=== PATIENT | male | born 1950 | race Caucasian/White ===

== ENCOUNTER → 2018-08-25 10:19 | Outpatient (CLI) | payer BC, SELFPAY ==
[2017-11-16 11:02] VITALS: BMI 36.6
[2018-08-25 11:19] LABS: PSA,Total - Annual Screen < 0.01 ng/mL (0.00-4.00)
== END ==
PROVIDERS: Family Provider Internal Medicine; PCP Internal Medicine; Referring Provider Urology; Visit Provider Urology
DX: Z12.5 Encounter for screening for malignant neoplasm of prostate (principal)
CPT/HCPCS: 36415; 84153; G0103

== ENCOUNTER 2019-01-01 08:13 | Emergency (ER) | payer BC, SELFPAY ==
[2018-11-21 09:01] VITALS: BMI 37.3
[2019-01-01 08:14] VITALS: BP 152/78; PULSE 78; RESP 16; TEMP 36.1; O2SAT 97; BMI 37.3
--- NOTE | 2019-01-01 08:26 | CT_ITS ---
STUDY: CTA NECK WITH CONTRAST REASON FOR EXAM: Male, 68 years old. Right facial paresthesia. RADIATION DOSAGE (If Supplied By Facility): CTDIvol = ( 36.65 ) mGy, DLP = ( 1706.20 ) mGycm TECHNIQUE: CT angiography with multi-detector data acquisition was performed from the aortic arch to the skull base following intravenous administration of 100ml IV Isovue 370. MIP images were reconstructed from the axial data set. Post-processing of the angiographic images was performed, with multiplanar reformation and 3D reconstruction. Individualized dose optimization techniques were used for this CT. COMPARISON: None. FINDINGS: AORTIC ARCH: Normal visualized aortic arch. Normal origins of the brachiocephalic, left common carotid, and left subclavian arteries. RIGHT CAROTID ARTERIES: Normal right common carotid artery (CCA). Normal right common carotid bulb. There is mild atherosclerotic plaque formation of the origin of the right internal carotid artery with less than 50% cross sectional diameter stenosis. Normal visualized cervical portion of the right internal carotid artery. Normal origin of the right external carotid artery (ECA). LEFT CAROTID ARTERIES: Normal left common carotid artery (CCA). Normal left common carotid bulb. Normal origin of the left internal carotid (ICA) artery without a hemodynamically significant stenosis. Normal visualized cervical portion of the left internal carotid artery. Normal origin of the left external carotid artery (ECA). VERTEBRAL ARTERIES: Normal bilateral vertebral arteries. CT/CTA Neck W/WO Contrast IMPRESSION: No significant calcific plaque at the origin of both the right and left internal carotid arteries. Electronically Signed: Constantin Gilliam, at 10:32 EDT , Service support ,
--- NOTE | 2019-01-01 08:26 | CT_ITS ---
STUDY: CTA OF THE BRAIN REASON FOR EXAM: Male, 68 years old. Right facial paresthesia. History of prostate cancer. RADIATION DOSAGE (If Supplied By Facility): CTDIvol = ( 36.65 ) mGy, DLP = ( 1706.20 ) mGycm TECHNIQUE: CT angiography was performed with a multi-detector CT scanner. Data acquisition was obtained from the skull base through the vertex following intravenous administration of 100ML IV Isovue 370. MIP images were reconstructed from the axial data set. Post-processing of the angiographic images was performed, with multiplanar reformation and 3D reconstruction. Individualized dose optimization techniques were used for this CT. COMPARISON: None. FINDINGS: Normal bilateral petrous carotid arteries. There is calcified plaque formation of the right cavernous carotid artery, without a cross-sectional luminal stenosis. There is calcified plaque formation of the left cavernous carotid artery, without a cross-sectional luminal stenosis. Normal right A1 segments of the anterior cerebral artery. There is non-visualization of the left A1 segment of the anterior cerebral arteries consistent with either aplastic development or an occlusion. Normal intact anterior communicating artery (ACOM). Normal bilateral A2 segments of the anterior cerebral arteries. Normal right M1 and M2 segments of the middle cerebral arteries, with a normal M1 bifurcation. Normal left M1 and M2 segments of the middle cerebral arteries, with a normal M1 bifurcation. There is a persistent origin of the right posterior cerebral artery with absence of the posterior communicating artery (PCOM). There is a persistent origin of the left posterior cerebral artery with absence of the posterior communicating artery (PCOM). Normal bilateral vertebral arteries. Normal basilar artery with a normal basilar bifurcation. The visualized bilateral superior cerebellar (SCA) arteries are normal. Normal bilateral P1, P2 and visualized P3 segments of the posterior cerebral arteries. There is no demonstrated aneurysm of the [place]. Mild cerebral atrophy. Mild mucosal thickening of the ethmoid sinuses bilaterally. CT/CTA Head W/WO Contrast IMPRESSION: Calcific plaque in both cavernous portions of the internal carotid arteries bilaterally. Nonvisualization of the left A1 segment of the anterior cerebral artery. Electronically Signed: Constantin Gilliam, at 10:20 EDT , Service support ,
--- NOTE | 2019-01-01 08:26 | EKG12_ITS ---
Test Reason : NUMBNESS Blood Pressure : / mmHG Vent. Rate : 083 BPM Atrial Rate : 083 BPM P-R Int : 136 ms QRS Dur : 136 ms QT Int : 406 ms P-R-T Axes : 053 014 -07 degrees QTc Int : 477 ms Sinus rhythm with occasional Premature ventricular complexes Right bundle branch block Cannot rule out Inferior infarct , age undetermined Abnormal ECG Confirmed by VALENCIA BANKS, DOMENIC ([id number]), art editor MONICA DAMICO ([id number]) on 01/02/2019 4:09:22 PM Referred By: TONI Confirmed By:DOMENIC BIRMINGHAM MD
--- NOTE | 2019-01-01 08:28 | ED.DCSUM_ITS ---
- ER Visit Summary Date of Service: 01/01/19 Chief Complaint: Facial numbness History of Present Illness: The patient is a [address] Charles. Reports approximately 7:00 this morning he had twitching of his right lower eyelid lasted for 15-20 seconds and then resolved. Reports at the same time he began having right facial numbness. This lasted approximately 30 minutes and is now resolved. He denies any numbness or weakness elsewhere. No facial droop. No slurred speech. No a aphasia. No vertigo or balance problems. Physical Examination: Vitals: Stable. Afebrile. General: Well-nourished and well-developed. Head: Normocephalic atraumatic. Neck: Supple, no lymphadenopathy. No JVD. Nontender. Cardiovascular: Regular rate and rhythm. No murmurs. Respiratory: No respiratory distress. Clear to auscultation bilaterally. Abdominal: Soft, nontender, nondistended, normal bowel sounds. No guarding, rebound, or peritoneal signs. Back: Nontender. Extremities: Nontender, no edema. Skin: Normal color, no rash. Neurologic: Alert and oriented ?3. Cranial nerves II through XII are intact. Normal strength and sensation. NIH scale is 0. Psych: Normal affect. Test Results: EKG is sinus at 83 with PVCs and nonspecific ST changes. Troponin is less than 0.015. Chem-7 shows a sodium 135, potassium 3.4, BUN of 27, glucose 119. CBC shows a hemoglobin of 17 and monocytes of 11. Clinical Impression(s) from Imaging Studies Head CTA 01/01/19 08:26 IMPRESSION: Calcific plaque in both cavernous portions of the internal carotid arteries bilaterally. Nonvisualization of the left A1 segment of the anterior cerebral artery. Electronically Signed: Constantin Gilliam, at 10:20 EDT , Service support , Neck CTA 01/01/19 08:26 IMPRESSION: No significant calcific plaque at the origin of both the right and left internal carotid arteries. Electronically Signed: Constantin Gilliam, at 10:32 EDT , Service support , Emergency Department Course and Treatment: Patient's NIH scale is 0. He is not a TPA candidate. He is resting comfortably. He is resting comfortably. Treatment Plan: Patient feels well and would like to go home. He was discussed with Dr. Munroe. At this time and so that is a reasonable course of action. Instructed to follow-up Dr. Charles as soon as possible. I did discuss with him that if he has any other neurologic symptoms to return to emerge department and he would be admitted for further evaluation and treatment. Disposition: To home in improved and stable condition. Impression: 1. Right facial paresthesias, resolved. This note was generated with [employer] dictation software. It may contain incorrect words, spelling, and punctuation that were not noted in review of the chart prior to signing ED Disposition - Plan for ED Patient: Instructions: ED Paraesthesias Referrals: Jung Charles MD [Primary Care Provider] - As soon as possible
[2019-01-01] MEDS: 0.9% Normal Saline 1,000 ML 100 ML IV (08:51)
[2019-01-01 08:55] LABS: Absolute Lymphocyte Count 1.88 X10^3/ul (0.83-4.51); Absolute Neutrophil Count 4.1 X10^3/uL (2.0-7.7); Basophil# 0.02 X10^3/uL; Basophil% 0.3 % (0-1); Eosinophil# 0.12 X10^3/uL; Eosinophils% 1.7 % (0-5); Lymphocyte # 1.88 X10^3/ul (4.0); Lymphocyte % 27.2 % (19-41); Mean Corp Hgb Conc 35.4 g/gl (32-36); Mean Corpuscular Hgb 31.2 pg (27.0-32.0); Mean Corpuscular Volume 88.1 fL (80-94); Mean Platelet Vol. 9.5 fl (6.2-12.0); Monocyte# 0.73 X10^3/uL; Monocyte% 10.6 % (0-10); Neutrophil # 4.14 X10^3/uL (2.7-7.7); Neutrophil % 59.9 % (47-70); POSITIVE COUNT NO; POSITIVE DIFFERENTIAL NO; POSITIVE MORPHOLOGY NO; Platelet Count 182 K/mm3 (150-450); RBC Distribution Width CV 12.9 % (11.6-14.6); RBC Distribution Width SD 41.1 fl (35.1-43.9); Red Blood Count 5.45 M/mm3 (4.6-6.2); White Blood Count 6.9 K/mm3 (4.4-11.0)
[2019-01-01 09:07] LABS: Anion Gap 5 (5-15); BUN 27 mg/dL (7-18); BUN/Creat Ratio 24.8 RATIO (10-20); Calcium,Total 9.2 mg/dL (8.5-10.1); Chloride 101 mmol/L (98-107); Creatinine, Serum 1.09 mg/dL (0.70-1.30); EST Glomerular Filtration Rate 72 mL/min (>60); Est Glom Filt Rate - Afr Amer 87 mL/min (>60); Estimated Creatinine Clearance 57.99 ml/min; Glucose 119 mg/dL (74-106); Potassium 3.4 mmol/L (3.5-5.1); Sodium Level 135 mmol/L (136-145)
[2019-01-01 11:08] VITALS: BP 122/77; PULSE 64; RESP 17; RESP 18; O2SAT 99
== END 2019-01-01 11:09 | disposition home or self-care (01) ==
PROVIDERS: Emergency Provider Emergency Medicine; Family Provider Internal Medicine; PCP Internal Medicine
DX: R20.2 Paresthesia of skin (principal); I49.3 Ventricular premature depolarization; I10 Essential (primary) hypertension; E78.00 Pure hypercholesterolemia, unspecified; Z85.46 Personal history of malignant neoplasm of prostate
CPT/HCPCS: 70496; 70498; 80048; 84484; 85025; 93005; 96360; 96361; 99284; J7030; Q9967; A4216

== ENCOUNTER 2019-03-21 13:26 | Observation (INO) | payer BC, MEDICARE, SELFPAY ==
[2019-03-19 13:36] VITALS: BMI 37.3
[2019-03-21] VITALS (8 sets, daily range): BP systolic 113–148; BP diastolic 67–86; PULSE 70–88; RESP 16–22; TEMP 36.8; O2SAT 92–99; BMI 36.6; BMI 36.1
--- NOTE | 2019-03-21 13:51 | EKG12_ITS ---
Test Reason : CP Blood Pressure : / mmHG Vent. Rate : 088 BPM Atrial Rate : 088 BPM P-R Int : 140 ms QRS Dur : 134 ms QT Int : 388 ms P-R-T Axes : 056 030 000 degrees QTc Int : 469 ms Sinus rhythm with occasional Premature ventricular complexes Right bundle branch block Abnormal ECG Confirmed by JUANCHO SARAVIA ([id number]), website/blog editor CURLY FULLER ([id number]) on 03/26/2019 12:58:00 PM Referred By: ANNETTE Confirmed By:JUANCHO SARAVIA
--- NOTE | 2019-03-21 13:58 | RAD_ITS ---
STUDY: X-RAY CHEST REASON FOR EXAM: Male, 68 years old. Chest pain and chest pressure. TECHNIQUE: Single AP portable view of the chest. COMPARISON: None. FINDINGS: EKG electrodes are seen. Linear atelectasis and/or scarring at the left lung base. There is no demonstrated pleural abnormality. There is borderline cardiomegaly. Normal mediastinum and noel. Normal visualized pulmonary arteries. There is atherosclerotic tortuosity of the aortic arch and descending thoracic aorta. There are diffuse degenerative changes of the visualized thoracic spine. Normal visualized ribs, clavicles, and shoulders. There is no demonstrated abnormality of the visualized soft tissue structures of the upper abdomen. RAD/Chest 1 View (Portable) IMPRESSION: Linear atelectasis and/or scarring at the left lung base. Electronically Signed: Constantin Gilliam, at 14:44 EDT , Service support ,
[2019-03-21 14:03] LABS: Absolute Lymphocyte Count 2.09 X10^3/ul (0.83-4.51); Absolute Neutrophil Count 5.5 X10^3/uL (2.0-7.7); Basophil# 0.02 X10^3/uL; Basophil% 0.2 % (0-1); Eosinophil# 0.12 X10^3/uL; Eosinophils% 1.4 % (0-5); Hematocrit 45.9 % (40-54); Lymphocyte # 2.09 X10^3/ul (4.0); Mean Corp Hgb Conc 34.9 g/gl (32-36); Mean Corpuscular Hgb 30.9 pg (27.0-32.0); Mean Corpuscular Volume 88.8 fL (80-94); Mean Platelet Vol. 9.6 fl (6.2-12.0); Monocyte# 0.91 X10^3/uL; Monocyte% 10.5 % (0-10); Neutrophil # 5.54 X10^3/uL (2.7-7.7); Neutrophil % 63.7 % (47-70); Platelet Count 222 K/mm3 (150-450); RBC Distribution Width CV 12.7 % (11.6-14.6); RBC Distribution Width SD 41.2 fl (35.1-43.9); Red Blood Count 5.17 M/mm3 (4.6-6.2); White Blood Count 8.7 K/mm3 (4.4-11.0)
[2019-03-21 14:04] LABS: POSITIVE COUNT NO; POSITIVE DIFFERENTIAL NO; POSITIVE MORPHOLOGY NO
[2019-03-21 14:13] LABS: Anion Gap 5 (5-15); BUN 23 mg/dL (7-18); BUN/Creat Ratio 19.3 RATIO (10-20); Calcium,Total 9.7 mg/dL (8.5-10.1); Chloride 100 mmol/L (98-107); Creatinine, Serum 1.19 mg/dL (0.70-1.30); EST Glomerular Filtration Rate 65 mL/min (>60); Est Glom Filt Rate - Afr Amer 79 mL/min (>60); Estimated Creatinine Clearance 53.12 ml/min; Glucose 146 mg/dL (74-106); Potassium 3.6 mmol/L (3.5-5.1); Sodium Level 134 mmol/L (136-145)
[2019-03-21] MEDS: 0.9% Normal Saline 1,000 ML 150 ML IV (14:21)
[2019-03-21] MEDS: Aspirin 81 MG TAB.CHEW 243 MG PO (14:21)
--- NOTE | 2019-03-21 14:47 | ED.VISSUMM ---
- ER Visit Summary Date of Service: 03/21/19 Chief Complaint: Chest pain History of Present Illness: The patient is a 68 M who presents with chest pressure that started yesterday. Is worse with exertion and better with rest. Patient was seen by Dr. Rincon 2 days ago for cardiac clearance for upcoming back surgery. Patient is scheduled for an echo and nuclear stress test next week. He has had recent dyspnea on exertion which prompted further work-up with echo and stress test. Patient has history of hypertension high cholesterol. He has had prior normal stress test with no known cardiac disease. Physical Examination: Vital signs are unremarkable. Patient sitting upright in bed no acute distress. Head and neck examination normal. Heart is regular rate and rhythm. Lung sounds are clear. Chest wall is nontender to palpation. Abdomen is soft nontender. Lower extremity examination was no calf tenderness or edema. Test Results: EKG is sinus 80 with occasional PVCs. No acute ischemia. Portable chest x-ray shows chronic changes. CBC is normal. Chemistry studies grossly unremarkable. Troponin less than 0.015. Emergency Department Course and Treatment: Patient took 1 baby aspirin this morning and was given an additional 243 mg here. While sitting at rest in the bed he has had no further chest pain. I spoke with Dr. Rincon. He agrees the safest route for him is to stay in the hospital until stress test can be done on Tuesday. Unfortunately with tomorrow being a holiday he will not be able to get a stress test at that time. This was discussed with the patient. He agrees to stay in the hospital for stress test on the . Hospitalist has been contacted. Treatment Plan: [] Disposition: Admit Impression: Chest pain This note was generated with [employer] dictation software. It may contain incorrect words, spelling, and punctuation that were not noted in review of the chart prior to signing ED Disposition - Plan for ED Patient: Referrals: Jung Charles MD [Primary Care Provider] -
--- NOTE | 2019-03-21 15:09 | HP.PCM_ITS ---
Problem List (1) Stable angina Status: Acute History of Present Illness Date of Admission: 03/21/19 Chief Complaint: chest pressure The patient is a 68 year old M the possibilities patient has been having chest pressure. Duration related and abates with rest. Patient also has shortness of breath it is not necessary directly correlated with this. Also complains of associated dizziness, diaphoresis. Patient is never had symptoms such as this in the past. Patient has seen cardiology in the past but has never had an overt cardiac issue but has seen Dr. Rincon previously due to his family history. Patient was to have some lower back surgery but required cardiac clearance and saw Dr. Rincon on the first. Plan was for him to get a echocardiogram as well as stress test done in the coming weeks. Patient is made aware that stress test would not be performed until the fifth and that he would require staying here in the hospital until then. Patient was given the option to go home and continue with his stress test for next week but he prefers to stay given his new symptomatology. [] Past Medical History Past Medical History (Chronic Problems): Chronic Problems (Last Reviewed 03/21/19 @ 15:11 by Lavell Johnson DO) Mixed hyperlipidemia (Chronic) Essential hypertension (Chronic) Obstructive sleep apnea (Chronic) Shortness of breath (Chronic) Abnormal electrocardiogram (Chronic) Medical History: Medical History (Last Reviewed 03/21/19 @ 15:11 by Lavell Johnson DO) Mixed hyperlipidemia (Chronic) E78.2 Essential hypertension (Chronic) I10 Obstructive sleep apnea (Chronic) G47.33 Shortness of breath (Chronic) R06.02 Abnormal electrocardiogram (Chronic) R94.31 Family history of hypertension Z82.49 BILL (obstructive sleep apnea) G47.33 BPH (benign prostatic hyperplasia) N40.0 Family history of premature coronary artery disease Z82.49 Prostate cancer C61 TIA (transient ischemic attack) G45.9 Benign prostatic hypertrophy (Inactive) N40.0 Family history of hypertension (Inactive) Z82.49 Family history of premature coronary heart disease (Inactive) Z82.49 Male < 55 Obesity (BMI 30-39.9) (Inactive) E66.9 Obstructive sleep apnea (Inactive) G47.33 Prostate cancer (Inactive) C61 Allergies No Known Allergies Allergy (Verified 03/21/19 13:29) Home Medications: Ambulatory Orders Medication Instructions Recorded Aspirin E.C. [Ecotrin] 81 mg PO DAILY@0800 04/24/14 Fish Oil/Dha/Epa [Fish Oil 1,200 1 cap PO DAILY 04/24/14 mg Fish Oil] trospium ER 60 mg capsule,extended 60 mg PO DAILY 11/16/17 release 24 hr meloxicam 15 mg tablet 15 mg PO DAILY 11/21/18 chlorthalidone 25 mg tablet 12.5 mg PO DAILY tab 03/19/19 lovastatin 20 mg tablet 20 mg PO QHS 03/19/19 Amlodipine Besylate [Norvasc] 10 mg PO DAILY 03/21/19 Quinapril HCl 40 mg PO DAILY 03/21/19 Surgical History: Surgical History (Last Reviewed 03/21/19 @ 15:11 by Lavell Johnson DO) History of prostatectomy Z98.890, Z90.79 History of removal of cyst Onset Date: ~1965 Z98.890 tailbone History of tonsillectomy Onset Date: ~1999 Z98.890, Z90.89 History of uvulectomy Onset Date: ~1999 Z90.89 S/P correction of deviated nasal septum Onset Date: ~1999 Z98.890 Surgical History: herniorrhaphy Psychiatric History: No pertinent psych hx Smoking Status: Never smoker - *Family History Maternal Family History: Family History (Last Reviewed 03/21/19 @ 15:11 by Lavell Johnson DO) Father CAD (coronary artery disease) Hypertension Mother Diabetes Hypertension Sister Hypertension Other Family history of hypertension Family history of premature coronary heart disease Review of Systems Constitutional: Denies: Chills, Fever, Weight Change Eyes: Denies: Blurred vision, Double vision HEENT: Denies: Head Aches, Sinus Congestion, Sinus Drainage Cardiovascular: Denies: Chest Pain, Palpitations Respiratory: Reports: Shortness of breath upon exertion. Denies: Cough, Shortness of breath at rest, Sputum production Gastrointestinal: Denies: Abdominal Pain, Diarrhea, Hematochezia, Nausea, Vomiting Genitourinary: Denies: Dysuria, Hematuria Musculoskeletal: Denies: Joint Pain, Joint Tenderness Skin: Denies: Rash, Wounds Neurological: Denies: Numbness, Tingling, Focal weakness Psychiatric: Denies: Anxiety, Depression Hematologic/ Lymphatic: Denies: Easy Bruising, Easy Bleeding, Hx of blood clot Comment: A 10 point review of systems were negative except as mentioned in the history of present illness and the other review of systems. VTE Information - Inpt Only VTE Present on Admission: No VTE Mechan Device Prophylaxis: None VTE Pharm Prophylaxis ordered?: No Reason prophylaxis not ordered:: Procedure Not Indicated Patient Problems: Active and Suspected Problems (Last Reviewed 03/21/19 @ 15:11 by Lavell Johnson DO) Stable angina (Acute) - Physical Exam General: Alert, Cooperative, No apparent distress HEENT: Atraumatic, Normocephalic Oral: Moist Mucosa, No Gingival or Mucosal Lesions/ Ulcerations Neck: No Nodes, Thyroid Normal Size and Texture Lungs: Clear to auscultation, Normal air movement, No rhonchi, No wheeze, No rales, Diminished Cardiovascular: Regular rate, Regular Rhythm, Normal S1, Normal S2, No murmurs Abdomen: Bowel Sounds Present, Soft, Non Tender, Non-Distended, No Hepato- splenomegaly Extremities: No edema, No Calf Tenderness Skin: No rashes, No breakdown Musculoskeletal: No Tenderness to Palpation of Joints or Extremities, No Muscle Wasting Neurological: Muscle tone normal, Coordination normal Psych/Mental Status: Normal Affect, Appropriate Vital Signs Temp Pulse Resp BP Pulse Ox 36.8 C 83 17 128/76 H 94 03/21/19 13:27 03/21/19 14:29 03/21/19 14:29 03/21/19 14:29 03/21/19 14:29 Oxygen Delivery Method Room Air Weight: 99.7 kg Body Mass Index (BMI) 36.6 Laboratory Tests Past 24 Hrs 03/21/19 03/21/19 13:45 13:45 WBC 8.7 RBC 5.17 Hgb 16.0 Hct 45.9 MCV 88.8 MCH 30.9 MCHC 34.9 RDW 12.7 RDW Differential 41.2 Plt Count 222 MPV 9.6 Immature Gran % (Auto) 0.200 Neut % (Auto) 63.7 Lymph % (Auto) 24.0 [place] % (Auto) 10.5 H Eos % (Auto) 1.4 Baso % (Auto) 0.2 Absolute Neuts (auto) 5.5 Absolute Lymphs (auto) 2.09 Total Counted Not Reportable Sodium 134 L Potassium 3.6 Chloride 100 Carbon Dioxide 29.0 Anion Gap 5 BUN 23 H Creatinine 1.19 Estim Creat Clear Calc 53.12 Est GFR (MDRD) Af Amer 79 Est GFR (MDRD) Non-Af 65 BUN/Creatinine Ratio 19.3 Glucose 146 H Calcium 9.7 Troponin I < 0.015 EKG showed normal sinus rhythm with right bundle branch block. Unchanged from December of this year. X-ray reviewed and showed no acute pulmonary process. Assessment/Plan All Active Problems (Last Reviewed 03/21/19 @ 15:11 by Lavell Johnson DO) Stable angina (Acute) 1. Stable angina * Concern for cardiac given his history * Heart score of 5 and a MAURICIO score of 3 * Patient will continue with aspirin * We will cycle troponins * Stress test to be performed on the fifth. Stress test will not be able to be performed on the fourth given the holiday. Patient is aware of this. Patient proves given the option to go home and have his previous scheduled stress test performed, patient prefers to stay given his new symptoms. * Discussed with patient that cardiology would not be consulted at this time unless his troponins trend upwards or if the stress test is abnormal. 2. Spinal stenosis * Patient will get his cardiac clearance if it is negative with the attesting that will be performed during this hospitalization. * Patient made aware that if he does require stent, then his back surgery will need to be held off for a year before he can come off of Plavix 3. VTE prophylaxis: Patient is observation status and is free to ambulate. Therefore, the patient is low risk at this time and no VTE prophylaxis is indicated. Code Visit OBSV E&M: 88738 Initial observation care L3
--- NOTE | 2019-03-21 15:12 | CASEMGMT ---
RN CM Assessment Introduced role of RN CM to patient.? Patient is alert, oriented and able?to participate in RN CM Assessment. ?Care providers, pharmacy, and demographics verified. Patient [id number] Leila stopped by and works here at [facility] [place] cardiac rehab ext [phone] if needed. Presentation: Chest Pressure started yesterday, Dyspnea on exertion. Seen x2 days ago by Dr Rincon and scheduled for a Echo & Nuclear Stress test next week. Plan for upcoming back surgery. Admit Dx: CP Re-Admit: No Barriers/Issues: None PCP: Jung Charles Specialists: Cardio- Dr Rincon, Ortho- Dr Cline at [facility] Preferred Pharmacy: [facility] Insurance: [employer] Benefit: Yes? LNOK: Antonella Vigil LW/HPOA: Yes both on file at [facility] [place], HPOA- Antonella Vigil Living Arrangements:?Lives with in a [place] home, 2 steps to enter ADL?s: Independent with ambulation and ADLs Transportation: Patient drives, drove self to hospital and plans to drive home upon DC DME: CPAP HHC: None SNF: None Goal: Home, does not think will have any needs. Denies questions or concerns. Aware CM remains available ,for any emerging needs. DC PLAN: Home with no anticipated ,needs identified at this time. RIANNA Duque
--- NOTE | 2019-03-21 15:16 | ECHOCS_ITS ---
Reason For Study: RBBB Procedure This was a 2D Doppler, Color Flow transthoracic echocardiogram. The study was technically difficult. Contrast injection was performed. Exam performed portable in patient room. Left Ventricle Normal size and thickness. The estimated ejection fraction is 65 %. Stage 1 diastolic dysfunction. No regional wall motion abnormalities noted. Right Ventricle Normal size and thickness. Normal systolic function. Atria Normal left atrium. Normal right atrium. Normal atrial septum. Mitral Valve The mitral valve is structurally normal. No prolapse or stenosis seen. Tricuspid Valve Normal tricuspid valve. Unable to estimate RV systolic pressure due to insufficient tricuspid regurgitant envelope. Aortic Valve Trisinus/trileaflet aortic valve. Mild focal aortic valve thickening. There is no aortic stenosis. Pulmonic Valve Normal pulmonic valve. Great Vessels Normal aortic root. Normal arch. Normal inferior vena cava. Inferior vena cava collapse with sniff. Pericardium/Pleural No pericardial effusion. Medication Diluted definity 3ml given slow IV push to enhance endocardial definition. MMode/2D Measurements & Calculations LVIDd: 5.4 cm IVSd: 1.0 cm Ao root diam: 3.3 cm LVIDs: 3.4 cm LVPWd: 1.1 cm RVDd: 5.3 cm FS: 36.4 % LAV(MOD-bp): 28.2 ml LVAd ap4: 27.4 cm2 SV(MOD-sp4): 59.4 ml LAV(MOD-bp) Indexed: 14.0 ml/m2 EDV(MOD-sp4): 84.6 ml LAV(MOD-sp2): 26.5 ml EDV(sp4-el): 87.6 ml LAV(MOD-sp4): 26.9 ml LVAs ap4: 13.5 cm2 ESV(MOD-sp4): 25.2 ml ESV(sp4-el): 25.4 ml EF(MOD-sp4): 70.2 % EF(sp4-el): 71.0 % SV(sp4-el): 62.1 ml LA A4 area: 13.0 cm2 LA dimension(2D): 3.6 cm RA A4 area: 11.3 cm2 Doppler Measurements & Calculations MV E max mike: 78.5 cm/sec Lat Peak E' Mike: 7.5 cm/sec Med Peak E' Mike: 5.1 cm/sec MV A max mike: 94.6 cm/sec E/E' lat: 10.5 E/E' med: 15.4 MV E/A: 0.83 Ao V2 max: 166.9 cm/sec LV V1 max: 108.3 cm/sec PA V2 max: 119.4 cm/sec Ao max P.1 mmHg LV V1 max P.7 mmHg Ao V2 mean: 118.9 cm/sec Ao mean P.2 mmHg Ao V2 VTI: 33.4 cm Interpretation Summary The estimated ejection fraction is 65 %. Stage 1 diastolic dysfunction. Unable to estimate RV systolic pressure due to insufficient tricuspid regurgitant envelope. Compared to echo report dated 07/03/2013, no appreciable changes noted. Ordering Physician: Lavell Johnson Referring Physician: Jung Charles Performed By: Sheryl Leblanc, GEOFF, RVT
--- NOTE | 2019-03-21 15:28 | EKG12_ITS ---
Test Reason : Blood Pressure : / mmHG Vent. Rate : 081 BPM Atrial Rate : 081 BPM P-R Int : 144 ms QRS Dur : 132 ms QT Int : 412 ms P-R-T Axes : 048 012 005 degrees QTc Int : 478 ms Normal sinus rhythm Right bundle branch block Abnormal ECG Confirmed by EDMUNDO BANKS, RADHA ([id number]), fan mail editor CURLY FULLER ([id number]) on 03/26/2019 1:44:48 PM Referred By: KRISTI Confirmed By:RADHA WYATT MD
[2019-03-21] MEDS: Atorvastatin Calcium 10 MG Tablet 5 MG PO (21:35)
[2019-03-22] VITALS (9 sets, daily range): BP systolic 121–149; BP diastolic 68–81; PULSE 61–85; RESP 16–18; TEMP 36.6–36.9; O2SAT 96–98
[2019-03-22 07:56] LABS: Cholesterol 243 mg/dL (200); High Density Lipoprotein 38 mg/dL; Triglycerides 188 mg/dL; Very Low Density Lipoprotein 38 mg/dL (5-40)
--- NOTE | 2019-03-22 08:37 | EKG12_ITS ---
Test Reason : CP ADMIT Blood Pressure : / mmHG Vent. Rate : 075 BPM Atrial Rate : 075 BPM P-R Int : 142 ms QRS Dur : 138 ms QT Int : 434 ms P-R-T Axes : 041 006 -08 degrees QTc Int : 484 ms Normal sinus rhythm Right bundle branch block T wave abnormality, consider inferior ischemia Abnormal ECG Confirmed by EDMUNDO BANKS, RADHA ([id number]), telegraph editor CURLY FULLER ([id number]) on 03/26/2019 1:50:58 PM Referred By: KRISTI Confirmed By:RADHA WYATT MD
[2019-03-22] MEDS: Aspirin E.C. 81 MG Tablet PO (09:02)
[2019-03-22] MEDS: Lisinopril 40 MG Tablet PO (09:02)
[2019-03-22] MEDS: Tolterodine Tartrate 4 MG CAP.SA PO (09:02)
[2019-03-22] MEDS: amLODIPine 10 MG Tablet PO (09:03)
[2019-03-22] MEDS: Chlorthalidone 50 MG Tablet 12.5 MG PO (09:05)
--- NOTE | 2019-03-22 09:59 | PCM.PN.HOSP ---
Patient Problems: Active and Suspected Problems (Last Reviewed 03/21/19 @ 15:11 by Lavell Johnson DO) Stable angina (Acute) Subjective: Patient is a 68-year-old gentleman who presented with exertional dyspnea. Patient has been placed on a monitored bed currently undergoing evaluation Objective: GENERAL: cooperative HEENT: Atraumatic; EYES; Anicteric, Normal Conjunctiva NECK; supple, normal thyroid, RESPIRATORY: Diminished to auscultation CARDIOVASCULAR: Regular S1 S2, GI: soft, non-tender, normoactive bowel sounds, : No Renal angle tenderness; EXTREMITIES: No edema, no clubbing, MUSCULOSKELETAL: No Joint Tenderness; NEURO: Awake; no lateralizing signs. SKIN: No Rash PSYCH; Normal affect Vitals/I&O's: Vital Signs Temp Pulse Resp BP Pulse Ox 98.2 F 85 18 146/75 H 98 03/22/19 09:00 03/22/19 09:00 03/22/19 09:00 03/22/19 09:00 03/22/19 09:00 Oxygen Delivery Method Room Air Weight: 98.43 kg Body Mass Index (BMI) 36.1 Intake and Output for Last 24 Hours 03/20/19 03/21/19 03/22/19 23:59 23:59 23:59 Intake Total 240 / 540 540 / 540 Balance 240 / 540 540 / 540 Laboratory Results 03/21/19 13:45: WBC 8.7, RBC 5.17, Hgb 16.0, Hct 45.9, MCV 88.8, MCH 30.9, MCHC 34.9, RDW 12.7, RDW Differential 41.2, Plt Count 222, MPV 9.6, Immature Gran % (Auto) 0.200, Neut % (Auto) 63.7, Lymph % (Auto) 24.0, Cannon % (Auto) 10.5 H, Eos % (Auto) 1.4, Baso % (Auto) 0.2, Absolute Neuts (auto) 5.5, Absolute Lymphs (auto) 2.09, Total Counted Not Reportable 03/21/19 13:45: Sodium 134 L, Potassium 3.6, Chloride 100, Carbon Dioxide 29.0, Anion Gap 5, BUN 23 H, Creatinine 1.19, Estim Creat Clear Calc 53.12, Est GFR (MDRD) Af Amer 79, Est GFR (MDRD) Non-Af 65, BUN/Creatinine Ratio 19.3, Glucose 146 H, Calcium 9.7, Troponin I < 0.015 03/21/19 16:54: Troponin I < 0.015 03/21/19 19:54: Troponin I < 0.015 03/22/19 06:15: Triglycerides 188, Cholesterol 243 H, LDL Cholesterol 167 H, VLDL Cholesterol 38, HDL Cholesterol 38 L Current Medications Acetaminophen (Tylenol) 650 mg PO Q6H PRN PRN PRN Reason: Mild pain 1-3/Temp > 100.7 F Amlodipine Besylate (Norvasc) 10 mg PO DAILY [facility] Last Admin: 03/22/19 09:03 Dose: 10 mg Documented by: Aspirin (Ecotrin) 81 mg PO DAILY@0800 [facility] Last Admin: 03/22/19 09:02 Dose: 81 mg Documented by: Atorvastatin Calcium (Lipitor) 5 mg PO QHS [facility] Last Admin: 03/21/19 21:35 Dose: 5 mg Documented by: Chlorthalidone (Hygroton) 12.5 mg PO DAILY [facility] Last Admin: 03/22/19 09:05 Dose: 12.5 mg Documented by: Lisinopril (Zestril) 40 mg PO DAILY [facility] Last Admin: 03/22/19 09:02 Dose: 40 mg Documented by: Melatonin (Melatonin) 3 mg PO QHS PRN PRN PRN Reason: INSOMNIA Morphine Sulfate () 2 mg IV Q3H PRN PRN PRN Reason: Severe Pain (7-10/10) Nitroglycerin (Nitrostat) 0.4 mg SUBLINGUAL Q5M PRN PRN Reason: CARDIAC/CHEST PAIN Ondansetron HCl (Zofran) 4 mg IV Q8H PRN PRN PRN Reason: NAUSEA/VOMITING Oxycodone HCl (Oxyir) 5 mg PO Q4H PRN PRN PRN Reason: Moderate Pain (4-6/10) Sodium Chloride () 10 - 40 ml IV UD PRN PRN Reason: SALINE FLUSH Tolterodine Tartrate (Detrol La) 4 mg PO DAILY [facility] Last Admin: 03/22/19 09:02 Dose: 4 mg Documented by: Medical Necessity - Tobacco Use Smoking Status: Never smoker Tobacco Use: Non-smoker Assessment/Plan All Active Problems (Last Reviewed 03/21/19 @ 15:11 by Lavell Johnson DO) Stable angina (Acute) Patient is a 68-year-old gentleman presented with exertional chest pain 1. Chest pain patient placed in a monitored bed [place] has to have been ruled out with serial cardiac enzymes. Patient however continues to experience intermittent chest pain EKG obtained on the morning of 03/22/2019 did not demonstrate any changes from the one obtained on admission. Plan is for patient undergo a nuclear stress test in a.m. 2. Right bundle branch block on EKG with patient continues to experience intermittent chest pain d-dimer was ordered and if positive will proceed to obtain CT of the chest 3. Hypertension-blood pressure controlled, home medications continued with dose adjustment as needed 4. History of spinal stenosis 5. Obesity with BMI of 36.1 lifestyle modification including weight loss advised 6. Dyslipidemia the diagnosis based on his fasting lipid patient started on atorvastatin 7. DVT prophylaxis SC Lovenox Active Medications Acetaminophen (Tylenol) 650 mg PO Q6H PRN PRN PRN Reason: Mild pain 1-3/Temp > 100.7 F Amlodipine Besylate (Norvasc) 10 mg PO DAILY [facility] Last Admin: 03/22/19 09:03 Dose: 10 mg Documented by: Aspirin (Ecotrin) 81 mg PO DAILY@0800 [facility] Last Admin: 03/22/19 09:02 Dose: 81 mg Documented by: Atorvastatin Calcium (Lipitor) 5 mg PO QHS [facility] Last Admin: 03/21/19 21:35 Dose: 5 mg Documented by: Chlorthalidone (Hygroton) 12.5 mg PO DAILY [facility] Last Admin: 03/22/19 09:05 Dose: 12.5 mg Documented by: Lisinopril (Zestril) 40 mg PO DAILY [facility] Last Admin: 03/22/19 09:02 Dose: 40 mg Documented by: Melatonin (Melatonin) 3 mg PO QHS PRN PRN PRN Reason: INSOMNIA Morphine Sulfate () 2 mg IV Q3H PRN PRN PRN Reason: Severe Pain (7-10/10) Nitroglycerin (Nitrostat) 0.4 mg SUBLINGUAL Q5M PRN PRN Reason: CARDIAC/CHEST PAIN Ondansetron HCl (Zofran) 4 mg IV Q8H PRN PRN PRN Reason: NAUSEA/VOMITING Oxycodone HCl (Oxyir) 5 mg PO Q4H PRN PRN PRN Reason: Moderate Pain (4-6/10) Sodium Chloride () 10 - 40 ml IV UD PRN PRN Reason: SALINE FLUSH Tolterodine Tartrate (Detrol La) 4 mg PO DAILY [facility] Last Admin: 03/22/19 09:02 Dose: 4 mg Documented by: Clinical Impression(s) from Imaging Studies Chest X-Ray 03/21/19 13:58 IMPRESSION: Linear atelectasis and/or scarring at the left lung base. Electronically Signed: Constantin Gilliam, at 14:44 EDT , Service support , Code Visit OBSV E&M: 34398 Subsequent observation care L3
[2019-03-22] MEDS: Enoxaparin 40 MG/0.4 ML Syringe SC (10:46)
[2019-03-22 11:38] LABS: D-Dimer Quantitative (DVT/PE) < 0.27 FEU/ug/m (0.27-0.49)
[2019-03-22 16:50] LABS: Anion Gap 5 (5-15); BUN 23 mg/dL (7-18); BUN/Creat Ratio 20.5 RATIO (10-20); Calcium,Total 9.5 mg/dL (8.5-10.1); Chloride 101 mmol/L (98-107); Creatinine, Serum 1.12 mg/dL (0.70-1.30); EST Glomerular Filtration Rate 70 mL/min (>60); Est Glom Filt Rate - Afr Amer 84 mL/min (>60); Estimated Creatinine Clearance 56.44 ml/min; Glucose 90 mg/dL (74-106); Potassium 3.6 mmol/L (3.5-5.1); Sodium Level 133 mmol/L (136-145)
[2019-03-22] MEDS: Magnesium Citrate 300 ML PO (17:18)
[2019-03-22] MEDS: Atorvastatin Calcium 40 MG Tablet PO (21:50)
[2019-03-23] VITALS (7 sets, daily range): BP systolic 99–132; BP diastolic 52–77; PULSE 59–78; RESP 16; TEMP 36.4–36.9; O2SAT 96–97
[2019-03-23] MEDS: 0.9% NaCl Peripheral Flush Adult/Peds IV (03:30)
--- NOTE | 2019-03-23 04:00 | EKG12_ITS ---
Test Reason : AM EKG Blood Pressure : / mmHG Vent. Rate : 064 BPM Atrial Rate : 064 BPM P-R Int : 146 ms QRS Dur : 132 ms QT Int : 452 ms P-R-T Axes : 037 026 005 degrees QTc Int : 466 ms Normal sinus rhythm Right bundle branch block Abnormal ECG Confirmed by EDMUNDO BANKS, RADHA ([id number]), copy editor CURLY FULLER ([id number]) on 03/26/2019 1:43:19 PM Referred By: DR HATFIELD Confirmed By:RADHA WYATT MD
[2019-03-23 04:28] LABS: Anion Gap 9 (5-15); BUN 29 mg/dL (7-18); BUN/Creat Ratio 22.5 RATIO (10-20); Calcium,Total 9.3 mg/dL (8.5-10.1); Chloride 101 mmol/L (98-107); Creatinine, Serum 1.29 mg/dL (0.70-1.30); EST Glomerular Filtration Rate 59 mL/min (>60); Est Glom Filt Rate - Afr Amer 72 mL/min (>60); Glucose 107 mg/dL (74-106); Magnesium 2.9 mg/dL (1.6-2.6); Potassium 3.9 mmol/L (3.5-5.1); Sodium Level 138 mmol/L (136-145)
[2019-03-23 04:35] LABS: Absolute Lymphocyte Count 2.22 X10^3/ul (0.83-4.51); Absolute Neutrophil Count 5.1 X10^3/uL (2.0-7.7); Basophil# 0.03 X10^3/uL; Basophil% 0.3 % (0-1); Eosinophils% 2.3 % (0-5); Hematocrit 48.3 % (40-54); Hemoglobin 16.6 g/dl (13.0-16.5); Lymphocyte # 2.22 X10^3/ul (4.0); Lymphocyte % 25.8 % (19-41); Mean Corp Hgb Conc 34.4 g/gl (32-36); Mean Corpuscular Hgb 30.1 pg (27.0-32.0); Mean Corpuscular Volume 87.7 fL (80-94); Mean Platelet Vol. 9.5 fl (6.2-12.0); Monocyte# 1.04 X10^3/uL; Monocyte% 12.1 % (0-10); Neutrophil # 5.09 X10^3/uL (2.7-7.7); Platelet Count 228 K/mm3 (150-450); RBC Distribution Width CV 12.6 % (11.6-14.6); RBC Distribution Width SD 40.1 fl (35.1-43.9); Red Blood Count 5.51 M/mm3 (4.6-6.2); White Blood Count 8.6 K/mm3 (4.4-11.0)
[2019-03-23 04:37] LABS: International Normalized Ratio 1.1; POSITIVE COUNT NO; POSITIVE DIFFERENTIAL NO; POSITIVE MORPHOLOGY NO; Prothrombin Time (Protime)PT. 13.6 SECONDS (11.7-14.9)
[2019-03-23 04:38] LABS: Partial Thromboplast Time 26.8 Seconds (24.1-36.2)
[2019-03-23] MEDS: Aspirin E.C. 81 MG Tablet PO (05:53)
[2019-03-23] MEDS: Lisinopril 40 MG Tablet PO (05:53)
--- NOTE | 2019-03-23 09:58 | STRESSREP_ITS ---
Stress Test Report Date: 03-23-19 Procedure: Exercise tolerance test/imaging study Indications: Chest pain Consent: Per the patient Procedure: The patient exercised on a Efrain protocol for 8 minutes completing Stage II and 2 minutes of Stage III achieving a peak heart rate of 134 bpm (87 % predicted maximal heart rate) with a peak blood pressure 204/72 mmHg and a peak MET capacity of 9 METs. The baseline ECG demonstrated normal sinus rhythm; right bundle branch block pattern. The peak exercise ECG demonstrated continued right bundle branch block pattern. There were occasional PVCs pretest, during exercise, in recovery and a rare ventricular couplet during exercise. The functional capacity was considered good. There was no complaint of chest discomfort during exercise or recovery. The examination was discontinued secondary to dyspnea and leg discomfort. Impression: 1. Technically adequate (percent predicted maximal heart rate greater than 85%) exercise tolerance test 2. Peak exercise ECG with continued right bundle branch block pattern 3. There were occasional PVCs pretest, during exercise, in recovery, and rare ventricular couplet during exercise 4. Nuclear images pending Myocardial perfusion imaging study: Technique: The patient was injected with 14.7 mCi of technetium 99m Cardiolite and subsequently rest SPECT Cardiolite nuclear imaging was obtained in the horizontal long, vertical long, and short axis views. The patient exercised on a Efrain protocol for 8 minutes completing Stage II and 2 minutes of Stage III ac hieving a peak heart rate of 134 bpm (87 % predicted maximal heart rate) with a peak blood pressure 204/72 mmHg and a peak MET capacity of 9 METs. The patient was injected with 44.8 mCi of technetium 99m Cardiolite and subsequently stress SPECT Cardiolite nuclear imaging was obtained in the horizontal long, vertical long, and short axis views. A gated Cardiolite study at peak stress was obtained. Interpretation: Rest and stress SPECT Cardiolite nuclear imaging status post realignment, normalization, and attenuation correction, demonstrates the appearance of relative uniform tracer uptake and myocardial perfusion appearing within normal limits. There were no myocardial perfusion deficits appreciated on the stress torment images there is end systolic thickening and brightening. The gated Cardiolite study demonstrates myocardial thickening and inward wall motion. The reported LVEF is 76 %. Impression: 1. Rest and stress SPECT Cardiolite nuclear imaging demonstrate relative unifor m tracer uptake and myocardial perfusion appearing within normal limits. 2. The gated Cardiolite study reports an LVEF of 76 %. This note was generated with [employer] software. It may contain incorrect words, spelling, and punctuation that were not noted in checking the note before signing.
[2019-03-23] MEDS: Tolterodine Tartrate 4 MG CAP.SA PO (10:03)
[2019-03-23] MEDS: amLODIPine 10 MG Tablet PO (10:03)
[2019-03-23] MEDS: Chlorthalidone 50 MG Tablet 12.5 MG PO (10:03)
--- NOTE | 2019-03-23 10:14 | CASEMGMT ---
LW/PORachelle in echart, SW will place in chart. TISHA Raymond
--- NOTE | 2019-03-23 11:38 | EKG12_ITS ---
Test Reason : Blood Pressure : / mmHG Vent. Rate : 076 BPM Atrial Rate : 076 BPM P-R Int : 144 ms QRS Dur : 134 ms QT Int : 404 ms P-R-T Axes : 053 014 004 degrees QTc Int : 454 ms Sinus rhythm with occasional Premature ventricular complexes Right bundle branch block Abnormal ECG Confirmed by EDMUNDO BANKS, RADHA ([id number]), manuscript editor MONICA DAMICO ([id number]) on 03/29/2019 1:22:17 PM Referred By: VON Confirmed By:RADHA WYATT MD
--- NOTE | 2019-03-23 11:43 | PCM.DC ---
- Discharge Diagnoses Current Active Problems: Current Active and Chronic Problems (Last Reviewed 03/21/19 @ 15:11 by Lavell Johnson DO) Dyspnea on exertion You will use the following diet at home:: Cardiac Discharge Activity: Return to Normal Activity Call your doctor if you observe: Shortness of breath, Dizziness, Fainting spells, Chest pain Additional Instructions: Your cardiac workup during admission was normal. Recommend pulmonary function testing as outpatient for further evaluation of dyspnea on exertion. Allergies/Adverse Reactions: Allergies No Known Allergies Allergy (Verified 03/21/19 13:29) Medications to take at Discharge Aspirin E.C. [Ecotrin] 81 mg PO DAILY@0800 04/24/14 Fish Oil/Dha/Epa [Fish Oil 1,200 mg Fish Oil] 1 cap PO DAILY 04/24/14 trospium ER 60 mg capsule,extended release 24 hr 60 mg PO DAILY 11/16/17 meloxicam 15 mg tablet 15 mg PO DAILY 11/21/18 chlorthalidone 25 mg tablet 12.5 mg PO DAILY tab 03/19/19 Amlodipine Besylate [Norvasc] 10 mg PO DAILY 03/21/19 Quinapril HCl 40 mg PO DAILY 03/21/19 Lovastatin 40 mg PO QHS #30 tab 03/23/19 The following prescriptions were given: Lovastatin 40 mg PO QHS #30 tab Transmission Status: Pending to [facility]/pharmacy #[id number] Primary Care Physician: Jung Charles MD [Primary Care Provider] - Please follow up with your Primary Care Physician in: 1 Week Test Results: Test results from this visit will be discussed in further detail at your follow-up appointment, if applicable. Please Follow Up With: Puneet Rincon MD When: As scheduled Proposed Discharge Date: 03/23/19
--- NOTE | 2019-03-23 11:59 | DS.PCM_ITS ---
<Nkechi Griffin - Last Filed: 03/23/19 12:10> Discharge Date and Diagnosis Date of Admission: 03/21/19 Date of Discharge: 03/23/19 - Primary Discharge Diagnosis Active and Suspected Problems (Last Reviewed 03/21/19 @ 15:11 by Lavell Johnson DO) 1. Chest pain, dyspnea on exertion-ACS ruled out. 2. Right bundle branch block 3. Hypertension 4. Hyperlipidemia 5. Spinal stenosis with upcoming plans for surgical intervention 6. Obesity 7. History of prostate cancer status post radical prostatectomy 8. BILL - Secondary Discharge Diagnosis Chronic Problems (Last Reviewed 03/21/19 @ 15:11 by Lavell Johnson DO) Mixed hyperlipidemia (Chronic) Essential hypertension (Chronic) Obstructive sleep apnea (Chronic) Shortness of breath (Chronic) Abnormal electrocardiogram (Chronic) Hospital Course and Treatment Imaging Results: Diagnostic Data Chest X-Ray 03/21/19 13:58 IMPRESSION: Linear atelectasis and/or scarring at the left lung base. Electronically Signed: Constantin Gilliam, at 14:44 EDT , Service support , Operations: None Procedures: 2-D Echocardiogram, Stress test Summary of Care Provided: The patient is a 68 year old M admitted 03/21/2019 due to chest pressure and ongoing dyspnea on exertion. 1. Chest pain, dyspnea on exertion-ACS ruled out. EKG without ST-T changes. Echocardiogram with EF 65%, stage I diastolic dysfunction. Exercise stress test negative for ischemia. Patient has been following with Dr. Rincon for preoperative evaluation for upcoming back surgery as well as evaluation for dyspnea on exertion. Cardiac etiology ruled out. Recommend patient have p ulmonary function testing as outpatient which can be arranged by primary care provider. Follow-up with primary care provider in 1 week. Follow-up with cardiology as scheduled. Patient can proceed with upcoming back surgery per cardiology standpoint. 2. Right bundle branch block-unchanged from prior EKGs. 3. Hypertension-stable, continue home amlodipine, chlorthalidone, quinapril regimen. 4. Hyperlipidemia-Home lovastatin regimen increased to 40 mg p.o. nightly. Prior on 20 mg p.o. nightly, lipid panel elevated. 5. Spinal stenosis with upcoming plans for surgical intervention 6. Obesity-encouraged diet lifestyle modifications. 7. History of prostate cancer status post robotic Radical Prostatectomy 8. BILL-continue CPAP nightly. Patient seen and examined prior to discharge. Physical assessment as noted below. Patient is stable for discharge with follow up recommendations as noted above. This patient was seen by [facility] under the supervision of Dr. Capone. - Physical Exam General: Alert, Oriented x3, Cooperative HEENT: Atraumatic, PERRLA, EOMI, Normocephalic Neck: Supple, No JVD, Negative Carotid Bruits Lungs: Clear to auscultation, Normal air movement Cardiovascular: Regular rate, Regular Rhythm, Normal S1, Normal S2, No murmurs Abdomen: Bowel Sounds Present, Soft, Non Tender, Non-Distended Extremities: No clubbing, No cyanosis, No edema, Capillary Refill Less than 3 Seconds Skin: No rashes, No breakdown Musculoskeletal: No Tenderness to Palpation of Joints or Extremities Neurological: Cranial nerves II-XII grossly intact, Neuro grossly intact Psych/Mental Status: Normal Affect, Appropriate Vital Signs Temp Pulse Resp BP Pulse Ox 98.5 F 75 16 99/52 L 97 03/23/19 11:40 03/23/19 11:40 03/23/19 11:40 03/23/19 11:40 03/23/19 11:40 Oxygen Delivery Method Room Air Weight: 217 lb Body Mass Index (BMI) 36.1 Intake and Output for Last 24 Hours 03/21/19 03/22/19 03/23/19 23:59 23:59 23:59 Intake Total 240 / 540 940 / 1240 300 / 300 Balance 240 / 540 940 / 1240 300 / 300 Laboratory Tests Past 24 Hrs 03/22/19 03/23/19 03/23/19 16:29 03:54 03:54 WBC 8.6 RBC 5.51 Hgb 16.6 H Hct 48.3 MCV 87.7 MCH 30.1 MCHC 34.4 RDW 12.6 RDW Differential 40.1 Plt Count 228 MPV 9.5 Immature Gran % (Auto) 0.500 Neut % (Auto) 59.0 Lymph % (Auto) 25.8 Placer % (Auto) 12.1 H Eos % (Auto) 2.3 Baso % (Auto) 0.3 Absolute Neuts (auto) 5.1 Absolute Lymphs (auto) 2.22 Total Counted Not Reportable PT INR APTT Sodium 133 L 138 Potassium 3.6 3.9 Chloride 101 101 Carbon Dioxide 27.0 28.0 Anion Gap 5 9 BUN 23 H 29 H Creatinine 1.12 1.29 Estim Creat Clear Calc 56.44 49.00 Est GFR (MDRD) Af Amer 84 72 Est GFR (MDRD) Non-Af 70 59 L BUN/Creatinine Ratio 20.5 H 22.5 H Glucose 90 107 H Calcium 9.5 9.3 Magnesium 2.0 2.9 H 03/23/19 03:54 WBC RBC Hgb Hct MCV MCH MCHC RDW RDW Differential Plt Count MPV Immature Gran % (Auto) Neut % (Auto) Lymph % (Auto) Placer % (Auto) Eos % (Auto) Baso % (Auto) Absolute Neuts (auto) Absolute Lymphs (auto) Total Counted PT 13.6 INR 1.1 APTT 26.8 Sodium Potassium Chloride Carbon Dioxide Anion Gap BUN Creatinine Estim Creat Clear Calc Est GFR (MDRD) Af Amer Est GFR (MDRD) Non-Af BUN/Creatinine Ratio Glucose Calcium Magnesium Discharge Diet: Low fat/ Low Cholesterol Discharge Activity: Return to Normal Activity Call your doctor if you observe: Shortness of breath, Dizziness, Fainting spells, Chest pain Home Medications: Medications to take at Discharge Aspirin E.C. [Ecotrin] 81 mg PO DAILY@0800 04/24/14 Fish Oil/Dha/Epa [Fish Oil 1,200 mg Fish Oil] 1 cap PO DAILY 04/24/14 trospium ER 60 mg capsule,extended release 24 hr 60 mg PO DAILY 11/16/17 meloxicam 15 mg tablet 15 mg PO DAILY 11/21/18 chlorthalidone 25 mg tablet 12.5 mg PO DAILY tab 03/19/19 Amlodipine Besylate [Norvasc] 10 mg PO DAILY 03/21/19 Quinapril HCl 40 mg PO DAILY 03/21/19 Lovastatin 40 mg PO QHS #30 tab 03/23/19 Following Prescrptions Were Given to Patient: Lovastatin 40 mg PO QHS #30 tab Transmission Status: Received by [facility]/pharmacy #[id number] Primary Care Physician: Jung Charles MD [Primary Care Provider] - Please follow up with your Primary Care Physician in: 1 Week Please Follow Up With: Puneet Rincon MD When: As scheduled Disposition: Home Minutes spent on discharge:: 35 Patient Condition:: Stable Medical Necessity - Tobacco Use Smoking Status: Never smoker Tobacco Use: Non-smoker Meaningful Use Info Meaningful Use Diagnoses (Choose all that apply): None applicable <Raulito Capone - Last Filed: 03/23/19 12:59> Discharge Date and Diagnosis - Secondary Discharge Diagnosis Chronic Problems (Last Reviewed 03/21/19 @ 15:11 by Lavell Johnson DO) Mixed hyperlipidemia (Chronic) Essential hypertension (Chronic) Obstructive sleep apnea (Chronic) Shortness of breath (Chronic) Abnormal electrocardiogram (Chronic) Hospital Course and Treatment Summary of Care Provided: This patient was seen in conjunction with [facility] . I have independently interviewed and examined the patient and reviewed pertinent historical, laboratory, and other data. Please refer to [facility] note for details of this patient's presentation, findings, and recommendations. I have reviewed [facility] note and concur with documented findings. In brief, patient is a 68-year-old gentleman admitted with chest pain. CT was ruled out with serial cardiac enzymes subsequently underwent a nuclear stress test which was negative for stress-induced ischemia. 2D echo obtained demonstrated EF of 65% with stage I diastolic dysfunction Hospital course as described above by Nkechi Griffni NP?C - Physical Exam Vital Signs Temp Pulse Resp BP Pulse Ox 98.5 F 75 16 99/52 L 97 03/23/19 11:40 03/23/19 11:40 03/23/19 11:40 03/23/19 11:40 03/23/19 11:40 Oxygen Delivery Method Room Air Weight: 98.43 kg Body Mass Index (BMI) 36.1 Intake and Output for Last 24 Hours 03/21/19 03/22/19 03/23/19 23:59 23:59 23:59 Intake Total 240 / 540 940 / 1240 300 / 300 Balance 240 / 540 940 / 1240 300 / 300 Laboratory Tests Past 24 Hrs 03/22/19 03/23/19 03/23/19 16:29 03:54 03:54 WBC 8.6 RBC 5.51 Hgb 16.6 H Hct 48.3 MCV 87.7 MCH 30.1 MCHC 34.4 RDW 12.6 RDW Differential 40.1 Plt Count 228 MPV 9.5 Immature Gran % (Auto) 0.500 Neut % (Auto) 59.0 Lymph % (Auto) 25.8 Placer % (Auto) 12.1 H Eos % (Auto) 2.3 Baso % (Auto) 0.3 Absolute Neuts (auto) 5.1 Absolute Lymphs (auto) 2.22 Total Counted Not Reportable PT INR APTT Sodium 133 L 138 Potassium 3.6 3.9 Chloride 101 101 Carbon Dioxide 27.0 28.0 Anion Gap 5 9 BUN 23 H 29 H Creatinine 1.12 1.29 Estim Creat Clear Calc 56.44 49.00 Est GFR (MDRD) Af Amer 84 72 Est GFR (MDRD) Non-Af 70 59 L BUN/Creatinine Ratio 20.5 H 22.5 H Glucose 90 107 H Calcium 9.5 9.3 Magnesium 2.0 2.9 H 03/23/19 03:54 WBC RBC Hgb Hct MCV MCH MCHC RDW RDW Differential Plt Count MPV Immature Gran % (Auto) Neut % (Auto) Lymph % (Auto) Placer % (Auto) Eos % (Auto) Baso % (Auto) Absolute Neuts (auto) Absolute Lymphs (auto) Total Counted PT 13.6 INR 1.1 APTT 26.8 Sodium Potassium Chloride Carbon Dioxide Anion Gap BUN Creatinine Estim Creat Clear Calc Est GFR (MDRD) Af Amer Est GFR (MDRD) Non-Af BUN/Creatinine Ratio Glucose Calcium Magnesium Code Visit OBSV E&M: [id number] Observation care discharge
[2019-03-23] MEDS: Acetaminophen 325 MG Tablet 650 MG PO (13:02)
== END 2019-03-23 11:58 | disposition home or self-care (01) ==
LOC: ED 15:01 → PCU 15:25
PROVIDERS: Emergency Provider Emergency Medicine; Family Provider Internal Medicine; PCP Internal Medicine; Visit Provider Internal Medicine
DX: R07.89 Other chest pain (principal); R06.09 Other forms of dyspnea; I45.10 Unspecified right bundle-branch block; I10 Essential (primary) hypertension; G47.33 Obstructive sleep apnea (adult) (pediatric); Z85.46 Personal history of malignant neoplasm of prostate; M48.00 Spinal stenosis, site unspecified; E66.9 Obesity, unspecified; Z68.36 Body mass index [BMI] 36.0-36.9, adult; Z71.3 Dietary counseling and surveillance; E78.2 Mixed hyperlipidemia; Z79.899 Other long term (current) drug therapy; Z79.82 Long term (current) use of aspirin; N40.0 Benign prostatic hyperplasia without lower urinary tract symptoms; R94.31 Abnormal electrocardiogram [ECG] [EKG]
CPT/HCPCS: 36415; 71045; 78452; 80048; 80061; 83735; 84484; 85025; 85379; 85610; 85730; 93005; 93017; 93306; 96360; 96372; 99218; 99285; A9500; J7030; Q9957; A4216; C8929; G0378

== ENCOUNTER 2019-08-14 07:00 | Outpatient (RCR) | payer BC, SELFPAY ==
[2019-03-21 15:20] VITALS: BMI 36.1
--- NOTE | 2019-05-15 09:42 | HP.PTEVAL_ITS ---
Patient's Visit Information HUGO MARCOS is a 68 year old M referred to Physical Therapy by LEIA Flanagan with a diagnosis of s/p Lumbar laminectomy 04/10/19. Date of Evaluation: 05/15/19 Physical Therapist: Lavell Mckeon, NAOMIT, OCS, CSCS - Visit Plan Frequency: 3x /Week Duration: 4-6 Weeks Plan: 3x/week to progress ROM, LE stretching, core adn LE strength ex to HEP. Next visit , please review todays ex for technique and add ANRS and some core strength. Progress to ITB and quad stretches and progression of core strength. Pt has broken L 2nd toe so cautious with WB. - Subjective Findings: Im here for back therapy. Broke toe Tuesday morning L. Supposed to be in boot but cannot tolerate. Had laminectomy on 04/10/19. Prior had stenosis and LBP L adn tingling in legs intermittently. Now tingling is gone. No pain really to speak of. No exercises. No precuations. No f/u with doctor unless worsens. Sleeps well unless rolls wrong. Can wake up sore if on tummy. Uses CPAP. 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 Hobbies not much, watch [employer] play ball and that is comfortable. Standing more than an hour can cause pain and need to sit. Legs get weak. Dresses and basic ADLsa re getting done at home. Wants to be able to mow yard with walk behind mower 45 minutes - Objective Walsks well with some minor L antalgia(toe). I gait and transfers withotu UE. No c/o pain today. L/S aROM mod limited in ext adn felxion and min in SB. incision healed well and no signs of redness , heat or swelling. Not tender. No drainage, mild scar tissue. 2/3 reflexes in patella and achilles. Sensation LE WNL to gross light touch. Some tingling bottom of feet improving overall subjectively. Strength LE 4+/5 without myotomal problems. Core strength 4-/5, no pain. Very tight in HS and rotation of lumbar spine. - Goals Goal 1:: Sleep withotu waking at night 7 hours Goal Time Frame: 4-6 Weeks Goal 2:: Patient feel 90% back to normal acitivities without increased pain. Goal Time Frame: 4-6 Weeks Goal 3:: I approp HEp to minimize future problems Goal Time Frame: 4-6 Weeks Goal 4:: No difcits on oswestry Goal Time Frame: 4-6 Weeks - Rehabilitation Potential Physical Therapy Diagnosis: s/p lumbar laminectomy Rehabilitation Potential: Good - Anticipated Interventions Patient/Client Instruction: Educate patient on: Condition, Plan of Care For the Purpose of:: To decrease pain, To increase ROM, To improve muscle performance and motor function, To increase tolerance to activity/condition/position Therapeutic Exercise to Include: Strength training, Flexibilty training, Gait and locomotor training, Passive ROM, Active ROM For the Purpose of:: To increase ROM, To improve muscle performance and motor function, To increase tolerance to activity/condition/position Thank you for the opportunity to evaluate your patient. For Medicare and Medicare HMO plans, please review the plan of care and approve it. It will need to be FAXED BACK to us at [phone] for Medicare purposes. For Medicare only, by signing this I certify the plan of care. Please let me know if there are questions or concerns regarding this plan of care. Physician Signature: Date:
--- NOTE | 2019-06-06 09:54 | HP.PTREVAL ---
LEIA Flanagan, It has been my pleasure to treat HUGO MARCOS over the last 9 visits for s/p Lumbar laminectomy 04/10/19. Please see the progress note below for an update on the physical therapy plan of care! Subjective: Worse today. Might have overdone weights last week. Was on the rigth track prior to that, hardly had any pain before last Tuesday. HEP: daily. they sometimes help. Still ahrd time walking any distance with poodles. No f/u with doctor scheduled. Was 75% better prior to set back last Tuesday, now feels no better overall today. Toe is OK. Tried push mowing lawn and legs got tired. Walking a mile and a half at home for 40 minutes before legs get tired. Hasn't walked more than that in 6-8 months. Objective/Function: Set back in pain level over the last 4-5 days where he is more painful. Still limited inw alking with leg fatigue. L/S AROM ext slight pain but feels good with minimal deficits. flexiona dn SB are OK. walking normally today just c/o some pain more sitting than walking. Plan Plan: 3x/week for 3 weeks... LB ROM and LE stretching progression and gradually return to strength more gently than previu=ously and focus core. May use modalities if pain persists., consider traction as patient has had it in the past successfully. Same ogals , fair prognosis. Goals Goal 1:: Sleep withotu waking at night 7 hours Goal Time Frame: 4-6 Weeks Goal Progress: Goal Met Goal 2:: Patient feel 90% back to normal acitivities without increased pain. Goal Time Frame: 4-6 Weeks Goal Progress: Progressing Goal 3:: I approp HEp to minimize future problems Goal Time Frame: 4-6 Weeks Goal Progress: Progressing Goal 4:: No difcits on oswestry Goal Time Frame: 4-6 Weeks Goal Progress: Progressing Anticipated Interventions Patient/Client Instruction: Educate patient on: Condition, Plan of Care For the Purpose of:: To decrease pain, To increase ROM, To improve muscle performance and motor function, To increase tolerance to activity/condition/position Therapeutic Exercise to Include: Strength training, Flexibilty training, Gait and locomotor training, Passive ROM, Active ROM For the Purpose of:: To increase ROM, To improve muscle performance and motor function, To increase tolerance to activity/condition/position Please do not hesitate to contact me at [phone] by phone or if you have questions or concerns regarding this new plan of care! Sincerely, Lavell Mckeon, DPT, OCS, CSCS
--- NOTE | 2019-06-13 14:02 | HP.PTREVAL_ITS ---
LEIA Flanagan, It has been my pleasure to treat HUGO MARCOS over the last 11 visits for s/p Lumbar laminectomy 04/10/19. Please see the progress note below for an update on the physical therapy plan of care! Subjective: 5/10 pain today, not as bad as the other day. Painfree lasted 4-5 hours after last session. Objective/Function: Did well with exercises. 1/10 pain after. Plan Plan: progress to I at home. Goals Goal 1:: Sleep withotu waking at night 7 hours Goal Time Frame: 4-6 Weeks Goal Progress: Goal Met Goal 2:: Patient feel 90% back to normal acitivities without increased pain. Goal Time Frame: 4-6 Weeks Goal Progress: Progressing Goal 3:: I approp HEp to minimize future problems Goal Time Frame: 4-6 Weeks Goal Progress: Progressing Goal 4:: No difcits on oswestry Goal Time Frame: 4-6 Weeks Goal Progress: Progressing Anticipated Interventions Patient/Client Instruction: Educate patient on: Condition, Plan of Care For the Purpose of:: To decrease pain, To increase ROM, To improve muscle performance and motor function, To increase tolerance to activity/condition/position Therapeutic Exercise to Include: Strength training, Flexibilty training, Gait and locomotor training, Passive ROM, Active ROM For the Purpose of:: To increase ROM, To improve muscle performance and motor function, To increase tolerance to activity/condition/position Please do not hesitate to contact me at [phone] by phone or Fax: if you have questions or concerns regarding this new plan of care! Sincerely, Lavell Mckeon, DPT, OCS, CSCS
--- NOTE | 2019-06-29 08:40 | HP.PTREVAL_ITS ---
LEIA Flanagan, It has been my pleasure to treat HUGO MARCOS over the last 18 visits for s/p Lumbar laminectomy 04/10/19. Please see the progress note below for an update on the physical therapy plan of care! Subjective: Getting better, less pain. Less often and less intense. No pain this morning. Sleeping OK. HEP is how he will proceed . Feels like he can do them at home.No f/u scheduled with doctor. Wants to walk a mile and a half without fatigue adn can only go one half mile right now. Objective/Function: Pt has very slight R trendelnberg in gait, steps reciprocal without pain today. AROM L/S ext min limited with slight discomfort centrally, flexion is improving and painfree, SB are mod limited and no pain. OCERALL COMING ALONG NICELY. SEEMS TO BE OVER HIS SET BACK IN THE MIDDLE OF HIS THERAPY.HAS A GOOD HOME PROGRAM WHICH WILL NEED SOME TWEAKING AND MONITOR OVER THE COMING WEEKS. Plan Plan: 1X/WEEK FOR 3-4 WEEKS TO MONITOR PROGRESS WITH WALKING PROGRAM AT HOME, ENSURE APPROPRIATE PERFORMANCE OF CURRENT EX ADN ADD TB POT STIRS, ROWS, PULL DOWNS AND r HIP ABD AND EXTENSOR STRENGTHENING TO HEP WITH PICS OVER NEXT 3 VISITS. Goals Goal 1:: Sleep withotu waking at night 7 hours Goal Time Frame: 4-6 Weeks Goal Progress: Goal Met Goal 2:: Patient feel 90% back to normal acitivities without increased pain. Goal Time Frame: 4-6 Weeks Goal Progress: Progressing Goal 3:: I approp HEp to minimize future problems Goal Time Frame: 4-6 Weeks Goal Progress: Goal Met Goal 4:: No difcits on oswestry Goal Time Frame: 4-6 Weeks Goal Progress: improving Goal 5:: Pt walk 1 mile without leg fatigue Goal Time Frame: 2-4 Weeks Goal Progress: NEW GOAL Goal 6:: I with appropriate TB adn R hip strength ex to add to current back stretching adn strengthening program. Goal Time Frame: 2-4 Weeks Goal Progress: NEW GOAL Anticipated Interventions Patient/Client Instruction: Educate patient on: Condition, Plan of Care For the Purpose of:: To decrease pain, To increase ROM, To improve muscle performance and motor function, To increase tolerance to activity/condition/position Therapeutic Exercise to Include: Strength training, Flexibilty training, Gait and locomotor training, Passive ROM, Active ROM For the Purpose of:: To increase ROM, To improve muscle performance and motor fu nction, To increase tolerance to activity/condition/position Please do not hesitate to contact me at [phone] by phone or if you have questions or concerns regarding this new plan of care! Sincerely, Lavell Mckeon, DPT, OCS, CSCS
--- NOTE | 2019-07-20 08:54 | HP.PTREVAL ---
LEIA Flanagan, It has been my pleasure to treat HUGO MARCOS over the last 21 visits for s/p Lumbar laminectomy 04/10/19. Please see the progress note below for an update on the physical therapy plan of care! Subjective: On the right track. Needs to continue to strength legs. Walking greater tahn 200 feet adn legs get tired. Pain is gone. Sometimes gets knee pain R going down steps. Feels like he needs more therapy for leg strength.No more numbness in legs. No f/u with doctor. Acitivities at home pretty normal except walking dogs. Can walk a mile some days but others not easily and exhausted in legs. Objective/Function: LB AROM WFL with only tightness at end range flexion/ext. Walking normal currently. Steps show some weakness descending but able with one rail. PROGRESSING NICELY, NEEDS MORE STRENGTH ADN WILLING TO WORK AT IT. UNSURE OF WHAT TO DO IN GYM. Plan Plan: 2X/WEEK FOR 4 WEEKS TO TEACH GYM BASED LE AND CORE EX ADN PROGRESS TO I WITH LIST. Fair prognosis toward goals Goals Goal 1:: Sleep withotu waking at night 7 hours Goal Time Frame: 4-6 Weeks Goal Progress: Goal Met Goal 2:: Patient feel 90% back to normal acitivities without increased pain. Goal Time Frame: 4-6 Weeks Goal Progress: Progressing, approp Goal 3:: I approp HEp to minimize future problems, needs gym and more aggressive ex now. Goal Time Frame: 4-6 Weeks Goal Progress: initial ex. Goal 4:: No difcits on oswestry Goal Time Frame: 4-6 Weeks Goal Progress: improving, approp Goal 5:: Pt walk 1 mile without leg fatigue Goal Time Frame: 2-4 Weeks Goal Progress: inconsistent Goal 6:: I with appropriate TB adn R hip strength ex to add to current back stretching adn strengthening program. Goal Time Frame: 2-4 Weeks Goal Progress: Goal Met Anticipated Interventions Patient/Client Instruction: Educate patient on: Condition, Plan of Care For the Purpose of:: To decrease pain, To increase ROM, To improve muscle performance and motor function, To increase tolerance to activity/condition/position Therapeutic Exercise to Include: Strength training, Flexibilty training, Gait and locomotor training, Passive ROM, Active ROM For the Purpose of:: To increase ROM, To improve muscle performance and motor function, To increase tolerance to activity/condition/position Please do not hesitate to contact me at [phone] by phone or if you have questions or concerns regarding this new plan of care! Sincerely, Lavell Mckeon, DPT, OCS, CSCS
--- NOTE | 2019-09-27 18:20 | HP.PTDCNRP_ITS ---
HP - Discharge Summary (1) - Patient Information HUGO MARCOS was seen in my office for initial evaluation on 05/15/19. The following Plan of Care was established for this patient: Initial Frequency: 3x /Week Initial Duration: 4-6 Weeks - Anticipated Interventions Patient/Client Instruction: Educate patient on: Condition, Plan of Care For the Purpose of:: To decrease pain, To increase ROM, To improve muscle p erformance and motor function, To increase tolerance to activity/condition/position Therapeutic Exercise to Include: Strength training, Flexibilty training, Gait and locomotor training, Passive ROM, Active ROM For the Purpose of:: To increase ROM, To improve muscle performance and motor function, To increase tolerance to activity/condition/position This patient was last seen in our office 08/14/19. Pertinent comments regarding their Physical therapy will appear below: Pt seen 26 visits of POC and was 55% better at last official rechecck. He no showed for his last scheduled visit over a month ago and I will discontinue due to nonattendance. At this point I will be discontinuing this patient from physical therapy. I would be happy to see this patient again in the future if found appropriate by the physician. Thank you! Lavell Mckeon, DPT, OCS, CSCS
== END 2019-08-14 19:00 | disposition home or self-care (01) ==
LOC: PT 07:00
PROVIDERS: Family Provider Internal Medicine; PCP Internal Medicine; Referring Provider Physician Assistant; Visit Provider Physician Assistant
DX: Z98.890 Other specified postprocedural states (principal)
CPT/HCPCS: 97110; 97140; 97162; 97530

== ENCOUNTER → 2019-12-03 07:16 | Outpatient (CLI) | payer BC, SELFPAY ==
[2019-11-23 08:43] VITALS: BMI 39.1
--- NOTE | 2019-12-03 07:17 | ART_ITS ---
Reason For Study: Myalgias Procedure A bilateral lower extremity continuous wave Doppler with analog waveform analysis,segmental pressures,and ankle brachial indexes without exercise. Left Segmental Pressures Left brachial= 159mmHg. Left posterior tibial artery = 191mmHg. Left dorsalis pedis artery = 192mmHg. Right Segmental Pressures Right brachial= 157mmHg. Right posterior tibial artery = 207mmHg. Right dorsalis pedis artery = 184mmHg. Indices The right ankle brachial index by the posterior tibial artery is 1.30. The right ankle brachial index by the dorsalis pedis is 1.16. The left ankle brachial index by the posterior tibial artery is 1.20. The left ankle brachial index by the dorsalis pedis is 1.21. Interpretation Summary 1. bilateral no occlussive disease at rest wih triphasic flow and donn 1.3 and 1.21. Ordering Physician: Puneet Rincon Referring Physician: Puneet Rincon Performed By: Sheryl Leblanc RDCS/RVT
== END ==
PROVIDERS: PCP Internal Medicine; Referring Provider Internal Medicine Cardiovascular Disease; Visit Provider Internal Medicine Cardiovascular Disease
DX: M79.10 Myalgia, unspecified site (principal)
CPT/HCPCS: 93923

== ENCOUNTER 2019-12-22 11:14 | Emergency (ER) | payer BC, SELFPAY ==
[2019-11-23 08:43] VITALS: BMI 39.1
[2019-12-22 11:15] VITALS: BP 177/66; PULSE 87; RESP 19; TEMP 37.6; O2SAT 93; BMI 38.2
--- NOTE | 2019-12-22 11:35 | EKG12_ITS ---
Test Reason : CP Blood Pressure : / mmHG Vent. Rate : 082 BPM Atrial Rate : 082 BPM P-R Int : 136 ms QRS Dur : 138 ms QT Int : 408 ms P-R-T Axes : 056 004 001 degrees QTc Int : 476 ms Normal sinus rhythm Right bundle branch block Possible Inferior infarct , age undetermined Abnormal ECG Confirmed by VALENCIA BANKS, DOMENIC ([id number]), writer editor MONICA DAMICO ([id number]) on 12/25/2019 1:54:22 PM Referred By: MICHELL Confirmed By:DOMENIC BIRMINGHAM MD
--- NOTE | 2019-12-22 11:35 | RAD_ITS ---
STUDY: X-RAY CHEST REASON FOR EXAM: Male, 69 years old. Substernal chest pain TECHNIQUE: AP upright portable view. COMPARISON: 03/21/2019. FINDINGS: Discoid scarring and vertical scarring in the left lower lobe. No suspicious infiltrates. There is no demonstrated pleural abnormality. Normal size heart. Normal mediastinum and noel. Normal visualized pulmonary arteries. Normal visualized aortic arch and descending thoracic aorta. Right lateral marginal spurring along the thoracic spine. Old fracture deformity of the left clavicle. Normal right clavicle. Normal shoulders and rib cage. There is no demonstrated abnormality of the visualized soft tissue structures of the upper abdomen. RAD/Chest 1 View (Portable) IMPRESSION: 1. No acute cardiopulmonary pathology. 2. No significant interval change when compared to 03/21/2019. Electronically Signed: Raheem Nolasco MD at 12:25 EDT , Service support ,
--- NOTE | 2019-12-22 11:59 | ED.DCSUM_ITS ---
- ER Visit Summary Date of Service: 12/22/19 Chief Complaint: Fever, cough, shortness of breath History of Present Illness: The patient is a [address] Charles. He reports that he has a fever that began yesterday. Is been 101.8 degrees. He has had sweats. He is had nasal congestion. He reports that he has a nonproductive cough. He has mild shortness of breath. He has not been wheezing. He reports that he has a left-sided chest pressure that began yesterday. Is 7 out of 10 in severity. It is a constant pain. Nothing makes this better and nothing makes this worse. There is no change with exertion or deep breaths. Patient has been self isolating. He is retired. Has had no recent travel. However, his lives with his who has had a cough as well. Physical Examination: Vitals: 99.7, 177/66, 87, 19, 89% on room air which is hypoxic. General: Well-nourished and well-developed. Head: Normocephalic atraumatic. Neck: Supple, no lymphadenopathy. No JVD. Nontender. Cardiovascular: Regular rate and rhythm. No murmurs. Respiratory: No respiratory distress. Clear to auscultation bilaterally. Abdominal: Soft, nontender, nondistended, normal bowel sounds. No guarding, rebound, or peritoneal signs. Back: Nontender. Extremities: Nontender, no edema. Skin: Normal color, no rash. Neurologic: Alert and oriented ?3. Cranial nerves II through XII are intact. Normal strength and sensation. Psych: Normal affect. Test Results: CBC shows a white count of 17.1 with monocytes 12. Chem-7 shows a potassium 3.0, BUN of 26, calcium 10.4. Lactic acid is 1.0. Troponin is negative. Influenza is negative. Respiratory panel is negative. EKG is sinus at 82 with a right bundle branch block and nonspecific changes. Is unchanged from March 2019. Chest x-ray shows no acute disease. Emergency Department Course and Treatment: Patient has been resting comfortably in the room. His pulse ox is 92% at rest. Treatment Plan: Patient does not have a known exposure to COVID-19, and his pulse ox actually goes up to 94% with ambulation. He was discussed with the hospitalist, Dr. Chery as well as with Dr. Ulloa. At this time he does not meet criteria for admission to the hospital. He is given a prescription for pulse oximeter. He is instructed to return emerge department if his pulse ox goes below 89%. Also to return for any worsening difficulty breathing. Disposition: Dischargedd in stable condition. Impression: 1. URI. 2. Suspected COVID-19 infection. This note was generated with [employer] dictation software. It may contain incorrect words, spelling, and punctuation that were not noted in review of the chart prior to signing ED Disposition - Plan for ED Patient: Disposition: Home or Assisted Living Instructions: ED Upper Resp Infec No Abx Tx Prescriptions: Miscellaneous Medical Supply [Tablet Cutter] 1 ea OTHER 4X/DAY PRN PRN #[id number] PRN Reason: Shortness Of Breath Prescription Printed Referrals: Jung Charles MD [Primary Care Provider] - Efrain Ulloa MD [STAFF PHYSICIAN] - 2 Days Additional Instructions: Get a pulse oximeter. Return to the ER if less than 88%
[2019-12-22 12:15] LABS: Absolute Lymphocyte Count 1.55 X10^3/uL (0.83-4.51); Absolute Neutrophil Count 5.1 X10^3/uL (2.0-7.7); Basophil# 0.07 X10^3/uL; Basophil% 0.9 % (0-1); Eosinophil# 0.09 X10^3/uL; Eosinophils% 1.2 % (0-5); Hematocrit 49.8 % (40-54); Hemoglobin 17.1 g/dL (13.0-16.5); Lymphocyte # 1.55 X10^3/ul (4.0); Mean Corp Hgb Conc 34.3 g/dL (32-36); Mean Corpuscular Hgb 30.4 pg (27.0-32.0); Mean Corpuscular Volume 88.6 fL (80-94); Mean Platelet Vol. 9.2 fl (6.2-12.0); Monocyte# 0.94 X10^3/uL; Monocyte% 12.1 % (0-10); NRBC Flagged by Analyzer 0 % (0-5); Neutrophil # 5.05 X10^3/uL (2.7-7.7); Platelet Count 195 K/mm3 (150-450); RBC Distribution Width CV 12.4 % (11.6-14.6); RBC Distribution Width SD 39.8 fl (35.1-43.9); Red Blood Count 5.62 M/mm3 (4.6-6.2); White Blood Count 7.8 K/mm3 (4.4-11.0)
[2019-12-22 12:30] VITALS: BP 142/79; PULSE 82; RESP 20; TEMP 36.8; O2SAT 92
[2019-12-22 12:30] LABS: Anion Gap 5 (5-15); BUN 26 mg/dL (7-18); BUN/Creat Ratio 28.4 RATIO (10-20); Calcium,Total 10.4 mg/dL (8.5-10.1); Chloride 102 mmol/L (98-107); Creatinine, Serum 0.91 mg/dL (0.70-1.30); EST Glomerular Filtration Rate 88 mL/min (>60); Est Glom Filt Rate - Afr Amer 106 mL/min (>60); Estimated Creatinine Clearance 68.52 ml/min; Glucose 98 mg/dL (74-106); Sodium Level 136 mmol/L (136-145)
[2019-12-22 14:00] VITALS: BP 112/87; PULSE 77; RESP 20; TEMP 36.8; O2SAT 93
[2019-12-22 14:47] VITALS: O2SAT 95
[2019-12-22 15:18] VITALS: BP 114/78; PULSE 78; RESP 22; TEMP 36.9; O2SAT 94
[2019-12-22 15:30] VITALS: O2SAT 95
--- NOTE | 2019-12-22 15:36 | ED.RN ---
walked pt in hallways with mask. starting O2 was 95% on RA- pt denied feeling any SOB. pt sats lowest at 94%. was in to speak with pt regarding obtaining pulse oximetry at pharmacy. [place] [facility]- they have them at [facility].
== END 2019-12-22 15:58 | disposition home or self-care (01) ==
PROVIDERS: Emergency Provider Emergency Medicine; PCP Internal Medicine
DX: J06.9 Acute upper respiratory infection, unspecified (principal); R50.9 Fever, unspecified; R05 Cough; R06.02 Shortness of breath; R07.89 Other chest pain; I10 Essential (primary) hypertension; Z79.82 Long term (current) use of aspirin; Z79.899 Other long term (current) drug therapy; Z85.46 Personal history of malignant neoplasm of prostate
CPT/HCPCS: 71045; 80048; 83605; 84484; 85025; 87040; 87633; 87804; 93005; 99285; A4216

== ENCOUNTER 2020-01-13 20:18 | Emergency (ER) | payer BC, SELFPAY ==
[2020-01-13 20:19] VITALS: BP 145/75; PULSE 87; RESP 15; TEMP 37.1; O2SAT 96; BMI 38.3
[2020-01-13 20:31] VITALS: O2SAT 96
[2020-01-13 20:36] VITALS: BP 139/73; PULSE 83; RESP 22; O2SAT 95
--- NOTE | 2020-01-13 20:39 | EKG12_ITS ---
Test Reason : SOB Blood Pressure : / mmHG Vent. Rate : 083 BPM Atrial Rate : 083 BPM P-R Int : 142 ms QRS Dur : 140 ms QT Int : 424 ms P-R-T Axes : 041 -03 002 degrees QTc Int : 498 ms Sinus rhythm with occasional Premature ventricular complexes Right bundle branch block Abnormal ECG Confirmed by JUANCHO SARAVIA ([id number]), multimedia editor MONICA DAMICO ([id number]) on 01/18/2020 10:28:41 AM Referred By: MR Confirmed By:JUANCHO SARAVIA
--- NOTE | 2020-01-13 20:53 | RAD_ITS ---
STUDY: X-RAY CHEST REASON FOR EXAM: Male, 69 years old. LOW PULSE OX TECHNIQUE: Single frontal view of the chest. COMPARISON: 12/22/2019. FINDINGS: Cardiac silhouette unremarkable. Increased pulmonary vascular markings are noted at the right base. No large pleural effusion. Right lung granuloma. Upper abdomen unremarkable. Osseous structures intact. No pneumothorax. RAD/Chest 1 View (Portable) IMPRESSION: No significant interval change. Examination is limited by technical artifact. Increased pulmonary vascular markings at the right base may represent atelectasis, scarring versus acute infectious process as clinically indicated. Electronically Signed: Hal Mason, at 21:15 EDT Tel , Service support ,
[2020-01-13 20:54] LABS: Absolute Lymphocyte Count 2.14 X10^3/uL (0.83-4.51); Absolute Neutrophil Count 4.9 X10^3/uL (2.0-7.7); Basophil# 0.05 X10^3/uL; Basophil% 0.6 % (0-1); Eosinophil# 0.15 X10^3/uL; Eosinophils% 1.8 % (0-5); Hemoglobin 16.6 g/dL (13.0-16.5); Lymphocyte # 2.14 X10^3/ul (4.0); Lymphocyte % 26.3 % (19-41); Mean Corp Hgb Conc 34.6 g/dL (32-36); Mean Corpuscular Hgb 30.4 pg (27.0-32.0); Mean Corpuscular Volume 87.9 fL (80-94); Mean Platelet Vol. 9.2 fl (6.2-12.0); Monocyte# 0.91 X10^3/uL; Monocyte% 11.2 % (0-10); NRBC Flagged by Analyzer 0 % (0-5); Neutrophil # 4.85 X10^3/uL (2.7-7.7); Neutrophil % 59.5 % (47-70); Platelet Count 227 K/mm3 (150-450); RBC Distribution Width CV 12.5 % (11.6-14.6); Red Blood Count 5.46 M/mm3 (4.6-6.2); White Blood Count 8.2 K/mm3 (4.4-11.0)
[2020-01-13 21:19] LABS: Anion Gap 7 (5-15); BUN 26 mg/dL (7-18); Calcium,Total 9.9 mg/dL (8.5-10.1); Chloride 104 mmol/L (98-107); Creatinine, Serum 1.24 mg/dL (0.70-1.30); EST Glomerular Filtration Rate 62 mL/min (>60); Est Glom Filt Rate - Afr Amer 75 mL/min (>60); Estimated Creatinine Clearance 50.29 ml/min; Glucose 144 mg/dL (74-106); Potassium 3.2 mmol/L (3.5-5.1); Sodium Level 138 mmol/L (136-145)
--- NOTE | 2020-01-13 21:42 | ED.VIS.GEN ---
History of Present Illness Chief Complaint: Shortness of Breath Narrative: Low pulse oximetry reading. Patient presenting for evaluation secondary to a low pulse oximetry reading at home. Patient about 2 weeks ago or so was in the emergency department and had concern for coronavirus infection. He had fevers and cough, but was found not to be hypoxic on ambulation and was sent home with instructions to monitor his pulse ox. Patient states that he actually has been be feeling somewhat better recently, and no longer is having cough or fever. He does report that he intermittently gets chest pain but this is been going on for multiple months even prior to his viral infection, and is typically more associated with eating. Patient reports that today he was at rest and put on his finger pulse oximeter and it was showing readings of 88 and 89%. Patient feels that he was not significantly short of breath with this and denies that he is getting any sort of new symptoms. He does report that in his discharge instructions he was told to come back to the hospital should he develop a low pulse oximetry readings, so he came to the emergency department for further evaluation. Past Medical History - Allergies and Home Meds Allergies/Adverse Reactions: Allergies Esrbacp-Sik-Clt Reductase Inhibitor Adverse Reaction (Severe, Verified 01/13/20 20:19) myalgias Primary Care Physician: Jung Charles MD [Primary Care Provider] - Past Medical History: - - Hypertension, hyperlipidemia, coronary artery disease Surgical History: herniorrhaphy Smoking Status: Never smoker Review of Systems General: Denies: Chills, Fever, Sweats Eyes: Denies: Visual changes - bilaterally, Diplopia ENT: Denies: Rhinorrhea, Sore throat Cardiovascular: Reports: Chest pain Respiratory: Reports: Dyspnea Gastrointestinal: Denies: Abdominal pain, Nausea, Vomiting, Diarrhea, Melena, Hematochezia Genitourinary: Denies: Dysuria, Hematuria, Frequency Musculoskeletal: Denies: Back pain, Extremity Pain Skin: Denies: Rash, Wounds Neurological: Denies: Headache, Weakness, Numbness Physical Exam Vital Signs/Narrative: Vital Signs Temp Pulse Resp BP Pulse Ox 01/13/20 20:36 83 22 H 139/73 H 95 01/13/20 20:19 98.8 F 87 15 145/75 H 96 Inital Vital Signs reviewed: Yes General: Well nourished, Well developed, Obese, No Acute Distress Head: Normocephalic, Atraumatic Eyes: Perrl, EOMI ENT: Moist mucous membranes, No rhinorrhea Neck: Supple, Nontender Cardiovascular: Regular rate, Regular rhythm, No murmurs, - - Occasional extrasystoles Respiratory: No distress, CTA bilaterally, Chest nontender Abdomen: Soft, Nontender, Nondistended, Normal bowel sounds Back: Nontender, Normal Inspection Extremities: Nontender, No edema Skin: Normal color, No rash Neurological: Alert, Oriented x3, Cranial nerves II-XII grossly intact, Normal Strength, Normal Sensation Psychological: Normal affect, Normal Mood Diagnostic/Tx/Re-eval Chest X-Ray - ED: 1 View, Read by ED Physician, Read by Radiologist, Normal Clinical Impression(s) from Imaging Studies Chest X-Ray 01/13/20 20:53 IMPRESSION: No significant interval change. Examination is limited by technical artifact. Increased pulmonary vascular markings at the right base may represent atelectasis, scarring versus acute infectious process as clinically indicated. Electronically Signed: Hal Mason, at 21:15 EDT Tel , Service support , Laboratory Data 01/13/20 01/13/20 20:45 20:45 WBC 8.2 RBC 5.46 Hgb 16.6 H Hct 48.0 MCV 87.9 MCH 30.4 MCHC 34.6 RDW Std Deviation 40.0 RDW Coeff of Vinayak 12.5 Plt Count 227 MPV 9.2 Immature Gran % (Auto) 0.600 Neut % (Auto) 59.5 Lymph % (Auto) 26.3 [place] % (Auto) 11.2 H Eos % (Auto) 1.8 Baso % (Auto) 0.6 Absolute Neuts (auto) 4.9 Absolute Lymphs (auto) 2.14 Nucleated RBC % 0 Sodium 138 Potassium 3.2 L Chloride 104 Carbon Dioxide 27.0 Anion Gap 7 BUN 26 H Creatinine 1.24 Estim Creat Clear Calc 50.29 Est GFR (MDRD) Af Amer 75 Est GFR (MDRD) Non-Af 62 BUN/Creatinine Ratio 21.0 H Glucose 144 H Calcium 9.9 Troponin I < 0.015 - EKG Initial EKG Interpretation: - - Sinus rhythm of 83 with right bundle branch block morphology that is old from prior EKG. Occasional PVCs. No evidence of acute ischemic changes. - Medical Decision Making Patient presented secondary to a low pulse ox reading at home. Patient never had hypoxia in the emergency department, but he does have some underlying disease so work-up was obtained. CBC chemistry troponin found to be unremarkable. Chest x-ray by my personal review as well as radiology also found to be unremarkable. EKG shows no acute ischemic changes. Patient's chest pain seems rather atypical and he states that it typically only happens when he is eating, so I do not feel that this is cardiac in etiology. Likewise I do not feel that the patient's viral infection that was potentially coronavirus is back or getting worse. Patient at this point I feel checks out well, and is safe and appropriate for discharge. He was given reassurance and was discharged with primary care follow-up. ED Disposition - Plan for ED Patient: Disposition: Home or Assisted Living Diagnosis: Dyspnea Instructions: ED Dyspnea Referrals: Jung Charles MD [Primary Care Provider] - 1 Week
[2020-01-13 21:55] VITALS: BP 112/72; PULSE 78; RESP 19; O2SAT 95
== END 2020-01-13 21:56 | disposition home or self-care (01) ==
PROVIDERS: Emergency Provider Emergency Medicine; PCP Internal Medicine
DX: R06.00 Dyspnea, unspecified (principal); R07.89 Other chest pain; I25.10 Atherosclerotic heart disease of native coronary artery without angina pectoris; I10 Essential (primary) hypertension; E78.5 Hyperlipidemia, unspecified; E66.9 Obesity, unspecified; Z79.82 Long term (current) use of aspirin; Z79.1 Long term (current) use of non-steroidal anti-inflammatories (NSAID); Z79.899 Other long term (current) drug therapy; Z88.8 Allergy status to other drugs, medicaments and biological substances
CPT/HCPCS: 71045; 80048; 84484; 85025; 93005; 99284; A4216

== ENCOUNTER → 2020-05-20 06:56 | Outpatient (CLI) | payer MEDICARE, SELFPAY ==
[2020-05-19 11:29] VITALS: BMI 38.4
[2020-05-20 08:04] LABS: AST(SGOT) 35 U/L (15-37); Alanine Aminotransfer ALT/SGPT 36 U/L (16-61); Albumin, Serum 3.9 g/dL (3.2-5.0); Alkaline Phosphatase 27 U/L (45-117); Anion Gap 6 (5-15); BUN 25 mg/dL (7-18); BUN/Creat Ratio 21.9 RATIO (10-20); Bilirubin, Direct 0.08 mg/dL (0.00-0.30); Calcium,Total 9.2 mg/dL (8.5-10.1); Chloride 103 mmol/L (98-107); Cholesterol 206 mg/dL (200); Creatinine, Serum 1.14 mg/dL (0.70-1.30); EST Glomerular Filtration Rate 68 mL/min (>60); Est Glom Filt Rate - Afr Amer 82 mL/min (>60); Globulin 3.5 g/dL (2.2-4.2); Glucose 103 mg/dL (74-106); High Density Lipoprotein 37 mg/dL; Protein, Total 7.4 g/dL (6.4-8.2); Sodium Level 137 mmol/L (136-145); Triglycerides 174 mg/dL; Very Low Density Lipoprotein 35 mg/dL (5-40)
== END ==
PROVIDERS: PCP Internal Medicine; Referring Provider Internal Medicine Cardiovascular Disease; Visit Provider Internal Medicine Cardiovascular Disease
DX: E78.2 Mixed hyperlipidemia (principal); E87.6 Hypokalemia; I10 Essential (primary) hypertension; E78.00 Pure hypercholesterolemia, unspecified
CPT/HCPCS: 36415; 80048; 80061; 80076

== ENCOUNTER 2020-11-20 16:11 | Outpatient (RCR) | payer MEDICARE, SELFPAY ==
[2020-05-19 11:29] VITALS: BMI 38.4
[2020-11-20] MEDS: COVID-19 VACC, MRNA(PFIZER)/PF 30 MCG/0.3 ML SYRINGE IM (08:54)
[2020-12-11] MEDS: COVID-19 VACC, MRNA(PFIZER)/PF 30 MCG/0.3 ML SYRINGE IM (08:48)
== END 2020-11-20 23:59 ==
LOC: IMMUN 16:11
PROVIDERS: PCP Internal Medicine; Visit Provider Family Medicine
DX: Z23 Encounter for immunization (principal)
CPT/HCPCS: 0001A; 0002A

== ENCOUNTER 2021-01-19 06:15 | Observation (INO) | payer MEDICARE, SELFPAY ==
[2020-11-24 10:43] VITALS: BMI 37.3
[2021-01-19] VITALS (7 sets, daily range): BP systolic 130–163; BP diastolic 77–97; PULSE 73–78; RESP 16–18; TEMP 36.4; O2SAT 94–96; BMI 37.3; BMI 37.0
--- NOTE | 2021-01-19 06:27 | RAD_ITS ---
STUDY: X-RAY CHEST REASON FOR EXAM: Male, 70 years old. chest pain TECHNIQUE: AP COMPARISON: 01/13/2020 FINDINGS: No focal lung consolidative changes. Probable minimal right lung base atelectasis.. There is no demonstrated pleural abnormality. Normal size heart. Normal mediastinum and noel. Normal visualized pulmonary arteries. Normal visualized aortic arch and descending thoracic aorta. Normal visualized thoracic spine. Normal visualized ribs, clavicles, and shoulders. There is no demonstrated abnormality of the visualized soft tissue structures of the upper abdomen. RAD/Chest 1 View (Portable) IMPRESSION: No focal lung consolidative changes. Electronically Signed: Gen Monroe MD at 7:40 EDT Tel , Service support ,
--- NOTE | 2021-01-19 06:27 | EKG12_ITS ---
Test Reason : Blood Pressure : / mmHG Vent. Rate : 077 BPM Atrial Rate : 077 BPM P-R Int : 140 ms QRS Dur : 128 ms QT Int : 414 ms P-R-T Axes : 051 018 006 degrees QTc Int : 468 ms Normal sinus rhythm Right bundle branch block Abnormal ECG Confirmed by EDMUNDO BANKS, RADHA ([id number]), supervising editor news reel CURLY FULLER ([id number]) on 01/21/2021 8:52:51 AM Referred By: Confirmed By:RADHA WYATT MD
--- NOTE | 2021-01-19 06:28 | EDS_ITS ---
HPI History of Present Illness Chief Complaint: Chest Pain Narrative Narrative: Patient presents with chest discomfort. He stated 3 hours ago he woke up and felt sweaty. He changed his shirt. He laid back down and felt 2 minutes of substernal chest pressure. It went away after 2 minutes. It has not returned. This concerned him. He has a history of reported angina in the past. He has a history of hypertension and high cholesterol. Patient stated his last stress test was normal in 2019. He is not ever had a heart attack. He has never had a heart cath. Denies any pulmonary embolism risk factors. He took an extra aspirin at home. [facility] Medical History Abnormal electrocardiogram Benign prostatic hypertrophy BPH (benign prostatic hyperplasia) Essential hypertension Family history of hypertension Family history of hypertension Family history of premature coronary artery disease Family history of premature coronary heart disease Mixed hyperlipidemia Obesity (BMI 30-39.9) Obstructive sleep apnea Obstructive sleep apnea BILL (obstructive sleep apnea) Prostate cancer Prostate cancer Shortness of breath TIA (transient ischemic attack) Home Medications aspirin 81 mg PO DAILY@0800 04/24/14 [History Last Taken 03/21/19] quinapril 40 mg PO DAILY 03/21/19 [History Last Taken 03/21/19] chlorthalidone 25 mg tablet 25 mg PO DAILY tab 09/24/19 [History Last Taken Unknown] miscellaneous medical supply #1 ea 12/22/19 [Rx Last Taken Unknown] amlodipine 10 mg tablet 10 mg PO DAILY #90 tab 04/04/20 [Rx Last Taken Unknown] cyclobenzaprine 10 mg tablet 10 mg PO HS 05/19/20 [History Last Taken Unknown] meloxicam 15 mg tablet 15 mg PO DAILY PRN 11/24/20 [History Last Taken Unknown] oxybutynin chloride 5 mg tablet 5 mg PO TID 11/24/20 [History Last Taken Unknown] rosuvastatin 5 mg tablet 5 mg PO DAILY 11/24/20 [History Last Taken Unknown] Allergy/AdvReac Type Severity Reaction Status Date / Time No Known Allergies Allergy Verified 01/19/21 06:19 Family History Father CAD (coronary artery disease) Hypertension Mother Diabetes Hypertension Sister Hypertension Other Family history of hypertension Family history of premature coronary heart disease Surgical History History of back surgery History of prostatectomy History of removal of cyst (~1965) History of tonsillectomy (~1999) History of uvulectomy (~1999) S/P correction of deviated nasal septum (~1999) Social History Smoking Status: Never smoker alcohol intake: current alcohol intake frequency: a few times a week Alcohol type: beer substance use type: does not use caffeine: Yes Type: coffee Number of servings: 2 what type of physical activity do you participate in: none seatbelt use: always do you feel safe at home: Yes ROS ROS ED ROS Narrative ROS General: Denies fever, chills, sweats Eyes: Denies visual changes, blurred vision, double vision ENT: Denies ear pain, rhinorrhea, sore throat Cardiovascular: See HPI Respiratory: Denies dyspnea, cough, sputum, dyspnea on exertion, orthopnea,PND GI: Denies abdominal pain, nausea, vomiting, diarrhea, constipation, melena : Denies dysuria, hematuria, frequency Musculoskeletal: Denies myalgias, arthralgias, neck pain, back pain Skin: Denies rash, abscess, abrasions Neuro: Denies headache, weakness, paresthesia Psych: Denies depression, anxiety Endo: Denies polyuria, polydipsia, polyphagia Heme: Denies easy bruising, easy bleeding, lymphadenopathy Allergy: Denies hives, swelling EXAM Physical Exam Narrative Exam Narrative: Vital signs reviewed General: Well-nourished well-developed Head: Normocephalic atraumatic Eyes: Pupils equal round and reactive to light extraocular movements intact ENT: TMs clear no hemotympanum no trauma Neck: Nontender full range of motion Cardiovascular: Regular rate rhythm no murmurs normal S1-S2 Respiratory: No distress clear to auscultation bilaterally chest nontender Abdomen: Soft nontender nondistended normal bowel sounds no masses Back: Nontender no CVA tenderness Extremities: Nontender active range of motion ?4 extremities no trauma Skin: Normal color no trauma Neuro alert oriented cranial nerves II through XII intact normal strength se nsation reflexes Const Vital Signs: 01/19/21 06:16 01/19/21 06:29 Temperature 97.6 F L Temperature Source Temporal Pulse Rate 78 Respiratory Rate 16 Blood Pressure 163/97 H Blood Pressure Mean 119 Pulse Ox 96 Oxygen Delivery Method Room Air Room Air Heart Score History: Slightly/Non-Suspicious ECG: Nonspecific Repolarization Age: >/= 65 years Risk Factors: >/= 3 Risk Factors or History of CAD Troponin: </= Normal Limit Score: 5 MDM MDM MDM Narrative Medical decision making narrative: EKG upon arrival shows sinus rhythm at a rate of 77 with a right bundle branch block. Unchanged from prior EKG. Patient took aspirin at home and is asymptomatic currently. Lab work and chest x-ray obtained. Lab work shows chronic changes with a mildly elevated BUN. Troponin negative which is a 3-hour level. Chest x-ray my interpretation shows chronic changes with nothing acute. Patient did not have return of chest discomfort. His heart score is a 5. Discussed with the hospitalist and he will be admitted Lab Data Labs: Laboratory Results - last 24 hr 01/19/21 01/19/21 06:17 06:17 WBC 8.5 RBC 5.55 Hgb 16.8 H Hct 50.0 MCV 90.1 MCH 30.3 MCHC 33.6 RDW Std Deviation 41.8 RDW Coeff of Vinayak 12.7 Plt Count 219 MPV 9.1 Immature Gran % (Auto) 1.200 H Neut % (Auto) 53.4 Lymph % (Auto) 29.8 [place] % (Auto) 12.0 H Eos % (Auto) 2.8 Baso % (Auto) 0.8 Absolute Neuts (auto) 4.5 Absolute Lymphs (auto) 2.52 Nucleated RBC % 0 Sodium 138 Potassium 3.8 Chloride 102 Carbon Dioxide 30.0 Anion Gap 6 BUN 21 H Creatinine 1.07 Estim Creat Clear Calc 57.48 Est GFR (MDRD) Af Amer 88 Est GFR (MDRD) Non-Af 73 BUN/Creatinine Ratio 19.6 Glucose 109 H Calcium 9.5 Troponin I < 0.015 Discharge Plan Triage Chief Complaint: Chest Pain ED Provider: Tom Darling Dx/Rx/DC Orders Prescriptions: No Action meloxicam 15 mg tablet 15 mg PO DAILY PRN (Reason: Sleep) RF: 0 chlorthalidone 25 mg tablet 25 mg PO DAILY RF: 0 cyclobenzaprine 10 mg tablet 10 mg PO HS RF: 0 oxybutynin chloride 5 mg tablet 5 mg PO TID RF: 0 rosuvastatin 5 mg tablet 5 mg PO DAILY RF: 0 aspirin 81 MG tablet 81 mg PO DAILY@0800 RF: 0 quinapril 40 MG tablet 40 mg PO DAILY RF: 0 (DME) miscellaneous medical supply 1 EACH misc 1 ea OTHER 4X/DAY PRN Qty: 1 RF: 0 amlodipine 10 mg tablet 10 mg PO DAILY Qty: 90 RF: 4 Primary Care Provider: Jung Charles
[2021-01-19 06:44] LABS: Absolute Lymphocyte Count 2.52 X10^3/uL (0.83-4.51); Absolute Neutrophil Count 4.5 X10^3/uL (2.0-7.7); Basophil# 0.07 X10^3/uL; Basophil% 0.8 % (0-1); Eosinophil# 0.24 X10^3/uL; Eosinophils% 2.8 % (0-5); Hemoglobin 16.8 g/dL (13.0-16.5); Lymphocyte # 2.52 X10^3/ul (0.83-4.51); Lymphocyte % 29.8 % (19-41); Mean Corp Hgb Conc 33.6 g/dL (32-36); Mean Corpuscular Hgb 30.3 pg (27.0-32.0); Mean Corpuscular Volume 90.1 fL (80-94); Mean Platelet Vol. 9.1 fl (6.2-12.0); Monocyte# 1.01 X10^3/uL; NRBC Flagged by Analyzer 0 % (0-5); Neutrophil # 4.51 X10^3/uL (2.7-7.7); Neutrophil % 53.4 % (47-70); Platelet Count 219 K/mm3 (150-450); RBC Distribution Width CV 12.7 % (11.6-14.6); RBC Distribution Width SD 41.8 fl (35.1-43.9); Red Blood Count 5.55 M/mm3 (4.6-6.2); White Blood Count 8.5 K/mm3 (4.4-11.0)
[2021-01-19 06:49] LABS: Anion Gap 6 (5-15); BUN 21 mg/dL (7-18); BUN/Creat Ratio 19.6 RATIO (10-20); Calcium,Total 9.5 mg/dL (8.5-10.1); Chloride 102 mmol/L (98-107); Creatinine, Serum 1.07 mg/dL (0.70-1.30); EST Glomerular Filtration Rate 73 mL/min (>60); Est Glom Filt Rate - Afr Amer 88 mL/min (>60); Estimated Creatinine Clearance 57.48 ml/min; Glucose 109 mg/dL (74-106); Potassium 3.8 mmol/L (3.5-5.1); Sodium Level 138 mmol/L (136-145)
--- NOTE | 2021-01-19 07:11 | NURSING ---
PCU CP WHITE
--- NOTE | 2021-01-19 07:21 | HP.PCM.HOS_ITS ---
HPI - General General Date of Admission: 01/19/21 HPI Narrative The patient is a 70 y/o M w/ PMHx: HTN, HLD, Obesity, BILL w/ intermittent q HS CPAP usage who presents to the [facility] ED on 01/19/21 with history of onset chest pain ~ 3 hours prior to ED arrival, awakening him from sleep specifically with onset first diaphoresis, prompting him to change his shirt and attempt to lay down again at which time he had onset of midsternal non-radiating chest pressure, rated 6/10 with dyspnea, diaphoresis without nausea or emesis which lasted ~ 2 minutes and then resolved completely. Given this onset and his history he presented to the ED for evaluation. Last stress testing was 2018 and unremarka ble. Last Cardiology visit was 11/2020 without any issues at that time. Work-up in the ED included T 97.6, heart rate 73, BP 130/70, respiratory rate 16, 95% on room air, EKG was sinus rhythm with right bundle branch block similar to prior, chest x-rays no acute cardiopulmonary findings, unremarkable CBC, unremarkable BMP, troponin less than 0.015. In the ED patient remained chest pain-free. [facility] Medical History (Updated 01/19/21 @ 07:[address] Dariela Smith MD) Abnormal electrocardiogram Benign prostatic hypertrophy BPH (benign prostatic hyperplasia) Essential hypertension Family history of hypertension Family history of hypertension Family history of premature coronary artery disease Family history of premature coronary heart disease Mixed hyperlipidemia Obesity (BMI 30-39.9) Obstructive sleep apnea Obstructive sleep apnea BILL (obstructive sleep apnea) Prostate cancer Prostate cancer Shortness of breath TIA (transient ischemic attack) Home Medications aspirin 81 mg PO DAILY@0800 04/24/14 [History Last Taken 03/21/19] quinapril 40 mg PO DAILY 03/21/19 [History Last Taken 03/21/19] chlorthalidone 25 mg tablet 25 mg PO DAILY tab 09/24/19 [History Last Taken Unknown] miscellaneous medical supply #1 ea 12/22/19 [Rx Last Taken Unknown] amlodipine 10 mg tablet 10 mg PO DAILY #90 tab 04/04/20 [Rx Last Taken Unknown] cyclobenzaprine 10 mg tablet 10 mg PO HS 05/19/20 [History Last Taken Unknown] meloxicam 15 mg tablet 15 mg PO DAILY PRN 11/24/20 [History Last Taken Unknown] oxybutynin chloride 5 mg tablet 5 mg PO TID 11/24/20 [History Last Taken Unknown] rosuvastatin 5 mg tablet 5 mg PO DAILY 11/24/20 [History Last Taken Unknown] Allergy/AdvReac Type Severity Reaction Status Date / Time No Known Allergies Allergy Verified 01/19/21 06:19 Family History Father CAD (coronary artery disease) Hypertension Mother Diabetes Hypertension Sister Hypertension Other Family history of hypertension Family history of premature coronary heart disease Surgical History History of back surgery History of prostatectomy History of removal of cyst (~1965) History of tonsillectomy (~1999) History of uvulectomy (~1999) S/P correction of deviated nasal septum (~1999) Social History Smoking Status: Never smoker alcohol intake: current alcohol intake frequency: a few times a week Alcohol type: beer substance use type: does not use caffeine: Yes Type: coffee Number of servings: 2 what type of physical activity do you participate in: none seatbelt use: always do you feel safe at home: Yes ROS ROS Narrative Admission Review of Systems: CONSTITUTIONAL: No weight loss, fever, chills, weakness or fatigue. HEENT: Eyes: No visual loss, blurred vision, double vision or yellow sclerae. Ears, Nose, Throat: No hearing loss, sneezing, congestion, runny nose or sore throat. SKIN: No rash or itching, lesions, wounds. CARDIOVASCULAR: chest pain, chest pressure or chest discomfort, No palpitations, edema, orthopnea, syncopal events.+ RESPIRATORY: No shortness of breath, cough or sputum, wheezing, hemoptysis. GASTROINTESTINAL: No anorexia, nausea, vomiting or diarrhea, abdominal pain, melena, BRBPR. GENITOURINARY: No dysuria, frequency, urgency or retention. NEUROLOGICAL: No headache, dizziness, syncope, paralysis, ataxia, numbness or tingling in the extremities, focal weakness, change in bowel or bladder control, seizure. MUSCULOSKELETAL: + muscle, back pain, joint pain or stiffness. HEMATOLOGIC: No anemia, bleeding or bruising. LYMPHATICS: No enlarged nodes. No history of splenectomy. PSYCHIATRIC: No history of depression or anxiety. ENDOCRINOLOGIC: + reports of sweating, No cold or heat intolerance, No polyuria or polydipsia. ALLERGIES: No history of asthma, hives, eczema or rhinitis. Vital Signs Vital Signs Vital Signs: 01/19/21 06:16 01/19/21 06:29 01/19/21 07:01 Temperature 97.6 F L Temperature Source Temporal Pulse Rate 78 Respiratory Rate 16 Blood Pressure 163/97 H 132/89 H Blood Pressure Mean 119 103 Pulse Ox 96 Oxygen Delivery Method Room Air Room Air 01/19/21 07:15 Temperature 97.6 F L Temperature Source Temporal Pulse Rate 73 Respiratory Rate 16 Blood Pressure 138/78 H Blood Pressure Mean 98 Pulse Ox 95 Oxygen Delivery Method Room Air Physical Exam Narrative Physical Examination: General: awake, alert, oriented x 3 and cooperative, seated upright in the ED bed in no apparent distress, remains chest pain-free. Skin: normal color, turgor, no icterus, cyanosis. HEENT: AT/NC, EOMI, PERRLA, MMM, no carotid bruits or JVD noted; however, thickened neck makes examination difficult. Lungs: CTA bilaterally, moderate effort, mild decrease BL bases, no rales, ronchi or wheezing. Heart: Regular rate and rhythm; no gallop, rub audible. Abdomen: soft, obese, NTTP, ND, normal BS, no HSM. Extremities: no cyanosis, clubbing, or edema. Neurological: patient awake, alert, oriented x 3; cognitive function intact; pupils equally reactive to light and accomodation; cranial nerves II-XII grossly normal, moving all 4 extremities, no focal deficits, strength preserved. Psychiatric: affect appears normal, no acute evidence of depressive or anxiety feelings. Lab / Micro Data Result Diagrams: 01/19/21 06:17 01/19/21 06:17 Labs: Laboratory Results - last 24 hr 01/19/21 01/19/21 06:17 06:17 WBC 8.5 RBC 5.55 Hgb 16.8 H Hct 50.0 MCV 90.1 MCH 30.3 MCHC 33.6 RDW Std Deviation 41.8 RDW Coeff of Vinayak 12.7 Plt Count 219 MPV 9.1 Immature Gran % (Auto) 1.200 H Neut % (Auto) 53.4 Lymph % (Auto) 29.8 [place] % (Auto) 12.0 H Eos % (Auto) 2.8 Baso % (Auto) 0.8 Absolute Neuts (auto) 4.5 Absolute Lymphs (auto) 2.52 Nucleated RBC % 0 Sodium 138 Potassium 3.8 Chloride 102 Carbon Dioxide 30.0 Anion Gap 6 BUN 21 H Creatinine 1.07 Estim Creat Clear Calc 57.48 Est GFR (MDRD) Af Amer 88 Est GFR (MDRD) Non-Af 73 BUN/Creatinine Ratio 19.6 Glucose 109 H Calcium 9.5 Troponin I < 0.015 Assessment & Plan Assessment/Plan (1) Chest pain at rest: Status: Acute Code(s): R07.9 - Chest pain, unspecified (2) Mixed hyperlipidemia: Status: Chronic Code(s): E78.2 - Mixed hyperlipidemia (3) Essential hypertension: Status: Chronic Code(s): I10 - Essential (primary) hypertension (4) Obstructive sleep apnea: Status: Chronic Code(s): G47.33 - Obstructive sleep apnea (adult) (pediatric) (5) BPH (benign prostatic hyperplasia): Status: Resolved Code(s): N40.0 - Benign prostatic hyperplasia without lower urinary tract symptoms Qualifiers: Lower urinary tract symptom presence: unspecified whether lower urinary tract symptoms present Qualified Code(s): N40.0 - Benign prostatic hyperplasia without lower urinary tract symptoms Plan: The patient is a 70 y/o M w/ PMHx: HTN, HLD, Obesity, BILL w/ intermittent q HS CPAP usage who presents to the [facility] ED on 01/19/21 with history of onset chest pain ~ 3 hours prior to ED arrival. 1. Chest Pain: EKG in ED sinus rhythm with right bundle branch block with no acute evidence of ischemia, CXR w/ no acute cardiopulmonary findings, initial trop >0.015. Will admit to PCU, place on a monitored bed to assure no acute myocardial infarction with serial cardiac enzymes and EKGs. If repeat EKG and serial enzymes remain unremarkable will pursue cardiac stress testing. Mag pending. ASA, NG, morphine. 2. Hypertension: Continue home regimen including amlodipine, chlorthalidone, quinapril, PRN hydralazine. 3. Hyperlipidemia: Continue home statin regimen. 4. Obesity: Weight loss and lifestyle changes encouraged. 5. GERD: We will place on famotidine. 6. History of prostate cancer: Status post surgical intervention, encourage continued outpatient follow-up with urology. Maintained on oxybutynin. 7. BILL: CPAP nightly 8. DVT prophylaxis: [place] Visit Charges OBSV E&M: 55989 Initial observation care L3
[2021-01-19 07:52] LABS: Magnesium 2.1 mg/dL (1.6-2.6)
[2021-01-19] MEDS: 0.9% Normal Saline 1,000 ML 100 ML IV (08:24)
--- NOTE | 2021-01-19 13:42 | STRESSREP ---
Stress Test Report Exercise myocardial perfusion stress test. 70-year-old man with a history of chest pain. Resting EKG demonstrates normal sinus rhythm with a rate of 77 bpm and occasional premature ventricular complex and a right bundle branch block. Resting blood pressure is 128/72 mmHg. The patient exercised according to the regular Efrain protocol for a total duration of 5 minutes. The maximum heart rate attained was 127 bpm which was 83% of maximum predicted heart rate the maximum workload was 7 metabolic equivalents. Occasional premature ventricular complex was noted. At rest there were no ST or T wave changes noted to suggest ischemia and at peak exercise upsloping ST changes were noted which did not meet the criteria for ischemia. No clinical angina was noted the test was terminated due to shortness of breath. The peak blood pressure was 144/68 mmHg. Myocardial perfusion protocol. 15.0 mCi of technetium 99m sestamibi was injected at rest. The patient exercised according to regular Efrain protocol and at peak exercise 45.0 mCi of technetium 99m sestamibi was injected stress images were obtained stress and rest images were reconstructed and compared in the short axis vertical long and horizontal long axis. Gated images were also obtained. Perfusion SPECT analysis: Review of the stress images demonstrates normal uptake of tracer noted in all areas of the myocardium. The resting images similarly demonstrate normal uptake of tracer noted in all areas of the myocardium. No areas of reversibility are noted to suggest ischemia and no previous infarct is noted. Gated SPECT analysis: The gated ejection fraction is 78%. Conclusion: Normal exercise myocardial perfusion stress test at a moderate workload. Preserved ejection fraction.
--- NOTE | 2021-01-19 13:44 | DCINST_ITS ---
Discharge Instructions Outpatient Procedure Reason For Visit: CHEST PAIN Diet Discharge Diet: Low fat / Low cholesterol Activity Discharge Activity: Return to Normal Activity May resume sexual activity in: No Restrictions Weight Bearing Status: Weight bearing as tolerated Dressing / Incision Call your doctor if you observe: Fever of 101 or Higher, Shortness of breath, Dizziness, Fainting spells, Chest pain and Uncontrolled pain Follow Up Care Please Follow Up With: Jung Charles MD When: Within 3-5 days to review admission. Test Results: The chest pain you experienced is not from your heart. The stress test is negative and your heart squeezed normally. The library monitor you wore showed no problem with the rhythm of your heart. Additionally, the cardiac enzyme series performed remained normal. Sometimes chest pain can come from a problem with the muscles or skeleton and/or associated with straining or doing some strenuous activity you do not normally perform. Generally Aleve or Motrin will help alleviate this discomfort if these medications are appropriate for you to take. Chest pain can also be associated with anxiety and with this you frequently have racing heart, trouble sleeping and irritability. It can also come from gastroesophageal reflux disease or heartburn. People who smoke experience increased heartburn because nicotine decreases the pressure in the lower esophageal sphincter and causes reflux. This type of discomfort is well treated with drinking a large glass of cold water which strips the acid out of the esophagus or taking Mylanta, Maalox or Pepto- Bismol. Other foods to avoid if you have reflux are chocolate, peppermint and calcium containing products such as Tums. Discharge Plan Admission Admit Date/Time: 01/19/21 07:35 Primary Reason for Your Visit: Chest pain, non-cardiac (negative stress test) Attending Provider: Dariela Smith Primary Care Provider: Jung Charles Instructions Patient Instructions: ED Chest Pain, Noncardiac Discharge Orders/Prescriptions Prescriptions: Continued meloxicam 15 mg tablet 15 mg PO DAILY PRN (Reason: Sleep) RF: 0 chlorthalidone 25 mg tablet 25 mg PO DAILY RF: 0 oxybutynin chloride 5 mg tablet 5 mg PO TID RF: 0 rosuvastatin 5 mg tablet 5 mg PO DAILY RF: 0 aspirin 81 MG tablet 81 mg PO DAILY@0800 RF: 0 quinapril 40 MG tablet 40 mg PO DAILY RF: 0 (DME) miscellaneous medical supply 1 EACH misc 1 ea OTHER 4X/DAY PRN Qty: 1 RF: 0 amlodipine 10 mg tablet 10 mg PO DAILY Qty: 90 RF: 4 Referrals: Jung Charles MD [Primary Care Provider] - Paulo Leblanc NP, [employer] [Nurse Practitioner] - (Follow-up within 1-2 weeks to review admission and recent stress testing.) Disposition Disposition (needs filled in before D/C Order can be placed): Home, self care
--- NOTE | 2021-01-19 13:49 | PCM.DC.SUM ---
Providers Date of Admission: 01/19/21 Primary Care Physician: Dr. Jung Charles MD Reason For Visit: CHEST PAIN Diagnosis Discharge Diagnosis (1) Chest pain at rest: Status: Acute Code(s): R07.9 - Chest pain, unspecified (2) Mixed hyperlipidemia: Status: Chronic Code(s): E78.2 - Mixed hyperlipidemia (3) Essential hypertension: Status: Chronic Code(s): I10 - Essential (primary) hypertension (4) Obstructive sleep apnea: Status: Chronic Code(s): G47.33 - Obstructive sleep apnea (adult) (pediatric) (5) BPH (benign prostatic hyperplasia): Status: Resolved Code(s): N40.0 - Benign prostatic hyperplasia without lower urinary tract symptoms Qualifiers: Lower urinary tract symptom presence: unspecified whether lower urinary tract symptoms present Qualified Code(s): N40.0 - Benign prostatic hyperplasia without lower urinary tract symptoms Plan: 1. Chest Pain, non-cardiac with negative stress test 2. Hypertension 3. Hyperlipidemia 4. Obesity 5. GERD 6. History of prostate cancer 7. BILL Medications at Discharge Home Medications aspirin 81 mg PO DAILY@0800 04/24/14 quinapril 40 mg PO DAILY 03/21/19 chlorthalidone 25 mg tablet 25 mg PO DAILY tab 09/24/19 miscellaneous medical supply #1 ea 12/22/19 amlodipine 10 mg tablet 10 mg PO DAILY #90 tab 04/04/20 meloxicam 15 mg tablet 15 mg PO DAILY PRN 11/24/20 oxybutynin chloride 5 mg tablet 5 mg PO TID 11/24/20 rosuvastatin 5 mg tablet 5 mg PO DAILY 11/24/20 Hospital Course Operations None Procedures EKG and Stress test Summary of Care Provided Minutes Spent on Discharge: 35 Hospital Course: The patient is a 70 y/o M w/ PMHx: HTN, HLD, Obesity, BILL w/ intermittent q HS CPAP usage who presented to the [facility] ED on 01/19/21 with history of onset chest pain ~ 3 hours prior to ED arrival, awakening him from sleep specifically with onset first diaphoresis, prompting him to change his shirt and attempt to lay down again at which time he had onset of midsternal non-radiating chest pressure, rated 6/10 with dyspnea, diaphoresis without nausea or emesis which lasted ~ 2 minutes and then resolved completely. Given this onset and his history he presented to the ED for evaluation. Last stress testing was 2018 and unremarkable. Last Cardiology visit was 11/2020 without any issues at that time. Work-up in the ED included T 97.6, heart rate 73, BP 130/70, respiratory rate 16, 95% on room air, EKG was sinus rhythm with right bundle branch block similar to prior, chest x-rays no acute cardiopulmonary findings, unremarkable CBC, unremarkable BMP, troponin less than 0.015. In the ED patient remained chest pain-free. The patient was admitted to the PCU, placed on a monitored bed to assure no acute myocardial infarction with serial cardiac enzymes and EKGs which remained unremarkable. 01/19/21 stress testing was able to be performed and negative for inducible ischemia. Patient remained chest pain free therefore he was discharged to home with requested PCP as well as Cardiology office follow-up for re-evaluation following his recent admission/stress. ABG / Lab / Microbiology Data Result Diagrams: 01/19/21 06:17 01/19/21 06:17 Laboratory: Laboratory Results - last 24 hr 01/19/21 01/19/21 01/19/21 06:17 06:17 06:17 WBC 8.5 RBC 5.55 Hgb 16.8 H Hct 50.0 MCV 90.1 MCH 30.3 MCHC 33.6 RDW Std Deviation 41.8 RDW Coeff of Vinayak 12.7 Plt Count 219 MPV 9.1 Immature Gran % (Auto) 1.200 H Neut % (Auto) 53.4 Lymph % (Auto) 29.8 [place] % (Auto) 12.0 H Eos % (Auto) 2.8 Baso % (Auto) 0.8 Absolute Neuts (auto) 4.5 Absolute Lymphs (auto) 2.52 Nucleated RBC % 0 Sodium 138 Potassium 3.8 Chloride 102 Carbon Dioxide 30.0 Anion Gap 6 BUN 21 H Creatinine 1.07 Estim Creat Clear Calc 57.48 Est GFR (MDRD) Af Amer 88 Est GFR (MDRD) Non-Af 73 BUN/Creatinine Ratio 19.6 Glucose 109 H Calcium 9.5 Magnesium 2.1 Troponin I < 0.015 01/19/21 09:20 WBC RBC Hgb Hct MCV MCH MCHC RDW Std Deviation RDW Coeff of Vinayak Plt Count MPV Immature Gran % (Auto) Neut % (Auto) Lymph % (Auto) [place] % (Auto) Eos % (Auto) Baso % (Auto) Absolute Neuts (auto) Absolute Lymphs (auto) Nucleated RBC % Sodium Potassium Chloride Carbon Dioxide Anion Gap BUN Creatinine Estim Creat Clear Calc Est GFR (MDRD) Af Amer Est GFR (MDRD) Non-Af BUN/Creatinine Ratio Glucose Calcium Magnesium Troponin I < 0.015 Radiography Diagnostic Testing: Radiology Impression Chest X-Ray 01/19/21 06:27 IMPRESSION: No focal lung consolidative changes. Electronically Signed: Gen Monroe MD at 7:40 EDT Tel , Service support , D/C Instructions Discharge Diet: Low fat / Low cholesterol Discharge Activity: Return to Normal Activity May resume sexual activity in: No Restrictions Weight Bearing Status: Weight bearing as tolerated Call your doctor if you observe: Fever of 101 or Higher, Shortness of breath, Dizziness, Fainting spells, Chest pain and Uncontrolled pain Please Follow Up With: Jung Charles MD When: Within 3-5 days to review admission. Meaningful Use Info Meaningful Use Diagnoses (Choose all that apply): None applicable Discharge Plan Admission Admit Date/Time: 01/19/21 07:35 Primary Reason for Your Visit: Chest pain, non-cardiac (negative stress test) Attending Provider: Dariela Smith Primary Care Provider: Jung Charles Instructions Patient Instructions: ED Chest Pain, Noncardiac Discharge Orders/Prescriptions Prescriptions: Continued meloxicam 15 mg tablet 15 mg PO DAILY PRN (Reason: Sleep) RF: 0 chlorthalidone 25 mg tablet 25 mg PO DAILY RF: 0 oxybutynin chloride 5 mg tablet 5 mg PO TID RF: 0 rosuvastatin 5 mg tablet 5 mg PO DAILY RF: 0 aspirin 81 MG tablet 81 mg PO DAILY@0800 RF: 0 quinapril 40 MG tablet 40 mg PO DAILY RF: 0 (DME) miscellaneous medical supply 1 EACH misc 1 ea OTHER 4X/DAY PRN Qty: 1 RF: 0 amlodipine 10 mg tablet 10 mg PO DAILY Qty: 90 RF: 4 Referrals: Jung Charles MD [Primary Care Provider] - Paulo Leblanc NP, [employer] [Nurse Practitioner] - (Follow-up within 1-2 weeks to review admission and recent stress testing.) Disposition Disposition (needs filled in before D/C Order can be placed): Home, self care Visit Charges OBSV E&M: 48394 Observ/hosp same date L3
--- NOTE | 2021-01-19 14:25 | PHA.DC.MR ---
Pharmacy Service has performed discharge medication reconciliation for this patient. No new medications at time of discharge review. Medications reviewed are from previously reported home medications. Home Medications aspirin 81 mg PO DAILY@0800 04/24/14 quinapril 40 mg PO DAILY 03/21/19 chlorthalidone 25 mg tablet 25 mg PO DAILY tab 09/24/19 miscellaneous medical supply #1 ea 12/22/19 amlodipine 10 mg tablet 10 mg PO DAILY #90 tab 04/04/20 meloxicam 15 mg tablet 15 mg PO DAILY PRN 11/24/20 oxybutynin chloride 5 mg tablet 5 mg PO TID 11/24/20 rosuvastatin 5 mg tablet 5 mg PO DAILY 11/24/20 The patient's discharge medication list was reviewed for discrepancies and discrepancies were resolved.
== END 2021-01-19 14:20 | disposition home or self-care (01) ==
LOC: ED 07:02 → PCU 08:19
PROVIDERS: Admitting Provider Family Medicine; Emergency Provider Emergency Medicine; PCP Internal Medicine; Visit Provider Family Medicine
DX: R07.89 Other chest pain (principal); I10 Essential (primary) hypertension; Z79.899 Other long term (current) drug therapy; Z79.82 Long term (current) use of aspirin; N40.0 Benign prostatic hyperplasia without lower urinary tract symptoms; E78.2 Mixed hyperlipidemia; E66.9 Obesity, unspecified; G47.33 Obstructive sleep apnea (adult) (pediatric); Z85.46 Personal history of malignant neoplasm of prostate; K21.9 Gastro-esophageal reflux disease without esophagitis
CPT/HCPCS: 36415; 71045; 78452; 80048; 83735; 84484; 85025; 93005; 93017; 96360; 96361; 99218; 99284; A9500; J7030; A4216; G0378; J2785

== ENCOUNTER 2021-01-20 05:56 | Inpatient (IN) | payer MEDICARE, SELFPAY ==
[2021-01-19 07:44] VITALS: BMI 37.0
[2021-01-20] VITALS (33 sets, daily range): BP systolic 100–172; BP diastolic 68–104; PULSE 66–91; RESP 12–23; TEMP 36.4–37.1; O2SAT 92–98; BMI 35.9; BMI 36.4
--- NOTE | 2021-01-20 05:58 | EKG12_ITS ---
Test Reason : REPEAT CP Blood Pressure : / mmHG Vent. Rate : 073 BPM Atrial Rate : 073 BPM P-R Int : 140 ms QRS Dur : 128 ms QT Int : 422 ms P-R-T Axes : 052 028 001 degrees QTc Int : 464 ms Sinus rhythm with occasional Premature ventricular complexes Right bundle branch block T wave abnormality, consider inferior ischemia Abnormal ECG Confirmed by EDMUNDO BANKS, RADHA ([id number]), graphics editor CURLY FULLER ([id number]) on 01/21/2021 9:05:18 AM Referred By: LD Confirmed By:RADHA WYATT MD
--- NOTE | 2021-01-20 06:02 | EDS_ITS ---
HPI History of Present Illness Chief Complaint: Chest Pain Informant: patient Onset/Context/Timing Onset: Today Activity at onset: sudden Timing: Continuous Quality: Positive for Heaviness and Pressure Location: Substernal and Right Chest Current Severity: Moderate Maximum Severity: Moderate Worsened By: Exertion Relieved By: Nothing Associated Symptoms: Positive for Nausea, Diaphoresis and Dyspnea Narrative Narrative: The patient is a 70-year-old male with medical history significant for hypertension, hyperlipidemia, BPH, who presents to the emergency department with chest pain. Patient was actually just admitted for this chest pain. He was discharged yesterday. He states that he underwent stress test which was normal. States they cannot find a definitive cause of his chest pain. He states that he was pain-free, but then at 430 this morning, the pain woke him from sleep. He states it was a substernal pressure with tightness into his right arm. He denies fevers or chills. He denies cough. [facility] Medical History (Updated 01/20/21 @ 06:06 by Thalia Camarillo RN) Abnormal electrocardiogram Benign prostatic hypertrophy BPH (benign prostatic hyperplasia) Essential hypertension Family history of hypertension Family history of hypertension Family history of premature coronary artery disease Family history of premature coronary heart disease Mixed hyperlipidemia Obesity (BMI 30-39.9) Obstructive sleep apnea Obstructive sleep apnea BILL (obstructive sleep apnea) Prostate cancer Prostate cancer Shortness of breath TIA (transient ischemic attack) Home Medications aspirin 81 mg PO DAILY@0800 04/24/14 [History Last Taken 01/19/21 07:00] quinapril 40 mg PO DAILY 03/21/19 [History Last Taken 01/19/21 07:00] chlorthalidone 25 mg tablet 25 mg PO DAILY tab 09/24/19 [History Last Taken 01/19/21 07:00] miscellaneous medical supply #1 ea 12/22/19 [Rx Last Taken Unknown] amlodipine 10 mg tablet 10 mg PO DAILY #90 tab 04/04/20 [Rx Last Taken 01/19/21 07:00] meloxicam 15 mg tablet 15 mg PO DAILY PRN 11/24/20 [History Last Taken 01/18/21 07:00] oxybutynin chloride 5 mg tablet 5 mg PO TID 11/24/20 [History Last Taken 01/19/21 07:00] rosuvastatin 5 mg tablet 5 mg PO DAILY 11/24/20 [History Last Taken 01/18/21 21:00] Allergy/AdvReac Type Severity Reaction Status Date / Time No Known Allergies Allergy Verified 01/20/21 06:01 Family History Father CAD (coronary artery disease) Hypertension Mother Diabetes Hypertension Sister Hypertension Other Family history of hypertension Family history of premature coronary heart disease Surgical History History of back surgery History of prostatectomy History of removal of cyst (~1965) History of tonsillectomy (~1999) History of uvulectomy (~1999) S/P correction of deviated nasal septum (~1999) Social History Smoking Status: Never smoker alcohol intake: current alcohol intake frequency: a few times a week Alcohol type: beer substance use type: does not use caffeine: Yes Type: coffee Number of servings: 2 what type of physical activity do you participate in: none seatbelt use: always do you feel safe at home: Yes ROS ROS ED Constitutional Constitutional ED: Denies chills or fever(s) Eyes Eyes: Denies blurry vision or change in vision ENT ENT ED: Denies ear pain or sore throat Cardiovascular Cardiovascular: Reports chest pain; Denies palpitations Respiratory/Chest Respiratory/Chest: Reports dyspnea; Denies cough or dyspnea on exertion Gastrointestinal Gastrointestinal: Reports nausea; Denies abdominal pain or vomiting Genitourinary Genitourinary ED: Denies dysuria or urinary frequency Musculoskeletal Musculoskeletal: Denies arthralgias or myalgias Integumentary Denies rash Neurologic Neurologic: Denies headache(s) or paresthesias Psychiatric Psychiatric: Denies anxiety or depression Endocrine Endocrinology: Denies polydipsia or polyuria Allergic/Immunologic Allergic/Immunologic ED: Denies urticaria EXAM Physical Exam Const Vital Signs: 01/20/21 05:57 01/20/21 06:07 01/20/21 06:08 Temperature 97.6 F L Temperature Source Temporal Pulse Rate 74 Respiratory Rate 22 H Respiratory Effort Normal Respiratory Pattern Normal Blood Pressure 172/90 H Blood Pressure Mean 117 Pulse Ox 95 96 Oxygen Delivery Method Room Air Room Air 01/20/21 06:18 01/20/21 06:22 01/20/21 06:35 Temperature Temperature Source Pulse Rate 72 75 74 Respiratory Rate 19 H Respiratory Effort Respiratory Pattern Blood Pressure 156/89 H 110/68 122/92 H Blood Pressure Mean 102 Pulse Ox 94 Oxygen Delivery Method Room Air Positive well nourished and well developed General Appearance ED: well developed HEENT Reports normocephalic, head/scalp atraumatic and moist mucous membranes Eyes PERRL and EOMs intact bilaterally Neck no lymphadenopathy and supple General: Negative for tenderness Chest Wall inspection of chest normal Resp normal respiratory effort and clear to auscultation bilaterally Cardio regular rate, regular rhythm and no murmurs GI normal to inspection, nondistended, normoactive bowel sounds Palpation: Negative for tender, guarding or rebound tenderness present Back/Spine no CVA tenderness Cervical Spine: Negative for cervical spine tenderness Thoracic Spine / Upper Back: Negative for thoracic spinal tenderness Extremity normal to inspection General Extremety ED: Negative for tenderness Neuro oriented x3 and CN's II-XII intact bilaterally Neuro Narrative: No focal deficits appreciated. Sensorium / Orientation: alert Psych mental status grossly normal Skin no rashes or lesions noted, no wounds and skin turgor normal MDM MDM MDM Narrative Medical decision making narrative: Patient presents with chest pain. Woke from sleep. It is centralized and then radiates to his right arm. He describes a mild pressure but then pain in his arm. EKG was obtained. He does have some subtle ST depression in the anterior precordial leads. Patient was given aspirin. He was given nitro which she states really did not change his pain. At 1 point, his pain is worsened. His EKG was repeated. He has slightly more pronounced ST depression now. There is nothing that meets STEMI criteria. However, with his pain and risk factors, along with his EKG changes I do feel that he is going to require more investigation. I did discuss the case with Dr. Saldaña. He does agree with plan for admission with likely heart catheterization. The patient was loaded with Plavix and will be admitted. Impression 1. Chest pain with EKG changes Lab Data Attestation: I reviewed the patient's lab results. Labs: Laboratory Results - last 24 hr 01/20/21 01/20/21 06:04 06:04 WBC 7.3 RBC 5.38 Hgb 16.5 Hct 48.1 MCV 89.4 MCH 30.7 MCHC 34.3 RDW Std Deviation 41.5 RDW Coeff of Vinayak 12.7 Plt Count 200 MPV 8.9 Immature Gran % (Auto) 0.800 Neut % (Auto) 56.4 Lymph % (Auto) 27.6 [place] % (Auto) 12.0 H Eos % (Auto) 2.5 Baso % (Auto) 0.7 Absolute Neuts (auto) 4.1 Absolute Lymphs (auto) 2.02 Nucleated RBC % 0 Sodium 135 L Potassium 3.4 L Chloride 101 Carbon Dioxide 28.0 Anion Gap 6 BUN 19 H Creatinine 1.03 Estim Creat Clear Calc 61.94 Est GFR (MDRD) Af Amer 92 Est GFR (MDRD) Non-Af 76 BUN/Creatinine Ratio 18.4 Glucose 133 H Calcium 9.7 Troponin I < 0.015 Radiography Chest X-Ray - ED: 1 View, Read by ED Physician, Unchanged, Normal, Heart, Lungs, Mediastinum, Bony Structures and No Acute Disease EKG Initial EKG: Attestation: I personally reviewed and interpreted this EKG as follows: Interpretation: Sinus Rhythm, RBBB and Non-Specific ST Changes Comments: Mild ST depression in leads V4 and V5 slightly worsened compared to prior Prior: Changed Discharge Plan Triage Chief Complaint: Chest Pain ED Provider: Joshua Choe Dx/Rx/DC Orders Prescriptions: No Action meloxicam 15 mg tablet 15 mg PO DAILY PRN (Reason: Sleep) RF: 0 chlorthalidone 25 mg tablet 25 mg PO DAILY RF: 0 oxybutynin chloride 5 mg tablet 5 mg PO TID RF: 0 rosuvastatin 5 mg tablet 5 mg PO DAILY RF: 0 aspirin 81 MG tablet 81 mg PO DAILY@0800 RF: 0 quinapril 40 MG tablet 40 mg PO DAILY RF: 0 (DME) miscellaneous medical supply 1 EACH misc 1 ea OTHER 4X/DAY PRN Qty: 1 RF: 0 amlodipine 10 mg tablet 10 mg PO DAILY Qty: 90 RF: 4 Primary Care Provider: Jung Charles
--- NOTE | 2021-01-20 06:07 | RAD_ITS ---
STUDY: X-RAY CHEST REASON FOR EXAM: Male, 70 years old. chest pain TECHNIQUE: AP COMPARISON: 01/19/2021 FINDINGS: The lungs are clear and expanded. There is no demonstrated pleural abnormality. Normal size heart. Normal mediastinum and noel. Normal visualized pulmonary arteries. Normal visualized aortic arch and descending thoracic aorta. There are diffuse degenerative changes of the visualized thoracic spine. Normal visualized ribs, clavicles, and shoulders. There is no demonstrated abnormality of the visualized soft tissue structures of the upper abdomen. RAD/Chest 1 View (Portable) IMPRESSION: Negative x-ray examination of the chest. Electronically Signed: Gen Monroe MD at 6:58 EDT Tel , Service support ,
[2021-01-20] MEDS: Aspirin 81 MG TAB.CHEW 324 MG PO (06:08)
[2021-01-20 06:12] LABS: Absolute Lymphocyte Count 2.02 X10^3/uL (0.83-4.51); Absolute Neutrophil Count 4.1 X10^3/uL (2.0-7.7); Basophil# 0.05 X10^3/uL; Basophil% 0.7 % (0-1); Eosinophil# 0.18 X10^3/uL; Eosinophils% 2.5 % (0-5); Hematocrit 48.1 % (40-54); Hemoglobin 16.5 g/dL (13.0-16.5); Lymphocyte # 2.02 X10^3/ul (0.83-4.51); Lymphocyte % 27.6 % (19-41); Mean Corp Hgb Conc 34.3 g/dL (32-36); Mean Corpuscular Hgb 30.7 pg (27.0-32.0); Mean Corpuscular Volume 89.4 fL (80-94); Mean Platelet Vol. 8.9 fl (6.2-12.0); Monocyte# 0.88 X10^3/uL; NRBC Flagged by Analyzer 0 % (0-5); Neutrophil # 4.12 X10^3/uL (2.7-7.7); Neutrophil % 56.4 % (47-70); Platelet Count 200 K/mm3 (150-450); RBC Distribution Width CV 12.7 % (11.6-14.6); RBC Distribution Width SD 41.5 fl (35.1-43.9); Red Blood Count 5.38 M/mm3 (4.6-6.2); White Blood Count 7.3 K/mm3 (4.4-11.0)
[2021-01-20] MEDS: Nitroglycerin SL (ED/IMG/CATH) 0.4 MG TABLET SL ×2 (06:18→06:22)
--- NOTE | 2021-01-20 06:26 | ED.RN ---
states the second dose of nitro made symptoms worse and pain now 8 and not working and declined 3rd dose
--- NOTE | 2021-01-20 06:27 | ED.RN ---
Respiratory called for ecg recheck
[2021-01-20 06:32] LABS: Anion Gap 6 (5-15); BUN 19 mg/dL (7-18); BUN/Creat Ratio 18.4 RATIO (10-20); Calcium,Total 9.7 mg/dL (8.5-10.1); Chloride 101 mmol/L (98-107); Creatinine, Serum 1.03 mg/dL (0.70-1.30); EST Glomerular Filtration Rate 76 mL/min (>60); Est Glom Filt Rate - Afr Amer 92 mL/min (>60); Estimated Creatinine Clearance 61.94 ml/min; Glucose 133 mg/dL (74-106); Potassium 3.4 mmol/L (3.5-5.1); Sodium Level 135 mmol/L (136-145)
[2021-01-20] MEDS: Morphine 4 MG/ML Syringe IV (06:35)
--- NOTE | 2021-01-20 06:51 | HP.PCM.HOS_ITS ---
HPI - General General Date of Admission: 01/20/21 HPI Narrative The patient is a 70 y/o M w/ PMHx: HTN, HLD, Obesity, BILL w/ intermittent q HS CPAP usage, discharged on 01/19/21 following evaluation for onset chest pain with negative stress testing and resolution of chest pain at that time who now re- presents to the [facility] ED on 01/20/21 with recurrent chest pain, awakening him from sleep at ~ 4:30 am, substernal pressure, rated 10/10 at onset, radiating to his RUE specifically with associated dyspnea, diaphoresis without nausea or emesis which continued through ED evaluation. He was administered NG without improvement. In the ED upon evaluation following morphine administration he noted 8/10 severity chest discomfort. ED discussed case with Dr. Saldaña who requested asa, plavix load and planned AM catheterization. Work-up in the ED included T 97.6, heart rate 67, BP 117/80, respiratory rate 16, on 5% on room air, CBC with WC 7.3, hemoglobin 16.5, platelet 200 without marked shift, sodium 135, potassium 3.4, BUN/creatinine 19/1.03, glucose 133, troponin less than 0.015, chest x-ray with no acute cardiopulmonary findings, EKG with subtle ST depression in the anterior precordial leads with a repeat EKG with worsened discomfort with slightly more pronounced ST depression not specifically meeting any STEMI criteria. Patient was then admitted to the PCU and following transition from the ED to the PCU, repeat EKG obtained per protocol. Repeat EKG w/ new onset ST elevations acutely in the inferior and lateral leads. Cardiology immediately contacted and STEMI alert placed. Patient had already as noted been given aspirin and Plavix load in the ED with an additional load of heparin IV bolus administered and per request of Dr. Harleen Morrissey 180 mg p.o. x1 load as well with transition to the cardiac catheterization lab. [facility] Medical History (Updated 01/20/21 @ 10:[address] Puneet Rincon MD) Abnormal electrocardiogram Benign prostatic hypertrophy BPH (benign prostatic hyperplasia) CAD (coronary artery disease) Essential hypertension Family history of hypertension Family history of hypertension Family history of premature coronary artery disease Family history of premature coronary heart disease Mixed hyperlipidemia Obesity (BMI 30-39.9) Obstructive sleep apnea Obstructive sleep apnea BILL (obstructive sleep apnea) Prostate cancer Prostate cancer Shortness of breath STEMI (ST elevation myocardial infarction) TIA (transient ischemic attack) Home Medications aspirin 81 mg PO DAILY@0800 04/24/14 [History Last Taken 01/19/21 07:00] quinapril 40 mg PO DAILY 03/21/19 [History Last Taken 01/19/21 07:00] chlorthalidone 25 mg tablet 25 mg PO DAILY tab 09/24/19 [History Last Taken 01/19/21 07:00] miscellaneous medical supply #1 ea 12/22/19 [Rx Last Taken Unknown] amlodipine 10 mg tablet 10 mg PO DAILY #90 tab 04/04/20 [Rx Last Taken 01/19/21 07:00] meloxicam 15 mg tablet 15 mg PO DAILY PRN 11/24/20 [History Last Taken 01/18/21 07:00] oxybutynin chloride 5 mg tablet 5 mg PO TID 11/24/20 [History Last Taken 01/19/21 07:00] rosuvastatin 5 mg tablet 5 mg PO DAILY 11/24/20 [History Last Taken 01/18/21 21:00] Allergy/AdvReac Type Severity Reaction Status Date / Time No Known Allergies Allergy Verified 01/20/21 06:01 Family History Father CAD (coronary artery disease) Hypertension Mother Diabetes Hypertension Sister Hypertension Other Family history of hypertension Family history of premature coronary heart disease Surgical History History of back surgery History of prostatectomy History of removal of cyst (~1965) History of tonsillectomy (~1999) History of uvulectomy (~1999) S/P correction of deviated nasal septum (~1999) Social History Smoking Status: Never smoker alcohol intake: current alcohol intake frequency: a few times a week Alcohol type: beer substance use type: does not use caffeine: Yes Type: coffee Number of servings: 2 what type of physical activity do you participate in: none seatbelt use: always do you feel safe at home: Yes ROS ROS Narrative Admission Review of Systems: CONSTITUTIONAL: No weight loss, fever, chills, + weakness or fatigue. HEENT: Eyes: No visual loss, blurred vision, double vision or yellow sclerae. Ears, Nose, Throat: No hearing loss, sneezing, congestion, runny nose or sore throat. SKIN: No rash or itching, lesions, wounds. CARDIOVASCULAR: +chest pain, chest pressure or chest discomfort, No palpitations, edema, orthopnea, syncopal events. RESPIRATORY: + shortness of breath, No cough or sputum, wheezing, hemoptysis. GASTROINTESTINAL: No anorexia, nausea, vomiting or diarrhea, abdominal pain, melena, BRBPR. GENITOURINARY: + Urinary frequency. No dysuria, urgency or retention. NEUROLOGICAL: No headache, dizziness, syncope, paralysis, ataxia, numbness or tingling in the extremities, focal weakness, change in bowel or bladder control, seizure. MUSCULOSKELETAL: No muscle, back pain, joint pain or stiffness. HEMATOLOGIC: No anemia, bleeding or bruising. LYMPHATICS: No enlarged nodes. No history of splenectomy. PSYCHIATRIC: No history of depression or anxiety. ENDOCRINOLOGIC: + reports of sweating, No cold or heat intolerance. No polyuria or polydipsia. ALLERGIES: No history of asthma, hives, eczema or rhinitis. Vital Signs Vital Signs Vital Signs: 01/20/21 05:57 01/20/21 06:07 01/20/21 06:08 Temperature 97.6 F L Temperature Source Temporal Pulse Rate 74 Respiratory Rate 22 H Respiratory Effort Normal Respiratory Pattern Normal Blood Pressure 172/90 H Blood Pressure Mean 117 Pulse Ox 95 96 Oxygen Delivery Method Room Air Room Air 01/20/21 06:18 01/20/21 06:22 01/20/21 06:35 Temperature Temperature Source Pulse Rate 72 75 74 Respiratory Rate 19 H Respiratory Effort Respiratory Pattern Blood Pressure 156/89 H 110/68 122/92 H Blood Pressure Mean 102 Pulse Ox 94 Oxygen Delivery Method Room Air Physical Exam Narrative Physical Examination: General: awake, alert, oriented x 3 and cooperative, seated upright in the ED bed, uncomfortable, noting chest pain ongoing, 8/10 in severity. Skin: normal color, turgor, no icterus, cyanosis. HEENT: AT/NC, EOMI, PERRLA, mildly dry MM, no carotid bruits or JVD noted, thickened neck. Lungs: CTA bilaterally, moderate effort, no rales, ronchi or wheezing. Heart: Regular rate and rhythm; no gallop, rub audible. Abdomen: soft, obese, NTTP, ND, normal BS, no HSM. Extremities: no cyanosis, clubbing, or edema. Neurological: patient awake, alert, oriented as noted; cognitive function intact; pupils equally reactive to light and accomodation; cranial nerves II-XII grossly normal, moving all 4 extremities, no focal deficits, strength mildly globally decreased secondary to acute complaints/presentation. Psychiatric: affect appears uncomfortable, fatigued, no acute evidence of depressive or anxiety feelings. Lab / Micro Data Result Diagrams: 01/20/21 11:40 01/20/21 06:04 Labs: Laboratory Results - last 24 hr 01/20/21 01/20/21 06:04 06:04 WBC 7.3 RBC 5.38 Hgb 16.5 Hct 48.1 MCV 89.4 MCH 30.7 MCHC 34.3 RDW Std Deviation 41.5 RDW Coeff of Vinayak 12.7 Plt Count 200 MPV 8.9 Immature Gran % (Auto) 0.800 Neut % (Auto) 56.4 Lymph % (Auto) 27.6 [place] % (Auto) 12.0 H Eos % (Auto) 2.5 Baso % (Auto) 0.7 Absolute Neuts (auto) 4.1 Absolute Lymphs (auto) 2.02 Nucleated RBC % 0 Sodium 135 L Potassium 3.4 L Chloride 101 Carbon Dioxide 28.0 Anion Gap 6 BUN 19 H Creatinine 1.03 Estim Creat Clear Calc 61.94 Est GFR (MDRD) Af Amer 92 Est GFR (MDRD) Non-Af 76 BUN/Creatinine Ratio 18.4 Glucose 133 H Calcium 9.7 Troponin I < 0.015 Assessment & Plan Assessment/Plan (1) Chest pain at rest: Status: Acute Code(s): R07.9 - Chest pain, unspecified (2) Essential hypertension: Status: Chronic Code(s): I10 - Essential (primary) hypertension (3) Mixed hyperlipidemia: Status: Chronic Code(s): E78.2 - Mixed hyperlipidemia (4) BPH (benign prostatic hyperplasia): Status: Resolved Code(s): N40.0 - Benign prostatic hyperplasia without lower urinary tract symptoms Qualifiers: Lower urinary tract symptom presence: unspecified whether lower urinary tract symptoms present Qualified Code(s): N40.0 - Benign prostatic hyperplasia without lower urinary tract symptoms (5) Obstructive sleep apnea: Status: Chronic Code(s): G47.33 - Obstructive sleep apnea (adult) (pediatric) Plan: The patient is a 70 y/o M w/ PMHx: HTN, HLD, Obesity, BILL w/ intermittent q HS CPAP usage, discharged on 01/19/21 following evaluation for onset chest pain with negative stress testing and resolution of chest pain at that time who now re- presents to the [facility] ED on 01/20/21 with recurrent chest pain, awakening him from sleep at ~ 4:30 am, substernal pressure, rated 10/10 at onset, radiating to his RUE specifically with associated dyspnea, diaphoresis without nausea or emesis which continued through ED evaluation with repeat EKG eventual demonstrating evidence acute STEMI with ST elevations inferior and lateral leads. 1. Acute Inferior and Lateral STEMI with Chest pain: EKG with subtle ST depression in the anterior precordial leads with a repeat EKG with worsened discomfort with slightly more pronounced ST depression not specifically meeting any STEMI criteria initially however repeat EKG upon PCU transition with acute new onset elevations inferior and lateral leads with STEMI Call. ED initial trop < 0.015, CXR without acute findings. Patient initially admitted to the PCU, STEMI call placed and patient transitioned to the cardiac catheterization lab with discussions with Dr. Rincon and Dr. Canseco. Patient loaded in the ED with ASA, plavix. Heparin 5,000 mg IV bolus and brillinta 180 mg load additionally given prior to Cardiac catheterization lab transition. Will plan t ransition following to the ICU, expect PCI, maintain on a monitored bed with serial cardiac enzymes and EKGs. Mag pending. FLP recently performed thus will not repeat. NPO status. IVF. ASA, NG, morphine. 2. Hypokalemia: Admission K+ 3.4, magnesium level requested, supplementation given, repeat level in AM. 3. Hyperglycemia: Admission glucose 133, possibly stress response, hemoglobin A1c requested. 4. Hypertension: Continue home regimen including amlodipine, chlorthalidone, quinapril, PRN hydralazine. 5. Hyperlipidemia: Continue home statin regimen. 6. Obesity: Weight loss and lifestyle changes encouraged. 7. GERD: We will place on famotidine. 8. History of prostate cancer: Status post surgical intervention, encourage continued outpatient follow-up with urology. Maintained on oxybutynin. 9. BILL: CPAP nightly 10. DVT prophylaxis: SCDs, heparin bolus administered, plan 01/21/21 lovenox transition. Visit Charges Inpatient E&M: 10020 Init Hosp L3 Multi Select Codes Visit Charges Observation E&M Codin Initial observation care L3
[2021-01-20] MEDS: Clopidogrel Bisulfate 300 MG Tablet PO (06:56)
--- NOTE | 2021-01-20 06:56 | NURSING ---
PCU CP WHITE
--- NOTE | 2021-01-20 07:08 | EKG12_ITS ---
Test Reason : CP Blood Pressure : / mmHG Vent. Rate : 074 BPM Atrial Rate : 074 BPM P-R Int : 142 ms QRS Dur : 128 ms QT Int : 412 ms P-R-T Axes : 050 003 003 degrees QTc Int : 457 ms Sinus rhythm with occasional Premature ventricular complexes Right bundle branch block Abnormal ECG Confirmed by EDMUNDO BANKS, RADHA ([id number]), content editor CURLY FULLER ([id number]) on 01/21/2021 9:05:34 AM Referred By: LESLIE BANKS Confirmed By:RADHA WYATT MD
[2021-01-20] MEDS: fentaNYL 100 MCG/2 ML Ampul 50 MCG IV (07:09)
[2021-01-20 07:33] LABS: Magnesium 2.3 mg/dL (1.6-2.6)
--- NOTE | 2021-01-20 07:51 | ED.RN ---
kcl was a floor order, med was sent up to floor after the pt, this nurse spoke to pcu to let them know the med was being tubed up.
--- NOTE | 2021-01-20 08:16 | EKG12_ITS ---
Test Reason : CHEST PAIN Blood Pressure : / mmHG Vent. Rate : 065 BPM Atrial Rate : 065 BPM P-R Int : 142 ms QRS Dur : 130 ms QT Int : 444 ms P-R-T Axes : 047 016 012 degrees QTc Int : 461 ms Normal sinus rhythm Right bundle branch block ST elevation consider inferolateral injury or acute infarct ACUTE NH / STEMI Abnormal ECG Confirmed by EDMUNDO BANKS, RADHA ([id number]), avid editor CURLY FULLER ([id number]) on 01/21/2021 9:10:31 AM Referred By: MICHELE Confirmed By:RADHA WYATT MD
--- NOTE | 2021-01-20 08:30 | NURSING ---
report called to lilliana in catheterization laboratory technician patient taken down to catheterization laboratory technician at [id number]
[2021-01-20 08:37] LABS: Partial Thromboplast Time 22.3 Seconds (24.1-36.2); Prothrombin Time (Protime)PT. 12.1 SECONDS (11.7-14.9)
[2021-01-20] MEDS: Heparin 10,000 UNITS/10 ML Vial 5000 UNITS IV ×2 (08:37→09:12)
[2021-01-20] MEDS: TICAGRELOR 90 MG TABLET 180 MG PO (08:37)
--- NOTE | 2021-01-20 09:05 | CASEMGMT ---
According to [employer]'s website, the following tertiary facilities are in network: [facility], [place], [facility], [facility], [facility], [facility], [employer], [facility] and .
--- NOTE | 2021-01-20 09:11 | NURSING ---
report called to icu Daina SUAREZ
--- NOTE | 2021-01-20 10:14 | PCM.CONS.C ---
Assessment & Plan Assessment/Plan (1) STEMI (ST elevation myocardial infarction): Status: Acute Code(s): I21.3 - ST elevation (STEMI) myocardial infarction of unspecified site Plan: The patient has experienced a STEMI thought to be related to CAD with the culprit lesion being his LCx OM distribution leading to an inferior lateral event. The patient has undergone medical management, diagnostic cardiac catheterization, and PCI. At the present time the patient will be monitored in the ICU. He will continue medical management. (2) CAD (coronary artery disease): Status: Acute Code(s): I25.10 - Atherosclerotic heart disease of [place] coronary artery without angina pectoris Qualifiers: Associated angina: with unstable angina Coronary Disease-Associated Artery/Lesion type: [place] artery [place] vs. transplanted heart: [place] heart Qualified Code(s): I25.110 - Atherosclerotic heart disease of [place] coronary artery with unstable angina pectoris Plan: The patient had symptoms compatible with unstable angina pectoris. His evaluation demonstrated findings compatible with a STEMI. He has undergone further evaluation as noted above. At the present time he will need to continue medical management. Consideration will have to be given, based upon his multivessel CAD, with respect to further revascularization therapy which may need to be performed surgically after he recuperates from his STEMI. (3) Mixed hyperlipidemia: Status: Chronic Code(s): E78.2 - Mixed hyperlipidemia Plan: The patient will continue risk factor evaluation care as deemed appropriate. (4) Essential hypertension: Status: Chronic Code(s): I10 - Essential (primary) hypertension Plan: The patient's blood pressure will need to be followed. He will need to continue medical management. Addt'l Comments The patient's case has been previously discussed with the patient, Dr. Smith, and Dr. Canseco. This note was generated using a voice recognition system and there may be incorrect words, spelling or punctuation that were not noted when reviewing the office note prior to saving. HPI Consult Data Date of Consult: 01/20/21 HPI Narrative HPI Narrative: HUGO MARCOS, is a 70 M who presents who presents for evaluation of an acute ST segment elevation [place] (inferior-lateral) with a history of underlying hyperlipidemia and hypertension. He states he has been having intermittent chest discomfort. He had presented to [facility] for evaluation of his chest discomfort. He subsequently underwent further evaluation with an exercise tolerance test/imaging study. This was a stress nuclear imaging study. It was considered negative for evidence of stress-induced myocardial ischemia. He was released home for continued outpatient follow-up and care. He states at home he began having recurrent chest discomfort. It was in the center of his chest with radiation to the right arm. He stated it felt like a pressure sensation in the center of his chest. He felt somewhat short of breath and dyspneic. He did not have obvious nausea, emesis, or diaphoresis. He had no episodes of near syncope or syncope. He presented back to [facility] for reevaluation. Upon reevaluation he was noted to have a negative troponin I level. His ECG demonstrated sinus rhythm with ST segment depression. He was subsequently transferred to the PCU for further evaluation and care with consideration, unless another etiology was found, to undergo further evaluation with diagnostic cardiac catheterization. However, based upon his ongoing discomfort, he had a recurrent ECG performed. His ECG was noted to have acutely changed with findings compatible with sinus rhythm with ST segment elevation [place] in the inferior and lateral leads. He was subsequently evaluated by cardiology. A STEMI alert was initiated. He initiated medical therapy with a combination of aspirin, he had previously received antiplatelet therapy with clopidogrel/Plavix in the emergency department, he was also to receive IV heparin. The patient's case was discussed with Dr. Canseco of the interventional cardiology staff. He requested additional antiplatelet therapy be given with Brilinta 180 mg p.o. x1. The patient was subsequently taken to the cardiac catheterization laboratory. A diagnostic cardiac catheterization was performed which demonstrated multivessel CAD with the appearance of overall preserved left ventricular wall motion/systolic function (please see official cardiac catheterization report). The patient subsequently went on to have PCI of the LCx/OM lesion which was considered the culprit vessel. The patient was subsequently transferred to the ICU for ongoing evaluation and care. [facility], [facility] Medical History (Updated 01/20/21 @ 10:[address] Puneet Rincon MD) Abnormal electrocardiogram Benign prostatic hypertrophy BPH (benign prostatic hyperplasia) CAD (coronary artery disease) Essential hypertension Family history of hypertension Family history of hypertension Family history of premature coronary artery disease Family history of premature coronary heart disease Mixed hyperlipidemia Obesity (BMI 30-39.9) Obstructive sleep apnea Obstructive sleep apnea BILL (obstructive sleep apnea) Prostate cancer Prostate cancer Shortness of breath STEMI (ST elevation myocardial infarction) TIA (transient ischemic attack) Home Medications aspirin 81 mg PO DAILY@0800 04/24/14 [History Last Taken 01/19/21 07:00] quinapril 40 mg PO DAILY 03/21/19 [History Last Taken 01/19/21 07:00] chlorthalidone 25 mg tablet 25 mg PO DAILY tab 09/24/19 [History Last Taken 01/19/21 07:00] miscellaneous medical supply #1 ea 12/22/19 [Rx Last Taken Unknown] amlodipine 10 mg tablet 10 mg PO DAILY #90 tab 04/04/20 [Rx Last Taken 01/19/21 07:00] meloxicam 15 mg tablet 15 mg PO DAILY PRN 11/24/20 [History Last Taken 01/18/21 07:00] oxybutynin chloride 5 mg tablet 5 mg PO TID 11/24/20 [History Last Taken 01/19/21 07:00] rosuvastatin 5 mg tablet 5 mg PO DAILY 11/24/20 [History Last Taken 01/18/21 21:00] Allergy/AdvReac Type Severity Reaction Status Date / Time No Known Allergies Allergy Verified 01/20/21 06:01 Family History Father CAD (coronary artery disease) Hypertension Mother Diabetes Hypertension Sister Hypertension Other Family history of hypertension Family history of premature coronary heart disease Surgical History History of back surgery History of prostatectomy History of removal of cyst (~1965) History of tonsillectomy (~1999) History of uvulectomy (~1999) S/P correction of deviated nasal septum (~1999) Social History Smoking Status: Never smoker alcohol intake: current alcohol intake frequency: a few times a week Alcohol type: beer substance use type: does not use caffeine: Yes Type: coffee Number of servings: 2 what type of physical activity do you participate in: none seatbelt use: always do you feel safe at home: Yes ROS Cardiovascular Cardiovascular: Reports chest pain at rest and dyspnea at rest Respiratory/Chest Respiratory/Chest: Reports dyspnea Physical Exam Narrative The patient is awake and alert. Const alert, oriented x3 and no apparent distress General Appearance: cooperative and comfortable Orientation / Consciousness: awake HEENT normocephalic, head/scalp atraumatic and hearing grossly normal bilaterally Head and Scalp: normal to inspection, normocephalic and atraumatic Eyes PERRL, EOMs intact bilaterally, conjunctivae normal and no scleral icterus General Eye: normal appearance of both eyes Neck full ROM Carotids: normal carotid upstroke Chest inspection of chest normal Resp normal respiratory effort Cardio regular rate, regular rhythm, S1 normal heart sound and S2 normal heart sound GI normal to inspection, nondistended, normoactive bowel sounds, soft to palpation and non-tender Extremity no pedal edema Skin no rashes or lesions noted Neuro oriented x3 and moves all extremities Sensorium / Orientation: awake and alert Psych mental status grossly normal Procedure Criteria Procedure Type: Elective COVID Risk Discussion: The surgeon/proceduralist and patient have discussed in detail the risk of exposure to and/or potential harm posed by the COVID-19 virus with having a surgery/procedure at this time versus the risk of delaying the surgery/procedure. It is not possible to know either the risk of delaying the surgery or procedure or chance of getting an infection with perfect accuracy, but a joint decision was made between the patient and the surgeon/proceduralist to proceed at this time with the scheduled surgery/procedure as indicated on the consent form.
[2021-01-20 10:15] LABS: Hemoglobin A1c 5.8 % (3.8-5.6)
[2021-01-20] MEDS: Potassium Chloride Oral Tablet 20 MEQ 40 MEQ PO (10:15)
--- NOTE | 2021-01-20 10:25 | EKG12_ITS ---
Test Reason : AM EKG Blood Pressure : / mmHG Vent. Rate : 068 BPM Atrial Rate : 068 BPM P-R Int : 148 ms QRS Dur : 130 ms QT Int : 438 ms P-R-T Axes : 066 033 019 degrees QTc Int : 465 ms Sinus rhythm with Premature atrial complexes Right bundle branch block Abnormal ECG When compared with ECG of 20-JAN-2021 08:08, MANUAL COMPARISON REQUIRED, DATA IS UNCONFIRMED Confirmed by VALENCIA BANKS, DOMENIC ([id number]), photography editor CURLY FULLER ([id number]) on 01/22/2021 9:12:12 AM Referred By: MICHELE Confirmed By:DOMENIC BIRMINGHAM MD
--- NOTE | 2021-01-20 10:45 | EKG12_ITS ---
Test Reason : CHEST PAIN Blood Pressure : / mmHG Vent. Rate : 078 BPM Atrial Rate : 078 BPM P-R Int : 132 ms QRS Dur : 136 ms QT Int : 430 ms P-R-T Axes : 056 038 012 degrees QTc Int : 490 ms Sinus rhythm Right bundle branch block Abnormal ECG No previous ECGs available Confirmed by VALENCIA BANKS, DOMENIC ([id number]), non linear editor CURLY FULLER ([id number]) on 01/22/2021 9:12:29 AM Referred By: Confirmed By:DOMENIC BIRMINGHAM MD
[2021-01-20] MEDS: 0.9% Normal Saline 1,000 ML 100 ML IV ×2 (10:47→21:29)
[2021-01-20] MEDS: Famotidine 20 MG Tablet PO ×2 (10:53→21:25)
--- NOTE | 2021-01-20 11:02 | CL.I_ITS ---
Patient Name: HUGO MARCOS Study Date: 01/20/2021 Performing: Cheyanne Canseco MD Ht: 65 inches 165 cm : 1950 Wt: 218.5 lbs 99 kg Age: 70 Gender: male BSA: 2.05 PROCEDURE(S) PERFORMED [id number], LEAN AND/OR PTCA, ARTERY OR GRAFT, SINGLE VESSEL CLINICAL PROFILE AND CO-MORBIDITIES Indications: ACS <= 24 hrs, Suspected CAD Heart Failure: None Stress/Imaging Date: 01/19/2021 Stress Test with SPECT MPI: Negative Angina Classification Anginal Classification w/in 2 Weeks: CCS IV CAD Presentations: STEMI. Initial EKG did not reveal STEMI. Subsequent EKG done at around 8:08am revealed STEMI CONCLUSIONS Successful thrombectomy and LENA to OM1. RECOMMENDATIONS ASA Indefinitley Brilinta for at least 12 months Pt. has residual multivessel diffuse CAD. Revascularization options were discussed with family. Pt. w ill likely need CT surgery consult for a heart team based approach DESCRIPTION OF PROCEDURE The patient arrived to the procedure lab. The risks and benefits of the procedure as well as a full d escription of our services here and current unavailability of surgical backup were fully explained to the patient and/or their significant other prior to the catheterization. The Timeout was completed, verifying the correct patient and procedure. The patient's procedural site was prepped and draped in the usual fashion. Local anesthetic was given subcutaneously to right radial region with Lidocaine 2% Using a modified Seldinger technique,arterial access was obtained via the right radial artery, a 6Fr sheath was inserted. Left Coronary Artery selective angiography was performed in multiple views usin g a 5 Fr. 4.0 [place] catheter. Right Coronary Artery selective angiography was then performed in multi ple views using a 5 Fr. 4.0 [place] catheter. Left Ventriculography was performed in WAAN projection usi ng a 5 Fr. Pigtail catheter. LV to AO pullback pressures were then recorded.The images were reviewed and options discussed. A decision was then made to proceed with an Intervention, IVUS o r other adjunct procedure. xb3 Guide catheter was inserted and engaged into the LCA. priority one introduced to om ^FreeText ^ Priority One inserted Pass # 1 bmw Guide wire was advanced to the OM. Priority One Removed emerge 2 .00 x 20 Balloon catheter was advanced across lesion in the obtuse marginal, mid. PTCA balloon inflat ed at 6 atms for 6 secs. PTCA balloon inflated at 10 atms for 12 secs. PTCA balloon inflated at 10 at ms for 7 secs. PTCA balloon inflated at 10 atms for 12 secs. Angiogram performed post balloon dilatat ion. PTCA balloon inflated at 12 atms for 12 secs. osiro 2.25 x 30 Drug Eluting stent was advanced ac ross the lesion in the obtuse marginal, mid. Angiogram performed post stent deployment. orsiro 2.5 x 15 Drug Eluting stent was advanced across the lesion in the obtuse marginal, mid. Angiogram performe d post stent deployment. ro[place]to [place] 2.5 x 12 Balloon catheter was inserted post stent. Angiogram per formed post balloon dilatation. The arterial sheath was pulled and a TR Band was applied for hemostasis INTERVENTION INFORMATION LESION SITE: OM (Mid) Lesion Complexity: High/C, chronic total occlusion: No, lesion at bifurcation: No, thrombus present: Yes, lesion length: 30 mm, culprit lesion: Yes, Previously treated lesion: No Pre Stenosis: 100 % Pre intervention MAURICIO flow: 0 PROCEDURE: Thrombectomy, Drug Eluting Stent with pre and post dilatation Post Stenosis: 0 % Post intervention MAURICIO flow: 3 Lesion Devices: Terumo Priority One Aspiration Catheter Tian .014 [employer] [place] Straight 190cm Cardinal 6 Fr XB3.0 100cm Guide Catheter Maikel Sci EMERGE MR 2.00x20 BALLOON COMPLICATIONS No Complications PROCEDURE MEDICATIONS Fentanyl 50 mcg IV Fentanyl 25 mcg IV Oxygen: 2 L/min via nasal cannula Brilinta 180 mg PO @ 01/20/2021 08:37:55 Heparin 5000 unit(s) IV 01/20/2021 08:37:23 Heparin 3000 unit(s) IV 01/20/2021 09:12:03 Nitro 200 mcg IC 01/20/2021 09:28:41 Verapamil 2.5mg, Ntg 100mcgs, given IA 01/20/2021 08:40:02 SUMMARY OF HEMODYNAMIC DATA Time AIR REST ECG 08:33:46 AO 125/81 (102) SA 08:43:14 LV 163/-7, 35 08:49:41 LV 159/-6, 35 08:49:46 LV 156/-3, 33 08:50:43 LV 159/-2, 27 08:50:49 LVp 157/-5, 30 08:50:55 AOp 142/73 (100) 08:51:00 Signed By Cheyanne Canseco MD On 01/20/2021 11:01:03 Cheyanne Canseco MD
--- NOTE | 2021-01-20 11:09 | NURSING ---
patient received from lab animal technician at 1015, radial site checked with Malaika SUAREZ, EKG obtained, placed on ICU monitor
--- NOTE | 2021-01-20 11:50 | CASEMGMT ---
ERICK AUGUSTE assessment: Face to Face with patient for initial transition planning/care coordination assessment. ERICK AUGUSTE introduced self and role at [facility], pt voices understanding and consents to assessment. Pt is sitting up in bed in no distress. Pt is A/Ox4 and answers all questions appropriately. Care providers, pharmacy, and demographics verified. Presentation: Started with CP around 0430, radiating into right arm Admitting dx: CP then STEMI PCP: Melvin Specialists: Mckenzie cardio Preferred Pharmacy: [facility]-pt to be sent home on Brilinta and given month free trial card Insurance: AeR Prescription Benefit: AeR Living Will/HPOA: Pt has LW/HPOA and is aware that they are on file at [facility]. Pt's , Antonella Vigil, is HPOA. LNOK: Antonella Vigil, /HPOA Living Arrangements: Pt lives with in 1 story home and states no concerns at home. Pt is independent with ADL's. Transportation: Pt drives self and states no transportation concerns. DME/HHC: Pt has cpap thru [employer] but does not use. Pt states no need for any further DME. Pt states no hx HHC or SNF. Pt states no concerns with going home at time of discharge. Pt is retired. Pt does not smoke cigarettes but does drink ETOH occasionally. Pt states no further concerns/needs. CM to follow for any further discharge planning/needs. Advised pt to ask for CM if any further questions/concerns/needs arise, voices understanding. Pt Goal: Home Plan: [place] ERICK AUGUSTE
[2021-01-20 11:52] LABS: Hematocrit 47.9 % (40-54); Hemoglobin 16.6 g/dL (13.0-16.5); Mean Corp Hgb Conc 34.7 g/dL (32-36); Mean Corpuscular Hgb 30.5 pg (27.0-32.0); Mean Corpuscular Volume 88.1 fL (80-94); Mean Platelet Vol. 8.9 fl (6.2-12.0); Platelet Count 207 K/mm3 (150-450); RBC Distribution Width CV 12.6 % (11.6-14.6); RBC Distribution Width SD 40.7 fl (35.1-43.9); Red Blood Count 5.44 M/mm3 (4.6-6.2); White Blood Count 8.1 K/mm3 (4.4-11.0)
--- NOTE | 2021-01-20 14:28 | CRPHASE1_ITS ---
Patient Communication PHII Cardiac Rehab Discussed with Patient:: Yes Guide to Cardiac Rehab Given to Patient:: Yes Cardiac Rehab Facility Choice List Given to Patient:: Yes Choice Program [facility] CR PHII:: Communication Given to CR Choice Program Other:: Communication Given to CR Rolling Mill Operator:: Arlen Canseco Refer Phase II Cardiac Rehab:: Yes Sessions:: 36 sessions - 3 days/wk, 12 weeks Cardiac Rehabilitation Info Cardiac Rehabilitation Program Information: Cardiac Rehabilitation is important for patients like you who are recovering from a heart problem. Cardiac rehabilitation programs are recognized as integral to the continued care of the patient with coronary heart disease. The cardiac rehabilitation program is designed to optimize a patient's physical, psychological, and social functioning. Health md do resident urgent care work in cardiac rehabilitation programs and assist you with getting the treatments you need to get stronger and healthier - like exercise, healthy eating habits, and medications. Cardiac rehabilitation has been show to help people with heart problems live longer and have better life enjoyment than people who do not go to cardiac rehabilitation. Please contact the Cardiac Rehabilitation Program at [facility] at in two weeks if you have not heard from them.
--- NOTE | 2021-01-20 14:29 | CRPH1.INSTRU ---
General Education CAD and cardiac anatomy and function:: Patient communicates acknowledgment, Needs reinforcement Explanation of diagnoses and procedures:: Patient communicates acknowledgment, Needs reinforcement Sign/Symptoms of TN:: Patient communicates acknowledgment, Needs reinforcement Antiplatelet therapy: Patient communicates acknowledgment, Needs reinforcement Proper use of NTG-SL: Patient communicates acknowledgment, Needs reinforcement Emergency procedures and activation of EMS: Patient communicates acknowledgment, Needs reinforcement Compliance of all prescribed medications: Patient communicates acknowledgment, Needs reinforcement Smoking Patient Nicotine/Smoking Risk Factors Are:: Never smoked Dyslipidemia Patient Dyslipidemia Risk Factors Are:: Total Cholesterol, Triglycerides, HDL, LDL Recommendations Include:: Lipid profile not available, Reviewed NCEP/ATP guidelines, Therapeutic Lifestyle Change dietary guidelines Dyslipidemia Response Code:: Patient communicates acknowledgment, Needs reinforcement Overweight/Obesity Patient Overweight/Obesity Risk Factors Are:: Obesity - > or = 30 Recommendations Include:: Weight loss of 5-10%, Reduced calorie diet, Exercise 5-7 times/week Overweight/Obesity:: Patient communicates acknowledgment, Needs reinforcement Hypertension Recommendations Include:: Maintain BP <130/85, DASH dietary guidelines, Decrease/maintain normal body weight, Moderation of ETOH Hypertension:: Patient communicates acknowledgment, Needs reinforcement Heart Disease Patient Heart Disease Risk Factors Are:: Family history of heart disease < 65 years old Recommendations Include:: Educated family members of their risk, Educated family members of importance of prevention of heart disease Heart Disease Response Code:: Patient communicates acknowledgment, Needs reinforcement Diabetes Patient Diabetes Risk Factors Are:: No documented hx of diabetes Sedentary Patient Sedentary Risk Factors Are:: Lack of regular exercise Recommendations Include:: Aerobic exercise 5-7 times/week for 20-30 minutes continuously, Benefits of regular exercise, Discussed home walking program, Monitored Outpatient Cardiac Rehab Sedentary Response Code:: Patient communicates acknowledgment, Needs reinforcement Stress Recommendations Include:: Identification of stressors, and assessment of coping skills, Stress management techniques Stress Response Code:: Patient communicates acknowledgment, Needs reinforcement
--- NOTE | 2021-01-20 14:32 | CL.D_ITS ---
Patient Name: HUGO MARCOS Study Date: 01/20/2021 Performing: Puneet Rincon MD Ht: 64.96 inches 165 cm : 1950 Wt: 218.26 lbs 99 kg Age: 70 Gender: male BSA: 2.05 PROCEDURE(S) PERFORMED [id number], LENA AND/OR PTCA, ARTERY OR GRAFT, SINGLE VESSEL CLINICAL PROFILE AND INDICATIONS Indications: ACS <= 24 hrs, Suspected CAD Heart Failure: None Stress/Imaging Date: 01/19/2021tress Test with SPECT MPI: Negative Angina Classification Anginal Classification w/in 2 Weeks: CCS IV CAD Presentations: STEMI. Initial EKG did not reveal STEMI. Subsequent EKG done at around 8:08am revealed STEMI CONCLUSIONS Elevated Left Ventricular End Diastolic Pressure Normal LV size, wall motion,and systolic function LVEF: by LV gram 55 % [place] Multivessel CAD RECOMMENDATIONS Risk factor modification Medical therapy Referred for immediate PCI DESCRIPTION OF PROCEDURE The patient arrived to the procedure lab. The risks and benefits of the procedure as well as a full d escription of our services here and current unavailability of surgical backup were fully explained to the patient and/or their significant other prior to the catheterization. The Timeout was completed, verifying the correct patient and procedure. The patient's procedural site was prepped and draped in the usual fashion. Local anesthetic was given subcutaneously to right radial region with Lidocaine 2% . Using a modified Seldinger technique, arterial access was obtained via the right radial artery, a 6 Fr sheath was inserted. Left Coronary Artery selective angiography was performed in multiple views u sing a 5 Fr. 4.0 [place] catheter. Right Coronary Artery selective angiography was then performed in mu ltiple views using a 5 Fr. 4.0 [place] catheter. Left Ventriculography was performed in AWAN projection using a 5 Fr. Pigtail catheter. LV to AO pullback pressures were then recorded.The arterial sheath was pulled and a TR Band was applied for hemostasis CORONARY ANGIOGRAPHY DOMINANCE: Right Dominant LEFT HEART ASSESSMENT Left Ventricular Ejection Fraction: by LV Gram 55 % Normal LV wall motion Elevated Left Ventricular End Diastolic Pressure LVEDP: 35 mmHg LEFT MAIN: Angiographically normal LEFT ANTERIOR DESCENDING ARTERY: PROX LAD: Mild calcification, Mild luminal irregularities MID LAD: long: diffuse: irregular: 90 % Stenosis CIRCUMFLEX ARTERY: PROX CIRC: Mild luminal irregularities MID CIRC: s/p OM1: 85 % Stenosis DISTAL CIRC: pre bifurcation: 90 % Stenosis OM 1: Proximal - is occluded RIGHT CORONARY ARTERY: PROX RCA: irregular: 85 % Stenosis MID RCA: irregular: 90 % Stenosis DISTAL RCA: eccentri: 50 % Stenosis RT PDA: Mid - Mild luminal irregularities AORTIC ROOT: Angiographically normal COMPLICATIONS No Complications PROCEDURE MEDICATIONS Fentanyl 50 mcg IV Fentanyl 25 mcg IV Oxygen: 2 L/min via nasal cannula Brilinta 180 mg PO @ 01/20/2021 08:37:55 Heparin 5000 unit(s) IV 01/20/2021 08:37:23 Heparin 3000 unit(s) IV 01/20/2021 09:12:03 Nitro 200 mcg IC 01/20/2021 09:28:41 Verapamil 2.5mg, Ntg 100mcgs, given IA 01/20/2021 08:40:02 SUMMARY OF HEMODYNAMIC DATA Time AIR REST ECG 08:33:46 AO 125/81 (102) SA 08:43:14 LV 163/-7, 35 08:49:41 LV 159/-6, 35 08:49:46 LV 156/-3, 33 08:50:43 LV 159/-2, 27 08:50:49 LVp 157/-5, 30 08:50:55 AOp 142/73 (100) 08:51:00 Signed By Puneet Rincon MD On 01/20/2021 2:31:57 PM Puneet Rincon MD
[2021-01-20] MEDS: hydrALAZINE 20 MG/ML Vial 10 MG IV (15:50)
--- NOTE | 2021-01-20 19:34 | NURSING ---
1630 patient developed SOB and chest pain, EKG sent to physician, placed on 2L NC, pain and SOB improved see phys notification 1630 patient developed SOB and chest pain, EKG sent to physician, placed on 2L NC, pain and SOB improved see phys notification
--- NOTE | 2021-01-20 21:17 | ECHOCS_ITS ---
Reason For Study: s/p NC Procedure This was a 2D Doppler, Color Flow transthoracic echocardiogram. The study was technically difficult. Contrast injection was performed. Exam performed portable in patient room. Left Ventricle Normal LV size. Mild segmental systolic dysfunction (see wall motion). The estimated ejection fraction is 55 %. No evidence for diastolic dysfunction. Mid-Anterior : Hypokinetic. Mid-Lateral : Akinetic. Mid-Posterior: Akinetic. Right Ventricle Normal RV size. Normal systolic function. Atria Normal left atrium. Normal right atrium. No doppler evidence for ASD. Mitral Valve There is no mitral annular calcification. Normal mitral valve. Trivial mitral valve insufficiency. Tricuspid Valve Normal tricuspid valve. Trivial tricuspid valve insufficiency. Unable to estimate RV systolic pressure/pulmonary artery pressure due to technically difficult study. Aortic Valve Trisinus/trileaflet aortic valve. Moderate focal aortic valve thickening. Moderate focal aortic valve calcification. Pulmonic Valve The pulmonic valve is not well visualized. Great Vessels Normal sized aortic root. Pericardium/Pleural No pericardial effusion. Medication Diluted definity 3ml given slow IV push to enhance endocardial definition. MMode/2D Measurements & Calculations LVIDd: 4.9 cm IVSd: 1.3 cm Ao root diam: 3.5 cm LVIDs: 2.9 cm LVPWd: 1.3 cm RVDd: 3.9 cm FS: 40.5 % LAV(MOD-bp): 28.9 ml LVAd ap4: 32.4 cm2 SV(MOD-sp4): 69.3 ml LAV(MOD-bp) Indexed: 14.0 ml/m2 LVLd ap4: 7.2 cm LAV(MOD-sp2): 22.3 ml EDV(MOD-sp4): 117.7 ml LAV(MOD-sp4): 34.3 ml EDV(sp4-el): 123.3 ml LVAs ap4: 18.9 cm2 LVLs ap4: 6.2 cm ESV(MOD-sp4): 48.4 ml ESV(sp4-el): 48.5 ml EF(MOD-sp4): 58.8 % EF(sp4-el): 60.6 % SV(sp4-el): 74.8 ml LA A4 area: 14.7 cm2 LA dimension(2D): 3.3 cm RA A4 area: 9.5 cm2 Doppler Measurements & Calculations MV E max mike: 77.0 cm/sec Lat Peak E' Mike: 8.0 cm/sec Med Peak E' Mike: 8.3 cm/sec MV A max mike: 104.6 cm/sec E/E' lat: 9.6 E/E' med: 9.2 MV E/A: 0.74 Ao V2 max: 175.4 cm/sec LV V1 max: 135.5 cm/sec PA V2 max: 109.6 cm/sec Ao max P.3 mmHg LV V1 max P.3 mmHg Ao V2 mean: 126.1 cm/sec Ao mean P.8 mmHg Ao V2 VTI: 31.5 cm ECHO/Echo Complete W/ Contrast Interpretation Summary The study was technically difficult. Contrast injection was performed. Mild segmental systolic dysfunction (see wall motion). The estimated ejection fraction is 55 %. Trivial mitral valve insufficiency. Trivial tricuspid valve insufficiency. Moderate focal aortic valve thickening. Moderate focal aortic valve calcification. Unable to estimate RV systolic pressure/pulmonary artery pressure due to techni mitchell difficult study. No evidence for diastolic dysfunction. Ordering Physician: Puneet Rincon Referring Physician: Jung Charles Performed By: Sheryl Leblanc, RDCS, RVT
[2021-01-20] MEDS: Oxybutynin 5 MG Tablet PO (21:25)
[2021-01-20] MEDS: TICAGRELOR 90 MG TABLET PO (21:25)
[2021-01-20] MEDS: Atorvastatin Calcium 10 MG Tablet PO (21:25)
[2021-01-20] MEDS: Carvedilol 6.25 MG Tablet PO (21:25)
[2021-01-21] VITALS (17 sets, daily range): BP systolic 109–147; BP diastolic 60–103; PULSE 66–133; RESP 12–22; TEMP 36.1–36.9; O2SAT 93–97
[2021-01-21 03:39] LABS: Absolute Lymphocyte Count 1.31 X10^3/uL (0.83-4.51); Absolute Neutrophil Count 6.1 X10^3/uL (2.0-7.7); Basophil# 0.04 X10^3/uL; Basophil% 0.5 % (0-1); Eosinophil# 0.14 X10^3/uL; Eosinophils% 1.6 % (0-5); Hematocrit 44.2 % (40-54); Lymphocyte # 1.31 X10^3/ul (0.83-4.51); Lymphocyte % 15.3 % (19-41); Mean Corp Hgb Conc 33.9 g/dL (32-36); Mean Corpuscular Hgb 30.5 pg (27.0-32.0); Mean Corpuscular Volume 89.8 fL (80-94); Mean Platelet Vol. 8.9 fl (6.2-12.0); Monocyte% 10.5 % (0-10); NRBC Flagged by Analyzer 0 % (0-5); Neutrophil # 6.13 X10^3/uL (2.7-7.7); Neutrophil % 71.4 % (47-70); Platelet Count 188 K/mm3 (150-450); RBC Distribution Width CV 12.8 % (11.6-14.6); RBC Distribution Width SD 42.2 fl (35.1-43.9); Red Blood Count 4.92 M/mm3 (4.6-6.2); White Blood Count 8.6 K/mm3 (4.4-11.0)
[2021-01-21 03:56] LABS: ALB/GLOB Ratio 1.1 RATIO (0.9-2.4); AST(SGOT) 116 U/L (15-37); Alanine Aminotransfer ALT/SGPT 47 U/L (16-61); Albumin, Serum 3.3 g/dL (3.2-5.0); Alkaline Phosphatase 20 U/L (45-117); Anion Gap 7 (5-15); BUN 13 mg/dL (7-18); BUN/Creat Ratio 14.1 RATIO (10-20); Calcium,Total 8.7 mg/dL (8.5-10.1); Chloride 103 mmol/L (98-107); Creatinine, Serum 0.92 mg/dL (0.70-1.30); EST Glomerular Filtration Rate 87 mL/min (>60); Est Glom Filt Rate - Afr Amer 105 mL/min (>60); Estimated Creatinine Clearance 66.85 ml/min; Globulin 2.9 g/dL (2.2-4.2); Glucose 128 mg/dL (74-106); Potassium 3.3 mmol/L (3.5-5.1); Protein, Total 6.2 g/dL (6.4-8.2); Sodium Level 137 mmol/L (136-145)
[2021-01-21] MEDS: 0.9% Saline Lock 10 ML Syringe IV (05:34)
[2021-01-21] MEDS: Oxybutynin 5 MG Tablet PO ×3 (05:34→21:07)
--- NOTE | 2021-01-21 06:29 | PCM.PN.HOSP ---
Subjective Subjective: Patient overnight since cardiac catheterization with no acute events although he does report an episode of mild midsternal and left-sided chest discomfort described as more of an ache rated maybe 3 out of 10 in severity lasting only seconds and none since then. He notes this was different than previously, less severe and he felt it was more so secondary to musculoskeletal etiology. He denies any further chest discomfort otherwise. Overnight telemetry with only noted PVCs. Patient denies fevers, chills, nausea, emesis, abdominal pain or dyspnea. Objective Data Objective Data Vital Signs: Vital Signs Temp Pulse Resp BP Pulse Ox 97.8 F 66 17 125/103 H 95 01/21/21 04:00 01/21/21 05:00 01/21/21 05:00 01/21/21 05:00 01/21/21 05:00 Oxygen Flow Rate (L/min) 2 Oxygen Delivery Method CPAP Weight: 223 lb 15.834 oz Body Mass Index (BMI) 36.4 Intake & Output: Intake and Output for Last 24 Hours 01/19/21 01/20/21 01/21/21 23:59 23:59 23:59 Intake Total 2263.58 / 2263.58 120 / 120 Output Total 2225 / 2225 325 / 325 Balance 38.58 / 38.58 -205 / -205 Lab / Micro Data Result Diagrams: 01/21/21 03:30 01/21/21 03:30 Labs: Laboratory Results - last 24 hr 01/20/21 01/20/21 01/20/21 06:04 06:04 06:04 WBC Corrected WBC RBC Hgb Hct MCV MCH MCHC RDW Std Deviation RDW Coeff of Vinayak Plt Count MPV Immature Gran % (Auto) Neut % (Auto) Lymph % (Auto) [place] % (Auto) Eos % (Auto) Baso % (Auto) Absolute Neuts (auto) Absolute Lymphs (auto) Nucleated RBC % Diff Path Review PT INR APTT Sodium 135 L Potassium 3.4 L Chloride 101 Carbon Dioxide 28.0 Anion Gap 6 BUN 19 H Creatinine 1.03 Estim Creat Clear Calc 61.94 Est GFR (MDRD) Af Amer 92 Est GFR (MDRD) Non-Af 76 BUN/Creatinine Ratio 18.4 Glucose 133 H Hemoglobin A1c 5.8 H Calcium 9.7 Magnesium 2.3 Total Bilirubin AST ALT Alkaline Phosphatase Troponin I < 0.015 Total Protein Albumin Globulin Albumin/Globulin Ratio 01/20/21 01/20/21 01/20/21 06:04 11:40 11:40 WBC Cancelled 8.1 Corrected WBC Cancelled RBC Cancelled 5.44 Hgb Cancelled 16.6 H Hct Cancelled 47.9 MCV Cancelled 88.1 MCH Cancelled 30.5 MCHC Cancelled 34.7 RDW Std Deviation Cancelled 40.7 RDW Coeff of Vinayak Cancelled 12.6 Plt Count Cancelled 207 MPV Cancelled 8.9 Immature Gran % (Auto) Neut % (Auto) Lymph % (Auto) [place] % (Auto) Eos % (Auto) Baso % (Auto) Absolute Neuts (auto) Absolute Lymphs (auto) Nucleated RBC % Diff Path Review Cancelled PT 12.1 INR 1.0 APTT 22.3 L Sodium Potassium Chloride Carbon Dioxide Anion Gap BUN Creatinine Estim Creat Clear Calc Est GFR (MDRD) Af Amer Est GFR (MDRD) Non-Af BUN/Creatinine Ratio Glucose Hemoglobin A1c Calcium Magnesium Total Bilirubin AST ALT Alkaline Phosphatase Troponin I Total Protein Albumin Globulin Albumin/Globulin Ratio 01/20/21 01/20/21 01/20/21 11:40 14:30 17:55 WBC Corrected WBC RBC Hgb Hct MCV MCH MCHC RDW Std Deviation RDW Coeff of Vinayak Plt Count MPV Immature Gran % (Auto) Neut % (Auto) Lymph % (Auto) [place] % (Auto) Eos % (Auto) Baso % (Auto) Absolute Neuts (auto) Absolute Lymphs (auto) Nucleated RBC % Diff Path Review PT INR APTT Sodium Potassium Chloride Carbon Dioxide Anion Gap BUN Creatinine Estim Creat Clear Calc Est GFR (MDRD) Af Amer Est GFR (MDRD) Non-Af BUN/Creatinine Ratio Glucose Hemoglobin A1c Calcium Magnesium Total Bilirubin AST ALT Alkaline Phosphatase Troponin I 67.400 H* 58.200 H* 44.500 H* Total Protein Albumin Globulin Albumin/Globulin Ratio 01/21/21 01/21/21 03:30 03:30 WBC 8.6 Corrected WBC RBC 4.92 Hgb 15.0 Hct 44.2 MCV 89.8 MCH 30.5 MCHC 33.9 RDW Std Deviation 42.2 RDW Coeff of Vinayak 12.8 Plt Count 188 MPV 8.9 Immature Gran % (Auto) 0.700 Neut % (Auto) 71.4 H Lymph % (Auto) 15.3 L [place] % (Auto) 10.5 H Eos % (Auto) 1.6 Baso % (Auto) 0.5 Absolute Neuts (auto) 6.1 Absolute Lymphs (auto) 1.31 Nucleated RBC % 0 [address] Review PT INR APTT Sodium 137 Potassium 3.3 L Chloride 103 Carbon Dioxide 27.0 Anion Gap 7 BUN 13 Creatinine 0.92 Estim Creat Clear Calc 66.85 Est GFR (MDRD) Af Amer 105 Est GFR (MDRD) Non-Af 87 BUN/Creatinine Ratio 14.1 Glucose 128 H Hemoglobin A1c Calcium 8.7 Magnesium Total Bilirubin 0.50 AST 116 H ALT 47 Alkaline Phosphatase 20 L Troponin I Total Protein 6.2 L Albumin 3.3 Globulin 2.9 Albumin/Globulin Ratio 1.1 Radiography Diagnostic Testing: Radiology Impression Chest X-Ray 01/20/21 06:07 IMPRESSION: Negative x-ray examination of the chest. Electronically Signed: Gen Monroe MD at 6:58 EDT Tel , Service support , Physical Exam Narrative Physical Examination: General: awake, alert, oriented x 3 and cooperative, seated upright at the ICU bedside, no acute distress, no chest pain. Skin: normal color, turgor, no icterus, cyanosis. HEENT: AT/NC, EOMI, PERRLA, MMM. Lungs: CTA bilaterally, moderate effort, mild decrease BL bases, no rales, ronchi or wheezing. Heart: Regular rate and rhythm; no gallop, rub audible. Abdomen: soft, obese, NTTP, ND, normal BS, no HSM. Extremities: no cyanosis, clubbing, or edema. Right wrist with dressing in place, no drainage. Neurological: patient awake, alert, oriented x 3; cognitive function intact; pupils equally reactive to light and accomodation; cranial nerves II-XII grossly normal, moving all 4 extremities, no focal deficits, strength significantly improved, only mildly global decrease likely secondary to acute recent intervention. Psychiatric: affect appears normal, no acute evidence of depressive or anxiety feelings. Assessment & Plan Assessment/Plan (1) Chest pain at rest: Status: Acute Code(s): R07.9 - Chest pain, unspecified (2) Essential hypertension: Status: Chronic Code(s): I10 - Essential (primary) hypertension (3) Mixed hyperlipidemia: Status: Chronic Code(s): E78.2 - Mixed hyperlipidemia (4) BPH (benign prostatic hyperplasia): Status: Resolved Code(s): N40.0 - Benign prostatic hyperplasia without lower urinary tract symptoms Qualifiers: Lower urinary tract symptom presence: unspecified whether lower urinary tract symptoms present Qualified Code(s): N40.0 - Benign prostatic hyperplasia without lower urinary tract symptoms (5) Obstructive sleep apnea: Status: Chronic Code(s): G47.33 - Obstructive sleep apnea (adult) (pediatric) Plan: The patient is a 70 y/o M w/ PMHx: HTN, HLD, Obesity, BILL w/ intermittent q HS CPAP usage, discharged on 01/19/21 following evaluation for onset chest pain with negative stress testing and resolution of chest pain at that time who now re-presents to the [facility] ED on 01/20/21 with recurrent chest pain, awakening him from sleep at ~ 4:30 am, substernal pressure, rated 10/10 at onset, radiating to his RUE specifically with associated dyspnea, diaphoresis without nausea or emesis which continued through ED evaluation with repeat EKG eventual demonstrating evidence acute STEMI with ST elevations inferior and lateral leads. 1. Acute Inferior and Lateral STEMI with Chest pain, culprit lesion LCx OM distribution leading to inferior lateral event: EKG with subtle ST depression in the anterior precordial leads with a repeat EKG with worsened discomfort with slightly more pronounced ST depression not specifically meeting any STEMI criteria initially however repeat EKG upon PCU transition with acute new onset elevations inferior and lateral leads with STEMI Call. ED initial trop < 0.015, CXR without acute findings. Patient initially admitted to the PCU, STEMI call placed and patient transitioned to the cardiac catheterization lab with discussions with Dr. Rincon and Dr. Canseco. Patient loaded in the ED with ASA, plavix. Heparin 5,000 mg IV bolus and brillinta 180 mg load additionally given prior to Cardiac catheterization lab transition. 01/20/2021 cardiac catheterization with multivessel coronary disease with culprit lesion primarily LCx OM leading to inferior inferolateral events however patient with additional vessel involvement per discussion with cardiology. Awaiting cardiology discussion with tertiary facility cardiothoracic surgeon as may be appropriate for transfer for consideration for multivessel intervention. Cardiac enzyme trend <0.015->67.4->58.2->44.5. Mag 2.3. FLP pending. Currently patient continued on aspirin, Brilinta, atorvastatin, Coreg, lisinopril, isosorbide in addition to chlorthalidone. ECHO pending. ASA, NG, morphine. 2 prediabetes mellitus: Admission glucose elevated 133, HgbA1c 5.8%, prediabetic, discussed with patient, nutrition consulted for education and teaching and diet transitioned to ADA 1800 diet/cardiac diet. Will defer accu check/ISS but discussed importance of lifestyle and diet changes with patient. He will need close PCP follow-up. 3. Hypokalemia: Admission K+ 3.3, magnesium level normal, supplementation given, repeat level in AM. 4. Hypertension: Continue home regimen including amlodipine, chlorthalidone, quinapril, coreg, PRN hydralazine. 5. Hyperlipidemia: Continue home statin regimen. FLP pending. 6. Obesity: Weight loss and lifestyle changes encouraged. 7. GERD: Maintained on famotidine. 8. History of prostate cancer: Status post surgical intervention, encourage continued outpatient follow-up with urology. Maintained on oxybutynin. 9. BILL: CPAP nightly 10. DVT prophylaxis: SCDs, lovenox. Visit Charges Inpatient E&M: [id number] [facility] Hosp L3
--- NOTE | 2021-01-21 08:55 | CASEMGMT ---
Insurance review for hospitals In-network with [employer] M[employer] PPO Insurance if transfer is recommended is as follows: [facility], [facility], [place], [facility], [facility], [facility], [facility]), and . Nba DIXONN RN CM
[2021-01-21] MEDS: TICAGRELOR 90 MG TABLET PO ×2 (09:03→21:08)
[2021-01-21] MEDS: Chlorthalidone 50 MG Tablet 25 MG PO (09:03)
[2021-01-21] MEDS: Aspirin E.C. 81 MG Tablet PO ×2 (09:04)
[2021-01-21] MEDS: Lisinopril 40 MG Tablet PO (09:04)
[2021-01-21] MEDS: Carvedilol 6.25 MG Tablet PO ×2 (09:04→21:08)
[2021-01-21] MEDS: Enoxaparin 40 MG/0.4 ML Syringe SC (09:04)
[2021-01-21] MEDS: amLODIPine 10 MG Tablet PO (09:04)
[2021-01-21] MEDS: Famotidine 20 MG Tablet PO ×2 (09:05→21:07)
[2021-01-21] MEDS: Potassium Chloride Oral Tablet 20 MEQ 40 MEQ PO (09:09)
--- NOTE | 2021-01-21 09:19 | PCM.PN.CARD ---
Subjective Subjective: The patient is awake and alert. He states yesterday evening he had some transient centralized chest discomfort which he attributed to stiffness . He states it was not like the discomfort he had early yesterday morning during his acute coronary syndrome event. He denies any acute shortness of breath or dyspnea. There has been no ongoing concerns of palpitations or rapid heart rates. Objective Data Vital Signs: Vital Signs Temp Pulse Resp BP Pulse Ox 97.8 F 77 20 H 136/91 H 96 01/21/21 04:00 01/21/21 06:00 01/21/21 06:00 01/21/21 06:00 01/21/21 07:15 Oxygen Flow Rate (L/min) 2 Oxygen Delivery Method Nasal Cannula Weight: 223 lb 15.834 oz Body Mass Index (BMI) 36.4 Intake & Output: Intake and Output for Last 24 Hours 01/19/21 01/20/21 01/21/21 23:59 23:59 23:59 Intake Total 2263.58 / 2263.58 1360 / 1360 Output Total 2225 / 2225 925 / 925 Balance 38.58 / 38.58 435 / 435 Lab / Micro Data Result Diagrams: 01/21/21 03:30 01/21/21 03:30 Labs: Laboratory Results - last 24 hr 01/20/21 01/20/21 01/20/21 06:04 11:40 11:40 WBC Cancelled 8.1 Corrected WBC Cancelled RBC Cancelled 5.44 Hgb Cancelled 16.6 H Hct Cancelled 47.9 MCV Cancelled 88.1 MCH Cancelled 30.5 MCHC Cancelled 34.7 RDW Std Deviation Cancelled 40.7 RDW Coeff of Vinayak Cancelled 12.6 Plt Count Cancelled 207 MPV Cancelled 8.9 Immature Gran % (Auto) Neut % (Auto) Lymph % (Auto) [place] % (Auto) Eos % (Auto) Baso % (Auto) Absolute Neuts (auto) Absolute Lymphs (auto) Nucleated RBC % Diff Path Review Cancelled Sodium Potassium Chloride Carbon Dioxide Anion Gap BUN Creatinine Estim Creat Clear Calc Est GFR (MDRD) Af Amer Est GFR (MDRD) Non-Af BUN/Creatinine Ratio Glucose Hemoglobin A1c 5.8 H Calcium Total Bilirubin AST ALT Alkaline Phosphatase Troponin I Total Protein Albumin Globulin Albumin/Globulin Ratio 01/20/21 01/20/2101/20/21 11:40 14:30 17:55 WBC Corrected WBC RBC Hgb Hct MCV MCH MCHC RDW Std Deviation RDW Coeff of Vinayak Plt Count MPV Immature Gran % (Auto) Neut % (Auto) Lymph % (Auto) [place] % (Auto) Eos % (Auto) Baso % (Auto) Absolute Neuts (auto) Absolute Lymphs (auto) Nucleated RBC % Diff Path Review Sodium Potassium Chloride Carbon Dioxide Anion Gap BUN Creatinine Estim Creat Clear Calc Est GFR (MDRD) Af Amer Est GFR (MDRD) Non-Af BUN/Creatinine Ratio Glucose Hemoglobin A1c Calcium Total Bilirubin AST ALT Alkaline Phosphatase Troponin I 67.400 H* 58.200 H* 44.500 H* Total Protein Albumin Globulin Albumin/Globulin Ratio 01/21/21 01/21/21 03:30 03:30 WBC 8.6 Corrected WBC RBC 4.92 Hgb 15.0 Hct 44.2 MCV 89.8 MCH 30.5 MCHC 33.9 RDW Std Deviation 42.2 RDW Coeff of Vinayak 12.8 Plt Count 188 MPV 8.9 Immature Gran % (Auto) 0.700 Neut % (Auto) 71.4 H Lymph % (Auto) 15.3 L [place] % (Auto) 10.5 H Eos % (Auto) 1.6 Baso % (Auto) 0.5 Absolute Neuts (auto) 6.1 Absolute Lymphs (auto) 1.31 Nucleated RBC % 0 [address] Review Sodium 137 Potassium 3.3 L Chloride 103 Carbon Dioxide 27.0 Anion Gap 7 BUN 13 Creatinine 0.92 Estim Creat Clear Calc 66.85 Est GFR (MDRD) Af Amer 105 Est GFR (MDRD) Non-Af 87 BUN/Creatinine Ratio 14.1 Glucose 128 H Hemoglobin A1c Calcium 8.7 Total Bilirubin 0.50 AST 116 H ALT 47 Alkaline Phosphatase 20 L Troponin I Total Protein 6.2 L Albumin 3.3 Globulin 2.9 Albumin/Globulin Ratio 1.1 Cardiology Labs/Tests 01/20/21 06:04: Hemoglobin A1c 5.8 H 01/20/21 11:40: WBC Cancelled, Corrected WBC Cancelled, RBC Cancelled, Hgb Cancelled, Hct Cancelled, MCV Cancelled, MCH Cancelled, MCHC Cancelled, Plt Count Cancelled, MPV Cancelled 01/20/21 11:40: WBC 8.1, RBC 5.44, Hgb 16.6 H, Hct 47.9, MCV 88.1, MCH 30.5, MCHC 34.7, Plt Count 207, MPV 8.9 01/20/21 11:40: Troponin I 67.400 H* 01/20/21 14:30: Troponin I 58.200 H* 01/20/21 17:55: Troponin I 44.500 H* 01/21/21 03:30: WBC 8.6, RBC 4.92, Hgb 15.0, Hct 44.2, MCV 89.8, MCH 30.5, MCHC 33.9, Plt Count 188, MPV 8.9, Immature Gran % (Auto) 0.700, Neut % (Auto) 71.4 H, Lymph % (Auto) 15.3 L, [place] % (Auto) 10.5 H, Eos % (Auto) 1.6, Baso % (Auto) 0.5, Absolute Neuts (auto) 6.1, Nucleated RBC % 0 01/21/21 03:30: Sodium 137, Potassium 3.3 L, Chloride 103, Carbon Dioxide 27.0, Anion Gap 7, BUN 13, Creatinine 0.92, Est GFR (MDRD) Af Amer 105, Est GFR (MDRD) Non-Af 87, BUN/Creatinine Ratio 14.1, Glucose 128 H, Calcium 8.7, Total Bilirubin 0.50 Rhythm: Sinus rhythm; PVCs EKG: Sinus rhythm; right bundle branch block Physical Exam Narrative The patient is awake and alert. Const alert, oriented x3 and no apparent distress General Appearance: cooperative and comfortable Orientation / Consciousness: awake HEENT normocephalic, head/scalp atraumatic and hearing grossly normal bilaterally Eyes PERRL, EOMs intact bilaterally, conjunctivae normal and no scleral icterus General Eye: normal appearance of both eyes Neck full ROM Carotids: normal carotid upstroke Chest inspection of chest normal Resp normal respiratory effort Cardio regular rate, regular rhythm, S1 normal heart sound and S2 normal heart sound Heart Sounds: gallop S4 gallop GI normal to inspection, nondistended, normoactive bowel sounds, soft to palpation and non-tender Extremity no pedal edema Skin no rashes or lesions noted Neuro oriented x3 and moves all extremities Sensorium / Orientation: awake and alert Psych mental status grossly normal Assessment & Plan Assessment/Plan (1) STEMI (ST elevation myocardial infarction): Status: Acute Code(s): I21.3 - ST elevation (STEMI) myocardial infarction of unspecified site Plan: The patient has experienced a STEMI thought to be related to CAD with the culprit lesion being his LCx OM distribution leading to an inferior lateral event. The patient has undergone medical management, diagnostic cardiac catheterization, and PCI. At the present time the patient will be monitored in the hospital. He will continue medical management. (2) CAD (coronary artery disease): Status: Acute Code(s): I25.10 - Atherosclerotic heart disease of [place] coronary artery without angina pectoris Qualifiers: Coronary Disease-Associated Artery/Lesion type: [place] artery [place] vs. transplanted heart: [place] heart Associated angina: with unstable angina Qualified Code(s): I25.110 - Atherosclerotic heart disease of [place] coronary artery with unstable angina pectoris Plan: The patient had symptoms compatible with unstable angina pectoris. His evaluation demonstrated findings compatible with a STEMI. He has undergone further evaluation as noted above. At the present time he will need to continue medical management. His case was discussed and reviewed this morning with Dr. Canseco. The consensus was to have his case discussed at a tertiary care center with respect to CT surgery input as to additional ongoing evaluation and care prior to being released home. (3) Mixed hyperlipidemia: Status: Chronic Code(s): E78.2 - Mixed hyperlipidemia Plan: The patient will continue risk factor evaluation care as deemed appropriate. (4) Essential hypertension: Status: Chronic Code(s): I10 - Essential (primary) hypertension Plan: The patient's blood pressure will need to be followed. He will need to continue medical management. Addt'l Comments The above was discussed and reviewed with the patient. He was agreeable to having his case discussed and reviewed at a tertiary care center and if need be being transferred tertiary care center for continued evaluation care of his underlying CAD process. This note was generated using a voice recognition system and there may be incorrect words, spelling or punctuation that were not noted when reviewing the office note prior to saving.
--- NOTE | 2021-01-21 09:33 | NURSING ---
09 report called to Nadiya SUAREZ PCU patient assisted via wheelchair down to 126 by Verónica MEDLEY
--- NOTE | 2021-01-21 10:00 | EKG12_ITS ---
Test Reason : AM EKG Blood Pressure : / mmHG Vent. Rate : 076 BPM Atrial Rate : 076 BPM P-R Int : 150 ms QRS Dur : 132 ms QT Int : 430 ms P-R-T Axes : 054 010 062 degrees QTc Int : 483 ms Sinus rhythm with occasional Premature ventricular complexes Right bundle branch block Abnormal ECG When compared with ECG of 21-JAN-2021 05:01, MANUAL COMPARISON REQUIRED, DATA IS UNCONFIRMED Confirmed by GLORY BANKS, SHILA ([id number]), non linear editor CURLY FULLER ([id number]) on 01/26/2021 1:23:56 PM Referred By: MICHELE Confirmed By:SHAHBAZ HOLDER MD
[2021-01-21] MEDS: Isosorbide Mononitrate 30 MG Tablet PO (10:15)
[2021-01-21 11:16] LABS: Cholesterol 206 mg/dL (200); High Density Lipoprotein 34 mg/dL; Triglycerides 193 mg/dL; Very Low Density Lipoprotein 39 mg/dL (5-40)
[2021-01-21] MEDS: Atorvastatin Calcium 10 MG Tablet PO (21:07)
[2021-01-22 03:00] VITALS: BP 117/68; PULSE 72; PULSE 75; RESP 17; TEMP 36.6; O2SAT 96
[2021-01-22] MEDS: Oxybutynin 5 MG Tablet PO (05:49)
[2021-01-22 06:41] VITALS: PULSE 80
[2021-01-22 07:11] LABS: Absolute Lymphocyte Count 1.84 X10^3/uL (0.83-4.51); Basophil# 0.05 X10^3/uL; Basophil% 0.5 % (0-1); Eosinophil# 0.17 X10^3/uL; Eosinophils% 1.9 % (0-5); Hematocrit 44.7 % (40-54); Hemoglobin 15.1 g/dL (13.0-16.5); Lymphocyte # 1.84 X10^3/ul (0.83-4.51); Lymphocyte % 20.2 % (19-41); Mean Corp Hgb Conc 33.8 g/dL (32-36); Mean Corpuscular Hgb 30.2 pg (27.0-32.0); Mean Corpuscular Volume 89.4 fL (80-94); Mean Platelet Vol. 9.4 fl (6.2-12.0); Monocyte# 0.94 X10^3/uL; Monocyte% 10.3 % (0-10); NRBC Flagged by Analyzer 0 % (0-5); Neutrophil # 6.03 X10^3/uL (2.7-7.7); Neutrophil % 66.3 % (47-70); Platelet Count 210 K/mm3 (150-450); RBC Distribution Width CV 13.1 % (11.6-14.6); RBC Distribution Width SD 42.7 fl (35.1-43.9); White Blood Count 9.1 K/mm3 (4.4-11.0)
[2021-01-22 07:44] LABS: ALB/GLOB Ratio 1.1 RATIO (0.9-2.4); AST(SGOT) 65 U/L (15-37); Alanine Aminotransfer ALT/SGPT 41 U/L (16-61); Albumin, Serum 3.5 g/dL (3.2-5.0); Alkaline Phosphatase 19 U/L (45-117); Anion Gap 8 (5-15); BUN 20 mg/dL (7-18); Calcium,Total 9.2 mg/dL (8.5-10.1); Chloride 102 mmol/L (98-107); EST Glomerular Filtration Rate 79 mL/min (>60); Est Glom Filt Rate - Afr Amer 95 mL/min (>60); Globulin 3.1 g/dL (2.2-4.2); Glucose 89 mg/dL (74-106); Potassium 3.6 mmol/L (3.5-5.1); Protein, Total 6.6 g/dL (6.4-8.2); Sodium Level 136 mmol/L (136-145)
[2021-01-22 08:40] VITALS: O2SAT 94
[2021-01-22 08:59] VITALS: BP 118/69; PULSE 80; RESP 18; TEMP 36.6; O2SAT 95
[2021-01-22] MEDS: Chlorthalidone 50 MG Tablet 25 MG PO (09:02)
[2021-01-22] MEDS: Enoxaparin 40 MG/0.4 ML Syringe SC (09:02)
[2021-01-22] MEDS: Famotidine 20 MG Tablet PO (09:02)
[2021-01-22] MEDS: amLODIPine 10 MG Tablet PO (09:02)
[2021-01-22] MEDS: Lisinopril 40 MG Tablet PO (09:03)
[2021-01-22] MEDS: Carvedilol 6.25 MG Tablet PO (09:03)
[2021-01-22] MEDS: TICAGRELOR 90 MG TABLET PO (09:03)
[2021-01-22] MEDS: Isosorbide Mononitrate 30 MG Tablet PO (09:03)
--- NOTE | 2021-01-22 09:05 | PCM.PN.CARD ---
Subjective Subjective: The patient is awake and alert this morning. He denies ongoing chest discomfort. He does admit that he can get somewhat short of breath and dyspneic at times. He has had no near syncope or syncope. Objective Data Vital Signs: Vital Signs Temp Pulse Resp BP Pulse Ox 97.9 F 80 18 118/69 95 01/22/21 08:59 01/22/21 08:59 01/22/21 08:59 01/22/21 08:59 01/22/21 08:59 Oxygen Flow Rate (L/min) 2 Oxygen Delivery Method Room Air Weight: 224 lb 3.362 oz Body Mass Index (BMI) 36.4 Intake & Output: Intake and Output for Last 24 Hours 01/20/21 01/21/21 01/22/21 23:59 23:59 23:59 Intake Total 2263.58 / 2263.58 2075 / 2075 120 / 120 Output Total 2225 / 2225 925 / 925 Balance 38.58 / 38.58 1150 / 1150 120 / 120 Lab / Micro Data Result Diagrams: 01/22/21 06:30 01/22/21 06:30 Labs: Laboratory Results - last 24 hr 01/21/21 01/22/21 01/22/21 03:30 06:30 06:30 WBC 9.1 RBC 5.00 Hgb 15.1 Hct 44.7 MCV 89.4 MCH 30.2 MCHC 33.8 RDW Std Deviation 42.7 RDW Coeff of Vinayak 13.1 Plt Count 210 MPV 9.4 Immature Gran % (Auto) 0.800 Neut % (Auto) 66.3 Lymph % (Auto) 20.2 [place] % (Auto) 10.3 H Eos % (Auto) 1.9 Baso % (Auto) 0.5 Absolute Neuts (auto) 6.0 Absolute Lymphs (auto) 1.84 Nucleated RBC % 0 Sodium 136 Potassium 3.6 Chloride 102 Carbon Dioxide 26.0 Anion Gap 8 BUN 20 H Creatinine 1.00 Estim Creat Clear Calc 61.50 Est GFR (MDRD) Af Amer 95 Est GFR (MDRD) Non-Af 79 BUN/Creatinine Ratio 20.0 Glucose 89 Calcium 9.2 Total Bilirubin 0.80 AST 65 H ALT 41 Alkaline Phosphatase 19 L Total Protein 6.6 Albumin 3.5 Globulin 3.1 Albumin/Globulin Ratio 1.1 Triglycerides 193 Cholesterol 206 H LDL Cholesterol 133 H VLDL Cholesterol 39 HDL Cholesterol 34 L Cardiology Labs/Tests 01/21/21 03:30: Triglycerides 193, Cholesterol 206 H, LDL Cholesterol 133 H, VLDL Cholesterol 39, HDL Cholesterol 34 L 01/22/21 06:30: WBC 9.1, RBC 5.00, Hgb 15.1, Hct 44.7, MCV 89.4, MCH 30.2, MCHC 33.8, Plt Count 210, MPV 9.4, Immature Gran % (Auto) 0.800, Neut % (Auto) 66.3, Lymph % (Auto) 20.2, [place] % (Auto) 10.3 H, Eos % (Auto) 1.9, Baso % (Auto) 0.5, Absolute Neuts (auto) 6.0, Nucleated RBC % 0 01/22/21 06:30: Sodium 136, Potassium 3.6, Chloride 102, Carbon Dioxide 26.0, Anion Gap 8, BUN 20 H, Creatinine 1.00, Est GFR (MDRD) Af Amer 95, Est GFR (MDRD) Non-Af 79, BUN/Creatinine Ratio 20.0, Glucose 89, Calcium 9.2, Total Bilirubin 0.80 Rhythm: Sinus rhythm; PVCs Radiography Diagnostic Testing: Radiology Impression Echocardiogram 01/20/21 21:17 Interpretation Summary The study was technically difficult. Contrast injection was performed. Mild segmental systolic dysfunction (see wall motion). The estimated ejection fraction is 55 %. Trivial mitral valve insufficiency. Trivial tricuspid valve insufficiency. Moderate focal aortic valve thickening. Moderate focal aortic valve calcification. Unable to estimate RV systolic pressure/pulmonary artery pressure due to technically difficult study. No evidence for diastolic dysfunction. Ordering Physician: Puneet Rincon Referring Physician: Jung Charles Performed By: Sheryl Leblanc, RDCS, RVT Physical Exam Narrative The patient is awake and alert. Const alert, oriented x3 and no apparent distress General Appearance: cooperative and comfortable Orientation / Consciousness: awake HEENT normocephalic, head/scalp atraumatic and hearing grossly normal bilaterally Eyes PERRL, EOMs intact bilaterally, conjunctivae normal and no scleral icterus General Eye: normal appearance of both eyes Neck full ROM Carotids: normal carotid upstroke Chest inspection of chest normal Resp normal respiratory effort Cardio regular rate, regular rhythm, S1 normal heart sound and S2 normal heart sound Heart Sounds: gallop S4 gallop GI normal to inspection, nondistended, normoactive bowel sounds, soft to palpation and non-tender Extremity no pedal edema Skin no rashes or lesions noted Neuro oriented x3 and moves all extremities Sensorium / Orientation: awake and alert Psych mental status grossly normal Assessment & Plan Assessment/Plan (1) STEMI (ST elevation myocardial infarction): PLAN: The patient has experienced a STEMI thought to be related to CAD with the culprit lesion being his LCx OM distribution leading to an inferior lateral event. The patient has undergone medical management, diagnostic cardiac catheterization, and PCI. At the present time the patient will be monitored in the hospital. He will continue medical management. His case was discussed yesterday with Dr. Casanova of [facility] CT Surgery. His team has reviewed his cardiac catheterization films. This included review with the sound system installer as well. The consensus from their team wants to allow the patient to recuperate from his acute event, allow the stent to mature, and plan for a staged CABG in approximately 3 weeks. (2) CAD (coronary artery disease): QUALIFIERS: Coronary Disease-Associated Artery/Lesion type: [place] artery [place] vs. transplanted heart: [place] heart Associated angina: with unstable angina Qualified Code(s): I25.110 - Atherosclerotic heart disease of [place] coronary artery with unstable angina pectoris PLAN: The patient had symptoms compatible with unstable angina pectoris. His evaluation demonstrated findings compatible with a STEMI. He has undergone further evaluation as noted above. At the present time he will need to continue medical management. The patient's case has been discussed at [facility] CT surgery as noted above. The plan will be as noted above. (3) Mixed hyperlipidemia: PLAN: The patient will continue risk factor evaluation care as deemed appropriate. (4) Essential hypertension: PLAN: The patient's blood pressure will need to be followed. He will need to continue medical management. Addt'l Comments The patient's case has been discussed and reviewed with the patient, his spouse, and Dr. Smith. This note was generated using a voice recognition system and there may be incorrect words, spelling or punctuation that were not noted when reviewing the office note prior to saving.
--- NOTE | 2021-01-22 09:40 | DCINST_ITS ---
Discharge Instructions Diet Discharge Diet: 1800 Calorie Control Diet (Given your pre-diabetes status please continue 1800 ADA/cardiac diet.) Activity Discharge Activity: - (Restriction parameters per Cardiology discretion.) Weight Bearing Status: Weight bearing as tolerated Dressing / Incision Call your doctor if your incision/area has: Continuous Slow Oozing, Sudden Increased Bleeding, Increased Pain/ Swelling, Increased Redness, Foul Smelling Discharge and Swelling at the incision site Call your doctor if you observe: Fever of 101 or Higher, Shortness of breath, Dizziness, Fainting spells, Chest pain and Uncontrolled pain Discharge Plan Admission Admit Date/Time: 01/20/21 09:33 Primary Reason for Your Visit: Acute Inferiorlateral STEMI Attending Provider: Dariela Smith Primary Care Provider: Jung Charles Consulting Providers: Puneet Rincon Instructions Patient Instructions: Prediabetes, Healthy Meals for Diabetes, Heart Attack, Diabetes: Understanding Carbohydrates, Fats, and Protein, Lifestyle Management After Percutaneous Coronary Intervention (PCI) Additional Instructions / Restrictions: FOLLOW-UP ADDITIONAL: Dr. Price [facility] Cardiothoracic Surgeon: Follow-up 1 week in their office to review current plan, including staged upcoming bypass surgery. Discharge Orders/Prescriptions Prescriptions: New Brilinta 90 mg Tablet 90 mg PO BID 30 Days Qty: 60 RF: 1 carvedilol 6.25 mg Tablet 6.25 mg PO BID 30 Days Qty: 60 RF: 1 isosorbide mononitrate 30 mg Tablet Extended Release 24 Hr 30 mg PO DAILY 30 Days Qty: 30 RF: 1 nitroglycerin 0.4 mg Tablet, Sublingual 0.4 mg sublingual Q5M PRN (Reason: Chest pain) Qty: 10 RF: 0 Continued chlorthalidone 25 mg tablet 25 mg PO DAILY RF: 0 oxybutynin chloride 5 mg tablet 5 mg PO TID RF: 0 rosuvastatin 5 mg tablet 5 mg PO DAILY RF: 0 aspirin 81 MG tablet 81 mg PO DAILY@0800 RF: 0 quinapril 40 MG tablet 40 mg PO DAILY RF: 0 amlodipine 10 mg tablet 10 mg PO DAILY Qty: 90 RF: 4 Discontinued meloxicam 15 mg tablet 15 mg PO DAILY PRN (Reason: Sleep) RF: 0 No Action (DME) miscellaneous medical supply 1 EACH misc 1 ea OTHER 4X/DAY PRN Qty: 1 RF: 0 Referrals / Follow Up: Jung Charles MD [Primary Care Provider] - 01/29/21 10:40 am (Follow-up within 3-5 days to review admission.) Puneet Rincon MD [STAFF PHYSICIAN] - (Follow-up with Dr. Rincon per his discretion/request. ) Disposition Disposition (needs filled in before D/C Order can be placed): Home, self care
--- NOTE | 2021-01-22 09:55 | DS.PCM_ITS ---
Providers Date of Admission: 01/20/21 Primary Care Physician: Dr. Jung Charles MD Consultations 01/20/21 10:25 Consult: Cardiology Routine Consulting Provider: Dr. Rincon and Dr. Canseco Reason for Consult: Chest pain, recent neg stress, mild EKG changes EMERGENT Consult: No MD Notified: Yes Date Notified:: 01/20/21 Time Notified: 07:03 Method of Notification: ED called Case discussed also with Dr. Price Cardiothoracic surgeon at [facility] for continued treatment including staged bypass surgery. Reason For Visit: CHEST PAIN Diagnosis Discharge Diagnosis (1) STEMI (ST elevation myocardial infarction): Status: Acute Code(s): I21.3 - ST elevation (STEMI) myocardial infarction of unspecified site (2) CAD (coronary artery disease): Status: Acute Code(s): I25.10 - Atherosclerotic heart disease of [place] coronary artery without angina pectoris Qualifiers: Associated angina: with unstable angina Coronary Disease-Associated Artery/Lesion type: [place] artery [place] vs. transplanted heart: [place] heart Qualified Code(s): I25.110 - Atherosclerotic heart disease of [place] coronary artery with unstable angina pectoris (3) Mixed hyperlipidemia: Status: Chronic Code(s): E78.2 - Mixed hyperlipidemia (4) Essential hypertension: Status: Chronic Code(s): I10 - Essential (primary) hypertension Plan: DISCHARGE DIAGNOSES: 1. Acute Inferior and Lateral STEMI with Chest pain, culprit lesion LCx OM distribution leading to inferior lateral event with multivessel disease awaiting evaluation outpatient per Dr. Price, Cardiothoracic surgeon for staged bypass 2. Prediabetes mellitus (HgbA1c 5.8%) 3. Hypokalemia 4. Hypertension 5. Hyperlipidemia 6. Obesity 7. GERD 8. History of prostate cancer 9. BILL on CPAP q HS Medications at Discharge Home Medications aspirin 81 mg PO DAILY@0800 04/24/14 quinapril 40 mg PO DAILY 03/21/19 chlorthalidone 25 mg tablet 25 mg PO DAILY tab 09/24/19 miscellaneous medical supply #1 ea 12/22/19 amlodipine 10 mg tablet 10 mg PO DAILY #90 tab 04/04/20 oxybutynin chloride 5 mg tablet 5 mg PO TID 11/24/20 rosuvastatin 5 mg tablet 5 mg PO DAILY 03/08/21 carvedilol 6.25 mg PO BID 30 Days #60 tab 01/22/21 isosorbide mononitrate 30 mg PO DAILY 30 Days #30 tab 01/22/21 nitroglycerin 0.4 mg SUBLINGUAL Q5M PRN #10 tab 01/22/21 ticagrelor [Brilinta] 90 mg PO BID 30 Days #60 tab 01/22/21 Hospital Course Summary of Care Provided Minutes Spent on Discharge: 35 Hospital Course: The patient is a 70 y/o M w/ PMHx: HTN, HLD, Obesity, BILL w/ intermittent q HS CPAP usage, discharged on 01/19/21 following evaluation for onset chest pain with negative stress testing and resolution of chest pain at that time who now re-presented to the [facility] ED on 01/20/21 with recurrent chest pain, awakening him from sleep at ~ 4:30 am, substernal pressure, rated 10/10 at onset, radiating to his RUE specifically with associated dyspnea, diaphoresis without nausea or emesis which continued through ED evaluation with repeat EKG eventual demonstrating evidence acute STEMI with ST elevations inferior and lateral leads. EKG with subtle ST depression in the anterior precordial leads with a repeat EKG with worsened discomfort with slightly more pronounced ST depression not specifically meeting any STEMI criteria initially however repeat EKG upon PCU transition with acute new onset elevations inferior and lateral leads with STEMI Call. ED initial trop < 0.015, CXR without acute findings. Patient initially admitted to the PCU, STEMI call placed and patient transitioned to the cardiac catheterization lab with discussions with Dr. Golden odell and Dr. Canseco. Patient loaded in the ED with ASA, plavix. Heparin 5,000 mg IV bolus and brillinta 180 mg load additionally given prior to Cardiac catheterization lab transition. 01/20/2021 cardiac catheterization with multivessel coronary disease with culprit lesion primarily LCx OM leading to inferior inferolateral events however patient with additional vessel involvement per discussion with cardiology. Cardiology discussiond performed with tertiary facility cardiothoracic surgeon/high risk interventionalist with given recent stent placement planned discharge from [facility] on current medication regimen, allowance of some maturation of stent recently placed with close 1 week follow- up with CT surgery Dr. Price with [facility] with planned set-up of staged bypass surgery. Admission Cardiac enzyme trend <0.015->67.4->58.2->44.5. Mag 2.3. FLP w/ Total 206, triglycerides 193, LDL 133, VLDL 39, HDL 34. Patient maintained on aspirin, Brilinta, atorvastatin, Coreg, lisinopril, isosorbide in addition to chlorthalidone. ECHO w/ my segmental systolic dysfunction, EF 55%, trivial MVI, trivial TVI, no evidence of diastolic dysfunction. Admission glucose elevated 133, HgbA1c 5.8%, prediabetic, nutrition consulted for education and teaching and diet transitioned to ADA 1800 diet/cardiac diet. Discussed importance of lifestyle and diet changes with patient with close PCP follow-up and if inc reases further likely addition of metformin. Patient discharged to home in stable condition per plan via Dr. Rincon and Dr. Price with close CT surgery follow-up as well as PCP and Cardiology re-e valuation. DAY OF DISCHARGE PROGRESS NOTE: Subjective: Patient without acute event overnight per self and nursing report. Patient denies any recurrent chest pain like he had upon presentation. He does report being anxious sometimes especially given everything. He would prefer to have immediate bypass but understands necessity for staging. Patient denies fever, chills, nausea, emesis, abdominal pain, chest pain or dyspnea. Patient agreeable to discharge to home. Patient will be discharged with follow-up with primary care physician within 3-5 days in addition to Dr. Price in 1 week as well as Cardiology follow-up per Dr. Rincon discretion. Objective: T 97.9, heart rate 80, BP 118/69, respiratory rate 18, 95% on room air. Physical Examination: General: awake, alert, oriented x 3 and cooperative, seated upright in the PCU bedside chair, no acute distress, no chest pain. Skin: normal color, turgor, no icterus, cyanosis. HEENT: AT/NC, EOMI, PERRLA, MMM. Lungs: CTA bilaterally, moderate effort, mild decrease BL bases, no rales, ronchi or wheezing; Heart: Regular rate and rhythm; no gallop, rub audible. Abdomen: soft, NTTP, ND, normal BS. Extremities: no cyanosis, clubbing, or edema. Neurological: patient awake, alert, oriented x 3; cognitive function appears intact upon questioning,; pupils equally reactive to light and accomodation; cranial nerves II-XII grossly normal, moving all 4 extremities, strength appropriate. Psychiatric: affect appears mildly anxious regarding planned upcoming staged bypass but appropriate reaction, no acute evidence of depressive feelings. Assessment and Plan: Please see hospital summary above. ABG / Lab / Microbiology Data Result Diagrams: 01/22/21 06:30 01/22/21 06:30 Laboratory: Laboratory Results - last 24 hr 01/21/21 01/22/21 01/22/21 03:30 06:30 06:30 WBC 9.1 RBC 5.00 Hgb 15.1 Hct 44.7 MCV 89.4 MCH 30.2 MCHC 33.8 RDW Std Deviation 42.7 RDW Coeff of Vinayak 13.1 Plt Count 210 MPV 9.4 Immature Gran % (Auto) 0.800 Neut % (Auto) 66.3 Lymph % (Auto) 20.2 [place] % (Auto) 10.3 H Eos % (Auto) 1.9 Baso % (Auto) 0.5 Absolute Neuts (auto) 6.0 Absolute Lymphs (auto) 1.84 Nucleated RBC % 0 Sodium 136 Potassium 3.6 Chloride 102 Carbon Dioxide 26.0 Anion Gap 8 BUN 20 H Creatinine 1.00 Estim Creat Clear Calc 61.50 Est GFR (MDRD) Af Amer 95 Est GFR (MDRD) Non-Af 79 BUN/Creatinine Ratio 20.0 Glucose 89 Calcium 9.2 Total Bilirubin 0.80 AST 65 H ALT 41 Alkaline Phosphatase 19 L Total Protein 6.6 Albumin 3.5 Globulin 3.1 Albumin/Globulin Ratio 1.1 Triglycerides 193 Cholesterol 206 H LDL Cholesterol 133 H VLDL Cholesterol 39 HDL Cholesterol 34 L Radiography Diagnostic Testing: Radiology Impression Echocardiogram 01/20/21 21:17 Interpretation Summary The study was technically difficult. Contrast injection was performed. Mild segmental systolic dysfunction (see wall motion). The estimated ejection fraction is 55 %. Trivial mitral valve insufficiency. Trivial tricuspid valve insufficiency. Moderate focal aortic valve thickening. Moderate focal aortic valve calcification. Unable to estimate RV systolic pressure/pulmonary artery pressure due to technically difficult study. No evidence for diastolic dysfunction. Ordering Physician: Puneet Rincon Referring Physician: Jung Charles Performed By: Sheryl Leblanc, [place], RVT D/C Instructions Discharge Diet: 1800 Calorie Control Diet (Given your pre-diabetes status please continue 1800 ADA/cardiac diet.) Discharge Activity: - (Restriction parameters per Cardiology discretion.) Weight Bearing Status: Weight bearing as tolerated Call your doctor if your incision/area has: Continuous Slow Oozing, Sudden Increased Bleeding, Increased Pain/ Swelling, Increased Redness, Foul Smelling Discharge and Swelling at the incision site Call your doctor if you observe: Fever of 101 or Higher, Shortness of breath, Dizziness, Fainting spells, Chest pain and Uncontrolled pain Meaningful Use Info Meaningful Use Diagnoses (Choose all that apply): AMI AMI/Post PCI/Angioplasty Aspirin given w/in 24hrs of arrival?: Yes ASA at discharge?: Yes Antiplatelet Therapy at Discharge:: Yes Statins at discharge?: Yes [place]son/ARB at discharge?: Yes Beta Oneil at discharge?: Yes Done w/ Acute IA measure.: Yes Documented LVEF (%): 55 Discharge Plan Admission Admit Date/Time: 01/20/21 09:33 Primary Reason for Your Visit: Acute Inferiorlateral STEMI Attending Provider: Dariela Smith Primary Care Provider: Jung Charles Consulting Providers: Puneet Rincon Instructions Patient Instructions: Prediabetes, Healthy Meals for Diabetes, Heart Attack, Diabetes: Understanding Carbohydrates, Fats, and Protein, Lifestyle Management After Percutaneous Coronary Intervention (PCI) Additional Instructions / Restrictions: FOLLOW-UP ADDITIONAL: Dr. Price [facility] Cardiothoracic Surgeon: Follow-up 1 week in their office to review current plan, including staged upcoming bypass surgery. Discharge Orders/Prescriptions Prescriptions: New Brilinta 90 mg Tablet 90 mg PO BID 30 Days Qty: 60 RF: 1 carvedilol 6.25 mg Tablet 6.25 mg PO BID 30 Days Qty: 60 RF: 1 isosorbide mononitrate 30 mg Tablet Extended Release 24 Hr 30 mg PO DAILY 30 Days Qty: 30 RF: 1 nitroglycerin 0.4 mg Tablet, Sublingual 0.4 mg sublingual Q5M PRN (Reason: Chest pain) Qty: 10 RF: 0 Continued chlorthalidone 25 mg tablet 25 mg PO DAILY RF: 0 oxybutynin chloride 5 mg tablet 5 mg PO TID RF: 0 rosuvastatin 5 mg tablet 5 mg PO DAILY RF: 0 aspirin 81 MG tablet 81 mg PO DAILY@0800 RF: 0 quinapril 40 MG tablet 40 mg PO DAILY RF: 0 amlodipine 10 mg tablet 10 mg PO DAILY Qty: 90 RF: 4 Discontinued meloxicam 15 mg tablet 15 mg PO DAILY PRN (Reason: Sleep) RF: 0 No Action (DME) miscellaneous medical supply 1 EACH misc 1 ea OTHER 4X/DAY PRN Qty: 1 RF: 0 Referrals / Follow Up: Puneet Rincon MD [STAFF PHYSICIAN] - (Follow-up with Dr. Rincon per his discretion/request. ) Jung Charles MD [Primary Care Provider] - 01/29/21 10:40 am (Follow-up within 3-5 days to review admission.) Disposition Disposition (needs filled in before D/C Order can be placed): Home, self care Visit Charges Inpatient E&M: [id number] Disch Hosp
--- NOTE | 2021-01-22 10:31 | CASEMGMT ---
Pt to be sent home on Brilinta. Pt provided with savings card previously but cannot find it. RN CM provided another savings card with explanation. TC to [facility] and cost is $50. Pt and are aware. Pt denies further needs.
--- NOTE | 2021-01-23 14:23 | CASEMGMT ---
ERICK AUGUSTE Discharge F/U Phone Call LACE: 10 Strata: 3 Discharge date: 01/22/21 Call date: 01/23/21 Call time: 1424 Admission dx: STEMI Pt states has been doing 'pretty good' since discharge. Pt states no concerns with discharge instructions/medications. Pt states has f/u with cardio next Tuesday and plans to keep. Pt states has not had PCP f/u appt made yet. Pt states no suggestions for [facility] and voices no further questions/concerns/needs. [place] ERICK AUGUSTE
== END 2021-01-22 11:15 | disposition home or self-care (01) | DRG 247 ==
LOC: ED 06:53 → PCU 07:03 → ICU 13:07 → PCU 01-21 14:06
PROVIDERS: Internal Medicine Cardiovascular Disease; Specialist; Admitting Provider Family Medicine; Emergency Provider Emergency Medicine; PCP Internal Medicine; Visit Provider Family Medicine
DX: I21.19 ST elevation (STEMI) myocardial infarction involving other coronary artery of inferior wall (principal); I21.29 ST elevation (STEMI) myocardial infarction involving other sites; I25.110 Atherosclerotic heart disease of native coronary artery with unstable angina pectoris; E87.6 Hypokalemia; I10 Essential (primary) hypertension; E78.2 Mixed hyperlipidemia; R73.03 Prediabetes; N40.0 Benign prostatic hyperplasia without lower urinary tract symptoms; K21.9 Gastro-esophageal reflux disease without esophagitis; G47.33 Obstructive sleep apnea (adult) (pediatric); E66.9 Obesity, unspecified; Z68.36 Body mass index [BMI] 36.0-36.9, adult; Z79.02 Long term (current) use of antithrombotics/antiplatelets; Z79.82 Long term (current) use of aspirin; Z79.899 Other long term (current) drug therapy; Z86.73 Personal history of transient ischemic attack (TIA), and cerebral infarction without residual deficits; Z85.46 Personal history of malignant neoplasm of prostate
CPT/HCPCS: 36415; 71045; 78452; 80048; 80053; 80061; 83036; 83735; 84484; 85025; 85027; 85610; 85730; 92941; 93005; 93017; 93306; 93458; 96360; 96361; 99152; 99153; 99218; 99251; 99284; 99285; A9500; C1725; C1757; J7030; J7040; Q9957; Q9967; A4216; C1769; C1874; C1887; C1894; C8929; C9606; G0378; G0463; J1327

== ENCOUNTER 2021-01-28 09:56 | Emergency (ER) | payer MEDICARE, SELFPAY ==
[2021-01-20 07:58] VITALS: BMI 36.4
[2021-01-28] VITALS (8 sets, daily range): BP systolic 112–139; BP diastolic 59–78; PULSE 63–71; RESP 15–25; TEMP 36.8; O2SAT 95–96; BMI 36.6
--- NOTE | 2021-01-28 10:06 | EKG12_ITS ---
Test Reason : CP Blood Pressure : / mmHG Vent. Rate : 066 BPM Atrial Rate : 066 BPM P-R Int : 148 ms QRS Dur : 132 ms QT Int : 420 ms P-R-T Axes : 050 036 044 degrees QTc Int : 440 ms Poor data quality, interpretation may be adversely affected Normal sinus rhythm Right bundle branch block Abnormal ECG Confirmed by EDMUNDO BANKS, RADHA ([id number]), purchasing expeditor CURLY FULLER ([id number]) on 02/02/2021 2:17:00 PM Referred By: ALEKSANDR Confirmed By:RADHA WYATT MD
--- NOTE | 2021-01-28 10:07 | ED.VIS.CHEST ---
HPI History of Present Illness Chief Complaint: Chest Pain Informant: patient Onset/Context/Timing Onset: Today (30-40 min prior to eval) Activity at onset: sudden and rest (sitting and watching TV) Timing: Continuous Quality: Positive for Pressure Location: Substernal (w/o radiation) Current Severity: Mild (barely there) Maximum Severity: Moderate Worsened By: Not Worsened By Palpation, Breathing and Coughing Relieved By: NTG (x2) Associated Symptoms: Negative for Nausea, Vomiting, Diaphoresis, Dyspnea, Cough, Fever, Lightheadedness and Palpitations Narrative Narrative: Patient was seen here for similar symptoms 1 week ago, he had a heart cath that showed multivessel disease he received 2 stents, and has an outpatient appointment today to meet with cardiothoracic surgery at [facility] Dr. Garcia to have evaluation for CABG. He states he has had no chest discomfort since his stents were placed until about half an hour ago. Prior Similar Symptoms: Yes and With Prior IN PFSH [facility] Medical History Atherosclerotic heart disease of [place] coronary artery without angina pectoris BPH (benign prostatic hyperplasia) CAD (coronary artery disease) Essential hypertension Mixed hyperlipidemia Obesity (BMI 30-39.9) Obstructive sleep apnea BILL (obstructive sleep apnea) Presence of stent in coronary artery (~01/20/21) Prostate cancer Shortness of breath STEMI (ST elevation myocardial infarction) TIA (transient ischemic attack) Home Medications aspirin 81 mg PO DAILY@0800 04/24/14 [History Last Taken 01/19/21 07:00] chlorthalidone 25 mg tablet 25 mg PO DAILY tab 09/24/19 [History Last Taken 01/19/21 07:00] miscellaneous medical supply #1 ea 12/22/19 [Rx Last Taken Unknown] amlodipine 10 mg tablet 10 mg PO DAILY #90 tab 04/04/20 [Rx Last Taken 01/19/21 07:00] oxybutynin chloride 5 mg tablet 5 mg PO TID 11/24/20 [History Last Taken 01/19/21 07:00] rosuvastatin 5 mg tablet 5 mg PO DAILY 11/24/20 [History Last Taken 01/18/21 21:00] nitroglycerin 0.4 mg SUBLINGUAL Q5M PRN #10 tab 01/22/21 [Rx Last Taken Unknown] ticagrelor [Brilinta] 90 mg PO BID 30 Days #60 tab 01/22/21 [Rx Last Taken Unknown] quinapril 40 mg tablet 20 mg PO DAILY tab 01/26/21 [History Last Taken Unknown] Allergy/AdvReac Type Severity Reaction Status Date / Time No Known Allergies Allergy Verified 01/28/21 10:00 Family History Father CAD (coronary artery disease) Hypertension Mother Diabetes Hypertension Sister Hypertension Other Family history of hypertension Family history of premature coronary artery disease Family history of premature coronary heart disease Surgical History History of back surgery History of prostatectomy History of removal of cyst (~1965) History of tonsillectomy (~1999) History of uvulectomy (~1999) Presence of coronary angioplasty implant and graft (~01/20/21) S/P correction of deviated nasal septum (~1999) Social History Smoking Status: Never smoker alcohol intake: current alcohol intake frequency: a few times a week Alcohol type: beer substance use type: does not use caffeine: Yes Type: coffee Number of servings: 2 what type of physical activity do you participate in: none seatbelt use: always do you feel safe at home: Yes ROS ROS ED Constitutional Constitutional ED: Denies chills or fever(s) Eyes Eyes: Denies change in vision or diplopia ENT ENT ED: Denies rhinorrhea or sore throat Cardiovascular Cardiovascular: Reports chest pain; Denies palpitations Respiratory/Chest Respiratory/Chest: Denies cough or dyspnea Gastrointestinal Gastrointestinal: Denies abdominal pain, diarrhea, nausea or vomiting Genitourinary Genitourinary ED: Denies dysuria or hematuria Musculoskeletal Musculoskeletal: Denies back pain or neck pain Integumentary Denies abscess or rash Neurologic Neurologic: Reports paresthesias RLE (chronic distally) and LLE (chronic distally); Denies headache(s) or weakness Psychiatric Psychiatric: Denies anxiety or suicidal thoughts EXAM Physical Exam Const Vital Signs: 01/28/21 09:57 01/28/21 10:18 01/28/21 10:26 Temperature 98.3 F Temperature Source Temporal Pulse Rate 68 63 Respiratory Rate 18 Respiratory Effort Respiratory Pattern Blood Pressure 131/71 H 119/59 L Blood Pressure Mean 91 Pulse Ox 96 96 Oxygen Delivery Method Room Air Nasal Cannula Oxygen Flow Rate (L/min) 2 01/28/21 10:40 01/28/21 11:32 01/28/21 12:36 Temperature Temperature Source Pulse Rate 65 71 Respiratory Rate 18 17 Respiratory Effort Normal Respiratory Pattern Normal Blood Pressure 139/75 H 122/78 H Blood Pressure Mean 96 92 Pulse Ox 96 95 Oxygen Delivery Method Room Air Room Air Oxygen Flow Rate (L/min) Positive well nourished and well developed General Appearance ED: well developed and NAD HEENT Reports moist mucous membranes normocephalic and atraumatic Eyes PERRL and EOMs intact bilaterally Neck full ROM and supple Resp normal respiratory effort and clear to auscultation bilaterally Cardio regular rate, regular rhythm and no murmurs GI non-tender and non-distended Auscultation: normoactive bowel sounds Palpation: soft Back/Spine no CVA tenderness General Back: other FROM Extremity normal to inspection and no calf tenderness General Extremety ED: Negative for edema, pulses abnormal or tenderness General Extremity: Negative for edema or pulses abnormal Neuro oriented x3, CN's II-XII intact bilaterally and no sensory deficits noted Sensorium / Orientation: awake and alert Motor Exam: strength 5/5 throughout Skin no rashes or lesions noted and no wounds Heart Score History: Highly Suspicious ECG: Normal Age: >/= 65 years Risk Factors: >/= 3 Risk Factors or History of CAD Troponin: >1 - <3 Normal Limit Score: 7 MDM MDM MDM Narrative Medical decision making narrative: Nitroglycerin paste was placed in the patient's chest, his pain completely resolved and his vital signs remained stable with blood pressure repeat 119/59. Patient took his aspirin and Brilinta this morning. Records show patient had an obtuse marginal culprit lesion that was stented, but is in need of a CABG, and the specialists at [facility] reviewed his case and wanted to stage a CABG about 3 weeks out to give him time to recover from the acute event and let his stents mature. Discussed with his neurosurgical physician assistant Dr. Rincon. He agrees with starting the patient on a heparin drip and advises that we seek a transfer to [facility], as the team that reviewed his data last week will likely want to perform his CABG sooner than previously desired. Discussed with [facility] who accepts the patient, there was a delay in transferring the patient because there was no bed available and he had to wait here until one became available. ED observation started around 11:30 AM. Lab Data Attestation: I reviewed the patient's lab results. Labs: Laboratory Results - last 24 hr 01/28/21 01/28/21 01/28/21 10:04 10:04 10:04 WBC 8.6 RBC 5.06 Hgb 15.5 Hct 45.0 MCV 88.9 MCH 30.6 MCHC 34.4 RDW Std Deviation 41.1 RDW Coeff of Vinayak 12.5 Plt Count 256 MPV 9.3 Immature Gran % (Auto) 0.600 Neut % (Auto) 65.1 Lymph % (Auto) 18.6 L [place] % (Auto) 13.4 H Eos % (Auto) 1.6 Baso % (Auto) 0.7 Absolute Neuts (auto) 5.6 Absolute Lymphs (auto) 1.61 Nucleated RBC % 0 APTT 25.4 Sodium 133 L Potassium 3.7 Chloride 99 Carbon Dioxide 28.0 Anion Gap 6 BUN 27 H Creatinine 1.08 Estim Creat Clear Calc 56.94 Est GFR (MDRD) Af Amer 87 Est GFR (MDRD) Non-Af 72 BUN/Creatinine Ratio 25.0 H Glucose 98 Calcium 9.2 Troponin I 0.521 H Radiography Chest X-Ray - ED: 1 View, Read by ED Physician and No Acute Disease Diagnostic Testing: Radiology Impression Chest X-Ray 01/28/21 10:45 IMPRESSION: Findings suggestive of mild linear atelectasis at the left lung base. Electronically Signed: Constantin Gilliam MD at 10:59 EDT , Service support , EKG Initial EKG: Attestation: I personally reviewed and interpreted this EKG as follows: Interpretation: Sinus Rhythm, No Acute Injury Pattern and RBBB Prior EKG tracings: available for review Prior: Unchanged Discharge Plan Triage Chief Complaint: Chest Pain ED Provider: Asa Berry Dx/Rx/DC Orders Clinical Impression: Unstable angina, CAD (coronary artery disease) Prescriptions: No Action chlorthalidone 25 mg tablet 25 mg PO DAILY RF: 0 Hold Instructions: Hypotension oxybutynin chloride 5 mg tablet 5 mg PO TID RF: 0 rosuvastatin 5 mg tablet 5 mg PO DAILY RF: 0 aspirin 81 MG tablet 81 mg PO DAILY@0800 RF: 0 (DME) miscellaneous medical supply 1 EACH misc 1 ea OTHER 4X/DAY PRN Qty: 1 RF: 0 Brilinta 90 mg Tablet 90 mg PO BID 30 Days Qty: 60 RF: 1 nitroglycerin 0.4 mg Tablet, Sublingual 0.4 mg sublingual Q5M PRN (Reason: Chest pain) Qty: 10 RF: 0 amlodipine 10 mg tablet 10 mg PO DAILY Qty: 90 RF: 4 Hold Instructions: Hypotension quinapril 40 mg tablet 20 mg PO DAILY RF: 0 Primary Care Provider: Jung Charles Referrals: Jung Charles MD [Primary Care Provider] - Disposition Disposition: Acute Care Hospital Discharge Location: [facility]
[2021-01-28 10:26] LABS: Absolute Lymphocyte Count 1.61 X10^3/uL (0.83-4.51); Absolute Neutrophil Count 5.6 X10^3/uL (2.0-7.7); Basophil# 0.06 X10^3/uL; Basophil% 0.7 % (0-1); Eosinophil# 0.14 X10^3/uL; Eosinophils% 1.6 % (0-5); Hemoglobin 15.5 g/dL (13.0-16.5); Lymphocyte # 1.61 X10^3/ul (0.83-4.51); Lymphocyte % 18.6 % (19-41); Mean Corp Hgb Conc 34.4 g/dL (32-36); Mean Corpuscular Hgb 30.6 pg (27.0-32.0); Mean Corpuscular Volume 88.9 fL (80-94); Mean Platelet Vol. 9.3 fl (6.2-12.0); Monocyte# 1.16 X10^3/uL; Monocyte% 13.4 % (0-10); NRBC Flagged by Analyzer 0 % (0-5); Neutrophil # 5.62 X10^3/uL (2.7-7.7); Neutrophil % 65.1 % (47-70); Platelet Count 256 K/mm3 (150-450); RBC Distribution Width CV 12.5 % (11.6-14.6); RBC Distribution Width SD 41.1 fl (35.1-43.9); Red Blood Count 5.06 M/mm3 (4.6-6.2); White Blood Count 8.6 K/mm3 (4.4-11.0)
[2021-01-28] MEDS: Nitroglycerin Oint 1 INCH PACKET TRANSDERM. (10:26)
[2021-01-28] MEDS: 0.9% Normal Saline 1,000 ML 150 ML IV (10:29)
[2021-01-28 10:33] LABS: Partial Thromboplast Time 25.4 Seconds (24.1-36.2)
[2021-01-28 10:40] LABS: Anion Gap 6 (5-15); BUN 27 mg/dL (7-18); Calcium,Total 9.2 mg/dL (8.5-10.1); Chloride 99 mmol/L (98-107); Creatinine, Serum 1.08 mg/dL (0.70-1.30); EST Glomerular Filtration Rate 72 mL/min (>60); Est Glom Filt Rate - Afr Amer 87 mL/min (>60); Estimated Creatinine Clearance 56.94 ml/min; Glucose 98 mg/dL (74-106); Potassium 3.7 mmol/L (3.5-5.1); Sodium Level 133 mmol/L (136-145)
--- NOTE | 2021-01-28 10:45 | RAD_ITS ---
STUDY: X-RAY CHEST REASON FOR EXAM: Male, 70 years old. Chest pain TECHNIQUE: Single AP portable view of the chest. COMPARISON: Comparison is made with prior study of 01/20/2021. FINDINGS: EKG electrodes are seen. Minimal increased linear markings at the left lung base. This is suggestive of left basilar atelectasis. There is no demonstrated pleural abnormality. Normal size heart. Normal mediastinum and noel. Normal visualized pulmonary arteries. Normal visualized aortic arch and descending thoracic aorta. There are diffuse degenerative changes of the visualized thoracic spine. Normal visualized ribs, clavicles, and shoulders. There is no demonstrated abnormality of the visualized soft tissue structures of the upper abdomen. RAD/Chest 1 View (Portable) IMPRESSION: Findings suggestive of mild linear atelectasis at the left lung base. Electronically Signed: Constantin Gilliam MD at 10:59 EDT , Service support ,
--- NOTE | 2021-01-28 11:27 | NURSING ---
CALLED [facility], TALKED TO ANNALISA MENDIOLA
--- NOTE | 2021-01-28 11:57 | NURSING ---
HAD XRAY TRANSMITTED TO [facility]
[2021-01-28] MEDS: Heparin Injection (Vial) 5,000 UNIT/ML VIAL 7500 UNIT IV (13:49)
[2021-01-28] MEDS: HEPARIN/D5w 25,000 UNITS 25,000 UNITS/250 ML IV.SOLN. 14 UNITS IV (13:52)
--- NOTE | 2021-01-28 14:01 | NURSING ---
[facility] ROOM [id number] NURSE TO NURSE [phone]
--- NOTE | 2021-01-28 14:12 | NURSING ---
CALLED [facility], ETA IS ONE HOUR
== END 2021-01-28 15:41 | disposition short-term general hospital (02) ==
PROVIDERS: Emergency Provider Emergency Medicine; PCP Internal Medicine
DX: I25.110 Atherosclerotic heart disease of native coronary artery with unstable angina pectoris (principal); I10 Essential (primary) hypertension; E78.2 Mixed hyperlipidemia; N40.0 Benign prostatic hyperplasia without lower urinary tract symptoms; G47.33 Obstructive sleep apnea (adult) (pediatric); E66.9 Obesity, unspecified; Z79.02 Long term (current) use of antithrombotics/antiplatelets; Z79.82 Long term (current) use of aspirin; Z79.899 Other long term (current) drug therapy; I25.2 Old myocardial infarction; Z85.46 Personal history of malignant neoplasm of prostate; Z86.73 Personal history of transient ischemic attack (TIA), and cerebral infarction without residual deficits; Z95.5 Presence of coronary angioplasty implant and graft
CPT/HCPCS: 71045; 80048; 84484; 85025; 85730; 93005; 96361; 96365; 96366; 99285; J7030

== ENCOUNTER 2021-02-27 19:26 | Observation (INO) | payer MEDICARE, SELFPAY ==
[2021-01-28 09:57] VITALS: BMI 36.6
[2021-02-27] VITALS (7 sets, daily range): BP systolic 116–137; BP diastolic 65–86; PULSE 67–98; RESP 15–21; TEMP 36.1–37; O2SAT 94–98; BMI 30.9; BMI 30.7
--- NOTE | 2021-02-27 19:27 | ED.RN ---
CALLED FOR EKG PER RN REQUEST, PULLED OLD EKGS FOR
--- NOTE | 2021-02-27 19:43 | RAD_ITS ---
STUDY: X-RAY CHEST REASON FOR EXAM: Male, 70 years old. Chest pain TECHNIQUE: 1 view COMPARISON: 01/28/2021 FINDINGS: Cardiomediastinal silhouette is unremarkable. Costophrenic angles are sharp. Lungs are clear. The trachea is midline. There is no pneumothorax. The sternotomy wires are grossly intact. RAD/Chest 1 View (Portable) IMPRESSION: No acute cardiopulmonary process. Electronically Signed: Franki Steen MD at 20:37 EDT Tel , Service support ,
--- NOTE | 2021-02-27 19:44 | EKG12_ITS ---
Test Reason : CP Blood Pressure : / mmHG Vent. Rate : 082 BPM Atrial Rate : 082 BPM P-R Int : 132 ms QRS Dur : 128 ms QT Int : 456 ms P-R-T Axes : 054 -55 -77 degrees QTc Int : 532 ms Sinus rhythm with Premature atrial complexes with Aberrant conduction Left axis deviation Right bundle branch block Lateral infarct , age undetermined Inferior infarct , age undetermined Abnormal ECG Confirmed by VALENCIA BANKS, DOMENIC ([id number]), associate entertainment editor CURLY FULLER ([id number]) on 03/02/2021 1:35:59 PM Referred By: Confirmed By:DOMENIC BIRMINGHAM MD
[2021-02-27 19:59] LABS: Absolute Lymphocyte Count 2.49 X10^3/uL (0.83-4.51); Absolute Neutrophil Count 4.4 X10^3/uL (2.0-7.7); Basophil# 0.08 X10^3/uL; Basophil% 0.9 % (0-1); Eosinophil# 0.44 X10^3/uL; Eosinophils% 5.2 % (0-5); Hematocrit 42.3 % (40-54); Hemoglobin 14.1 g/dL (13.0-16.5); Lymphocyte # 2.49 X10^3/ul (0.83-4.51); Lymphocyte % 29.2 % (19-41); Mean Corp Hgb Conc 33.3 g/dL (32-36); Mean Corpuscular Hgb 29.4 pg (27.0-32.0); Mean Corpuscular Volume 88.1 fL (80-94); Mean Platelet Vol. 8.9 fl (6.2-12.0); Monocyte# 1.13 X10^3/uL; Monocyte% 13.2 % (0-10); NRBC Flagged by Analyzer 0 % (0-5); Neutrophil # 4.36 X10^3/uL (2.7-7.7); Neutrophil % 51.1 % (47-70); Platelet Count 446 K/mm3 (150-450); RBC Distribution Width CV 13.7 % (11.6-14.6); RBC Distribution Width SD 43.8 fl (35.1-43.9); White Blood Count 8.5 K/mm3 (4.4-11.0)
[2021-02-27 20:12] LABS: Anion Gap 10 (5-15); BUN 20 mg/dL (7-18); BUN/Creat Ratio 21.3 RATIO (10-20); Calcium,Total 9.5 mg/dL (8.5-10.1); Chloride 96 mmol/L (98-107); Creatinine, Serum 0.94 mg/dL (0.70-1.30); EST Glomerular Filtration Rate 85 mL/min (>60); Est Glom Filt Rate - Afr Amer 103 mL/min (>60); Estimated Creatinine Clearance 67.87 ml/min; Glucose 106 mg/dL (74-106); Potassium 3.3 mmol/L (3.5-5.1); Sodium Level 133 mmol/L (136-145)
[2021-02-27 20:36] LABS: Magnesium 2.2 mg/dL (1.6-2.6)
--- NOTE | 2021-02-27 21:31 | EDS_ITS ---
HPI History of Present Illness Chief Complaint: Chest Pain Informant: patient and spouse/S.O. Narrative Narrative: 70-year-old male presents for the evaluation of jaw and chest pain. Patient was a STEMI last month and then after receiving a stent here was transferred to [facility] for CABG. He states for the past 3 weeks he has been doing quite well. He reports that today he was relaxing and got a sudden sharp pain in his jaw followed by a dull pressure in his chest. He states it felt different than when he had his DE which was crushing chest pressure with radiation to his arm. His gave him nitro which did not relieve his symptoms but his symptoms abated after about 45 minutes. He states on his way here he was having a lot of belching. He is currently followed locally with Dr. Rincon. He has not followed up yet in the office since his CABG. [facility] Medical History Atherosclerotic heart disease of [place] coronary artery without angina pectoris BPH (benign prostatic hyperplasia) CAD (coronary artery disease) Essential hypertension Mixed hyperlipidemia Obesity (BMI 30-39.9) Obstructive sleep apnea BILL (obstructive sleep apnea) Presence of stent in coronary artery (~01/20/21) Prostate cancer Shortness of breath STEMI (ST elevation myocardial infarction) TIA (transient ischemic attack) Home Medications aspirin 81 mg PO DAILY@0800 04/24/14 [History Last Taken 01/19/21 07:00] miscellaneous medical supply #1 ea 12/22/19 [Rx Last Taken Unknown] oxybutynin chloride 5 mg tablet 5 mg PO TID 11/24/20 [History Last Taken 01/19/21 07:00] nitroglycerin 0.4 mg SUBLINGUAL Q5M PRN #10 tab 01/22/21 [Rx Last Taken Unknown] acetaminophen 500 mg tablet 1,000 mg PO Q6H PRN tab 02/20/21 [History Last Taken Unknown] carvedilol 6.25 mg tablet 6.25 mg PO BID 02/20/21 [History Last Taken Unknown] chlorthalidone 25 mg tablet 25 mg PO DAILY 02/20/21 [History Last Taken Unknown] clopidogrel 75 mg tablet 75 mg PO DAILY 02/20/21 [History Last Taken Unknown] gabapentin 100 mg capsule 200 mg PO BID cap 02/20/21 [History Last Taken Unknown] lidocaine 4 % topical patch 1 patch TOPICAL DAILY PRN 02/20/21 [History Last Taken Unknown] magnesium oxide 400 mg PO DAILY 02/20/21 [History Last Taken Unknown] polyethylene glycol 3350 17 gram/dose oral powder 17 g PO DAILY 02/20/21 [History Last Taken Unknown] rosuvastatin 10 mg tablet 10 mg PO DAILY 02/20/21 [History Last Taken Unknown] sennosides 8.6 mg capsule 8.6 mg PO BID 02/20/21 [History Last Taken Unknown] tramadol 50 mg tablet 50 mg PO Q6H PRN 02/20/21 [History Last Taken Unknown] amoxicillin-pot clavulanate [Augmentin] 1 tab PO BID 02/27/21 [History Last Taken Unknown] cephalexin 500 mg PO [id number] 02/27/21 [History Last Taken Unknown] Allergy/AdvReac Type Severity Reaction Status Date / Time No Known Allergies Allergy Verified 02/27/21 19:28 Family History Father CAD (coronary artery disease) Hypertension Mother Diabetes Hypertension Sister Hypertension Other Family history of hypertension Family history of premature coronary artery disease Family history of premature coronary heart disease Surgical History History of back surgery History of coronary artery bypass surgery (~02/03/21) History of prostatectomy History of removal of cyst (~1965) History of tonsillectomy (~1999) History of uvulectomy (~1999) Presence of coronary angioplasty implant and graft (~01/20/21) S/P correction of deviated nasal septum (~1999) Social History Smoking Status: Never smoker alcohol intake: current alcohol intake frequency: a few times a week Alcohol type: beer substance use type: does not use caffeine: Yes Type: coffee Number of servings: 2 what type of physical activity do you participate in: none seatbelt use: always do you feel safe at home: Yes ROS ROS ED Constitutional Constitutional ED: Denies chills or weight loss Eyes Eyes: Denies change in vision or diplopia ENT ENT ED: Reports other Details: Jaw pain ; Denies ear pain, rhinorrhea or sore throat Cardiovascular Cardiovascular: Reports chest pain; Denies orthopnea, palpitations or racing heartbeat Respiratory/Chest Respiratory/Chest: Denies cough, dyspnea or orthopnea Gastrointestinal Gastrointestinal: Denies abdominal pain, diarrhea, nausea or vomiting Genitourinary Genitourinary ED: Denies dysuria, hematuria or urinary frequency Musculoskeletal Musculoskeletal: Denies arthralgias or myalgias Integumentary Denies abscess or rash Neurologic Neurologic: Denies headache(s) or weakness Psychiatric Psychiatric: Denies anxiety, depression, suicidal ideation or suicidal thoughts Endocrine Endocrinology: Denies polydipsia, polyphagia or polyuria Allergic/Immunologic Allergic/Immunologic ED: Denies mouth swelling, tongue swelling or urticaria EXAM Physical Exam Const Vital Signs: 02/27/21 19:26 02/27/21 19:50 02/27/21 20:34 Temperature 96.9 F L Temperature Source Temporal Pulse Rate 79 98 Respiratory Rate 18 15 Blood Pressure 137/65 H 116/86 H Blood Pressure Mean 89 96 Pulse Ox 94 95 98 Oxygen Delivery Method Room Air Room Air Room Air Positive well nourished and well developed General Appearance ED: well developed HEENT Reports normocephalic, head/scalp atraumatic and moist mucous membranes Eyes PERRL and EOMs intact bilaterally Neck no lymphadenopathy, supple and no JVD Resp normal respiratory effort and clear to auscultation bilaterally Cardio regular rate, regular rhythm and no murmurs GI normal to inspection, nondistended, normoactive bowel sounds and non-tender Palpation: soft Back/Spine no CVA tenderness and normal ROM Extremity normal to inspection General Extremety ED: Negative for edema General Extremity: Negative for edema Neuro oriented x3 and CN's II-XII intact bilaterally Sensorium / Orientation: alert Motor Exam: strength 5/5 throughout Psych mental status grossly normal Mood & Affect: Negative for depressed or tearful Skin no rashes or lesions noted Skin Narrative: Patient has a healing midsternal incision. His drain tube sites are granulating in with no obvious signs of infection MDM MDM MDM Narrative Medical decision making narrative: Patient was asymptomatic upon arrival here in the department. His troponin 0 0.145. I discussed the case with on-call cardiology Dr. Belle. I recommendation is the patient be admitted for serial troponins. Dr. Belle requestseither Lovenox or heparin. Nitro as needed. Patient is already had one baby aspirin today so I gave him 3 additional. I will speak with our hospitalist. Lab Data Attestation: I reviewed the patient's lab results. Labs: Laboratory Results - last 24 hr 02/27/21 02/27/21 02/27/21 19:35 19:35 19:35 WBC 8.5 RBC 4.80 Hgb 14.1 Hct 42.3 MCV 88.1 MCH 29.4 MCHC 33.3 RDW Std Deviation 43.8 RDW Coeff of Vinayak 13.7 Plt Count 446 MPV 8.9 Immature Gran % (Auto) 0.400 Neut % (Auto) 51.1 Lymph % (Auto) 29.2 [place] % (Auto) 13.2 H Eos % (Auto) 5.2 H Baso % (Auto) 0.9 Absolute Neuts (auto) 4.4 Absolute Lymphs (auto) 2.49 Nucleated RBC % 0 Sodium 133 L Potassium 3.3 L Chloride 96 L Carbon Dioxide 27.0 Anion Gap 10 BUN 20 H Creatinine 0.94 Estim Creat Clear Calc 67.87 Est GFR (MDRD) Af Amer 103 Est GFR (MDRD) Non-Af 85 BUN/Creatinine Ratio 21.3 H Glucose 106 Calcium 9.5 Magnesium 2.2 Troponin I 0.145 H Radiography Diagnostic Testing: Radiology Impression Chest X-Ray 02/27/21 19:43 IMPRESSION: No acute cardiopulmonary process. Electronically Signed: Franki Steen MD at 20:37 EDT Tel , Service support , EKG Initial EKG: Attestation: I personally reviewed and interpreted this EKG as follows: Comments: EKG demonstrates sinus rhythm Discharge Plan Dx/Rx/DC Orders Clinical Impression: Chest pain, CAD (coronary artery disease) Disposition Disposition: Acute Care [facility]
--- NOTE | 2021-02-27 21:32 | ED.RN ---
CALLED FOR EKG PER RN REQUEST, PULLED OLD EKGS FOR
--- NOTE | 2021-02-27 21:49 | HP.PCM.HOS_ITS ---
[facility] - General General Date of Admission: 02/27/21 HPI Narrative HUGO MRACOS, is a 70 M with a significant history of CAD status post stent (in OM1) at our hospital ([facility]) 5 weeks ago, and a quadruple bypass at [facility] 4 weeks ago who presents with substernal chest pain that started about 45 minutes prior to presentation. He described the chest pain as dull. The chest pain radiates to his right jaw. He denies any aggravating factors to the chest pain. He took nitroglycerin at home to help with the chest pain. The chest pain started while he was watching TV. He denies any nausea, vomiting, diaphoresis or shortness of breath with the chest pain. Review his previous chest pain requiring stent and subsequent CABG the chest pain radiated to his. This time around the chest pain is not radiating into his. [facility] Medical History Atherosclerotic heart disease of [place] coronary artery without angina pectoris BPH (benign prostatic hyperplasia) CAD (coronary artery disease) Essential hypertension Mixed hyperlipidemia Obesity (BMI 30-39.9) Obstructive sleep apnea BILL (obstructive sleep apnea) Presence of stent in coronary artery (~01/20/21) Prostate cancer Shortness of breath STEMI (ST elevation myocardial infarction) TIA (transient ischemic attack) Home Medications aspirin 81 mg PO DAILY@0800 04/24/14 [History Last Taken 01/19/21 07:00] miscellaneous medical supply #1 ea 12/22/19 [Rx Last Taken Unknown] oxybutynin chloride 5 mg tablet 5 mg PO TID 11/24/20 [History Last Taken 01/19/21 07:00] nitroglycerin 0.4 mg SUBLINGUAL Q5M PRN #10 tab 01/22/21 [Rx Last Taken Unknown] acetaminophen 500 mg tablet 1,000 mg PO Q6H PRN tab 02/20/21 [History Last Taken Unknown] carvedilol 6.25 mg tablet 6.25 mg PO BID 02/20/21 [History Last Taken Unknown] chlorthalidone 25 mg tablet 25 mg PO DAILY 02/20/21 [History Last Taken Unknown] clopidogrel 75 mg tablet 75 mg PO DAILY 02/20/21 [History Last Taken Unknown] gabapentin 100 mg capsule 200 mg PO BID cap 02/20/21 [History Last Taken Unknown] lidocaine 4 % topical patch 1 patch TOPICAL DAILY PRN 02/20/21 [History Last Taken Unknown] magnesium oxide 400 mg PO DAILY 02/20/21 [History Last Taken Unknown] polyethylene glycol 3350 17 gram/dose oral powder 17 g PO DAILY 02/20/21 [History Last Taken Unknown] rosuvastatin 10 mg tablet 10 mg PO DAILY 02/20/21 [History Last Taken Unknown] sennosides 8.6 mg capsule 8.6 mg PO BID 02/20/21 [History Last Taken Unknown] tramadol 50 mg tablet 50 mg PO Q6H PRN 02/20/21 [History Last Taken Unknown] amoxicillin-pot clavulanate [Augmentin] 1 tab PO BID 02/27/21 [History Last Taken Unknown] cephalexin 500 mg PO [id number] 02/27/21 [History Last Taken Unknown] Allergy/AdvReac Type Severity Reaction Status Date / Time No Known Allergies Allergy Verified 02/27/21 19:28 Family History Father CAD (coronary artery disease) Hypertension Mother Diabetes Hypertension Sister Hypertension Other Family history of hypertension Family history of premature coronary artery disease Family history of premature coronary heart disease Surgical History History of back surgery History of coronary artery bypass surgery (~02/03/21) History of prostatectomy History of removal of cyst (~1965) History of tonsillectomy (~1999) History of uvulectomy (~1999) Presence of coronary angioplasty implant and graft (~01/20/21) S/P correction of deviated nasal septum (~1999) Social History Smoking Status: Never smoker alcohol intake: current alcohol intake frequency: a few times a week Alcohol type: beer substance use type: does not use caffeine: Yes Type: coffee Number of servings: 2 what type of physical activity do you participate in: none seatbelt use: always do you feel safe at home: Yes ROS ROS Narrative 12 point review of system is negative except as stated in HPI. Vital Signs Vital Signs Vital Signs: 02/27/21 19:26 02/27/21 19:50 02/27/21 20:34 Temperature 96.9 F L Temperature Source Temporal Pulse Rate 79 98 Respiratory Rate 18 15 Blood Pressure 137/65 H 116/86 H Blood Pressure Mean 89 96 Pulse Ox 94 95 98 Oxygen Delivery Method Room Air Room Air Room Air Weight Weight: 87.09 kg Body Mass Index (BMI) 30.9 Physical Exam Narrative Alert and oriented x3 Nontraumatic; normocephalic Lungs: Chest with midline incision well approximated and with other surgical incision epigastric area. Left base with mild Rales. All other lung car clear. Heart sounds S1-S2. No murmur, gallop or rubs. Abdomen bowel sounds present soft, nontender nondistended Extremity without edema cyanosis or clubbing. Results Lab / Micro Data Result Diagrams: 02/27/21 19:35 02/27/21 19:35 Labs: Laboratory Results - last 24 hr 02/27/21 02/27/21 02/27/21 19:35 19:35 19:35 WBC 8.5 RBC 4.80 Hgb 14.1 Hct 42.3 MCV 88.1 MCH 29.4 MCHC 33.3 RDW Std Deviation 43.8 RDW Coeff of Vinayak 13.7 Plt Count 446 MPV 8.9 Immature Gran % (Auto) 0.400 Neut % (Auto) 51.1 Lymph % (Auto) 29.2 [place] % (Auto) 13.2 H Eos % (Auto) 5.2 H Baso % (Auto) 0.9 Absolute Neuts (auto) 4.4 Absolute Lymphs (auto) 2.49 Nucleated RBC % 0 Sodium 133 L Potassium 3.3 L Chloride 96 L Carbon Dioxide 27.0 Anion Gap 10 BUN 20 H Creatinine 0.94 Estim Creat Clear Calc 67.87 Est GFR (MDRD) Af Amer 103 Est GFR (MDRD) Non-Af 85 BUN/Creatinine Ratio 21.3 H Glucose 106 Calcium 9.5 Magnesium 2.2 Troponin I 0.145 H Radiology Impression Chest X-Ray 02/27/21 19:43 IMPRESSION: No acute cardiopulmonary process. Electronically Signed: Franki Steen MD at 20:37 EDT Tel , Service support , Assessment & Plan Assessment/Plan (1) Chest pain: QUALIFIERS: Chest pain type: unspecified Qualified Code(s): R07.9 - Chest pain, unspecified (2) History of coronary artery bypass surgery: (3) Presence of stent in coronary artery: PLAN: Chest pain Place on a monitored bed at progressive care unit Impression of x-ray by radiologist: No acute cardiopulmonary process actual CXR image was independently visualized. No acute cardiopulmonary process was noted. Actual EKG tracing was independently visualized. EKG tracing showed right bundle branch block. Previous EKG was reviewed. Current EKG with a post infarct changes. Old records reviewed showed the patient had cardiac catheterization at our hospital in 01/20/2021. Conclusion of cardiac catheterization: Elevated left ventricular end-diastolic pressure; normal left ventricular size, wall motion, and systolic function; left ventricular ejection fraction by left ventriculogram was 55%; [place] multivessel CAD. Patient had a follow-up unsuccessful thrombectomy in drug-eluting stent was placed in OM1. Review of discharge summary from [facility] showed that following cardiac catheterization at [facility] patient was discharged home but presented again to the emergency department of [facility] with non-STEMI; and was subsequently transferred to [facility] for an expedited surgical evaluation. He eventually had a four-vessel CABG over the ([facility]) Discussed emergent department doctor who ordered 243 mg of aspirin as patient h ad taking aspirin 81 mg routinely at home. ASA 81 mg p.o. daily ordered High intensity statin continued SL NTG 0.4 mg prn as needed for chest pain ordered Morphine as needed for pain ordered Anticoagulation: Received therapeutic dose of Lovenox at emergency department. We will hold off further Lovenox and trend cardiac enzymes. Initial cardiac enzymes was negative. Anti-P2Y12 Receptor antibody: Plavix continued. Stat EKG as needed for chest pain Carvedilol continued Emergency department doctor discussed the case with Dr. Belle who asked that patient be observed in the hospital. Cardiology will follow patient. Cardiology consult placed. Hypokalemia Review of emergency department labs showed potassium of 3.3. Replace. Trend BMP Surgical wound infection Reportedly one of surgical wounds at epigastric area had increased drainage. At the surgical wound also appeared infected. reports that home health nurse called surgical office and Keflex was started. Keflex continued. Hypertension Blood pressure is stable in regard to his age. Carvedilol and chlorthalidone continued. Trend blood pressure and adjust blood pressure medications. DVT prophylaxis: Not indicated since patient received therapeutic dose of Lovenox at emergency department. Charges/Coding Visit Charges OBSV E&M: 17246 Initial observation care L3
[2021-02-27] MEDS: Aspirin 81 MG TAB.CHEW 243 MG PO (22:07)
[2021-02-27] MEDS: Enoxaparin 100 MG/ML Syringe 90 MG SC (22:07)
[2021-02-27] MEDS: Senna Tablet 1 TABLET PO (23:32)
[2021-02-27] MEDS: Carvedilol 6.25 MG Tablet PO (23:32)
[2021-02-27] MEDS: Gabapentin 100 MG Capsule 200 MG PO (23:32)
[2021-02-27] MEDS: Potassium Chloride Oral Tablet 20 MEQ 60 MEQ PO (23:32)
[2021-02-27] MEDS: Cephalexin 500 MG Capsule PO (23:32)
[2021-02-27] MEDS: Oxybutynin 5 MG Tablet PO (23:46)
[2021-02-28] VITALS (7 sets, daily range): BP systolic 103–115; BP diastolic 68–75; PULSE 69–75; RESP 16–18; TEMP 36.4–37; O2SAT 94–97
[2021-02-28] MEDS: Oxybutynin 5 MG Tablet PO (06:22)
[2021-02-28] MEDS: Cephalexin 500 MG Capsule PO (06:22)
[2021-02-28] MEDS: Carvedilol 6.25 MG Tablet PO (08:49)
[2021-02-28] MEDS: Aspirin E.C. 81 MG Tablet PO (08:50)
[2021-02-28] MEDS: Clopidogrel Bisulfate 75 MG Tablet PO (08:50)
[2021-02-28] MEDS: Senna Tablet 1 TABLET PO (08:51)
[2021-02-28] MEDS: Gabapentin 100 MG Capsule 200 MG PO (08:51)
[2021-02-28] MEDS: Magnesium Chloride 64 MG Delay Rel.Tablet 128 MG PO (08:53)
[2021-02-28] MEDS: Chlorthalidone 50 MG Tablet 25 MG PO (08:54)
--- NOTE | 2021-02-28 11:28 | PCM.DC ---
Discharge Instructions Diet Discharge Diet: No restrictions Activity Discharge Activity: Return to Normal Activity Follow Up Care Please Follow Up With: Primary care provider When: Within the next two weeks. Test Results: Test results from this visit will be discussed in further detail at your follow-up appointment, if applicable. Discharge Plan Admission Admit Date/Time: 02/27/21 21:45 Primary Reason for Your Visit: Chest pain Attending Provider: Ignacio Trujillo Primary Care Provider: Jung Charles Consulting Providers: Fletcher Belle Instructions Patient Instructions: ED Chest Pain, Noncardiac Discharge Orders/Prescriptions Prescriptions: New isosorbide mononitrate 30 mg tablet extended release 24 hr 30 mg PO DAILY Qty: 30 RF: 0 ranolazine [Ranexa] 500 mg tablet extended release 12 hr 500 mg PO BID Qty: 60 RF: 0 Continued oxybutynin chloride 5 mg tablet 5 mg PO TID RF: 0 acetaminophen 500 mg tablet 1,000 mg PO Q6H PRN (Reason: Pain) RF: 0 lidocaine [Salonpas (lidocaine)] 4 % adhesive patch,medicated 1 patch topical DAILY PRN (Reason: Pain) RF: 0 tramadol 50 mg tablet 50 mg PO Q6H PRN (Reason: Pain) RF: 0 chlorthalidone 25 mg tablet 25 mg PO DAILY RF: 0 aspirin 81 MG tablet 81 mg PO DAILY@0800 RF: 0 nitroglycerin 0.4 mg Tablet, Sublingual 0.4 mg sublingual Q5M PRN (Reason: Chest pain) Qty: 10 RF: 0 cephalexin 500 mg capsule 500 mg PO [id number] RF: 0 carvedilol 6.25 mg tablet 6.25 mg PO BID RF: 0 rosuvastatin 10 mg tablet 10 mg PO DAILY RF: 0 clopidogrel 75 mg tablet 75 mg PO DAILY RF: 0 gabapentin 100 mg capsule 200 mg PO BID RF: 0 magnesium oxide 400 mg magnesium tablet 400 mg PO DAILY RF: 0 polyethylene glycol 3350 [Miralax] 17 gram/dose powder 17 g PO DAILY RF: 0 senna 8.6 mg capsule 8.6 mg PO BID RF: 0 Discontinued amoxicillin-pot clavulanate [Augmentin] 875-125 mg Tablet 1 tab PO BID RF: 0 No Action (DME) miscellaneous medical supply 1 EACH misc 1 ea OTHER 4X/DAY PRN Qty: 1 RF: 0 Referrals / Follow Up: Ethan Saldaña MD [STAFF PHYSICIAN] - Within 2 Weeks Jung Charles MD [Primary Care Provider] - Within 2 Weeks Disposition Disposition (needs filled in before D/C Order can be placed): Home, self care
--- NOTE | 2021-02-28 12:03 | CON.PCM.CA_ITS ---
Assessment & Plan Assessment/Plan (1) Chest pain: QUALIFIERS: Chest pain type: unspecified Qualified Code(s): R07.9 - Chest pain, unspecified (2) History of coronary artery bypass surgery: PLAN: 70-year-old patient presented to ED at [facility] complaining of retrosternal chest pain Evidently the symptoms happened while he was watching the TV took some nitroglycerin which did not relieve his symptoms and he came to the ER where he had an EKG and also had cardiac biomarker with high sensitive troponin showed mild elevation. Today he was seen at bedside along with the nursing staff Symptoms of chest pain resolved he was sitting out in a chair comfortable monitor tech showed normal sinus rhythm Very mild elevation of cardiac biomarkers Patient recently had STEMI and underwent cardiac catheterization here at [facility] in January 20, 2021 with a PCI and stent of OM1 Recommendation and plan; 1. Advised the patient to stay further in the hospital and recommend evaluation by nuclear stress test on Tuesday he is anxious to be discharged and he does not have any symptoms of chest pain 2. We reviewed all his current medication will continue the current medication in addition to long-acting nitrate and Ranexa 3. To be seen early in the cardiology office by his primary foot gatherer Dr.Ofo still, and evaluation with nuclear stress test due to the recent coronary artery bypass graft done at [facility]/CABG X4. 4. Cardiac care plan and recommendation discussed with the patient, nursing s taff and the medical team. (3) Presence of stent in coronary artery: (4) Atherosclerotic heart disease of [place] coronary artery without angina pectoris: (5) BPH (benign prostatic hyperplasia): QUALIFIERS: Lower urinary tract symptom presence: unspecified whether lower urinary tract symptoms present Qualified Code(s): N40.0 - Benign prostatic hyperplasia without lower urinary tract symptoms (6) Mixed hyperlipidemia: (7) Essential hypertension: (8) Shortness of breath: (9) Obstructive sleep apnea: (10) Abnormal electrocardiogram: HPI Consult Data Date of Consult: 02/28/21 HPI Narrative Reason for Consultation: Patient with CAD, recent PCI stent and CABG.Presenting with chest pain HPI Narrative: HUGO MARCOS, is a 70 M who presents [facility] Medical History Atherosclerotic heart disease of [place] coronary artery without angina pectoris BPH (benign prostatic hyperplasia) CAD (coronary artery disease) Essential hypertension Mixed hyperlipidemia Obesity (BMI 30-39.9) Obstructive sleep apnea BILL (obstructive sleep apnea) Presence of stent in coronary artery (~01/20/21) Prostate cancer Shortness of breath STEMI (ST elevation myocardial infarction) TIA (transient ischemic attack) Home Medications aspirin 81 mg PO DAILY@0800 04/24/14 [History Last Taken 01/19/21 07:00] miscellaneous medical supply #1 ea 12/22/19 [Rx Last Taken Unknown] oxybutynin chloride 5 mg tablet 5 mg PO TID 11/24/20 [History Last Taken 01/19/21 07:00] nitroglycerin 0.4 mg SUBLINGUAL Q5M PRN #10 tab 01/22/21 [Rx Last Taken Unknown] acetaminophen 500 mg tablet 1,000 mg PO Q6H PRN tab 02/20/21 [History Last Taken Unknown] carvedilol 6.25 mg tablet 6.25 mg PO BID 02/20/21 [History Last Taken Unknown] chlorthalidone 25 mg tablet 25 mg PO DAILY 02/20/21 [History Last Taken Unknown] clopidogrel 75 mg tablet 75 mg PO DAILY 02/20/21 [History Last Taken Unknown] gabapentin 100 mg capsule 200 mg PO BID cap 02/20/21 [History Last Taken Unknown] lidocaine 4 % topical patch 1 patch TOPICAL DAILY PRN 02/20/21 [History Last Taken Unknown] magnesium oxide 400 mg PO DAILY 02/20/21 [History Last Taken Unknown] polyethylene glycol 3350 17 gram/dose oral powder 17 g PO DAILY 02/20/21 [History Last Taken Unknown] rosuvastatin 10 mg tablet 10 mg PO DAILY 02/20/21 [History Last Taken Unknown] sennosides 8.6 mg capsule 8.6 mg PO BID 02/20/21 [History Last Taken Unknown] tramadol 50 mg tablet 50 mg PO Q6H PRN 02/20/21 [History Last Taken Unknown] amoxicillin-pot clavulanate [Augmentin] 1 tab PO BID 02/27/21 [History Last Taken Unknown] cephalexin 500 mg PO [id number] 02/27/21 [History Last Taken Unknown] isosorbide mononitrate 30 mg PO DAILY #30 tab 02/28/21 [Rx Last Taken Unknown] ranolazine [Ranexa] 500 mg PO BID #60 tab 02/28/21 [Rx Last Taken Unknown] Allergy/AdvReac Type Severity Reaction Status Date / Time No Known Allergies Allergy Verified 02/27/21 19:28 Family History Father CAD (coronary artery disease) Hypertension Mother Diabetes Hypertension Sister Hypertension Other Family history of hypertension Family history of premature coronary artery disease Family history of premature coronary heart disease Surgical History History of back surgery History of coronary artery bypass surgery (~02/03/21) History of prostatectomy History of removal of cyst (~1965) History of tonsillectomy (~1999) History of uvulectomy (~1999) Presence of coronary angioplasty implant and graft (~01/20/21) S/P correction of deviated nasal septum (~1999) Social History household members: spouse housing: house Smoking Status: Never smoker alcohol intake: current alcohol intake frequency: a few times a week Alcohol type: beer substance use type: does not use caffeine: Yes Type: coffee Number of servings: 2 what type of physical activity do you participate in: none seatbelt use: always do you feel safe at home: Yes Physical Exam Narrative Patient seen and evaluated with the nursing staff Symptoms of chest pain resolved He was sitting out in a chair comfortable alert orientated not in acute distress Cardiovascular examination review of the cardiac telemetry underlying normal sinus. Median sternotomy scar healed with no signs of infection S1-S2 normal, no murmur, no gallop and no pericardial rub. Chest examination clear to auscultation Examination abdomen soft Examination lower extremity no clubbing no cyanosis no lower extremity edema Central nervous system exam no focal neurological deficit. Objective Data Vital Signs: Vital Signs Temp Pulse Resp BP Pulse Ox 98.6 F 74 18 109/75 97 02/28/21 08:46 02/28/21 09:30 02/28/21 08:46 02/28/21 08:46 02/28/21 08:46 Oxygen Delivery Method Room Air Weight: 196 lb 6.91 oz Body Mass Index (BMI) 30.7 Intake & Output: Intake and Output for Last 24 Hours 02/26/21 02/27/21 02/28/21 23:59 23:59 23:59 Intake Total 410 / 410 Balance 410 / 410 Lab / Micro Data Result Diagrams: 02/27/21 19:35 02/27/21 19:35 Labs: Laboratory Results - last 24 hr 02/27/21 02/27/21 02/27/21 19:35 19:35 19:35 WBC 8.5 RBC 4.80 Hgb 14.1 Hct 42.3 MCV 88.1 MCH 29.4 MCHC 33.3 RDW Std Deviation 43.8 RDW Coeff of Vinayak 13.7 Plt Count 446 MPV 8.9 Immature Gran % (Auto) 0.400 Neut % (Auto) 51.1 Lymph % (Auto) 29.2 [place] % (Auto) 13.2 H Eos % (Auto) 5.2 H Baso % (Auto) 0.9 Absolute Neuts (auto) 4.4 Absolute Lymphs (auto) 2.49 Nucleated RBC % 0 Sodium 133 L Potassium 3.3 L Chloride 96 L Carbon Dioxide 27.0 Anion Gap 10 BUN 20 H Creatinine 0.94 Estim Creat Clear Calc 67.87 Est GFR (MDRD) Af Amer 103 Est GFR (MDRD) Non-Af 85 BUN/Creatinine Ratio 21.3 H Glucose 106 Calcium 9.5 Magnesium 2.2 Troponin I 0.145 H 02/28/21 02/28/21 00:00 02:50 WBC RBC Hgb Hct MCV MCH MCHC RDW Std Deviation RDW Coeff of Vinayak Plt Count MPV Immature Gran % (Auto) Neut % (Auto) Lymph % (Auto) [place] % (Auto) Eos % (Auto) Baso % (Auto) Absolute Neuts (auto) Absolute Lymphs (auto) Nucleated RBC % Sodium Potassium Chloride Carbon Dioxide Anion Gap BUN Creatinine Estim Creat Clear Calc Est GFR (MDRD) Af Amer Est GFR (MDRD) Non-Af BUN/Creatinine Ratio Glucose Calcium Magnesium Troponin I 0.144 H 0.140 H Cardiology Labs/Tests 02/27/21 19:35: WBC 8.5, RBC 4.80, Hgb 14.1, Hct 42.3, MCV 88.1, MCH 29.4, MCHC 33.3, Plt Count 446, MPV 8.9, Immature Gran % (Auto) 0.400, Neut % (Auto) 51.1, Lymph % (Auto) 29.2, [place] % (Auto) 13.2 H, Eos % (Auto) 5.2 H, Baso % (Auto) 0.9, Absolute Neuts (auto) 4.4, Nucleated RBC % 0 02/27/21 19:35: Sodium 133 L, Potassium 3.3 L, Chloride 96 L, Carbon Dioxide 27.0, Anion Gap 10, BUN 20 H, Creatinine 0.94, Est GFR (MDRD) Af Amer 103, Est GFR (MDRD) Non-Af 85, BUN/Creatinine Ratio 21.3 H, Glucose 106, Calcium 9.5, Troponin I 0.145 H 02/27/21 19:35: Magnesium 2.2 02/28/21 00:00: Troponin I 0.144 H 02/28/21 02:50: Troponin I 0.140 H Rhythm: Normal sinus rhythm EKG: Normal sinus rhythm present premature atrial complex Right bundle branch block, left anterior fascicular block between to bracket bifascicular block] Inferolateral myocardial infarction/age undetermined. Radiography Diagnostic Testing: Radiology Impression Chest X-Ray 02/27/21 19:43 IMPRESSION: No acute cardiopulmonary process. Electronically Signed: Franki Steen MD at 20:37 EDT Tel , Service support ,
--- NOTE | 2021-02-28 13:47 | DS.PCM_ITS ---
Documented by User: Paulo DUPREE 02/28/21 13:58 Providers Date of Admission: 02/27/21 Primary Care Physician: Dr. Jung Charles MD Consultations 02/27/21 22:42 Consult: Cardiology Routine Consulting Provider: Fletcher Belle Reason for Consult: Chest Pain EMERGENT Consult: No MD Notified: Yes Date Notified: 02/28/21 Time Notified: 06:40 Method of Notification: Text Reason For Visit: CHEST PAIN Diagnosis Discharge Diagnosis (1) Chest pain: Status: Acute Code(s): R07.9 - Chest pain, unspecified Qualifiers: Chest pain type: unspecified Qualified Code(s): R07.9 - Chest pain, unspecified (2) History of coronary artery bypass surgery: Status: Acute Code(s): Z95.1 - Presence of aortocoronary bypass graft (3) Presence of stent in coronary artery: Status: Chronic Code(s): Z95.5 - Presence of coronary angioplasty implant and graft (4) Atherosclerotic heart disease of [place]iat[place] coronary artery without angina pectoris: Status: Acute Code(s): I25.10 - Atherosclerotic heart disease of [place] coronary artery without angina pectoris (5) BPH (benign prostatic hyperplasia): Status: Resolved Code(s): N40.0 - Benign prostatic hyperplasia without lower urinary tract symptoms Qualifiers: Lower urinary tract symptom presence: unspecified whether lower urinary tract symptoms present Qualified Code(s): N40.0 - Benign prostatic hyperplasia without lower urinary tract symptoms (6) Mixed hyperlipidemia: Status: Chronic Code(s): E78.2 - Mixed hyperlipidemia (7) Essential hypertension: Status: Chronic Code(s): I10 - Essential (primary) hypertension (8) Shortness of breath: Status: Chronic Code(s): R06.02 - Shortness of breath (9) Obstructive sleep apnea: Status: Chronic Code(s): G47.33 - Obstructive sleep apnea (adult) (pediatric) (10) Abnormal electrocardiogram: Status: Chronic Code(s): R94.31 - Abnormal electrocardiogram [ECG] [EKG] Medications at Discharge Home Medications aspirin 81 mg PO DAILY@0800 04/24/14 miscellaneous medical supply #1 ea 12/22/19 oxybutynin chloride 5 mg tablet 5 mg PO TID 11/24/20 nitroglycerin 0.4 mg SUBLINGUAL Q5M PRN #10 tab 01/22/21 acetaminophen 500 mg tablet 1,000 mg PO Q6H PRN tab 02/20/21 carvedilol 6.25 mg tablet 6.25 mg PO BID 02/20/21 chlorthalidone 25 mg tablet 25 mg PO DAILY 02/20/21 clopidogrel 75 mg tablet 75 mg PO DAILY 02/20/21 gabapentin 100 mg capsule 200 mg PO BID cap 02/20/21 lidocaine 4 % topical patch 1 patch TOPICAL DAILY PRN 02/20/21 magnesium oxide 400 mg PO DAILY 02/20/21 polyethylene glycol 3350 17 gram/dose oral powder 17 g PO DAILY 02/20/21 rosuvastatin 10 mg tablet 10 mg PO DAILY 02/20/21 sennosides 8.6 mg capsule 8.6 mg PO BID 02/20/21 tramadol 50 mg tablet 50 mg PO Q6H PRN 02/20/21 cephalexin 500 mg PO [id number] 02/27/21 isosorbide mononitrate 30 mg PO DAILY #30 tab 02/28/21 ranolazine [Ranexa] 500 mg PO BID #60 tab 02/28/21 Hospital Course Summary of Care Provided Minutes Spent on Discharge: 35 Hospital Course: 1) chest pain Chest pain on admission have resolved. Elevated troponins throughout cycle. Status post cardiac catheterization on 01/20/2021 with PCI and stent placement. Status post recent CABG x4 at [facility]. Cardiology following, recommends outpatient follow-up with [facility]. Plan; patient would be di scharged, cardiology follow-up with Dr. Saldaña, possible nuclear stress test as an outpatient, Continue aspirin, carvedilol, clopidogrel and nitroglycerin. Imdur and Ranexa initiated on discharge. 2) hypokalemia Replaced 3) surgical wound infection Continue Keflex, Augmentin and discontinued. 4) hypertension Stable. Patient seen by Paulo Betancur PA-C, under the supervision of Dr. Trujillo. Physical Exam Narrative Patient is a 62-year-old male comfortably resting in a chair, alert and oriented x3. Patient reports resolution of his chest pain from admission. Denies shortness of breath, palpitations, hemoptysis, fever, chills, N/V/D. Const alert, oriented x3 and no apparent distress HEENT normocephalic, head/scalp atraumatic and hearing grossly normal bilaterally Eyes PERRL, EOMs intact bilaterally and conjunctivae normal Neck no lymphadenopathy, supple and no JVD Resp normal respiratory effort, no retractions, no use of accessory muscles and clear to auscultation bilaterally Cardio regular rate, regular rhythm, no murmurs and no JVD GI normal to inspection, nondistended, normoactive bowel sounds, soft to palpation and non-tender Extremity normal to inspection, full ROM and no clubbing, cyanosis or edema Skin no rashes or lesions noted, no wounds and skin turgor normal Neuro CN's II-XII intact bilaterally Psych affect normal Weight / BMI Weight Weight: 196 lb 6.91 oz Body Mass Index (BMI) 30.7 ABG / Lab / Microbiology Data Result Diagrams: 02/27/21 19:35 02/27/21 19:35 Laboratory: Laboratory Results - last 24 hr 02/27/21 02/27/21 02/27/21 19:35 19:35 19:35 WBC 8.5 RBC 4.80 Hgb 14.1 Hct 42.3 MCV 88.1 MCH 29.4 MCHC 33.3 RDW Std Deviation 43.8 RDW Coeff of Vinayak 13.7 Plt Count 446 MPV 8.9 Immature Gran % (Auto) 0.400 Neut % (Auto) 51.1 Lymph % (Auto) 29.2 [place] % (Auto) 13.2 H Eos % (Auto) 5.2 H Baso % (Auto) 0.9 Absolute Neuts (auto) 4.4 Absolute Lymphs (auto) 2.49 Nucleated RBC % 0 Sodium 133 L Potassium 3.3 L Chloride 96 L Carbon Dioxide 27.0 Anion Gap 10 BUN 20 H Creatinine 0.94 Estim Creat Clear Calc 67.87 Est GFR (MDRD) Af Amer 103 Est GFR (MDRD) Non-Af 85 BUN/Creatinine Ratio 21.3 H Glucose 106 Calcium 9.5 Magnesium 2.2 Troponin I 0.145 H 02/28/21 02/28/21 00:00 02:50 WBC RBC Hgb Hct MCV MCH MCHC RDW Std Deviation RDW Coeff of Vinayak Plt Count MPV Immature Gran % (Auto) Neut % (Auto) Lymph % (Auto) [place] % (Auto) Eos % (Auto) Baso % (Auto) Absolute Neuts (auto) Absolute Lymphs (auto) Nucleated RBC % Sodium Potassium Chloride Carbon Dioxide Anion Gap BUN Creatinine Estim Creat Clear Calc Est GFR (MDRD) Af Amer Est GFR (MDRD) Non-Af BUN/Creatinine Ratio Glucose Calcium Magnesium Troponin I 0.144 H 0.140 H Radiography Diagnostic Testing: Radiology Impression Chest X-Ray 02/27/21 19:43 IMPRESSION: No acute cardiopulmonary process. Electronically Signed: Franki Steen MD at 20:37 EDT Tel , Service support , D/C Instructions Discharge Diet: No restrictions Please Follow Up With: Primary care provider When: Within the next two weeks. Meaningful Use Info Meaningful Use Diagnoses (Choose all that apply): None applicable Discharge Plan Admission Admit Date/Time: 02/27/21 21:45 Primary Reason for Your Visit: Chest pain Attending Provider: Ignacio Trujillo Primary Care Provider: Jung Charles Consulting Providers: Fletcher Belle Instructions Patient Instructions: ED Chest Pain, Noncardiac Additional Instructions / Restrictions: Patient Problems: Altered Health Status related to Hospitalization Patient Goals: *Optimal Level of Health *Keep Appointments *Medication Compliance *Remain Safe Discharge Orders/Prescriptions Prescriptions: New isosorbide mononitrate 30 mg tablet extended release 24 hr 30 mg PO DAILY Qty: 30 RF: 0 ranolazine [Ranexa] 500 mg tablet extended release 12 hr 500 mg PO BID Qty: 60 RF: 0 Continued oxybutynin chloride 5 mg tablet 5 mg PO TID RF: 0 acetaminophen 500 mg tablet 1,000 mg PO Q6H PRN (Reason: Pain) RF: 0 lidocaine [Salonpas (lidocaine)] 4 % adhesive patch,medicated 1 patch topical DAILY PRN (Reason: Pain) RF: 0 tramadol 50 mg tablet 50 mg PO Q6H PRN (Reason: Pain) RF: 0 chlorthalidone 25 mg tablet 25 mg PO DAILY RF: 0 aspirin 81 MG tablet 81 mg PO DAILY@0800 RF: 0 nitroglycerin 0.4 mg Tablet, Sublingual 0.4 mg sublingual Q5M PRN (Reason: Chest pain) Qty: 10 RF: 0 cephalexin 500 mg capsule 500 mg PO [id number] RF: 0 carvedilol 6.25 mg tablet 6.25 mg PO BID RF: 0 rosuvastatin 10 mg tablet 10 mg PO DAILY RF: 0 clopidogrel 75 mg tablet 75 mg PO DAILY RF: 0 gabapentin 100 mg capsule 200 mg PO BID RF: 0 magnesium oxide 400 mg magnesium tablet 400 mg PO DAILY RF: 0 polyethylene glycol 3350 [Miralax] 17 gram/dose powder 17 g PO DAILY RF: 0 senna 8.6 mg capsule 8.6 mg PO BID RF: 0 Discontinued amoxicillin-pot clavulanate [Augmentin] 875-125 mg Tablet 1 tab PO BID RF: 0 No Action (DME) miscellaneous medical supply 1 EACH misc 1 ea OTHER 4X/DAY PRN Qty: 1 RF: 0 Referrals / Follow Up: Ethan Saldaña MD [STAFF PHYSICIAN] - Within 2 Weeks (Please schedule follow up appointment) Jung Charles MD [Primary Care Provider] - Within 2 Weeks (Please schedule follow up appointment) Disposition Disposition (needs filled in before D/C Order can be placed): Home, self care Documented by User: Dr. Ignacio Trujillo MD 02/28/21 14:21 Providers Date of Admission: 02/27/21 Reason For Visit: CHEST PAIN Medications at Discharge Home Medications aspirin 81 mg PO DAILY@0800 04/24/14 miscellaneous medical supply #1 ea 12/22/19 oxybutynin chloride 5 mg tablet 5 mg PO TID 11/24/20 nitroglycerin 0.4 mg SUBLINGUAL Q5M PRN #10 tab 01/22/21 acetaminophen 500 mg tablet 1,000 mg PO Q6H PRN tab 02/20/21 carvedilol 6.25 mg tablet 6.25 mg PO BID 02/20/21 chlorthalidone 25 mg tablet 25 mg PO DAILY 02/20/21 clopidogrel 75 mg tablet 75 mg PO DAILY 02/20/21 gabapentin 100 mg capsule 200 mg PO BID cap 02/20/21 lidocaine 4 % topical patch 1 patch TOPICAL DAILY PRN 02/20/21 magnesium oxide 400 mg PO DAILY 02/20/21 polyethylene glycol 3350 17 gram/dose oral powder 17 g PO DAILY 02/20/21 rosuvastatin 10 mg tablet 10 mg PO DAILY 02/20/21 sennosides 8.6 mg capsule 8.6 mg PO BID 02/20/21 tramadol 50 mg tablet 50 mg PO Q6H PRN 02/20/21 cephalexin 500 mg PO [id number] 02/27/21 isosorbide mononitrate 30 mg PO DAILY #30 tab 02/28/21 ranolazine [Ranexa] 500 mg PO BID #60 tab 02/28/21 ABG / Lab / Microbiology Data Result Diagrams: 02/27/21 19:35 02/27/21 19:35 Discharge Plan Admission Admit Date/Time: 02/27/21 21:45 Primary Reason for Your Visit: Chest pain Attending Provider: Ignacio Trujillo Primary Care Provider: Jung Charles Consulting Providers: Fletcher Belle Instructions Patient Instructions: ED Chest Pain, Noncardiac Additional Instructions / Restrictions: Patient Problems: Altered Health Status related to Hospitalization Patient Goals: *Optimal Level of Health *Keep Appointments *Medication Compliance *Remain Safe Discharge Orders/Prescriptions Prescriptions: New isosorbide mononitrate 30 mg tablet extended release 24 hr 30 mg PO DAILY Qty: 30 RF: 0 ranolazine [Ranexa] 500 mg tablet extended release 12 hr 500 mg PO BID Qty: 60 RF: 0 Continued oxybutynin chloride 5 mg tablet 5 mg PO TID RF: 0 acetaminophen 500 mg tablet 1,000 mg PO Q6H PRN (Reason: Pain) RF: 0 lidocaine [Salonpas (lidocaine)] 4 % adhesive patch,medicated 1 patch topical DAILY PRN (Reason: Pain) RF: 0 tramadol 50 mg tablet 50 mg PO Q6H PRN (Reason: Pain) RF: 0 chlorthalidone 25 mg tablet 25 mg PO DAILY RF: 0 aspirin 81 MG tablet 81 mg PO DAILY@0800 RF: 0 nitroglycerin 0.4 mg Tablet, Sublingual 0.4 mg sublingual Q5M PRN (Reason: Chest pain) Qty: 10 RF: 0 cephalexin 500 mg capsule 500 mg PO [id number] RF: 0 carvedilol 6.25 mg tablet 6.25 mg PO BID RF: 0 rosuvastatin 10 mg tablet 10 mg PO DAILY RF: 0 clopidogrel 75 mg tablet 75 mg PO DAILY RF: 0 gabapentin 100 mg capsule 200 mg PO BID RF: 0 magnesium oxide 400 mg magnesium tablet 400 mg PO DAILY RF: 0 polyethylene glycol 3350 [Miralax] 17 gram/dose powder 17 g PO DAILY RF: 0 senna 8.6 mg capsule 8.6 mg PO BID RF: 0 Discontinued amoxicillin-pot clavulanate [Augmentin] 875-125 mg Tablet 1 tab PO BID RF: 0 No Action (DME) miscellaneous medical supply 1 EACH misc 1 ea OTHER 4X/DAY PRN Qty: 1 RF: 0 Referrals / Follow Up: Ethan Saldaña MD [STAFF PHYSICIAN] - Within 2 Weeks (Please schedule follow up appointment) Jung Charles MD [Primary Care Provider] - Within 2 Weeks (Please schedule follow up appointment) Disposition Disposition (needs filled in before D/C Order can be placed): Home, self care Charges/Coding Addendum Addendum: Hospitalist note: Discharge summary above reviewed and I concur with the above discharge and treatment plan. Patient had recent PCI and stent placement on January 20, 2021. Then, he was referred to [facility] for CABG, underwent CABG 4 weeks ago. He was admitted for chest pain. EKG revealed normal sinus rhythm wi th PACs, right bundle branch block, no acute ischemic changes. Troponin was borderline elevated and flat. It was 0.145, 0.144, 0.140 respectively. After admission, patient had no more chest pain. His vitals has been stable. Routine blood work was unremarkable. Chest x-ray showed no acute findings. Cardiology consulted and recommended nuclear stress test. Patient insisted that he go home today and he wanted a stress test to be done as outpatient. Cardiology agreed to have the stress test done as outpatient. Patient discharged home in a stable condition, discharged on same previous home medications without any changes, plan to follow-up with cardiology as outpatient and nuclear stress test as outpatient in the future. - Physical Exam General: Alert, Oriented x3, Cooperative, No apparent distress. HEENT: Atraumatic, PERRLA, EOMI. Neck: Supple, No JVD, Negative Carotid Bruits, Trachea Midline, Thyroid Normal. Lungs: Clear to auscultation, Normal air movement, No rhonchi, No wheeze, No rales. Cardiovascular: Regular rate, Regular Rhythm, Normal S1, Normal S2, PMI Normal. Abdomen: Bowel Sounds Present, Soft, Non Tender, Non-Distended, No Hepato- splenomegaly. Extremities: No clubbing, No cyanosis, No edema Skin: No rashes, No breakdown, sternal incision is dry and clean, no erythema or drainage. Neurological: Cranial nerves are intact, neuro grossly intact Vital Signs are stable. Visit Charges OBSV E&M: [id number] Observation care discharge
== END 2021-02-28 11:55 | disposition home or self-care (01) ==
LOC: ED 21:36 → PCU 22:04
PROVIDERS: Admitting Provider Hospitalist; Emergency Provider Emergency Medicine; PCP Internal Medicine; Visit Provider Hospitalist
DX: R07.89 Other chest pain (principal); I25.2 Old myocardial infarction; I25.10 Atherosclerotic heart disease of native coronary artery without angina pectoris; T81.41XA Infection following a procedure, superficial incisional surgical site, initial encounter; N40.0 Benign prostatic hyperplasia without lower urinary tract symptoms; I45.10 Unspecified right bundle-branch block; I10 Essential (primary) hypertension; E78.2 Mixed hyperlipidemia; E66.9 Obesity, unspecified; Z68.30 Body mass index [BMI] 30.0-30.9, adult; G47.33 Obstructive sleep apnea (adult) (pediatric); E87.6 Hypokalemia; Y83.2 Surgical operation with anastomosis, bypass or graft as the cause of abnormal reaction of the patient, or of later complication, without mention of misadventure at the time of the procedure; Z79.899 Other long term (current) drug therapy; Z95.1 Presence of aortocoronary bypass graft; Z79.82 Long term (current) use of aspirin; Z79.02 Long term (current) use of antithrombotics/antiplatelets
CPT/HCPCS: 36415; 71045; 80048; 83735; 84484; 85025; 93005; 96372; 99218; 99284; A4216; G0378

== ENCOUNTER 2021-03-02 04:02 | Observation (INO) | payer MEDICARE, SELFPAY ==
[2021-02-27 22:41] VITALS: BMI 30.7
[2021-03-02] VITALS (10 sets, daily range): BP systolic 120–160; BP diastolic 86–120; PULSE 74–90; RESP 14–20; TEMP 36.4; O2SAT 94–100; BMI 32.3; BMI 30.3
--- NOTE | 2021-03-02 04:07 | EKG12_ITS ---
Test Reason : CP Blood Pressure : / mmHG Vent. Rate : 079 BPM Atrial Rate : 079 BPM P-R Int : 148 ms QRS Dur : 132 ms QT Int : 446 ms P-R-T Axes : 040 -49 -66 degrees QTc Int : 511 ms Normal sinus rhythm Possible Left atrial enlargement Right bundle branch block Left anterior fascicular block Bifascicular block Lateral infarct , age undetermined Inferior infarct , age undetermined Abnormal ECG Confirmed by VALENCIA BANKS, DOMENIC ([id number]), photography editor CURLY FULLER ([id number]) on 03/05/2021 9:49:14 AM Referred By: DR ROACH Confirmed By:DOMENIC BIRMINGHAM MD
--- NOTE | 2021-03-02 04:23 | EKG12_ITS ---
Test Reason : CP ADMIN Blood Pressure : / mmHG Vent. Rate : 067 BPM Atrial Rate : 067 BPM P-R Int : 150 ms QRS Dur : 136 ms QT Int : 478 ms P-R-T Axes : 031 -48 207 degrees QTc Int : 505 ms Sinus rhythm with Premature atrial complexes Right bundle branch block Left anterior fascicular block Bifascicular block Lateral infarct , age undetermined Inferior infarct , age undetermined Abnormal ECG Confirmed by VALENCIA BANKS, DOMENIC ([id number]), newspaper managing editor CURLY FULLER ([id number]) on 03/03/2021 9:10:34 AM Referred By: NANCY Confirmed By:DOMENIC BIRMINGHAM MD
--- NOTE | 2021-03-02 04:23 | RAD_ITS ---
EXAM: XR CHEST, 1 VIEW : 1950 CLINICAL INDICATION: chest pain TECHNIQUE: Frontal view of the chest. This report was created using [employer] report generation technology. COMPARISON: 02/27/21 FINDINGS: LUNGS AND PLEURAL SPACES: Obscuration of the left heart border consistent with airspace disease in the lingula. No pneumothorax. No effusion. HEART: Mild enlargement of the cardiac silhouette. MEDIASTINUM: Surgical changes of the mediastinum. BONES/JOINTS: Unremarkable. SOFT TISSUES: Unremarkable. RAD/Chest 1 View (Portable) IMPRESSION: Obscuration of the left heart border consistent with airspace disease in the lingula. This may indicate atelectasis or pneumonia. at 0502 Reported and signed by: Smith Ceballos MD Electronically Signed: Smith Ceballos MD at 5:01 EDT Tel , Service support ,
[2021-03-02] MEDS: Morphine 4 MG/ML Syringe IV (04:49)
[2021-03-02] MEDS: Ondansetron 4 MG/2 ML Vial IV (04:50)
[2021-03-02 04:53] LABS: Absolute Neutrophil Count 4.9 X10^3/uL (2.0-7.7); Basophil# 0.06 X10^3/uL; Basophil% 0.8 % (0-1); Eosinophil# 0.42 X10^3/uL; Eosinophils% 5.3 % (0-5); Hematocrit 43.5 % (40-54); Hemoglobin 14.4 g/dL (13.0-16.5); Mean Corp Hgb Conc 33.1 g/dL (32-36); Mean Corpuscular Hgb 29.4 pg (27.0-32.0); Mean Platelet Vol. 8.9 fl (6.2-12.0); Monocyte# 0.92 X10^3/uL; Monocyte% 11.5 % (0-10); NRBC Flagged by Analyzer 0 % (0-5); Neutrophil # 4.94 X10^3/uL (2.7-7.7); Neutrophil % 61.8 % (47-70); Platelet Count 297 K/mm3 (150-450); RBC Distribution Width CV 13.7 % (11.6-14.6); RBC Distribution Width SD 43.9 fl (35.1-43.9); Red Blood Count 4.89 M/mm3 (4.6-6.2)
[2021-03-02] MEDS: MethylPREDNISolone 125 MG/2 ML Vial IV (05:04)
[2021-03-02 05:09] LABS: Anion Gap 9 (5-15); BUN 18 mg/dL (7-18); BUN/Creat Ratio 17.1 RATIO (10-20); Calcium,Total 9.5 mg/dL (8.5-10.1); Chloride 95 mmol/L (98-107); Creatinine, Serum 1.05 mg/dL (0.70-1.30); EST Glomerular Filtration Rate 75 mL/min (>60); Est Glom Filt Rate - Afr Amer 90 mL/min (>60); Estimated Creatinine Clearance 60.76 ml/min; Glucose 113 mg/dL (74-106); Potassium 3.3 mmol/L (3.5-5.1); Sodium Level 133 mmol/L (136-145)
--- NOTE | 2021-03-02 05:51 | EDS_ITS ---
HPI History of Present Illness Chief Complaint: Chest Pain Informant: patient and spouse/S.O. Onset/Context/Timing Onset: Today Activity at onset: sudden Timing: Waxes and wanes Quality: Positive for Aching and Tightness Location: - (Across the lower ribs) Current Severity: Mild Maximum Severity: Moderate Narrative Narrative: Patient presents secondary to chest pain. He states pain woke him from sleep at 230 this morning. He describes a pressure sensation across his lower ribs. Patient had bypass surgery 1 month ago and a recent cardiac stents just prior to that. Patient was admitted to the hospital February 27- with chest pain and an abnormal EKG. In looking at that discharge summary patient's troponins were still mildly elevated but consistent through his ED stay. Cardiology recommended obtaining a nuclear stress test, but the patient insisted that he go home and wanted to the stress test to be done as an outpatient. Patient states that he was well during the day yesterday but woke again this morning with pain. [facility] Medical History Atherosclerotic heart disease of [place] coronary artery without angina pectoris BPH (benign prostatic hyperplasia) CAD (coronary artery disease) Essential hypertension Mixed hyperlipidemia Obesity (BMI 30-39.9) Obstructive sleep apnea BILL (obstructive sleep apnea) Presence of stent in coronary artery (~01/20/21) Prostate cancer Shortness of breath STEMI (ST elevation myocardial infarction) TIA (transient ischemic attack) Home Medications aspirin 81 mg PO DAILY@0800 04/24/14 [History Last Taken 01/19/21 07:00] miscellaneous medical supply #1 ea 12/22/19 [Rx Last Taken Unknown] oxybutynin chloride 5 mg tablet 5 mg PO TID 11/24/20 [History Last Taken 01/19/21 07:00] nitroglycerin 0.4 mg SUBLINGUAL Q5M PRN #10 tab 01/22/21 [Rx Last Taken Unknown] acetaminophen 500 mg tablet 1,000 mg PO Q6H PRN tab 02/20/21 [History Last Taken Unknown] carvedilol 6.25 mg tablet 6.25 mg PO BID 02/20/21 [History Last Taken Unknown] chlorthalidone 25 mg tablet 25 mg PO DAILY 02/20/21 [History Last Taken Unknown] clopidogrel 75 mg tablet 75 mg PO DAILY 02/20/21 [History Last Taken Unknown] gabapentin 100 mg capsule 200 mg PO BID cap 02/20/21 [History Last Taken Unknown] lidocaine 4 % topical patch 1 patch TOPICAL DAILY PRN 02/20/21 [History Last Taken Unknown] magnesium oxide 400 mg PO DAILY 02/20/21 [History Last Taken Unknown] polyethylene glycol 3350 17 gram/dose oral powder 17 g PO DAILY 02/20/21 [ History Last Taken Unknown] rosuvastatin 10 mg tablet 10 mg PO DAILY 02/20/21 [History Last Taken Unknown] sennosides 8.6 mg capsule 8.6 mg PO BID 02/20/21 [History Last Taken Unknown] tramadol 50 mg tablet 50 mg PO Q6H PRN 02/20/21 [History Last Taken Unknown] cephalexin 500 mg PO [id number] 02/27/21 [History Last Taken Unknown] isosorbide mononitrate 30 mg PO DAILY #30 tab 02/28/21 [Rx Last Taken Unknown] ranolazine [Ranexa] 500 mg PO BID #60 tab 02/28/21 [Rx Last Taken Unknown] Allergy/AdvReac Type Severity Reaction Status Date / Time No Known Allergies Allergy Verified 03/02/21 04:05 Family History Father CAD (coronary artery disease) Hypertension Mother Diabetes Hypertension Sister Hypertension Other Family history of hypertension Family history of premature coronary artery disease Family history of premature coronary heart disease Surgical History History of back surgery History of coronary artery bypass surgery (~02/03/21) History of prostatectomy History of removal of cyst (~1965) History of tonsillectomy (~1999) History of uvulectomy (~1999) Presence of coronary angioplasty implant and graft (~01/20/21) S/P correction of deviated nasal septum (~1999) Social History household members: spouse housing: house Smoking Status: Never smoker alcohol intake: current alcohol intake frequency: a few times a week Alcohol type: beer substance use type: does not use caffeine: Yes Type: coffee Number of servings: 2 what type of physical activity do you participate in: none seatbelt use: always do you feel safe at home: Yes ROS ROS ED Constitutional Constitutional ED: Denies chills or fever(s) Eyes Eyes: Denies change in vision ENT ENT ED: Denies sore throat Cardiovascular Cardiovascular: Reports chest pain Respiratory/Chest Respiratory/Chest: Denies cough or dyspnea Gastrointestinal Gastrointestinal: Denies abdominal pain, diarrhea, nausea or vomiting Musculoskeletal Musculoskeletal: Denies back pain Integumentary Reports rash Neurologic Neurologic: Denies headache(s) or weakness Psychiatric Psychiatric: Denies anxiety or depression Endocrine Endocrinology: Denies polydipsia or polyuria Allergic/Immunologic Allergic/Immunologic ED: Reports urticaria EXAM Physical Exam Const Vital Signs: 03/02/21 04:03 03/02/21 04:48 Temperature 97.5 F L Temperature Source Temporal Pulse Rate 81 Respiratory Rate 14 Blood Pressure 140/101 H Blood Pressure Mean 114 Pulse Ox 96 100 Oxygen Delivery Method Room Air Positive well nourished and well developed General Appearance ED: well developed HEENT Reports normocephalic and head/scalp atraumatic Eyes PERRL and EOMs intact bilaterally Neck supple Chest Wall palpation of chest normal Chest Narrative: Healing scar from recent bypass surgery. Resp normal respiratory effort and clear to auscultation bilaterally Cardio regular rate and regular rhythm GI normal to inspection, nondistended, normoactive bowel sounds Palpation: soft Extremity Extremity Narrative: Urticarial rash on the right arm. Neuro oriented x3 and no sensory deficits noted Sensorium / Orientation: alert Motor Exam: strength 5/5 throughout Psych mental status grossly normal Heart Score History: Slightly/Non-Suspicious ECG: Nonspecific Repolarization Age: >/= 65 years Risk Factors: >/= 3 Risk Factors or History of CAD Troponin: >1 - <3 Normal Limit Score: 6 MDM MDM MDM Narrative Medical decision making narrative: Patient is on aspirin regularly. He was given dose of morphine and Zofran here. He was given a dose of Solu-Medrol for the urticarial rash noted on the right arm. EKG, chest x-ray, lab work is obtained. Lab Data Attestation: I reviewed the patient's lab results. Labs: Laboratory Results - last 24 hr 03/02/21 03/02/21 04:46 04:46 WBC 8.0 RBC 4.89 Hgb 14.4 Hct 43.5 MCV 89.0 MCH 29.4 MCHC 33.1 RDW Std Deviation 43.9 RDW Coeff of Vinayak 13.7 Plt Count 297 MPV 8.9 Immature Gran % (Auto) 0.600 Neut % (Auto) 61.8 Lymph % (Auto) 20.0 [place] % (Auto) 11.5 H Eos % (Auto) 5.3 H Baso % (Auto) 0.8 Absolute Neuts (auto) 4.9 Absolute Lymphs (auto) 1.60 Nucleated RBC % 0 Sodium 133 L Potassium 3.3 L Chloride 95 L Carbon Dioxide 29.0 Anion Gap 9 BUN 18 Creatinine 1.05 Estim Creat Clear Calc 60.76 Est GFR (MDRD) Af Amer 90 Est GFR (MDRD) Non-Af 75 BUN/Creatinine Ratio 17.1 Glucose 113 H Calcium 9.5 Troponin I 0.089 H Radiography Chest X-Ray - ED: 1 View, Read by ED Physician and - (Patient is at the left heart border, not significantly changed when compared to priors.) Diagnostic Testing: Radiology Impression Chest X-Ray 03/02/21 04:23 IMPRESSION: Obscuration of the left heart border consistent with airspace disease in the lingula. This may indicate atelectasis or pneumonia. at 0502 Reported and signed by: Smith Ceballos MD Electronically Signed: Smith Ceballos MD at 5:01 EDT Tel , Service support , EKG Initial EKG: Attestation: I personally reviewed and interpreted this EKG as follows: Interpretation: Sinus Rhythm (Sinus at 79 with a bifascicular block. Not significantly changed when compared to prior study of February 27, 2021.) Treatment and Re-Evaluation Comments:: On repeat evaluation patient states his chest pain is currently resolved. Urticarial rash on the right arm is improving. I did review the discharge summary that specifically stated cardiology wanted to do a nuclear stress test while he was here. This was discussed with patient and at bedside. He is amenable to staying for a stress test. I will speak with the hospitalist. Discharge Plan Triage Chief Complaint: Chest Pain ED Provider: Mallika Lujna Dx/Rx/DC Orders Clinical Impression: Chest pain Prescriptions: No Action oxybutynin chloride 5 mg tablet 5 mg PO TID RF: 0 acetaminophen 500 mg tablet 1,000 mg PO Q6H PRN (Reason: Pain) RF: 0 lidocaine [Salonpas (lidocaine)] 4 % adhesive patch,medicated 1 patch topical DAILY PRN (Reason: Pain) RF: 0 tramadol 50 mg tablet 50 mg PO Q6H PRN (Reason: Pain) RF: 0 chlorthalidone 25 mg tablet 25 mg PO DAILY RF: 0 aspirin 81 MG tablet 81 mg PO DAILY@0800 RF: 0 (DME) miscellaneous medical supply 1 EACH misc 1 ea OTHER 4X/DAY PRN Qty: 1 RF: 0 nitroglycerin 0.4 mg Tablet, Sublingual 0.4 mg sublingual Q5M PRN (Reason: Chest pain) Qty: 10 RF: 0 cephalexin 500 mg capsule 500 mg PO [id number] RF: 0 isosorbide mononitrate 30 mg tablet extended release 24 hr 30 mg PO DAILY Qty: 30 RF: 0 ranolazine [Ranexa] 500 mg tablet extended release 12 hr 500 mg PO BID Qty: 60 RF: 0 carvedilol 6.25 mg tablet 6.25 mg PO BID RF: 0 rosuvastatin 10 mg tablet 10 mg PO DAILY RF: 0 clopidogrel 75 mg tablet 75 mg PO DAILY RF: 0 gabapentin 100 mg capsule 200 mg PO BID RF: 0 magnesium oxide 400 mg magnesium tablet 400 mg PO DAILY RF: 0 polyethylene glycol 3350 [Miralax] 17 gram/dose powder 17 g PO DAILY RF: 0 senna 8.6 mg capsule 8.6 mg PO BID RF: 0 Primary Care Provider: Jung Charles Referrals: Jung Charles MD [Primary Care Provider] - Disposition Disposition: Acute Care Hospital [facility]
--- NOTE | 2021-03-02 06:17 | HP.PCM.HOS_ITS ---
[facility] - [facility] General Date of Admission: 03/02/21 HPI Narrative HUGO MARCOS, is a 70 M with a significant history of CAD status post stent (in OM1) at our hospital ([facility]) 5 weeks ago, and a quadruple bypass at [facility] 4 weeks ago who presents with epigastric pain that started about 1 hour prior to presentation. He described the epigastric pain as dull. While his stated that patient reported to have epigastric pain radiated to his back patient denies any radiation at this time. He denies any aggravating factors to the the pain. He took nitroglycerin at home but that did not help with the pain. He also drinks some coke and thumbs and he thinks that gave him some relief. Also the emergency department he was given morphine. Also he was given Solu-Medrol for urticarial rash. Reportedly his pain resolved with the regimen given at the emergency department. He denies any nausea, vomiting, diaphoresis or shortness of breath with the chest pain. Of notes a day before presentation patient reports urticaria itching rash. Of note patient was admitted to the hospital on 02/27/2021 and discharged on 02/28/2021 for chest pain. Was in the hospital his chest pain resolved. The plan was to do a nuclear stress test while inpatient but because patient pain resolved he opted that the stress test be done outpatient. This was agreed upon by the medical team. Patient was subsequently discharged home on Imdur and Ranexa. [facility] Medical History (Updated 03/02/21 @ 06:[address] Shadi Burnette MD) Atherosclerotic heart disease of [place] coronary artery without angina pectoris BPH (benign prostatic hyperplasia) CAD (coronary artery disease) Essential hypertension Mixed hyperlipidemia Obesity (BMI 30-39.9) Obstructive sleep apnea BILL (obstructive sleep apnea) Presence of stent in coronary artery (~01/20/21) Prostate cancer Shortness of breath STEMI (ST elevation myocardial infarction) TIA (transient ischemic attack) (~2010) Home Medications aspirin 81 mg PO DAILY@0800 04/24/14 [History Last Taken 01/19/21 07:00] miscellaneous medical supply #1 ea 12/22/19 [Rx Last Taken Unknown] oxybutynin chloride 5 mg tablet 5 mg PO TID 11/24/20 [History Last Taken 01/19/21 07:00] nitroglycerin 0.4 mg SUBLINGUAL Q5M PRN #10 tab 01/22/21 [Rx Last Taken Unknown] acetaminophen 500 mg tablet 1,000 mg PO Q6H PRN tab 02/20/21 [History Last Taken Unknown] carvedilol 6.25 mg tablet 6.25 mg PO BID 02/20/21 [History Last Taken Unknown] chlorthalidone 25 mg tablet 25 mg PO DAILY 02/20/21 [History Last Taken Unknown] clopidogrel 75 mg tablet 75 mg PO DAILY 02/20/21 [History Last Taken Unknown] gabapentin 100 mg capsule 200 mg PO BID cap 02/20/21 [History Last Taken Unknown] lidocaine 4 % topical patch 1 patch TOPICAL DAILY PRN 02/20/21 [History Last Taken Unknown] magnesium oxide 400 mg PO DAILY 02/20/21 [History Last Taken Unknown] polyethylene glycol 3350 17 gram/dose oral powder 17 g PO DAILY 02/20/21 [History Last Taken Unknown] rosuvastatin 10 mg tablet 10 mg PO DAILY 02/20/21 [History Last Taken Unknown] sennosides 8.6 mg capsule 8.6 mg PO BID 02/20/21 [History Last Taken Unknown] tramadol 50 mg tablet 50 mg PO Q6H PRN 02/20/21 [History Last Taken Unknown] cephalexin 500 mg PO [id number] 02/27/21 [History Last Taken Unknown] isosorbide mononitrate 30 mg PO DAILY #30 tab 02/28/21 [Rx Last Taken Unknown] ranolazine [Ranexa] 500 mg PO BID #60 tab 02/28/21 [Rx Last Taken Unknown] Allergy/AdvReac Type Severity Reaction Status Date / Time No Known Allergies Allergy Verified 03/02/21 06:55 Family History Father CAD (coronary artery disease) Hypertension Mother Diabetes Hypertension Sister Hypertension Other Family history of hypertension Family history of premature coronary artery disease Family history of premature coronary heart disease Surgical History History of back surgery History of coronary artery bypass surgery (~02/03/21) History of prostatectomy History of removal of cyst (~1965) History of tonsillectomy (~1999) History of uvulectomy (~1999) Presence of coronary angioplasty implant and graft (~01/20/21) S/P correction of deviated nasal septum (~1999) Social History household members: spouse housing: house Smoking Status: Never smoker alcohol intake: current alcohol intake frequency: a few times a week Alcohol type: beer substance use type: does not use caffeine: Yes Type: coffee Number of servings: 2 what type of physical activity do you participate in: none seatbelt use: always do you feel safe at home: Yes ROS ROS Narrative 12 point review of system is negative except as stated in HPI. Vital Signs Vital Signs Vital Signs: 03/02/21 04:03 03/02/21 04:48 03/02/21 05:54 Temperature 97.5 F L Temperature Source Temporal Pulse Rate 81 74 Respiratory Rate 14 20 H Blood Pressure 140/101 H 160/120 H Blood Pressure Mean 114 133 Pulse Ox 96 100 94 Oxygen Delivery Method Room Air Room Air 03/02/21 06:09 03/02/21 06:12 Temperature 97.5 F L 97.5 F L Temperature Source Temporal Temporal Pulse Rate 74 74 Respiratory Rate 20 H 20 H Blood Pressure 120/86 H 120/86 H Blood Pressure Mean 97 97 Pulse Ox 94 94 Oxygen Delivery Method Room Air Room Air Weight Weight: 90.8 kg Body Mass Index (BMI) 32.3 Physical Exam Narrative Alert and oriented x3 Nontraumatic; normocephalic Lung: Chest with midline incision well approximated and with other surgical incision at the epigastric area. Heart sounds S1-S2. No murmur, gallop or rubs. Abdomen bowel sounds present soft, nontender nondistended Extremity without edema cyanosis or clubbing. Integumentary: Urticarial rash on bilateral arms and lower back. Results Lab / Micro Data Result Diagrams: 03/02/21 04:46 03/02/21 04:46 Labs: Laboratory Results - last 24 hr 03/02/21 03/02/21 04:46 04:46 WBC 8.0 RBC 4.89 Hgb 14.4 Hct 43.5 MCV 89.0 MCH 29.4 MCHC 33.1 RDW Std Deviation 43.9 RDW Coeff of Vinayak 13.7 Plt Count 297 MPV 8.9 Immature Gran % (Auto) 0.600 Neut % (Auto) 61.8 Lymph % (Auto) 20.0 [place] % (Auto) 11.5 H Eos % (Auto) 5.3 H Baso % (Auto) 0.8 Absolute Neuts (auto) 4.9 Absolute Lymphs (auto) 1.60 Nucleated RBC % 0 Sodium 133 L Potassium 3.3 L Chloride 95 L Carbon Dioxide 29.0 Anion Gap 9 BUN 18 Creatinine 1.05 Estim Creat Clear Calc 60.76 Est GFR (MDRD) Af Amer 90 Est GFR (MDRD) Non-Af 75 BUN/Creatinine Ratio 17.1 Glucose 113 H Calcium 9.5 Troponin I 0.089 H Radiology Impression Chest X-Ray 03/02/21 04:23 IMPRESSION: Obscuration of the left heart border consistent with airspace disease in the lingula. This may indicate atelectasis or pneumonia. at 0502 Reported and signed by: Smith Ceballos MD Electronically Signed: Smith Ceballos MD at 5:01 EDT Tel , Service support , Assessment & Plan Assessment/Plan (1) Chest pain: QUALIFIERS: Chest pain type: unspecified Qualified Code(s): R07.9 - Chest pain, unspecified (2) Urticarial rash: PLAN: Place on a monitored bed at progressive care unit Impression of x-ray by radiologist: Obscuration of the left heart border consistent of airspace disease in the lingula. Per radiologist this may indicate atelectasis or pneumonia. Actual chest x-ray image was independently interpreted.airspace disease noted. No markers of infection. Incentive spirometer ordered. Actual EKG tracing was independently visualized. EKG tracing showed right bundle branch block. Previous EKG was reviewed. Current EKG with a post infarct changes and as in EKG on 02/27/2021. Old records reviewed showed the patient had cardiac catheterization at our hospital in 01/20/2021. Conclusion of cardiac catheterization: Elevated left ventricular end-diastolic pressure; normal left ventricular size, wall motion, and systolic function; left ventricular ejection fraction by left ventriculogram was 55%; [place] multivessel CAD. Patient had a follow-up unsuccessful thrombectomy in drug-eluting stent was placed in OM1. Review of discharge summary from [facility] showed that following cardiac catheterization at [facility] patient was discharged home but presented again to the emergency department of [facility] with non-STEMI; and was subsequently transferred to [facility] for an expedited surgical evaluation. He eventually had a four- vessel CABG over the ([facility]) ASA 81 mg p.o. daily continued High intensity statin continued SL NTG 0.4 mg prn as needed for chest pain ordered Morphine as needed for pain ordered Initial cardiac enzymes 0.089. This shows a reduction from previous admissions. Trend Anti-P2Y12 Receptor antibody: Plavix continued. Stat EKG as needed for chest pain Carvedilol continued Emergency department doctor discussed the case with Dr. Belle who asked that patient be observed in the hospital; and nuclear stress test that was previously planned done. Stress test ordered. Cardiology consult placed. Urticaria rash Likely allergic reaction from Ranexa since it was recently started. Will stop Ranexa. Patient was also started on Imdur but in the past he has been taking nitroglycerin. He has been on Keflex for a couple of days so unlikely Keflex. Received Solu-Medrol at the emergency department. Prednisone daily ordered. Benadryl as needed ordered. Surgical wound infection Keflex continued. Hypertension Blood pressure is not within goal Carvedilol; Imdur and chlorthalidone continued. Trend blood pressure and adjust blood pressure medications. DVT prophylaxis: SCD ordered.
--- NOTE | 2021-03-02 06:49 | EKG12_ITS ---
Test Reason : CP Blood Pressure : / mmHG Vent. Rate : 077 BPM Atrial Rate : 077 BPM P-R Int : 148 ms QRS Dur : 138 ms QT Int : 460 ms P-R-T Axes : 050 -46 083 degrees QTc Int : 520 ms Normal sinus rhythm Right bundle branch block Left anterior fascicular block Bifascicular block Lateral infarct , age undetermined Inferior infarct , age undetermined Abnormal ECG Confirmed by VALENCIA BANKS, DOMENIC ([id number]), mapping editor CURLY FULLER ([id number]) on 03/03/2021 9:08:05 AM Referred By: NANCY Confirmed By:DOMENIC BIRMINGHAM MD
[2021-03-02] MEDS: DiphenhydrAMINE 25 MG Capsule PO (07:45)
[2021-03-02] MEDS: Clopidogrel Bisulfate 75 MG Tablet PO (08:40)
[2021-03-02] MEDS: Aspirin E.C. 81 MG Tablet PO (08:40)
[2021-03-02 08:45] LABS: Magnesium 2.2 mg/dL (1.6-2.6); Phosphorus 3.6 mg/dL (2.5-4.9)
[2021-03-02] MEDS: Potassium Chloride 10mEq/100mL 10 MEQ/100 ML IV.SOLN. 100 MEQ IV BOLUS ×2 (08:50→12:02)
--- NOTE | 2021-03-02 08:58 | PCM.CONS.C ---
Assessment & Plan Assessment/Plan (1) Chest pain at rest: PLAN: He does present with chest discomfort 1 month after coronary bypass surgery which is unusual for angina. He does have minimal troponin elevation which is flat which is not suggestive of ischemia. I would recommend at this time that we perform an exercise myocardial perfusion stress test. Depending on the findings further recommendations will be made. His blood pressure is noted to be elevated and this could account for some of his discomfort. Addendum: Stress testing done today demonstrates extensive inferolateral infarct with minimal charleen-infarct ischemia. No significant ischemia noted on the low workload. On the basis of the above would recommend aggressive medical therapy. (2) History of coronary artery bypass surgery: PLAN: He is status post coronary artery bypass surgery as noted above. It would be unusual though not impossible for his bypass grafts to be done at this particular time. I would recommend we continue to monitor the above with the stress testing. (3) Presence of stent in coronary artery: PLAN: He does have evidence of previous stenting in the obtuse marginal branch. This was evaluated at the last cardiac catheterization and is noted to be patent at the last catheterization. Depending on the results of the stress test further recommendations will be made. (4) Essential hypertension: PLAN: His blood pressure is elevated today and I would recommend that we renew and resume his blood pressure medications. He will be monitored closely in the office. Thank you for allowing me to participate in the care of your patient. Please don't hesitate to call if any issues arise. HPI Consult Data Date of Consult: 03/02/21 HPI Narrative HPI Narrative: HUGO MARCOS, is a 70 M who presents to the emergency room with chest pain. He was seen by the sizing machine operator and recommended to have a stress test but wanted to go home so was discharged. He presented back with chest discomfort. Cardiology was consulted for further evaluation. Of note was the fact that in early January of this year he underwent stress testing where he exercised to 7 metabolic equivalents without any evidence of ischemia. He subsequently presented and was seen by cardiology and developed an ST elevation myocardial infarction. He underwent angioplasty and stenting of the first obtuse marginal branch in January of this year. He did have underlying triple-vessel disease however. He presented again and was sent to [facility] where he underwent coronary artery bypass surgery 4 weeks ago on February 03. He had undergone a cardiac catheterization prior to his coronary bypass surgery and the stent in his obtuse marginal vessel was noted to be patent.He had a MAURICE to the LAD, saphenous vein graft to the diagonal branch, saphenous vein graft to the second obtuse marginal branch and saphenous vein graft to the posterior descending artery. His ejection fraction was apparently preserved. He apparently recuperated well. He however has developed chest discomfort which he describes as a heaviness there is no radiation no dizziness or diaphoresis no near syncope or syncope. His EKG demonstrated a right bundle branch block with a left anterior fascicular block. His cardiac enzymes are thus far unremarkable. [facility] Medical History Atherosclerotic heart disease of [place] coronary artery without angina pectoris BPH (benign prostatic hyperplasia) CAD (coronary artery disease) Essential hypertension Mixed hyperlipidemia Obesity (BMI 30-39.9) Obstructive sleep apnea BILL (obstructive sleep apnea) Presence of stent in coronary artery (~01/20/21) Prostate cancer Shortness of breath STEMI (ST elevation myocardial infarction) TIA (transient ischemic attack) (~2010) Home Medications aspirin 81 mg PO DAILY@0800 04/24/14 [History Last Taken 01/19/21 07:00] miscellaneous medical supply #1 ea 12/22/19 [Rx Last Taken Unknown] oxybutynin chloride 5 mg tablet 5 mg PO TID 11/24/20 [History Last Taken 01/19/21 07:00] nitroglycerin 0.4 mg SUBLINGUAL Q5M PRN #10 tab 01/22/21 [Rx Last Taken Unknown] acetaminophen 500 mg tablet 1,000 mg PO Q6H PRN tab 02/20/21 [History Last Taken Unknown] carvedilol 6.25 mg tablet 6.25 mg PO BID 02/20/21 [History Last Taken Unknown] chlorthalidone 25 mg tablet 25 mg PO DAILY 02/20/21 [History Last Taken Unknown] clopidogrel 75 mg tablet 75 mg PO DAILY 02/20/21 [History Last Taken Unknown] gabapentin 100 mg capsule 200 mg PO BID cap 02/20/21 [History Last Taken Unknown] lidocaine 4 % topical patch 1 patch TOPICAL DAILY PRN 02/20/21 [History Last Taken Unknown] magnesium oxide 400 mg PO DAILY 02/20/21 [History Last Taken Unknown] polyethylene glycol 3350 17 gram/dose oral powder 17 g PO DAILY 02/20/21 [History Last Taken Unknown] rosuvastatin 10 mg tablet 10 mg PO DAILY 02/20/21 [History Last Taken Unknown] sennosides 8.6 mg capsule 8.6 mg PO BID 02/20/21 [History Last Taken Unknown] tramadol 50 mg tablet 50 mg PO Q6H PRN 02/20/21 [History Last Taken Unknown] cephalexin 500 mg PO [id number] 02/27/21 [History Last Taken Unknown] isosorbide mononitrate 30 mg PO DAILY #30 tab 02/28/21 [Rx Last Taken Unknown] ranolazine [Ranexa] 500 mg PO BID #60 tab 02/28/21 [Rx Last Taken Unknown] Allergy/AdvReac Type Severity Reaction Status Date / Time No Known Allergies Allergy Verified 03/02/21 06:55 Family History Father CAD (coronary artery disease) Hypertension Mother Diabetes Hypertension Sister Hypertension Other Family history of hypertension Family history of premature coronary artery disease Family history of premature coronary heart disease Surgical History History of back surgery History of coronary artery bypass surgery (~02/03/21) History of prostatectomy History of removal of cyst (~1965) History of tonsillectomy (~1999) History of uvulectomy (~1999) Presence of coronary angioplasty implant and graft (~01/20/21) S/P correction of deviated nasal septum (~1999) Social History household members: spouse housing: house Smoking Status: Never smoker alcohol intake: current alcohol intake frequency: a few times a week Alcohol type: beer substance use type: does not use caffeine: Yes Type: coffee Number of servings: 2 what type of physical activity do you participate in: none seatbelt use: always do you feel safe at home: Yes ROS Constitutional Constitutional: Denies fever(s) or weight loss Eyes Eyes: Reports as per HPI ENT HEENT: Reports as per HPI Cardiovascular Cardiovascular: Reports chest pain, chest pain at rest and other Respiratory/Chest Respiratory/Chest: Reports other Gastrointestinal Gastrointestinal: Denies change in bowel habits, nausea, vomiting or weight changes Genitourinary Genitourinary: Denies difficulty urinating Musculoskeletal Musculoskeletal: Denies joint stiffness or muscle weakness Integumentary Integumentary: Denies lesions Neurologic Neurologic: Denies dizziness or syncope Psychiatric Psychiatric: Denies anxiety Endocrine Endocrinology: Denies excessive sweating or fatigue Hematologic/Lymphatic Hematologic/Lymphatic: Denies anemia Allergic/Immunologic Allergic/Immunologic: Denies seasonal rhinorrhea Physical Exam Const oriented x3 and healthy appearing Orientation / Consciousness: awake HEENT normocephalic Eyes PERRL and conjunctivae normal Neck supple, no JVD and no carotid bruits Chest inspection of chest normal Resp normal respiratory effort and clear to auscultation bilaterally Cardio Palpation: normal PMI Rate: regular rate Rhythm: regular rhythm Heart Sounds: S1 normal and S2 normal Peripheral Pulses: pulses 2+ throughout GI normal to inspection, nondistended, normoactive bowel sounds Extremity normal to inspection and no clubbing, cyanosis or edema Psych mental status grossly normal Objective Data Vital Signs: Vital Signs Temp Pulse Resp BP Pulse Ox 97.5 F L 77 18 148/97 H 95 03/02/21 06:45 03/02/21 07:01 03/02/21 06:45 03/02/21 06:45 03/02/21 06:45 Oxygen Delivery Method Room Air Weight: 193 lb 9.054 oz Body Mass Index (BMI) 30.3 Lab / Micro Data Result Diagrams: 03/02/21 04:46 03/02/21 04:46 Labs: Laboratory Results - last 24 hr 03/02/21 03/02/21 03/02/21 04:46 04:46 08:10 WBC 8.0 RBC 4.89 Hgb 14.4 Hct 43.5 MCV 89.0 MCH 29.4 MCHC 33.1 RDW Std Deviation 43.9 RDW Coeff of Vinayak 13.7 Plt Count 297 MPV 8.9 Immature Gran % (Auto) 0.600 Neut % (Auto) 61.8 Lymph % (Auto) 20.0 [place] % (Auto) 11.5 H Eos % (Auto) 5.3 H Baso % (Auto) 0.8 Absolute Neuts (auto) 4.9 Absolute Lymphs (auto) 1.60 Nucleated RBC % 0 Sodium 133 L Potassium 3.3 L Chloride 95 L Carbon Dioxide 29.0 Anion Gap 9 BUN 18 Creatinine 1.05 Estim Creat Clear Calc 60.76 Est GFR (MDRD) Af Amer 90 Est GFR (MDRD) Non-Af 75 BUN/Creatinine Ratio 17.1 Glucose 113 H Calcium 9.5 Phosphorus Magnesium 2.2 Troponin I 0.089 H 0.084 H 03/02/21 08:10 WBC RBC Hgb Hct MCV MCH MCHC RDW Std Deviation RDW Coeff of Vinayak Plt Count MPV Immature Gran % (Auto) Neut % (Auto) Lymph % (Auto) [place] % (Auto) Eos % (Auto) Baso % (Auto) Absolute Neuts (auto) Absolute Lymphs (auto) Nucleated RBC % Sodium Potassium Chloride Carbon Dioxide Anion Gap BUN Creatinine Estim Creat Clear Calc Est GFR (MDRD) Af Amer Est GFR (MDRD) Non-Af BUN/Creatinine Ratio Glucose Calcium Phosphorus 3.6 Magnesium Troponin I Cardiology Labs/Tests 03/02/21 04:46: WBC 8.0, RBC 4.89, Hgb 14.4, Hct 43.5, MCV 89.0, MCH 29.4, MCHC 33.1, Plt Count 297, MPV 8.9, Immature Gran % (Auto) 0.600, Neut % (Auto) 61.8, Lymph % (Auto) 20.0, [place] % (Auto) 11.5 H, Eos % (Auto) 5.3 H, Baso % (Auto) 0.8, Absolute Neuts (auto) 4.9, Nucleated RBC % 0 03/02/21 04:46: Sodium 133 L, Potassium 3.3 L, Chloride 95 L, Carbon Dioxide 29.0, Anion Gap 9, BUN 18, Creatinine 1.05, Est GFR (MDRD) Af Amer 90, Est GFR (MDRD) Non-Af 75, BUN/Creatinine Ratio 17.1, Glucose 113 H, Calcium 9.5, Troponin I 0.089 H 03/02/21 08:10: Magnesium 2.2, Troponin I 0.084 H 03/02/21 08:10: Phosphorus 3.6 Rhythm: EKG: Normal sinus rhythm with a right bundle branch block and left anterior fascicular block ECHO: Stress Test: Cardiac Cath: PCI: CT Surgery: Holter monitor: EPS: PPM: CXR: Chest CT Scan: Radiography Diagnostic Testing: Radiology Impression Chest X-Ray 03/02/21 04:23 IMPRESSION: Obscuration of the left heart border consistent with airspace disease in the lingula. This may indicate atelectasis or pneumonia. at 0502 Reported and signed by: Smith Ceballos MD Electronically Signed: Smith Ceballos MD at 5:01 EDT Tel , Service support ,
--- NOTE | 2021-03-02 12:28 | PCM.DC ---
Discharge Instructions Diet Discharge Diet: Low fat / Low cholesterol and 2000 mg Sodium Diet Activity Discharge Activity: Return to Normal Activity and May Not Drive (For 2 weeks) Weight Bearing Status: Weight bearing as tolerated Lifting Restrictions: Patient had cardiac cath therefore avoid heavy weight pulling, or pushing Dressing / Incision Call your doctor if you observe: Fever of 101 or Higher, Coldness, Increased Pain, Numbness or Tingling, Change in Color, Inability to urinate, Inability to have a bowel movement, Shortness of breath, Dizziness, Fainting spells, Swelling in the ankles, Chest pain, Prolonged hiccupping, Increased palpitations (irregular heartbeat), Calf discomfort and Uncontrolled pain Follow Up Care Test Results: Test results from this visit will be discussed in further detail at your follow-up appointment, if applicable. Discharge Plan Admission Admit Date/Time: 03/02/21 06:16 Primary Reason for Your Visit: Atypical chest pain. Attending Provider: Ethan Russ Primary Care Provider: Jung Charles Consulting Providers: Ethan Saldaña Instructions Patient Instructions: Angina, ED Chest Pain, Noncardiac Additional Instructions / Restrictions: Patient Problems: Altered Health Status related to Hospitalization Patient Goals: *Optimal Level of Health *Keep Appointments *Medication Compliance *Remain Safe Discharge Orders/Prescriptions Prescriptions: New diphenhydramine HCl [Banophen] 25 mg Capsule 12.5 mg PO Q6H Qty: 0 RF: 0 lisinopril 10 mg tablet 10 mg PO DAILY Qty: 30 RF: 2 Continued oxybutynin chloride 5 mg tablet 5 mg PO TID RF: 0 acetaminophen 500 mg tablet 1,000 mg PO Q6H PRN (Reason: Pain) RF: 0 lidocaine [Salonpas (lidocaine)] 4 % adhesive patch,medicated 1 patch topical DAILY PRN (Reason: Pain) RF: 0 tramadol 50 mg tablet 50 mg PO Q6H PRN (Reason: Pain) RF: 0 chlorthalidone 25 mg tablet 25 mg PO DAILY RF: 0 aspirin 81 MG tablet 81 mg PO DAILY@0800 RF: 0 (DME) miscellaneous medical supply 1 EACH misc 1 ea OTHER 4X/DAY PRN Qty: 1 RF: 0 nitroglycerin 0.4 mg Tablet, Sublingual 0.4 mg sublingual Q5M PRN (Reason: Chest pain) Qty: 10 RF: 0 cephalexin 500 mg capsule 500 mg PO [id number] RF: 0 isosorbide mononitrate 30 mg tablet extended release 24 hr 30 mg PO DAILY Qty: 30 RF: 0 ranolazine [Ranexa] 500 mg tablet extended release 12 hr 500 mg PO BID Qty: 60 RF: 0 rosuvastatin 10 mg tablet 10 mg PO DAILY RF: 0 clopidogrel 75 mg tablet 75 mg PO DAILY RF: 0 gabapentin 100 mg capsule 200 mg PO BID RF: 0 magnesium oxide 400 mg magnesium tablet 400 mg PO DAILY RF: 0 polyethylene glycol 3350 [Miralax] 17 gram/dose powder 17 g PO DAILY RF: 0 senna 8.6 mg capsule 8.6 mg PO BID RF: 0 Changed carvedilol 6.25 mg tablet 12.5 mg PO BID Qty: 0 RF: 0 Referrals / Follow Up: Jung Charles MD [Primary Care Provider] - (Please call to schedule follow up appointment) Disposition Disposition (needs filled in before D/C Order can be placed): Home, self care
--- NOTE | 2021-03-02 12:28 | PCM.DC.SUM ---
Providers Date of Admission: 03/02/21 Primary Care Physician: Dr. Jung Charles MD Consultations 03/02/21 06:49 Consult: Cardiology Routine Consulting Provider: Ethan Saldaña Reason for Consult: CHEST PAIN EMERGENT Consult: No MD Notified: Yes Date Notified: 03/02/21 Time Notified: 07:58 Method of Notification: Text Reason For Visit: CHEST PAIN Diagnosis Discharge Diagnosis (1) Chest pain at rest: Status: Acute Code(s): R07.9 - Chest pain, unspecified (2) History of coronary artery bypass surgery: Status: Acute Code(s): Z95.1 - Presence of aortocoronary bypass graft (3) Presence of stent in coronary artery: Status: Chronic Code(s): Z95.5 - Presence of coronary angioplasty implant and graft (4) Essential hypertension: Status: Chronic Code(s): I10 - Essential (primary) hypertension Medications at Discharge Home Medications aspirin 81 mg PO DAILY@0800 04/24/14 miscellaneous medical supply #1 ea 12/22/19 oxybutynin chloride 5 mg tablet 5 mg PO TID 11/24/20 nitroglycerin 0.4 mg SUBLINGUAL Q5M PRN #10 tab 01/22/21 acetaminophen 500 mg tablet 1,000 mg PO Q6H PRN tab 02/20/21 chlorthalidone 25 mg tablet 25 mg PO DAILY 02/20/21 clopidogrel 75 mg tablet 75 mg PO DAILY 02/20/21 gabapentin 100 mg capsule 200 mg PO BID cap 02/20/21 lidocaine 4 % topical patch 1 patch TOPICAL DAILY PRN 02/20/21 magnesium oxide 400 mg PO DAILY 02/20/21 polyethylene glycol 3350 17 gram/dose oral powder 17 g PO DAILY 02/20/21 rosuvastatin 10 mg tablet 10 mg PO DAILY 02/20/21 sennosides 8.6 mg capsule 8.6 mg PO BID 02/20/21 tramadol 50 mg tablet 50 mg PO Q6H PRN 02/20/21 cephalexin 500 mg PO [id number] 02/27/21 isosorbide mononitrate 30 mg PO DAILY #30 tab 02/28/21 carvedilol 12.5 mg PO BID #0 tab 03/02/21 diphenhydramine HCl [Banophen] 12.5 mg PO Q6H #0 cap 03/02/21 lisinopril 10 mg PO DAILY #30 tab 03/02/21 ranolazine [Ranexa] 500 mg PO BID #60 tab 03/02/21 Hospital Course Summary of Care Provided Hospital Course: This is a 70-year-old gentleman with history of coronary artery disease status post CABG, quadruple bypass at [facility] about 4 weeks ago, cardiac stenting to about 5 weeks ago came to ED with epigastric abdominal pain. Patient also complained of rash in ER not resolved in the morning after Solu-Medrol. Patient was admitted in PCU on telemetry. Patient had minimal troponin elevation which is flat not suggestive of ongoing ischemia. Patient was seen by city detective and stress test was done which shows extensive inferior lateral infarct with minimal charleen-infarct ischemia; no significant ischemia noted on low workload. His previous stenting and obtuse marginal was found patent in the last heart cath. Last echo in January 2021 shows EF 55%. Sent fasting profile in January 2021 shows LDL 133 and 34 patient is on high intensity statin. The patient has been on quinapril but currently not taking it and patient is unaware of it when I told him this is not in his home medication. Blood pressure is elevated. Patient urticarial rash is resolved and patient has Benadryl. Advised to take Benadryl when he gets a rash and call PCP at the same time or come to ER immediately. Patient has been taking Ranexa since Tuesday and rash. In the Tuesday morning. Discharge medication reconciliation done. Discharge follow-up instructions completed. Discharge process discussed with the patient and all questions were answered to patient's satisfaction. His prescription for lisinopril 10 mg daily. Patient already on aspirin, clopidogrel, Imdur, carvedilol, high intensity rosuvastatin and Ranexa. Total time spent, exact 35 minutes on discharge meds reconciliation, examination, coordination of care with nurses and ancillary staff, review of imaging and blood test and discussion with the patient on follow-up instructions Physical Exam Narrative Seen and examined. pump operator shows sinus rhythm. Physical exam General: Alert, Oriented x3, Cooperative HEENT: Atraumatic, PERRLA, EOMI, Normocephalic Oral: No Gingival or Mucosal Lesions/ Ulcerations Neck: Supple, No JVD, Negative Carotid Bruits Lungs: Air entry diminished in bilateral lung bases. No crepitation/rhonchi Cardiovascular: CABG scar recent but healing well. [place] removed. Regular rate, Regular Rhythm, Normal S1, Normal S2, No murmurs Abdomen: Bowel Sounds Present, Soft, Non Tender, Non-Distended : No renal angle tenderness. No suprapubic tenderness. Extremities: No edema, Capillary Refill Less than 3 Seconds Skin: No rashes, No breakdown Musculoskeletal: No Tenderness to Palpation of Joints or Extremities Neurological: Cranial nerves II-XII grossly intact, Deep Tendon Reflexes 2+/4 and Symmetrical, Neuro grossly intact Psych/Mental Status: Normal Affect, Appropriate. Weight / BMI Weight Weight: 193 lb 9.054 oz Body Mass Index (BMI) 30.3 ABG / Lab / Microbiology Data Result Diagrams: 03/02/21 04:46 03/02/21 04:46 Laboratory: Laboratory Results - last 24 hr 03/02/21 03/02/21 03/02/21 04:46 04:46 08:10 WBC 8.0 RBC 4.89 Hgb 14.4 Hct 43.5 MCV 89.0 MCH 29.4 MCHC 33.1 RDW Std Deviation 43.9 RDW Coeff of Vinayak 13.7 Plt Count 297 MPV 8.9 Immature Gran % (Auto) 0.600 Neut % (Auto) 61.8 Lymph % (Auto) 20.0 [place] % (Auto) 11.5 H Eos % (Auto) 5.3 H Baso % (Auto) 0.8 Absolute Neuts (auto) 4.9 Absolute Lymphs (auto) 1.60 Nucleated RBC % 0 Sodium 133 L Potassium 3.3 L Chloride 95 L Carbon Dioxide 29.0 Anion Gap 9 BUN 18 Creatinine 1.05 Estim Creat Clear Calc 60.76 Est GFR (MDRD) Af Amer 90 Est GFR (MDRD) Non-Af 75 BUN/Creatinine Ratio 17.1 Glucose 113 H Calcium 9.5 Phosphorus Magnesium 2.2 Troponin I 0.089 H 0.084 H 03/02/21 03/02/21 08:10 11:26 WBC RBC Hgb Hct MCV MCH MCHC RDW Std Deviation RDW Coeff of Vinayak Plt Count MPV Immature Gran % (Auto) Neut % (Auto) Lymph % (Auto) [place] % (Auto) Eos % (Auto) Baso % (Auto) Absolute Neuts (auto) Absolute Lymphs (auto) Nucleated RBC % Sodium Potassium Chloride Carbon Dioxide Anion Gap BUN Creatinine Estim Creat Clear Calc Est GFR (MDRD) Af Amer Est GFR (MDRD) Non-Af BUN/Creatinine Ratio Glucose Calcium Phosphorus 3.6 Magnesium Troponin I 0.068 H Radiography Diagnostic Testing: Radiology Impression Chest X-Ray 03/02/21 04:23 IMPRESSION: Obscuration of the left heart border consistent with airspace disease in the lingula. This may indicate atelectasis or pneumonia. at 0502 Reported and signed by: Smith Ceballos MD Electronically Signed: Smith Ceballos MD at 5:01 EDT Tel , Service support , Meaningful Use Info Meaningful Use Diagnoses (Choose all that apply): None applicable Discharge Plan Admission Admit Date/Time: 03/02/21 06:16 Primary Reason for Your Visit: Atypical chest pain. Attending Provider: Ethan Russ Primary Care Provider: Jung Charles Consulting Providers: Ethan Saldaña Instructions Patient Instructions: Angina, ED Chest Pain, Noncardiac Additional Instructions / Restrictions: Patient Problems: Altered Health Status related to Hospitalization Patient Goals: *Optimal Level of Health *Keep Appointments *Medication Compliance *Remain Safe Discharge Orders/Prescriptions Prescriptions: New diphenhydramine HCl [Banophen] 25 mg Capsule 12.5 mg PO Q6H Qty: 0 RF: 0 lisinopril 10 mg tablet 10 mg PO DAILY Qty: 30 RF: 2 Continued oxybutynin chloride 5 mg tablet 5 mg PO TID RF: 0 acetaminophen 500 mg tablet 1,000 mg PO Q6H PRN (Reason: Pain) RF: 0 lidocaine [Salonpas (lidocaine)] 4 % adhesive patch,medicated 1 patch topical DAILY PRN (Reason: Pain) RF: 0 tramadol 50 mg tablet 50 mg PO Q6H PRN (Reason: Pain) RF: 0 chlorthalidone 25 mg tablet 25 mg PO DAILY RF: 0 aspirin 81 MG tablet 81 mg PO DAILY@0800 RF: 0 (DME) miscellaneous medical supply 1 EACH misc 1 ea OTHER 4X/DAY PRN Qty: 1 RF: 0 nitroglycerin 0.4 mg Tablet, Sublingual 0.4 mg sublingual Q5M PRN (Reason: Chest pain) Qty: 10 RF: 0 cephalexin 500 mg capsule 500 mg PO [id number] RF: 0 isosorbide mononitrate 30 mg tablet extended release 24 hr 30 mg PO DAILY Qty: 30 RF: 0 ranolazine [Ranexa] 500 mg tablet extended release 12 hr 500 mg PO BID Qty: 60 RF: 0 rosuvastatin 10 mg tablet 10 mg PO DAILY RF: 0 clopidogrel 75 mg tablet 75 mg PO DAILY RF: 0 gabapentin 100 mg capsule 200 mg PO BID RF: 0 magnesium oxide 400 mg magnesium tablet 400 mg PO DAILY RF: 0 polyethylene glycol 3350 [Miralax] 17 gram/dose powder 17 g PO DAILY RF: 0 senna 8.6 mg capsule 8.6 mg PO BID RF: 0 Changed carvedilol 6.25 mg tablet 12.5 mg PO BID Qty: 0 RF: 0 Referrals / Follow Up: Puneet Rincon MD [STAFF PHYSICIAN] - Within 2 Weeks Jung Charles MD [Primary Care Provider] - (Please call to schedule follow up appointment) Disposition Disposition (needs filled in before D/C Order can be placed): Home, self care Charges/Coding Visit Charges OBSV E&M: 92269 Observation care discharge
--- NOTE | 2021-03-02 14:18 | STRESSREP_ITS ---
Stress Test Report Exercise myocardial perfusion stress test. 70-year-old man with a history of coronary artery disease recent ST elevation myocardial infarction recent coronary bypass surgery who presents with chest pain pain Stress protocol: Resting EKG demonstrates normal sinus rhythm with a rate of 85 bpm previous inferior infarct is noted right bundle branch block is noted. Resting blood pressure is 138/82 mmHg. The patient exercised according to regular Efrain protocol for total duration of 3 minutes and 30 seconds. The maximum heart rate attained was 115 bpm which was 75% of maximum predicted heart rate the maximum workload was 5.1 metabolic equivalents. At rest there were no ST or T wave changes noted to suggest resting ischemia at peak infusion nonspecific changes were noted with did not meet the criteria for ischemia. No clinical angina was noted the test was terminated due to leg fatigue and deconditioning. The peak blood pressure was 150/88 mmHg. Myocardial perfusion protocol. 14.5 mCi of technetium 99m sestamibi was injected at rest. The patient exercised according to regular Efrain protocol for 3 minutes and 30 seconds at p eak exercise 44.1 mCi of technetium 99m sestamibi was injected stress images were obtained stress and rest images were reconstructed and compared in the short axis vertical long horizontal long axis. Gated images were also obtained for Perfusion SPECT analysis: Review of the stress images demonstrate a medium to large size defect noted involving the inferolateral wall on the stress images. The resting images demonstrate a similar pattern in the same distribution. There is minimal improvement around the edges only. The anterior wall lateral wall and inferoapical wall appeared to be well perfused on the stress and resting images. The above is suggestive of a previous inferolateral infarct with no significant ischemia noted. Gated SPECT analysis: The gated ejection fraction is noted to be 34%. Conclusion: Ischemic cardiomyopathy. Previous inferolateral infarct noted. No obvious ischemia noted.
== END 2021-03-02 12:54 | disposition home or self-care (01) ==
LOC: ED 05:56 → PCU 06:19
PROVIDERS: Admitting Provider Hospitalist; Emergency Provider Emergency Medicine; PCP Internal Medicine; Visit Provider Internal Medicine
DX: R07.89 Other chest pain (principal); I25.10 Atherosclerotic heart disease of native coronary artery without angina pectoris; E78.2 Mixed hyperlipidemia; G47.33 Obstructive sleep apnea (adult) (pediatric); I10 Essential (primary) hypertension; E66.9 Obesity, unspecified; I45.2 Bifascicular block; L50.9 Urticaria, unspecified; I25.2 Old myocardial infarction; T81.41XA Infection following a procedure, superficial incisional surgical site, initial encounter; Y83.2 Surgical operation with anastomosis, bypass or graft as the cause of abnormal reaction of the patient, or of later complication, without mention of misadventure at the time of the procedure; Z95.1 Presence of aortocoronary bypass graft; Z79.82 Long term (current) use of aspirin; Z79.899 Other long term (current) drug therapy; Z79.02 Long term (current) use of antithrombotics/antiplatelets; Z68.32 Body mass index [BMI] 32.0-32.9, adult
CPT/HCPCS: 36415; 71045; 78452; 80048; 83735; 84100; 84484; 85025; 93005; 93017; 96361; 96374; 96375; 99251; 99285; 99406; A9500; A4216; G0463; J2405

== ENCOUNTER → 2021-03-20 09:44 | Outpatient (CLI) | payer MEDICARE, SELFPAY ==
[2021-03-06 12:58] VITALS: BMI 30.3
--- NOTE | 2021-03-20 13:13 | CR.HP_ITS ---
CR - History & Physical - General Arrival date:: 03/20/21 Arrival time:: 13:00 Date of Referral:: 01/20/21 Date of CR Evaluation:: 03/20/21 Referring Physician: Dr. Puneet Rincon Primary Diagnosis: CABG - History of Present Cardiac Event Onset Date: Enter Onset Date of cardiac illnesses in Comment field below Coronary Artery Bypass Graft:: Yes - 01/28/2021; closure of coronary stented artery resulted in CABG bypass x 4 PTCA or coronary stenting:: Yes - 01/20/2021 Type of Symptoms:: Chest pain, acute inferior and lateral ST elevated VA. Were there any complications?: Mental status change and septic pneumonia related issues post operative. - Sleep Disorder Evaluation Hx of Sleep Apnea: Yes Do you snore loudly (louder than talking or can be heard through closed doors)?: Yes - Patient has prior BILL w/home CPAP unit. Do you often feel tired/ fatigued/ sleepy during daytime?: Yes History of Hypertension (for STOP score): Yes - Medications Home Medications: Ambulatory Orders Medication Instructions Recorded aspirin 81 mg PO DAILY@0800 04/24/14 oxybutynin chloride 5 mg tablet 5 mg PO TID 11/24/20 nitroglycerin 0.4 mg SUBLINGUAL Q5M PRN #10 tab 01/22/21 acetaminophen 500 mg tablet 1,000 mg PO Q6H PRN tab 02/20/21 clopidogrel 75 mg tablet 75 mg PO DAILY 02/20/21 magnesium oxide 400 mg PO DAILY 02/20/21 polyethylene glycol 3350 17 17 g PO DAILY 02/20/21 gram/dose oral powder sennosides 8.6 mg capsule 8.6 mg PO BID 02/20/21 isosorbide mononitrate 30 mg PO DAILY #30 tab 02/28/21 carvedilol 6.25 mg tablet 6.25 mg PO BID #180 tab 03/06/21 rosuvastatin 10 mg tablet 10 mg PO DAILY tab 03/06/21 - Allergies Allergies/Adverse Reactions: Allergies No Known Allergies Allergy (Verified 03/06/21 12:51) Advanced Directives - Advanced Directives Power of Bulldozer/Loader/Compactor/Scraper: Yes Living Will: Yes Advance Directives Information Provided: No Advance Directives on File: Yes - Spouse believes they are on file here at [facility]. DNR Order?:: No - MOLST See MOLST form: No Past Medical History - Covid-19 Screening Fever: No Unexplained muscle aches: No Current respiratory symptoms: No Upper respiratory infections symptoms: No Gastro-intestinal symptoms: No Hey-Ybbf-Ksbubz symptoms: No Has tested positive for COVID-19 in last 30 days: No Date of testin12/04/20 - Had COVID-19 vaccination Had contact w/person w/symptoms or Covid-19 (+) last 14 days: No Has High Risk Exposures ID'd by Health dept/Inf Control team: No 65 years or older:: Yes Lives in Assisted Living facility:: No Has a chronic lung disease or moderate to severe asthma:: No Has a serious heart condition:: Yes Immunocompromised:: No Severely obese (Body Mass Index of 40 or higher):: No Diabetic:: No Has chronic kidney disease undergoing dialysis:: No - Past Medical Illness Medical History: Past Medical History (Last Reviewed 03/06/21 @ 13:39 by Jamila DUPREE, PA) Atherosclerotic heart disease of [place] coronary artery without angina pectoris I25.10 BPH (benign prostatic hyperplasia) N40.0 CAD (coronary artery disease) I25.10 Essential hypertension I10 Mixed hyperlipidemia E78.2 Obesity (BMI 30-39.9) E66.9 Obstructive sleep apnea G47.33 BILL (obstructive sleep apnea) G47.33 uses cpap at times- does not know his settings -- says not sure of name but uses [facility] for sleep doctor Presence of stent in coronary artery Onset Date: ~01/20/21 Z95.5 Successful thrombectomy and LENA to OM1 01/20/21 Prostate cancer C61 prostate removed Shortness of breath R06.02 STEMI (ST elevation myocardial infarction) I21.3 TIA (transient ischemic attack) Onset Date: ~2010 G45.9 - Past Surgical History Surgical History: Past Surgical History (Last Reviewed 03/06/21 @ 13:39 by Jamila DUPREE, PA) History of back surgery Z98.890 History of coronary artery bypass surgery Onset Date: ~02/03/21 Z95.1 CABG x4- MAURICE to LAD, SVG to Diag, SVG to OM2, SVVG to PDA @ [facility] Dr. Garcia 02/03/21 History of prostatectomy Z98.890, Z90.79 History of removal of cyst Onset Date: ~1965 Z98.890 tailbone History of tonsillectomy Onset Date: ~1999 Z98.890, Z90.89 History of uvulectomy Onset Date: ~1999 Z90.89 Presence of coronary angioplasty implant and graft Onset Date: ~01/20/21 Z95.5 Successful thrombectomy and LENA to OM1 01/20/21 S/P correction of deviated nasal septum Onset Date: ~1999 Z98.0 Surgical History: herniorrhaphy - Family History Summary Family History: Family History (Last Reviewed 03/06/21 @ 13:39 by Jamila Spence PA, PA) Father CAD (coronary artery disease) Hypertension Mother Diabetes Hypertension Sister Hypertension Other Family history of hypertension Family history of premature coronary artery disease Family history of premature coronary heart disease Social History - Smoking History Smoking Status: Never smoker - Alcohol Use Alcohol Usage: Yes - a few times per week beer. - Substance Abuse Hx Substance Use: No - Occupation Occupation (List type of work in comments):: Retired - Hobbies, Recreation, Social Activities Hobbies: Sports - grandchildren and their sporting activities., Other Recreational Activities: I can hardly do any recreational activities Social Environment - Status Marital Status: - Current Living Arrangements Living Environment:: Spouse - Children How many children do you have?: 2 - 6 grandchildren (esha) Do any of your children live nearby?: Yes - Safety Do you feel safe in your surroundings?: Yes - Assistance Do you need any assistance at home?: none Review of Systems - Review of Systems Hints: Right click = Denies ([place]). Left click = Reports ([place]) Review of Present Symptoms: Reports: Shortness of Breath with Exertion - depends on the level of activity., Operative Discomfort - some minor discomort in the right upper chest muscle area. very minimal., Wound Healing, Fatigue, Heart Arrhythmia/Irregularities - NSR w/RBBB, Appetite - Normal, Appetite - Special Diet - Low fat, Low salt diet., Sleep - Normal. Denies: Dizziness/Lightheadedness, Sexual Changes - Pain Is Patient Pain Free?: Yes Pain Location: none Pain Level: 0/10 Risk Factor Assessment - Chief Complaint Chief Complaint: Florin is a [address] Puneet Gutierres who presents to cardiac rehab today following recent PCI intervention w/coroanry implant graft. About two weeks later patient states he expereinced chest pain again and was subsequently sent to [facility] for a 4 vessel bypass graft for multiple vessel coronary disease. - Vital Signs Temperature: 97.5 F Respiratory Rate: 16 Pulse Ox: 98 Blood Pressure: 126/80 - Pulse Pulse Rate: 74 Pulse Rhythm: Regular - Hypertension Blood Pressure Sitting - Left Arm: 126/80 - Blood Cholesterol/Lipids Total Cholesterol (mg/dL) Goal = less than 200 mg/dL: 206 - 01/21/2021 HDL Cholesterol (mg/dL) Goal = less than 40 mg/dL: 34 LDL Cholesterol (mg/dL) Goal = less than 70 mg/dL: 133 Triglycerides (mg/dL) Goal = less than 150 mg/dL: 193 - Obesity Height: 5 ft 7 in Weight:: 197 lb Weight in Pounds: 197.0 lbs Weight Source: Standing Scale Body Mass Index (BMI): 30.8 Nutritional Referral for Obesity: Yes - Physical Inactivity Physical Inactivity: Recreational activity - Risk Stratification Risk Guidelines: Lowest Risk: Risk Factor for Smoking, Risk Factor for Dyslipidemia, Risk Factor for Diabetes, Risk Factor for Depression, Moderate Risk: Risk Factor for Hypertension, Risk Factor for Sedentary Lifestyle, Risk Factor for Depression, Highest Risk: Risk Factor for Obesity, Risk Factor for Sedentary Lifestyle - Family History Family History: Family History (Last Reviewed 03/06/21 @ 13:39 by Jamila Spence PA, PA) Father CAD (coronary artery disease) Hypertension Mother Diabetes Hypertension Sister Hypertension Other Family history of hypertension Family history of premature coronary artery disease Family history of premature coronary heart disease Motivation - Motivation to Participate On a scale of 1 to 10, how prepared are you to commit to attending program?: 10 - Ready to go! What do you see as barriers to successfully being able to complete the program?: none that knwo of What do you see as the benefits of succesfully completing the program? In other words, what do you hope to get out of participating in the program?: getting healthier, back to normal Are there issues you are dealing with that will interfere with completing the program?: none Do you have a spouse or signficant other, family or friends who will help support you to complete the program?: Yes.
--- NOTE | 2021-03-20 13:13 | CR.ITP_ITS ---
Diagnosis - General Information Admitting Diagnosis: CABG x 4 vessel Secondary Diagnosis: PCI w/coronary stent placement 01/20/2021 Personal Learning Style:: Audio/Visual, Written Barriers to Learning: Cognitive/Learning Impairment, Vision Impairment Stage of change r/t lifestyle modifications:: Action Gave educational material for:: Treating Heart Disease, Emotions & Heart Disease, Stress Management & Relaxation, Sleep Disorders & Heart Disease, How The Heart Works, What it means to have Heart Disease, How Coronary Artery Disease is Diagnosed, Heart Procedures, What Heart Medications Do, Risk Factors & Modifications, Living an Active Life, Nutrition - Education/Goals Individual Counseling: Initial Assessment: Abnormal Cholesterol Levels, High Blo od Pressure, Overweight/Obesity Cardiac Rehabilitation Goals: 1. Maintain the individual as the primary focus of care. 2. To improve the patient's quality of life. 3. Identification of cardiac risk factors and provide cardiac risk factor management. 4. Enhance the psychosocial status of the patient. 5. Reconditioning enough to allow the patient to resume customary activities. 6. Control symptoms of cardiac disease Personal Goals: Initial Assessment: Improve management of stress and emotions, Improve energy level, Participate in home exercise program, Improve knowledge of cardiac disease, Improve muscle strength and endurance, Improve diet and eating habits (eat healthier), Control risk factors (learn risk factor modification), Other goal: - hopefully reduce foot neuropathy Scale for measuring improvement of personal goals: Enter appropriate number in Comments. 2 = Unchanged. 3 = Slightly Better. 4 = Moderate Improvement. 5 = Met my Goal - Diagnosis & Disease Process Outcomes/Goals: Pt IDs own risk factors & lifestyle modifications by Session 10, Verbalizes symptoms of angina & response by session 3., Pt independently manages Plan/Interventions: Assist Pt to ID & engage in lifestyle modification to reduce CVD risk, Instruct on individual risk factors, Review symptoms of angina & emergency actions, Review secondary diagnosis & identify educational needs. - Safety Referral to Physical Therapy: No Referral to [facility] Case Management: No Fall Risk Assessed:: Yes Assistive Devices:: None Exercise - Initial Assessment - Visit Date of Eval: 03/20/21 Session #:: 0 - Pre cardiac rehab evaluation Mets: Pre-: >5 METS for 30 minutes by discharge - Physician Prescribed Exercise Modalities: Treadmill, Airdyne, NuStep Frequency: 3x/week for 12 weeks [36 sessions] Intensity: 60-80% of age predicted maximum heart rate reserve Current METSs:: 3.0 Target Heart Rate:: 99-129 Resting Blood Pressure: 126/80 EKG Type: NSR w/ right bundle branch block - Outcomes & Goals Goals:: Verbalizes understanding of THR, RPE & goal METS by session 6, Documents in home exercise log/reports 30 min aerobic 5 day/wk by DC, Demonstrates accurate pulse taking by DC - Intervention & Plan Exercise Program Goals: Instruct on personal THR & RPE, Instruct on MET level & personal MET goal, Show patient to take own pulse /validate performance until accurate, Instruct on home exercise - Physical Activity Home Exercise Physical Activity - Home Exercise: Safe Exercise, Warm-up, Self-monitoring, Cool-Down, Home Exercise > 30 min Daily, Sitting Time <3 hours/daily - Outcomes & Goals Outcomes/Goals: Demonstrates correct Warm-up/exercise Cool-Down (S3) if = 2.5 METs, Verbalizes symptoms of exercise intolerance by Session 3 (S3), Demonstrate safe equipment use (S3) & follows exercise prescrition (6) - Intervention & Plan Plan/Intervention: Instruct warm-up & cool-down if exercising at > 2 METs, Instruct on symptoms of exercise intolerance & actions to take, Instruct & monitor on saf, Assess intial functional capacity & safety risk Nutrition - Initial Assessment - Program Goals Nutrition Program Goals: LDL <100 optimal. 100 - 129 Near optimal. 130 - 159 Borderline High. 160 - 189 High. Total Cholesterol <200 desirable. 200 - 239 Borderline High. >/= 240 High. HDL < 40 Low >/=60 High. Triglycerides <150 desirable. <199 optimal. VlDL 5 - 40. HgbA1C <7%. BMI <25 Patient has diagnosis of Hyperlipidemia (ICD E78)?: Yes - Visit Date of Assessment:: 03/20/21 Session #:: 0 - Pre-cardiac rehab evaluation - Cholesterol/Lipids Triglycerides (mg/dL): 193 - 01/21/2021 Total Cholesterol (mg/dL): 206 LDL Cholesterol (mg/dL): 133 HDL Cholesterol (mg/dL): 34 Determine presence & major risk factors that modify LDL goal: Hypertension or hypertensive medication, Low HDL cholesterol <40 mg/dL*, Family history of premature CHD in Male < 55 years: female <65 yearsFa, Age men > 45 years; women >/= 55 years Outcomes/Goals: Pt IDs own risk factors & lifestyle modifications by Session 10, Verbalizes symptoms of angina & response by session 3., Pt independently manages Intervention/Plan: Instruct on personal lipid levels & lipid goals/NCEP guidelines, Instruct on cholesterol Referral to dietitian:: Yes - Diabetes (Other Core Measures) Diabetes Type: Not Applicable - Weight Mgt (Other Care) Not Applicable: No Height: 5 ft 7 in Weight:: 197 lb BMI: 30.8 Diagnosis Overweight/Obesity BMI> 30% ICD-10 E66: Yes Diagnosis High BMI/Morbid Obesity BMI> 35% ICD-10 Z68: No Outcomes/Goals: Pt sets, maintains & shows weight loss goal & trend during rehab Intervention/Plan: Instruct on ideal BMI & set weight loss goal w/patient, Assist pt to ID & incorporate diet changes for weight loss by S9, Encourage goal of using 250-300dcal per session for weight loss - Healthy Eating Habits Will attend diet classes:: Yes Outcomes/Goals:: Consume diet rich in vegs,fruits,whole grain/high fiber,fish,lean meat, Limit sat/trans fats,cholesterol & added salts & sugars Intervention/Plan:: Assess current eating habits Nutrition - 30-Day Assessment Nutrition - 60-Day Assessment Nutrition - 90-Day Assessment Nutrition - Final Assessment Medical - Initial Assessment - Visit Date of Eval: 03/20/21 Session #:: 0 - Pre-cardiac rehab evaluation - Medication Compliance Preventative Medication(s):: Aspirin, Clopidogrel/P2Y12 inhibit, Statin/lipid, Beta mariah H/O mental health issues: depression, anxiety, or addiction?: Yes Doesn?t believe in the benefits of treatment?: No Believes medications are unnecessary or harmful?: No Has a concern about medication side effects?: No Expresses concern over the cost of medications?: No Outcomes/Goals: Verbalizes medications,desired effect & common side effects @ DC, Pt self-reports following medication regimen, Keeps card in wallet w/medications listed by DC Interventions/plans: Instruct on medication effects & side effects, Review medication list w/patient every two weeks, Instruct importance of taking meds as ordered & assist problem solving - Tobacco Use Tobacco Use: Non-smoker - Hypertension Resting Blood Pressure:: 126/80 [place] [employer] Hypertension Guidelines: [place] [employer] Hypertension Guidelines. Normal BP Less than 120/80. Elevated BP 120/80. Hypertension Stage 1: BP 130-139/80-89. Hypertesnion Stage 2: BP 140 or higher/90 or higher. Hypertension Crisis: BP higher than 180/120 Outcomes/Goals: Able to verbalize/achieve optimal blood pressure <130/80, Incorporates diet changes & exercise for blood pressure control by DC Interventions/plan: Instruct on optimal blood pressure, hypertension & medications, Instruct on effects of sodium, alcohol, stress, exercise &hypertension - Tobacco Cessation Referral Smoking Cessation Referral:: No Individual Education/Counseling:: No Education Schedule Given:: Yes Medical- 30-Day Assessment Medical- 60-Day Assessment Medical- 90-Day Assessment Medical - Final Assessment Psychosocial - Initial Assess - VIsit Date of Eval: 03/20/21 Session #:: 0 - Pre-cardiac rehab evaluation Not Applicable: No History of previous Mental disease:: Yes History of Emotional Disorders: Dementia - suspected eary stage of dementia - Psychosocial Test Tool Used:: [employer] QOL Cardiac, PHQ-9 Questionnaire phq-9 Severity: Severity. 1-4 Minimal Depression. 5-9 Mild Depression. 10-14 Moderate Depression. 15-19 Moderately Sever Depression. 20-27 Severe Depression. Rule: - Referral to Behavioral Health PS - Interventions: Yes Referral to Behavioral Health if PHQ-9 score >9: - Score 19 on PHQ-9 indicating Moderately Severe Depression, Yes Referral to Physician if PHQ-9 if score is 5-9: - Score 19 on PHQ-9 indicating Moderately Severe Depression, Yes Attend Stress Management Classes, No Referral to [facility] - Outcomes/Goals: See list Psychosocial Outcomes/Goals:: ID's personal stressors & 2 strategies to manage stress by discharge - Intervention/Plan: See List Interventions/Plan:: Assess stressors,coping strategies & signs of derpression on admission, Instruct/assist pt to develop coping & personal stress Mgt strategies, Instruct patient to recognize signs & symptoms of depression, Instruct patient to recog Psychosocial - 30-Day Assess Psychosocial - 60-Day Assess Psychosocial - 90-Day Assess Psychosocial - Final Assessmen Patient Health Questionnaire Initial Assessment 1. Little interest or pleasure in doing things: Nearly every day 2. Feeling down, depressed, or hopeless: More than half the days 3. Trouble falling or staying asleep, or sleeping too much: Nearly every day 4. Feeling tired or having little energy: Nearly every day 5. Poor appetite or overeating: More than half the days 6. Feeling bad about yourself -- or that you are a failure or have let yourself or your family down: Nearly every day 7. Trouble concentrating on things, such as reading the newspaper or watching television: More than half the days 8. Moving or speaking so slowly that other people could have noticed. Or the opposite - being so fidgety or restless that you have been moving around a lot more than usual: Several days 9. Thoughts that you would be better off , or of hurting yourself in some way: Not at all How difficult have these problems made it for you to do your work, take care of things at home, or get along with other people?: Somewhat difficult Total Score: 19 VERONICA-Q SV Test - Statements CAD is a disease of the arteries in the heart: False Examples of risk factors for heart disease: True Angina is chest pain or discomfort: True The benefits of resistance training include: True Eating more meat and dairy products: False Anti-platelet medications such as aspirin are important: I Don't Know The only effective way to manage stress: False An exercise warm-up slowly increases heart rate: I Don't Know Prepared, processed foods usually have high sodium: True Depression is common after a heart attack: I Don't Know The statin medications lower cholesterol: True To control blood pressure, lower the amount of sodium: True If someone gets chest discomfort during walking: False Transfats are partially hydrogenated vegetable oils: True Sleep apnea that is not treated increases the risk: False To control cholesterol, one should become a vegetarian: False Someone knows if he/she is exercising at the right level: False Diabetes cannot be prevented with exercise & health eating: True Stress is a large risk for heart attack: True A diet that can help lower blood pressure is rich in: True - Total Score Total Correct Responses: 15 Self-Efficacy Initial Assessment We would like to know how confident you are in doing certain activities. Please select your confidence level for:: Select your confidence level for the following using the scale 1-10 where 1 is not at all confident and 10 is totally confident. Your score is the average of all 6 responses. Fatigue: How confident are you that you can keep the fatigue caused by your disease from interfering with the things you want to do? Select Number: 3 Physical Discomfort or Pain: How confident are you that you can keep the physical discomfort or pain of your disease from interfering with the things you want to do? Select Number: 3 Emotional Distress: How confident are you that you can keep the emotional distress caused by your disease from interfering with the things you want to do? Select Number: 3 Other Symptoms or Health Problems: How confident are you that you can keep other symptoms or health problems from interfering with the things you want to do? Select Number: 3 Different Tasks and Activities: How confident are you that you can do the different tasks and activities needed to manage your health condition so as to reduce your need to see a doctor? Select Number: 5 Medication: How confident are you that you can do things other than just taking medication to reduce how much your illness affects your everyday life? Select Number: 4 Total Score:: 3 Nutrition Survey - Nutrition Survey Initial Have you lost >10 lbs over the past 2 months without trying?: Yes Are you following a special diet at home for diabetes, low fat, or low salt?: Yes Are you interested in meeting with a dietitian for help understanding your diet?: Yes Do you eat less than 3 meals a day?: No Do you eat fatty meats (edmondson, sausage, ribs, etc), fried foods, desserts, large amounts of salad dressings, margarine, butter, or cheese most days?: No Do you have food allergies? [Enter types in comment field]: No Do you eat in restaurants more than 3 times a week?: No Do you season food with salt, seasoning salt, or garlic salt?: No Do you used canned, boxed, frozen meals, or soups, seasoning packets?: Yes Total Score:: 4
[2021-03-20 13:42] VITALS: BP 126/80; BMI 30.8
[2021-03-20 13:51] VITALS: BP 126/80; PULSE 74; RESP 16; TEMP 36.4; O2SAT 98; BMI 30.8
== END ==
PROVIDERS: PCP Internal Medicine; Visit Provider Internal Medicine Cardiovascular Disease
DX: Z95.5 Presence of coronary angioplasty implant and graft (principal); Z95.1 Presence of aortocoronary bypass graft

== ENCOUNTER 2021-04-17 08:00 | Outpatient (RCR) | payer MEDICARE, SELFPAY ==
[2021-03-20 13:42] VITALS: BMI 30.8
[2021-03-20 13:51] VITALS: BMI 30.8
== END 2021-04-18 23:59 ==
LOC: CR 08:00
PROVIDERS: PCP Internal Medicine; Referring Provider Internal Medicine Cardiovascular Disease; Visit Provider Internal Medicine Cardiovascular Disease
DX: Z95.1 Presence of aortocoronary bypass graft (principal); Z95.5 Presence of coronary angioplasty implant and graft
CPT/HCPCS: 93798

== ENCOUNTER 2021-05-18 08:00 | Outpatient (RCR) | payer MEDICARE, SELFPAY ==
[2021-03-20 13:42] VITALS: BMI 30.8
[2021-03-20 13:51] VITALS: BMI 30.8
--- NOTE | 2021-04-20 15:24 | PCM.CR.ITP ---
Diagnosis Exercise - 30-day Assessment - Visit Date of Eval: 04/20/21 Session #:: 12 - 100% compliance to date - Physician Prescribed Exercise Modalities: Treadmill, Airdyne, NuStep Frequency: 3x/week for 12 weeks [36 sessions] Intensity: 60-80% of age predicted maximum heart rate reserve Current METSs:: 4.0 increased from 3.0 Target Heart Rate:: 99-129 Current RPE:: 12-14 Maximum Excercise HR:: 89 Resting Blood Pressure: 120/76 Maximum Exercise Blood Pressure: 138/88 EKG Type: SR w/BBB with rare PVC and PAC. - Outcomes & Goals Goals:: Verbalizes understanding of THR, RPE & goal METS by session 6, Documents in home exercise log/reports 30 min aerobic 5 day/wk by DC, Demonstrates accurate pulse taking by DC - Intervention & Plan Exercise Program Goals: Instruct on personal THR & RPE, Instruct on MET level & personal MET goal, Show patient to take own pulse /validate performance until accurate, Instruct on home exercise - 30-day Reassessments 30 day Reassessments:: Progressing - Physical Activity Home Exercise Physical Activity - Home Exercise: Safe Exercise, Warm-up, Self-monitoring, Cool-Down, Home Exercise > 30 min Daily, Sitting Time <3 hours/daily - Outcomes & Goals Outcomes/Goals: Demonstrates correct Warm-up/exercise Cool-Down (S3) if = 2.5 METs, Verbalizes symptoms of exercise intolerance by Session 3 (S3), Demonstrate safe equipment use (S3) & follows exercise prescrition (6) - Intervention & Plan Plan/Intervention: Instruct warm-up & cool-down if exercising at > 2 METs, Instruct on symptoms of exercise intolerance & actions to take, Instruct & monitor on saf, Assess intial functional capacity & safety risk - 30-day Reassessments 30 day Reassessments:: Progressing - requires some reinstruction from time to time. Seems to forget things easily. Nutrition - Initial Assessment Nutrition - 30-Day Assessment - Program Goals Nutrition Program Goals: LDL <100 optimal. 100 - 129 Near optimal. 130 - 159 Borderline High. 160 - 189 High. Total Cholesterol <200 desirable. 200 - 239 Borderline High. >/= 240 High. HDL < 40 Low >/=60 High. Triglycerides <150 desirable. <199 optimal. VlDL 5 - 40. HgbA1C <7%. BMI <25 Patient has diagnosis of Hyperlipidemia (ICD E78)?: Yes - Visit Date of Assessment:: 04/20/21 Session #:: 12 - Cholesterol/Lipids Triglycerides (mg/dL): 193 - 01/21/2021 Total Cholesterol (mg/dL): 206 LDL Cholesterol (mg/dL): 133 HDL Cholesterol (mg/dL): 34 Determine presence & major risk factors that modify LDL goal: Hypertension or hypertensive medication, Low HDL cholesterol <40 mg/dL*, Age men > 45 years; women >/= 55 years Outcomes/Goals: Pt IDs own risk factors & lifestyle modifications by Session 10, Verbalizes symptoms of angina & response by session 3., Pt independently manages Intervention/Plan: Instruct on personal lipid levels & lipid goals/NCEP guidelines, Instruct on cholesterol Referral to dietitian:: Yes - Medical Nutrition Therapy (speak to ) 30-day Reassessments:: Progressing - Diabetes (Other Core Measures) Diabetes Type: Not Applicable - Weight Mgt (Other Care) Not Applicable: No Height: 5 ft 7 in Weight:: 201 lb 12.8 oz BMI: 31.6 Diagnosis Overweight/Obesity BMI> 30% ICD-10 E66: Yes Diagnosis High BMI/Morbid Obesity BMI> 35% ICD-10 Z68: No Outcomes/Goals: Pt sets, maintains & shows weight loss goal & trend during rehab Intervention/Plan: Instruct on ideal BMI & set weight loss goal w/patient, Assist pt to ID & incorporate diet changes for weight loss by S9, Encourage goal of using 250-300dcal per session for weight loss 30 day Reassessments:: Not Met - Patient making no progress with weight loss. - Healthy Eating Habits Will attend diet classes:: Yes Outcomes/Goals:: Consume diet rich in vegs,fruits,whole grain/high fiber,fish,lean meat, Limit sat/trans fats,cholesterol & added salts & sugars Intervention/Plan:: Assess current eating habits 30-day Reassessments:: Not Met Nutrition - 60-Day Assessment Nutrition - 90-Day Assessment Nutrition - Final Assessment Medical - Initial Assessment Medical- 30-Day Assessment - Visit Date of Eval: 04/20/21 Session #:: 12 - Medication Compliance Preventative Medication(s):: Aspirin, Clopidogrel/P2Y12 inhibit, Statin/lipid, Beta mariah H/O mental health issues: depression, anxiety, or addiction?: Yes Doesn?t believe in the benefits of treatment?: No Believes medications are unnecessary or harmful?: No Has a concern about medication side effects?: No Expresses concern over the cost of medications?: No Outcomes/Goals: Verbalizes medications,desired effect & common side effects @ DC - Patient has periods of memory loss/recall, Pt self-reports following medication regimen, Keeps card in wallet w/medications listed by DC Interventions/plans: Instruct on medication effects & side effects, Review medication list w/patient every two weeks, Instruct importance of taking meds as ordered & assist problem solving 30-day Reassessments:: Progressing - Tobacco Use Tobacco Use: Non-smoker - Hypertension Hypertension Diagnosis:: Hypertension ICD-10 I10 Resting Blood Pressure:: 120/76 [place] [employer] Hypertension Guidelines: [place] [employer] Hypertension Guidelines. Normal BP Less than 120/80. Elevated BP 120/80. Hypertension Stage 1: BP 130-139/80-89. Hypertesnion Stage 2: BP 140 or higher/90 or higher. Hypertension Crisis: BP higher than 180/120 Peak Exercise Blood Pressure:: 138/88 Outcomes/Goals: Able to verbalize/achieve optimal blood pressure <130/80, Incorporates diet changes & exercise for blood pressure control by DC Interventions/plan: Instruct on optimal blood pressure, hypertension & medications, Instruct on effects of sodium, alcohol, stress, exercise &hypertension 30 day Reassessments:: Progressing - Tobacco Cessation Referral Smoking Cessation Referral:: No Individual Education/Counseling:: No Education Schedule Given:: Yes Medical- 60-Day Assessment Medical- 90-Day Assessment Medical - Final Assessment Psychosocial - Initial Assess - VIsit Date of Eval: 04/20/21 Session #:: 12 Not Applicable: No History of previous Mental disease:: Yes History of Emotional Disorders: Dementia - Patient sometimes struggles with memory recall and requires frequent reinstruction from time to time. - Psychosocial Test Tool Used:: PHQ-9 Questionnaire phq-9 Severity: Severity. 1-4 Minimal Depression. 5-9 Mild Depression. 10-14 Moderate Depression. 15-19 Moderately Sever Depression. 20-27 Severe Depression. Rule: - Referral to Behavioral Health PS - Interventions: No Referral to Behavioral Health if PHQ-9 score >9:, No Referral to [facility], No Referral to Physician if PHQ-9 if score is 5-9: - Outcomes/Goals: See list Psychosocial Outcomes/Goals:: ID's personal stressors & 2 strategies to manage stress by discharge - Intervention/Plan: See List Interventions/Plan:: Assess stressors,coping strategies & signs of derpression on admission, Instruct/assist pt to develop coping & personal stress Mgt strategies, Instruct patient to recognize signs & symptoms of depression, Instruct patient to recog Psychosocial - 30-Day Assess Psychosocial - 60-Day Assess Psychosocial - 90-Day Assess Psychosocial - Final Assessmen Patient Health Questionnaire 30-Day Re-eval Assessment 1. Little interest or pleasure in doing things: Nearly every day 2. Feeling down, depressed, or hopeless: More than half the days 3. Trouble falling or staying asleep, or sleeping too much: Nearly every day 4. Feeling tired or having little energy: Nearly every day 5. Poor appetite or overeating: More than half the days 6. Feeling bad about yourself -- or that you are a failure or have let yourself or your family down: Nearly every day 7. Trouble concentrating on things, such as reading the newspaper or watching television: More than half the days 8. Moving or speaking so slowly that other people could have noticed. Or the opposite - being so fidgety or restless that you have been moving around a lot more than usual: Several days 9. Thoughts that you would be better off , or of hurting yourself in some way: Not at all How difficult have these problems made it for you to do your work, take care of things at home, or get along with other people?: Very difficult Total Score: 19 Self-Efficacy 30-Day Re-eval Assessment We would like to know how confident you are in doing certain activities. Please select your confidence level for:: Select your confidence level for the following using the scale 1-10 where 1 is not at all confident and 10 is totally confident. Your score is the average of all 6 responses. Fatigue: How confident are you that you can keep the fatigue caused by your disease from interfering with the things you want to do? Select Number: 3 Physical Discomfort or Pain: How confident are you that you can keep the physical discomfort or pain of your disease from interfering with the things you want to do? Select Number: 3 Emotional Distress: How confident are you that you can keep the emotional distress caused by your disease from interfering with the things you want to do? Select Number: 3 Other Symptoms or Health Problems: How confident are you that you can keep other symptoms or health problems from interfering with the things you want to do? Select Number: 3 Different Tasks and Activities: How confident are you that you can do the different tasks and activities needed to manage your health condition so as to reduce your need to see a doctor? Select Number: 5 Medication: How confident are you that you can do things other than just taking medication to reduce how much your illness affects your everyday life? Select Number: 4 Total Score:: 3 Nutrition Survey
[2021-04-20 15:36] VITALS: BP 120/76; BP 138/88; BMI 31.6
--- NOTE | 2021-05-19 06:20 | PCM.CR.ITP ---
Diagnosis Exercise - 60-day Assessment - Visit Date of Eval: 05/19/21 Session #:: 23 - Physician Prescribed Exercise Modalities: Treadmill, Airdyne, NuStep Frequency: 3x/week for 12 weeks [36 sessions] Intensity: 60-80% of age predicted maximum heart rate reserve Current METSs:: 4.0 unchanged Target Heart Rate:: 99-129 Current RPE:: 12-13 Maximum Excercise HR:: 88 Resting Blood Pressure: 142/88 - taking meds just before CR. Maximum Exercise Blood Pressure: 154/98 EKG Type: SR w/BBB & PVCs. Rare ventricular quadgeminy, trigeminy, isolated couplets Current Physical Activity or Exercising minutes: 30-45 - Outcomes & Goals Goals:: Verbalizes understanding of THR, RPE & goal METS by session 6, Documents in home exercise log/reports 30 min aerobic 5 day/wk by DC, Demonstrates accurate pulse taking by DC - Intervention & Plan Exercise Program Goals: Instruct on personal THR & RPE, Instruct on MET level & personal MET goal, Show patient to take own pulse /validate performance until accurate, Instruct on home exercise - 30-day Reassessments 30 day Reassessments:: Progressing - Physical Activity Home Exercise Physical Activity - Home Exercise: Safe Exercise, Warm-up, Self-monitoring, Cool-Down, Home Exercise > 30 min Daily, Sitting Time <3 hours/daily - Outcomes & Goals Outcomes/Goals: Demonstrates correct Warm-up/exercise Cool-Down (S3) if = 2.5 METs, Verbalizes symptoms of exercise intolerance by Session 3 (S3), Demonstrate safe equipment use (S3) & follows exercise prescrition (6) - Intervention & Plan Plan/Intervention: Instruct warm-up & cool-down if exercising at > 2 METs, Instruct on symptoms of exercise intolerance & actions to take, Instruct & monitor on saf, Assess intial functional capacity & safety risk - 30-day Reassessments 30 day Reassessments:: Progressing - Patient may have early symptoms of dementia, frequently forgets instructions. Difficulty in memory recall is noted. Further evaluation may be indicated. Nutrition - Initial Assessment Nutrition - 30-Day Assessment Nutrition - 60-Day Assessment - Program Goals Nutrition Program Goals: LDL <100 optimal. 100 - 129 Near optimal. 130 - 159 Borderline High. 160 - 189 High. Total Cholesterol <200 desirable. 200 - 239 Borderline High. >/= 240 High. HDL < 40 Low >/=60 High. Triglycerides <150 desirable. <199 optimal. VlDL 5 - 40. HgbA1C <7%. BMI <25 Patient has diagnosis of Hyperlipidemia (ICD E78)?: Yes - Visit Date of Assessment:: 05/19/21 Session #:: 23 - Cholesterol/Lipids Triglycerides (mg/dL): 193 Total Cholesterol (mg/dL): 206 LDL Cholesterol (mg/dL): 133 HDL Cholesterol (mg/dL): 34 Determine presence & major risk factors that modify LDL goal: Hypertension or hypertensive medication, Low HDL cholesterol <40 mg/dL*, Family history of premature CHD in Male < 55 years: female <65 yearsFa, Age men > 45 years; women >/= 55 years Outcomes/Goals: Pt IDs own risk factors & lifestyle modifications by Session 10, Verbalizes symptoms of angina & response by session 3., Pt independently manages Intervention/Plan: Instruct on personal lipid levels & lipid goals/NCEP guidelines, Instruct on cholesterol Referral to dietitian:: Yes - Contact Patients , patient has refused service recently. 30-day Reassessments:: Progressing - Diabetes (Other Core Measures) Diabetes Type: Not Applicable - Weight Mgt (Other Care) Not Applicable: No Height: 5 ft 7 in Weight:: 200 lb BMI: 31.3 Diagnosis Overweight/Obesity BMI> 30% ICD-10 E66: Yes Diagnosis High BMI/Morbid Obesity BMI> 35% ICD-10 Z68: Yes Outcomes/Goals: Pt sets, maintains & shows weight loss goal & trend during rehab Intervention/Plan: Instruct on ideal BMI & set weight loss goal w/patient, Assist pt to ID & incorporate diet changes for weight loss by S9, Refer to Structured Weight Loss program as appropriate, Encourage goal of using 250-300dcal per session for weight loss 30 day Reassessments:: Not Met - Healthy Eating Habits Will attend diet classes:: Yes Outcomes/Goals:: Consume diet rich in vegs,fruits,whole grain/high fiber,fish,lean meat, Limit sat/trans fats,cholesterol & added salts & sugars Intervention/Plan:: Assess current eating habits 30-day Reassessments:: Progressing - Education Gave educational materials for:: Healthy eating Nutrition - 90-Day Assessment Nutrition - Final Assessment Medical - Initial Assessment Medical- 30-Day Assessment Medical- 60-Day Assessment - Visit Date of Eval: 05/19/21 Session #:: 23 - Medication Compliance Preventative Medication(s):: Aspirin, Clopidogrel/P2Y12 inhibit, Statin/lipid, Beta mariah H/O mental health issues: depression, anxiety, or addiction?: Yes Doesn?t believe in the benefits of treatment?: No Believes medications are unnecessary or harmful?: No Has a concern about medication side effects?: No Expresses concern over the cost of medications?: No Outcomes/Goals: Verbalizes medications,desired effect & common side effects @ DC, Pt self-reports following medication regimen, Keeps card in wallet w/medications listed by DC Interventions/plans: Instruct on medication effects & side effects, Review medication list w/patient every two weeks, Instruct importance of taking meds as ordered & assist problem solving 30-day Reassessments:: Progressing - Tobacco Use Tobacco Use: Non-smoker - Hypertension Hypertension Diagnosis:: Hypertension ICD-10 I10 Resting Blood Pressure:: 142/88 [employer] Hypertension Guidelines: [employer] Hypertension Guidelines. Normal BP Less than 120/80. Elevated BP 120/80. Hypertension Stage 1: BP 130-139/80-89. Hypertesnion Stage 2: BP 140 or higher/90 or higher. Hypertension Crisis: BP higher than 180/120 Peak Exercise Blood Pressure:: 154/98 Outcomes/Goals: Able to verbalize/achieve optimal blood pressure <130/80, Incorporates diet changes & exercise for blood pressure control by DC Interventions/plan: Instruct on optimal blood pressure, hypertension & medications, Instruct on effects of sodium, alcohol, stress, exercise &hypertension 30 day Reassessments:: Not Met - Tobacco Cessation Referral Smoking Cessation Referral:: No Individual Education/Counseling:: Yes - Nutritional Counseling Medical Nutrition, Cardiac Diet, Weight loss. Education Schedule Given:: Yes Medical- 90-Day Assessment Medical - Final Assessment Psychosocial - Initial Assess Psychosocial - 30-Day Assess Psychosocial - 60-Day Assess - VIsit Date of Eval: 05/19/21 Session #:: 23 Not Applicable: No History of previous Mental disease:: Yes History of Emotional Disorders: Depression, Dementia - Psychosocial Test Tool Used:: PHQ-9 Questionnaire phq-9 Severity: Severity. 1-4 Minimal Depression. 5-9 Mild Depression. 10-14 Moderate Depression. 15-19 Moderately Sever Depression. 20-27 Severe Depression. Rule: See PHQ-9 Score: 19 - Moderately Severe Depression - Referral to Behavioral Health PS - Interventions: Yes Referral to Physician if PHQ-9 if score is 5-9: - epression should be addressed absed on his PHQ-9 score., Yes Attend Stress Management Classes, No Referral to Behavioral Health if PHQ-9 score >9:, No Referral to [facility] - Outcomes/Goals: See list Psychosocial Outcomes/Goals:: ID's personal stressors & 2 strategies to manage stress by discharge - Intervention/Plan: See List Interventions/Plan:: Assess stressors,coping strategies & signs of derpression on admission, Instruct/assist pt to develop coping & personal stress Mgt strategies, Instruct patient to recognize signs & symptoms of depression, Instruct patient to recog - 30-day Reassessments: 30 day Reassessments:: Progressing Psychosocial - 90-Day Assess Psychosocial - Final Assessmen Patient Health Questionnaire 60-Day Re-eval Assessment 1. Little interest or pleasure in doing things: Nearly every day 2. Feeling down, depressed, or hopeless: More than half the days 3. Trouble falling or staying asleep, or sleeping too much: Nearly every day 4. Feeling tired or having little energy: Nearly every day 5. Poor appetite or overeating: More than half the days 6. Feeling bad about yourself -- or that you are a failure or have let yourself or your family down: Nearly every day 7. Trouble concentrating on things, such as reading the newspaper or watching television: More than half the days 8. Moving or speaking so slowly that other people could have noticed. Or the opposite - being so fidgety or restless that you have been moving around a lot more than usual: Several days 9. Thoughts that you would be better off , or of hurting yourself in some way: Not at all How difficult have these problems made it for you to do your work, take care of things at home, or get along with other people?: Very difficult Total Score: 19 Self-Efficacy 60-Day Re-eval Assessment We would like to know how confident you are in doing certain activities. Please select your confidence level for:: Select your confidence level for the following using the scale 1-10 where 1 is not at all confident and 10 is totally confident. Your score is the average of all 6 responses. Fatigue: How confident are you that you can keep the fatigue caused by your disease from interfering with the things you want to do? Select Number: 3 Physical Discomfort or Pain: How confident are you that you can keep the physical discomfort or pain of your disease from interfering with the things you want to do? Select Number: 3 Emotional Distress: How confident are you that you can keep the emotional distress caused by your disease from interfering with the things you want to do? Select Number: 3 Other Symptoms or Health Problems: How confident are you that you can keep other symptoms or health problems from interfering with the things you want to do? Select Number: 3 Different Tasks and Activities: How confident are you that you can do the different tasks and activities needed to manage your health condition so as to reduce your need to see a doctor? Select Number: 5 Medication: How confident are you that you can do things other than just taking medication to reduce how much your illness affects your everyday life? Select Number: 4 Total Score:: 3 Nutrition Survey
[2021-05-19 06:43] VITALS: BP 142/88; BP 154/98; BMI 31.3
== END 2021-05-19 23:59 ==
LOC: CR 08:00
PROVIDERS: PCP Internal Medicine; Referring Provider Internal Medicine Cardiovascular Disease; Visit Provider Internal Medicine Cardiovascular Disease
DX: I25.10 Atherosclerotic heart disease of native coronary artery without angina pectoris (principal); N40.0 Benign prostatic hyperplasia without lower urinary tract symptoms; I10 Essential (primary) hypertension; E78.5 Hyperlipidemia, unspecified; G47.33 Obstructive sleep apnea (adult) (pediatric); E66.9 Obesity, unspecified; Z95.5 Presence of coronary angioplasty implant and graft; Z95.1 Presence of aortocoronary bypass graft; Z68.30 Body mass index [BMI] 30.0-30.9, adult
CPT/HCPCS: 93798

== ENCOUNTER 2021-06-08 08:00 | Outpatient (RCR) | payer MEDICARE, SELFPAY ==
[2021-05-20 00:39] VITALS: BP 142/88; BP 154/98; BMI 30.8
== END 2021-06-18 23:59 ==
LOC: CR 08:00
PROVIDERS: PCP Internal Medicine; Referring Provider Internal Medicine Cardiovascular Disease; Visit Provider Internal Medicine Cardiovascular Disease
DX: Z95.1 Presence of aortocoronary bypass graft (principal); Z95.5 Presence of coronary angioplasty implant and graft
CPT/HCPCS: 93798

== ENCOUNTER 2021-06-12 17:40 | Emergency (ER) | payer MEDICARE, SELFPAY ==
[2021-06-12 17:41] VITALS: BP 119/71; PULSE 60; RESP 18; TEMP 36.7; O2SAT 95; BMI 33.7
--- NOTE | 2021-06-12 20:03 | RAD_ITS ---
HISTORY: Night sweats, unintentional weight loss, cough EXAMINATION/TECHNIQUE: XR Chest 2 Views: 2 views COMPARISON: 03/02/21 FINDINGS: LINES/DEVICES: None. LUNGS: Persistent fibrotic changes in the lingula, likely postoperative. No pulmonary consolidation, mass, or edema. No pleural effusion or pneumothorax. MEDIASTINUM AND CARDIOVASCULAR STRUCTURES: Cardiac silhouette not enlarged. Stable median sternotomy changes. Central airways and mediastinal contour are unremarkable. BONES AND SOFT TISSUES: No acute bony abnormalities. RAD/Chest PA and Lateral IMPRESSION: No radiographic evidence of acute cardiopulmonary disease. at 2116 Reported and signed by: Familia Short MD Electronically Signed: Familia Short MD at 21:15 EDT Tel , Service support ,
--- NOTE | 2021-06-12 20:04 | EDS_ITS ---
HPI History of Present Illness Chief Complaint: General Illness Informant: patient Onset/Context/Timing Onset: Month(s) (Approximately 2 months) Context: Sudden Onset Timing: Continuous Quality: Night sweats, unintentional weight loss Location: Mild cough Current Severity: Mild Maximum Severity: Mild Worsened by: Nothing Relieved by: Nothing Associated Symptoms Associated Symptoms: Previously documented Narrative Narrative: Patient is a elderly gentleman with multiple medical problems who presents because he is concerned he has Covid. He is complained of night sweats for the past 2 months. Patient had unintentional weight loss. Patient denies rhinorrhea, congestion, sore throat, loss of taste or smell. Patient has not had a documented fever. He denies headache. He denies visual, ocular auditory symptoms. He does report nonproductive cough. He is a former smoker. He denies GI symptoms. He denies myalgias or arthralgias. He denies rash. Prior similar symptoms: No Recent Illness/Hospitalization: No PFSH PFSH Medical History Atherosclerotic heart disease of [place] coronary artery without angina pectoris BPH (benign prostatic hyperplasia) CAD (coronary artery disease) Essential hypertension Mixed hyperlipidemia Obesity (BMI 30-39.9) Obstructive sleep apnea BILL (obstructive sleep apnea) Presence of stent in coronary artery (~01/20/21) Prostate cancer Shortness of breath STEMI (ST elevation myocardial infarction) TIA (transient ischemic attack) (~2010) Home Medications aspirin 81 mg PO DAILY@0800 04/24/14 [History Last Taken 01/19/21 07:00] oxybutynin chloride 5 mg tablet 5 mg PO TID 11/24/20 [History Last Taken 01/19/21 07:00] nitroglycerin 0.4 mg SUBLINGUAL Q5M PRN #10 tab 01/22/21 [Rx Last Taken Unknown] acetaminophen 500 mg tablet 1,000 mg PO Q6H PRN tab 02/20/21 [History Last Taken Unknown] magnesium oxide 400 mg PO DAILY 02/20/21 [History Last Taken Unknown] polyethylene glycol 3350 17 gram/dose oral powder 17 g PO DAILY 02/20/21 [History Last Taken Unknown] carvedilol 6.25 mg tablet 6.25 mg PO BID #180 tab 03/06/21 [Rx Last Taken Unknown] clopidogrel 75 mg tablet 75 mg PO DAILY #90 tab 04/29/21 [Rx Last Taken Unknown] isosorbide mononitrate 30 mg tablet,extended release 24 hr 30 mg PO DAILY #90 tab 04/29/21 [Rx Last Taken Unknown] rosuvastatin 5 mg tablet 5 mg PO DAILY #90 tab 04/29/21 [Rx Last Taken Unknown] Allergy/AdvReac Type Severity Reaction Status Date / Time No Known Allergies Allergy Verified 06/12/21 21:00 Family History Father CAD (coronary artery disease) Hypertension Mother Diabetes Hypertension Sister Hypertension Other Family history of hypertension Family history of premature coronary artery disease Family history of premature coronary heart disease Surgical History History of back surgery History of coronary artery bypass surgery (~02/03/21) History of prostatectomy History of removal of cyst (~1965) History of tonsillectomy (~1999) History of uvulectomy (~1999) Presence of coronary angioplasty implant and graft (~01/20/21) S/P correction of deviated nasal septum (~1999) Social History household members: spouse housing: house Smoking Status: Never smoker alcohol intake: current alcohol intake frequency: a few times a week Alcohol type: beer substance use type: does not use caffeine: Yes Type: coffee Number of servings: 2 what type of physical activity do you participate in: none seatbelt use: always do you feel safe at home: Yes ROS ROS ED Constitutional Constitutional ED: Reports chills, sweats and weight loss; Denies fever(s) or subjective Eyes Eyes: Denies blurry vision, change in vision or diplopia ENT ENT ED: Denies ear pain, rhinorrhea or sore throat Cardiovascular Cardiovascular: Denies chest pain, orthopnea, palpitations, paroxysmal nocturnal dyspnea or racing heartbeat Respiratory/Chest Respiratory/Chest: Reports cough and dyspnea; Denies dyspnea on exertion, orthopnea, paroxysmal nocturnal dyspnea or sputum Gastrointestinal Gastrointestinal: Denies abdominal pain, constipation, diarrhea, nausea or vomiting Genitourinary Genitourinary ED: Denies dysuria, hematuria or urinary frequency Musculoskeletal Musculoskeletal: Denies arthralgias, back pain, myalgias or neck pain Integumentary Denies abscess or rash Neurologic Neurologic: Denies headache(s), paresthesias or weakness Endocrine Endocrinology: Denies polydipsia, polyphagia or polyuria Hematologic/Lymphatic Hematologic/Lymphatic: Denies anemia, easy bleeding or easy bruising EXAM Physical Exam Const Vital Signs: 06/12/21 17:41 06/12/21 21:02 Temperature 98.1 F 97.9 F Temperature Source Temporal Temporal Pulse Rate 60 82 Respiratory Rate 18 20 H Respiratory Effort Normal Non-Labored Blood Pressure 119/71 125/93 H Blood Pressure Mean 87 103 Pulse Ox 95 99 Oxygen Delivery Method Room Air Room Air Positive well developed and obese; Negative for well nourished General Appearance ED: well developed and NAD; Negative for cyanotic or diaphor etic Nutritional Appearance: obese HEENT HEENT Narrative: Head is atraumatic normocephalic. Ears normal. Nares patent. Posterior pharynx without erythema or exudate. Eyes PERRL and EOMs intact bilaterally General Eye ED: Negative for pale conjunctiva or scleral icterus Neck no lymphadenopathy, supple and no JVD Chest Wall inspection of chest normal Resp normal respiratory effort and clear to auscultation bilaterally Cardio regular rate, regular rhythm, S1 normal heart sound, S2 normal heart sound and no murmurs GI normal to inspection, nondistended, normoactive bowel sounds, non-tender and non-distended Palpation: soft Back/Spine no CVA tenderness Cervical Spine: Negative for cervical spine tenderness Thoracic Spine / Upper Back: Negative for thoracic spinal tenderness or paraspinal muscle tenderness Extremity normal to inspection General Extremety ED: Negative for edema or tenderness General Extremity: Negative for edema Neuro oriented x3, CN's II-XII intact bilaterally and no sensory deficits noted Sensorium / Orientation: alert Motor Exam: strength 5/5 throughout Psych mental status grossly normal Skin no rashes or lesions noted, no wounds and skin turgor normal MDM MDM MDM Narrative Medical decision making narrative: Patient has current concern for Covid. With symptoms 2 months ago he would need a PCR. With him having unintentional weight loss night sweats and cough need to rule out malignancy and specifically pulmonary involvement. Appropriate blood work was ordered and chest x-ray. Lab Data Attestation: I reviewed the patient's lab results. Lab results narrative: ED SR is elevated however is normal when corrected for age. Labs: Laboratory Results - last 24 hr 06/12/21 06/12/21 06/12/21 20:15 20:15 20:15 WBC 6.4 RBC 5.70 Hgb 16.2 Hct 49.5 MCV 86.8 MCH 28.4 MCHC 32.7 RDW Std Deviation 47.8 H RDW Coeff of Vinayak 14.9 H Plt Count 171 MPV 10.1 Immature Gran % (Auto) 0.900 Neut % (Auto) 66.9 Lymph % (Auto) 16.5 L [place] % (Auto) 13.0 H Eos % (Auto) 2.4 Baso % (Auto) 0.3 Absolute Neuts (auto) 4.3 Absolute Lymphs (auto) 1.05 Nucleated RBC % 0 ESR 36 H Sodium 132 L Potassium 4.4 Chloride 101 Carbon Dioxide 25.0 Anion Gap 6 BUN 21 H Creatinine 0.97 Estim Creat Clear Calc 63.40 Est GFR (MDRD) Af Amer 99 Est GFR (MDRD) Non-Af 82 BUN/Creatinine Ratio 21.7 H Glucose 105 Calcium 9.0 Total Bilirubin 0.70 AST 33 ALT 31 Alkaline Phosphatase 22 L Total Protein 7.5 Albumin 3.4 Globulin 4.1 Albumin/Globulin Ratio 0.8 L COVID-19 ([facility]) Positive Covid PCR is positive. Patient was informed of his results. Radiography Chest X-Ray - ED: 2 View, Read by ED Physician (X-rays interpreted by me at 2052. There is granulomatous nodules versus pulmonary nodules.), Heart, Mediastinum and Bony Structures Diagnostic Testing: Radiology Impression Chest X-Ray 06/12/21 20:03 IMPRESSION: No radiographic evidence of acute cardiopulmonary disease. at 2116 Reported and signed by: Familia Short MD Electronically Signed: Familia Short MD at 21:15 EDT Tel , Service support , Discharge Plan Triage Chief Complaint: General Illness ED Provider: Bruno Campoverde Dx/Rx/DC Orders Clinical Impression: COVID-19 Instructions: Coronavirus Disease 2019 (COVID-19): Caring for Yourself or Others Prescriptions: No Action oxybutynin chloride 5 mg tablet 5 mg PO TID RF: 0 clopidogrel 75 mg tablet 75 mg PO DAILY Qty: 90 RF: 3 isosorbide mononitrate 30 mg tablet extended release 24 hr 30 mg PO DAILY Qty: 90 RF: 3 rosuvastatin 5 mg tablet 5 mg PO DAILY Qty: 90 RF: 3 acetaminophen 500 mg tablet 1,000 mg PO Q6H PRN (Reason: Pain) RF: 0 carvedilol 6.25 mg tablet 6.25 mg PO BID Qty: 180 RF: 3 aspirin 81 MG tablet 81 mg PO DAILY@0800 RF: 0 nitroglycerin 0.4 mg Tablet, Sublingual 0.4 mg sublingual Q5M PRN (Reason: Chest pain) Qty: 10 RF: 0 magnesium oxide 400 mg magnesium tablet 400 mg PO DAILY RF: 0 polyethylene glycol 3350 [Miralax] 17 gram/dose powder 17 g PO DAILY RF: 0 Primary Care Provider: Jung Charles Referrals: Jung Charles MD [Primary Care Provider] - As Needed Disposition Disposition: Home, Self Care
[2021-06-12 20:38] LABS: Absolute Lymphocyte Count 1.05 X10^3/uL (0.83-4.51); Absolute Neutrophil Count 4.3 X10^3/uL (2.0-7.7); Basophil# 0.02 X10^3/uL; Basophil% 0.3 % (0-1); Eosinophil# 0.15 X10^3/uL; Eosinophils% 2.4 % (0-5); Hematocrit 49.5 % (40-54); Hemoglobin 16.2 g/dL (13.0-16.5); Lymphocyte # 1.05 X10^3/ul (0.83-4.51); Lymphocyte % 16.5 % (19-41); Mean Corp Hgb Conc 32.7 g/dL (32-36); Mean Corpuscular Hgb 28.4 pg (27.0-32.0); Mean Corpuscular Volume 86.8 fL (80-94); Mean Platelet Vol. 10.1 fl (6.2-12.0); Monocyte# 0.83 X10^3/uL; NRBC Flagged by Analyzer 0 % (0-5); Neutrophil # 4.26 X10^3/uL (2.7-7.7); Neutrophil % 66.9 % (47-70); Platelet Count 171 K/mm3 (150-450); RBC Distribution Width CV 14.9 % (11.6-14.6); RBC Distribution Width SD 47.8 fl (35.1-43.9); White Blood Count 6.4 K/mm3 (4.4-11.0)
[2021-06-12 20:55] LABS: ALB/GLOB Ratio 0.8 RATIO (0.9-2.4); AST(SGOT) 33 U/L (15-37); Alanine Aminotransfer ALT/SGPT 31 U/L (16-61); Albumin, Serum 3.4 g/dL (3.2-5.0); Alkaline Phosphatase 22 U/L (45-117); Anion Gap 6 (5-15); BUN 21 mg/dL (7-18); BUN/Creat Ratio 21.7 RATIO (10-20); Chloride 101 mmol/L (98-107); Creatinine, Serum 0.97 mg/dL (0.70-1.30); EST Glomerular Filtration Rate 82 mL/min (>60); Est Glom Filt Rate - Afr Amer 99 mL/min (>60); Globulin 4.1 g/dL (2.2-4.2); Glucose 105 mg/dL (74-106); Potassium 4.4 mmol/L (3.5-5.1); Protein, Total 7.5 g/dL (6.4-8.2); Sodium Level 132 mmol/L (136-145)
[2021-06-12 21:02] VITALS: BP 125/93; PULSE 82; RESP 20; TEMP 36.6; O2SAT 99
[2021-06-12 21:09] LABS: Erythrocyte Sedimentation Rate 36 mm/hr (0-20)
[2021-06-12 21:32] LABS: Probe Check PASS; Specimen Processing Control PASS
[2021-06-12 22:09] VITALS: BP 145/92; PULSE 75; RESP 20; O2SAT 94
== END 2021-06-12 22:10 | disposition home or self-care (01) ==
PROVIDERS: Emergency Provider Emergency Medicine; PCP Internal Medicine
DX: U07.1 COVID-19 (principal); R61 Generalized hyperhidrosis; R63.4 Abnormal weight loss; I25.10 Atherosclerotic heart disease of native coronary artery without angina pectoris; I10 Essential (primary) hypertension; E78.2 Mixed hyperlipidemia; G47.33 Obstructive sleep apnea (adult) (pediatric); E66.9 Obesity, unspecified; Z68.30 Body mass index [BMI] 30.0-30.9, adult; Z79.82 Long term (current) use of aspirin; Z79.899 Other long term (current) drug therapy; Z79.02 Long term (current) use of antithrombotics/antiplatelets; I25.2 Old myocardial infarction; Z86.73 Personal history of transient ischemic attack (TIA), and cerebral infarction without residual deficits; Z85.46 Personal history of malignant neoplasm of prostate; Z87.891 Personal history of nicotine dependence; Z95.5 Presence of coronary angioplasty implant and graft; Z95.1 Presence of aortocoronary bypass graft
CPT/HCPCS: 71046; 80053; 85025; 85652; 87635; 99284; U0005; U0003

== ENCOUNTER 2021-07-01 08:00 | Outpatient (RCR) | payer MEDICARE, SELFPAY ==
[2021-06-19 00:29] VITALS: BP 142/88; BP 154/98; BMI 30.8
== END 2021-07-19 23:59 ==
LOC: CR 08:00
PROVIDERS: PCP Internal Medicine; Referring Provider Internal Medicine Cardiovascular Disease; Visit Provider Internal Medicine Cardiovascular Disease
DX: Z95.1 Presence of aortocoronary bypass graft (principal); Z95.5 Presence of coronary angioplasty implant and graft
CPT/HCPCS: 93798

== ENCOUNTER 2021-10-02 10:24 | Outpatient (CLI) | payer MEDICARE, SELFPAY ==
[2021-10-02 11:45] LABS: Anion Gap 2 (5-15); BUN 20 mg/dL (7-18); Chloride 105 mmol/L (98-107); Creatinine, Serum 1.11 mg/dL (0.70-1.30); EST Glomerular Filtration Rate 70 mL/min (>60); Est Glom Filt Rate - Afr Amer 84 mL/min (>60); Glucose 99 mg/dL (74-106); Potassium 4.3 mmol/L (3.5-5.1); Sodium Level 136 mmol/L (136-145)
== END 2021-10-02 23:59 | disposition short-term general hospital (02) ==
LOC: LAB 10:25
PROVIDERS: PCP Internal Medicine; Referring Provider Nurse Practitioner Gerontology; Visit Provider Nurse Practitioner Gerontology
DX: I10 Essential (primary) hypertension (principal)
CPT/HCPCS: 36415; 80048

== ENCOUNTER 2021-12-26 08:06 | Outpatient (CLI) | payer MEDICARE, SELFPAY ==
[2021-12-26 09:10] LABS: AST(SGOT) 17 U/L (15-37); Alanine Aminotransfer ALT/SGPT 38 U/L (16-61); Albumin, Serum 4.2 g/dL (3.2-5.0); Alkaline Phosphatase 28 U/L (45-117); Bilirubin, Direct 0.13 mg/dL (0.00-0.30); Cholesterol 176 mg/dL (200); Globulin 3.3 g/dL (2.2-4.2); High Density Lipoprotein 41 mg/dL; Protein, Total 7.5 g/dL (6.4-8.2); Triglycerides 139 mg/dL; Very Low Density Lipoprotein 28 mg/dL (5-40)
== END 2021-12-26 23:59 | disposition home or self-care (01) ==
LOC: LAB 08:08
PROVIDERS: PCP Internal Medicine; Referring Provider Internal Medicine Cardiovascular Disease; Visit Provider Internal Medicine Cardiovascular Disease
DX: E78.00 Pure hypercholesterolemia, unspecified (principal)
CPT/HCPCS: 36415; 80061; 80076

== ENCOUNTER → 2022-04-08 | Outpatient (CLI) | payer MEDICARE, SELFPAY ==
[2022-04-08 11:24] LABS: PSA,Total- Diagnostic < 0.01 ng/mL (0.0-4.0)
== END | disposition home or self-care (01) ==
LOC: LAB 09:01
PROVIDERS: PCP Internal Medicine; Referring Provider Urology; Visit Provider Urology
DX: C61 Malignant neoplasm of prostate (principal)
CPT/HCPCS: 36415; 84153

== ENCOUNTER 2022-10-29 15:25 | Emergency (ER) | payer MEDICARE, SELFPAY ==
[2022-10-29] VITALS (7 sets, daily range): BP systolic 128–156; BP diastolic 72–111; PULSE 68–72; RESP 18–22; TEMP 36.7; O2SAT 93–96; BMI 34.9
--- NOTE | 2022-10-29 15:24 | EKG12_ITS ---
Test Reason : CP Blood Pressure : / mmHG Vent. Rate : 073 BPM Atrial Rate : 073 BPM P-R Int : 136 ms QRS Dur : 124 ms QT Int : 406 ms P-R-T Axes : 052 -23 010 degrees QTc Int : 447 ms Normal sinus rhythm Right bundle branch block Inferior infarct , age undetermined Abnormal ECG Confirmed by VALENCIA BANKS, DOMENIC ([id number]), newspaper copy editor CURLY FULLER ([id number]) on 11/01/2022 12:44:08 PM Referred By: DIANN Confirmed By:DOMENIC BIRMINGHAM MD
--- NOTE | 2022-10-29 15:53 | EKG12_ITS ---
Test Reason : CP Blood Pressure : / mmHG Vent. Rate : 066 BPM Atrial Rate : 066 BPM P-R Int : 140 ms QRS Dur : 132 ms QT Int : 448 ms P-R-T Axes : 057 -21 008 degrees QTc Int : 469 ms Normal sinus rhythm Right bundle branch block Inferior infarct , age undetermined Abnormal ECG Confirmed by VALENCIA BANKS, DOMENIC ([id number]), brands editor CURLY FULLER ([id number]) on 11/01/2022 12:41:37 PM Referred By: Confirmed By:DOMENIC BIRMINGHAM MD
[2022-10-29] MEDS: Aspirin 81 MG TAB.CHEW 162 MG PO (15:58)
--- NOTE | 2022-10-29 16:02 | ED.VIS.CHEST ---
HPI History of Present Illness Chief Complaint: Chest Pain Informant: patient and spouse/S.O. Limited: dementia Narrative Narrative: Patient is a 72-year-old male with history of coronary artery disease status post CABG, STEMI, hyperlipidemia, hypertension, obstructive sleep apnea, BPH and stable angina presenting with chest pain. Chest pain started around 930 this morning. He describes as a sharp stabbing pain that lasted approximately 10 seconds at a time. It does not radiate. Around 930 he was having episodes and his gave him a dose of nitroglycerin which stopped the pain. At around 245 he started having these episodes again and then at 3 PM the gave him another nitroglycerin and the pain improved. Patient last had a few episodes of this pain when arriving to the ER but currently does not have any. He denies any shortness of breath. He initially told me he had symptoms yesterday but corrects and states that these are started today. Patient follows with Dr. Rincon. Patient took 81 mg of aspirin today as well as his Plavix and other regular scheduled medicines. Patient did have a transient episode of low blood pressure after the 930 dose of nitroglycerin but that resolved. Patient notes this feels different than when he had his STEMI because at that time he had constant chest pressure rating to his jaw. Denies any swelling of his legs, shortness of breath, cough, GI or symptoms. Denies any physical activities. No other complaints at this time. CVD Risk Factors: Positive for Hypertension, Hypercholesterolemia and - (History of coronary artery disease/CABG/STEMI) PE Risk Factors: Negative for Recent Travel/Surgery, Recent Immobilization, Prior DVT or PE, Cancer or OCP + Smoking + >/=35 [facility] Medical History Atherosclerotic heart disease of [place] coronary artery without angina pectoris BPH (benign prostatic hyperplasia) CAD (coronary artery disease) Essential hypertension Mixed hyperlipidemia Obesity (BMI 30-39.9) Obstructive sleep apnea BILL (obstructive sleep apnea) Presence of stent in coronary artery (~01/20/21) Prostate cancer Shortness of breath STEMI (ST elevation myocardial infarction) TIA (transient ischemic attack) (~2010) Home Medications aspirin 81 mg tablet,delayed release 81 mg PO DAILY@0800 [facility] 04/24/14 [History Last Taken 01/19/21 07:00] nitroglycerin 0.4 mg sublingual tablet 0.4 mg sublingual Q5M PRN Chest pain #10 tabs 01/22/21 [Rx Last Taken Unknown] acetaminophen 500 mg tablet 1,000 mg PO Q6H PRN Pain 02/20/21 [History Last Taken Unknown] magnesium oxide 400 mg PO DAILY 02/20/21 [History Last Taken Unknown] isosorbide mononitrate 60 mg tablet,extended release 24 hr 60 mg PO DAILY #90 tabs 12/25/21 [Rx Last Taken Unknown] lisinopril 10 mg tablet 10 mg PO BID #180 tabs 12/25/21 [Rx Last Taken Unknown] clopidogrel 75 mg tablet 75 mg PO DAILY #90 tabs 05/05/22 [Rx Last Taken Unknown] rosuvastatin 5 mg tablet 5 mg PO DAILY #90 tabs 06/14/22 [Rx Last Taken Unknown] carvedilol 25 mg tablet 25 mg PO BID #180 tabs 08/02/22 [Rx Last Taken Unknown] Allergy/AdvReac Type Severity Reaction Status Date / Time No Known Allergies Allergy Verified 09/29/22 13:07 Family History Father CAD (coronary artery disease) Hypertension Mother Diabetes Hypertension Sister Hypertension Other Family history of hypertension Family history of premature coronary artery disease Family history of premature coronary heart disease Surgical History History of back surgery History of coronary artery bypass surgery (~02/03/21) History of prostatectomy History of removal of cyst (~1965) History of tonsillectomy (~1999) History of uvulectomy (~1999) Presence of coronary angioplasty implant and graft (~01/20/21) S/P correction of deviated nasal septum (~1999) Social History household members: spouse housing: house Smoking Status: Never smoker alcohol intake: current alcohol intake frequency: a few times a week Alcohol type: beer substance use type: does not use caffeine: Yes Type: coffee Number of servings: 2 what type of physical activity do you participate in: none seatbelt use: always do you feel safe at home: Yes ROS ROS ED Constitutional Constitutional ED: Denies chills, fever(s) or sweats Eyes Eyes: Denies change in vision ENT ENT ED: Denies rhinorrhea or sore throat Cardiovascular Cardiovascular: Reports as per HPI and chest pain; Denies palpitations Respiratory/Chest Respiratory/Chest: Denies cough, dyspnea or dyspnea on exertion Gastrointestinal Gastrointestinal: Denies abdominal pain, nausea or vomiting Genitourinary Genitourinary ED: Denies dysuria Musculoskeletal Musculoskeletal: Denies arthralgias, back pain or myalgias Integumentary Denies rash Neurologic Neurologic: Denies headache(s) or weakness Hematologic/Lymphatic Hematologic/Lymphatic: Denies easy bleeding EXAM Physical Exam Const Vital Signs: 10/29/22 15:26 10/29/22 15:30 10/29/22 15:32 Temperature 98.0 F Temperature Source Temporal Pulse Rate 72 71 Respiratory Rate 20 H 22 H Respiratory Effort Short of Breath Blood Pressure 143/84 H 128/84 H Blood Pressure Mean 103 98 Pulse Ox 94 94 Oxygen Delivery Method Room Air Room Air 10/29/22 15:56 10/29/22 17:32 10/29/22 18:53 Temperature Temperature Source Pulse Rate 72 68 Respiratory Rate 18 18 Respiratory Effort Blood Pressure 156/111 H 145/72 H Blood Pressure Mean 126 96 Pulse Ox 95 93 93 Oxygen Delivery Method Room Air Room Air Room Air 10/29/22 19:17 Temperature Temperature Source Pulse Rate 69 Respiratory Rate 20 H Respiratory Effort Blood Pressure 145/72 H Blood Pressure Mean 96 Pulse Ox 96 Oxygen Delivery Method Room Air Positive well nourished and well developed General Appearance ED: well developed and NAD HEENT Reports moist mucous membranes HEENT Narrative: Mild flushing of the face Eyes PERRL and EOMs intact bilaterally Neck supple and no JVD Chest Wall inspection of chest normal Chest Narrative: Mild tenderness palpation of the left anterior chest wall, patient states it feels sore. No chest wall crepitus appreciated Resp normal respiratory effort and clear to auscultation bilaterally Effort and Inspection: Negative for respiratory distress or pain with movement Auscultation: Negative for wheezes or diminished lung sounds Cardio regular rate, regular rhythm and no murmurs Peripheral Pulses: radial pulses present and posterior tibial pulses present GI normal to inspection, nondistended, normoactive bowel sounds and soft to palpation Palpation: Negative for mass Back/Spine no CVA tenderness Extremity normal to inspection General Extremety ED: Negative for edema or pulses abnormal General Extremity: Negative for edema or pulses abnormal Neuro Neuro Narrative: No focal deficits. Patient at his baseline Sensorium / Orientation: awake and alert Skin no rashes or lesions noted and no wounds Heart Score History: Slightly/Non-Suspicious ECG: Nonspecific Repolarization Age: >/= 65 years Risk Factors: >/= 3 Risk Factors or History of CAD Score: 5 MDM MDM MDM Narrative Medical decision making narrative: Patient evaluated for sharp stabbing left-sided chest pain. Differential includes but not limited to ACS, pleurisy, chest wall pain, pulmonary emboli and pneumonia. EKG is not consistent with ST elevation [place] and x-ray looks slightly improved compared to his prior EKG. Will obtain a D-dimer as patient's otherwise low risk per Wells criteria. Patient is given an additional 162 mg of aspirin as he took 81 mg this morning. He is not having any active chest pain so we will defer any nitroglycerin at this time. Most recent cardiology note from 09/29/2022 reviewed by myself. Patient in ST elevation [place] on January 20, 2021 with stenting of the circumflex artery and ultimately transferred to [facility] for CABG. On March 02, 2021 he was again admitted for chest pain and had a stress test that showed extensive inferior lateral infarct with minimal charleen-infarct ischemia. Patient does not appear to have had any stress testing since. He is maintained on daily 81 mg aspirin, carvedilol 25 mg, Plavix 75 mg, isosorbide 60 mg, lisinopril 10 mg and Crestor 5 mg. Patient's cardiac work-up was largely normal. D-dimer is normal so I do not think CTA is indicated. I do not suspect PE given his symptomatology and normal D-dimer. EKG does not show ischemic changes and his high-sensitivity troponin is stable at 21 and 22. Patient is have another episode of this sharp chest pain and EKG is repeated. He has no dynamic changes. He is given dose of Tylenol for his pain. Given his cardiac history I did offer observation for further continuous monitoring however ultimately patient and feel comfortable with him going home. They have already contacted his compositor apprentice and they discussed possibly doing a stress test on Tuesday. Patient is encouraged return the ER should he have progression of symptoms. Is given Tylenol for pain. Counseled to take Tylenol at home. Patient and agreeable to plan of care. Patient discharged home in stable condition Lab Data Attestation: I reviewed the patient's lab results. Labs: Laboratory Results - last 24 hr 10/29/22 10/29/22 10/29/22 15:25 15:25 15:25 WBC 7.5 RBC 5.40 Hgb 17.4 H Hct 50.8 MCV 94.1 H MCH 32.2 H MCHC 34.3 RDW Std Deviation 43.7 RDW Coeff of Vinayak 12.7 Plt Count 198 MPV 9.3 Immature Gran % (Auto) 0.500 Neut % (Auto) 63.1 Lymph % (Auto) 22.9 [place] % (Auto) 11.1 H Eos % (Auto) 2.0 Baso % (Auto) 0.4 Absolute Neuts (auto) 4.7 Absolute Lymphs (auto) 1.72 Nucleated RBC % 0 D-Dimer Quant (PE/DVT) 0.46 Sodium 140 Potassium 4.6 Chloride 106 Carbon Dioxide 29.0 Anion Gap 5 BUN 22 H Creatinine 1.12 Estim Creat Clear Calc 51.39 Est GFR (MDRD) Af Amer 83 Est GFR (MDRD) Non-Af 69 BUN/Creatinine Ratio 19.6 Glucose 103 Calcium 9.1 Magnesium 2.5 Troponin I High Sens 21 10/29/22 18:11 WBC RBC Hgb Hct MCV MCH MCHC RDW Std Deviation RDW Coeff of Vinayak Plt Count MPV Immature Gran % (Auto) Neut % (Auto) Lymph % (Auto) [place] % (Auto) Eos % (Auto) Baso % (Auto) Absolute Neuts (auto) Absolute Lymphs (auto) Nucleated RBC % D-Dimer Quant (PE/DVT) Sodium Potassium Chloride Carbon Dioxide Anion Gap BUN Creatinine Estim Creat Clear Calc Est GFR (MDRD) Af Amer Est GFR (MDRD) Non-Af BUN/Creatinine Ratio Glucose Calcium Magnesium Troponin I High Sens 22 Radiography Diagnostic Testing: Clinical Impression(s) from Imaging Studies Chest X-Ray 10/29/22 16:05 IMPRESSION: No radiographic evidence of acute cardiopulmonary disease. Electronically Signed: Erum Alegria MD at 16:47 EST Reading Location ID and State: [id number] / Tel , Service support , Rhythm Strip Rhythm Strip: Sinus Rhythm Rate: 73 Ectopy: None EKG Initial EKG: Attestation: I personally reviewed and interpreted this EKG as follows: Interpretation: Sinus Rhythm Comments: Normal sinus rhythm and rate of 73 bpm Right bundle branch block T wave flattening of 1 and inferior leads with T wave inversions in V1 through V4 with no reciprocal changes Compared to prior EKG on 03/02/2021, patient has less pronounced T wave changes in lateral and inferior leads Follow-up EKG: Attestation: I personally reviewed and interpreted this EKG as follows: Interpretation: Sinus Rhythm Comments: Normal sinus rhythm at a rate of 66 bpm Right bundle branch block No dynamic ST segment changes Discharge Plan Triage Chief Complaint: Chest Pain ED Provider: Svetlana Solano Dx/Rx/DC Orders Clinical Impression: Chest pain, CAD (coronary artery disease) Instructions: ED Chest Pain, Uncertain Cause Prescriptions: No Action acetaminophen 500 mg tablet 1,000 mg PO Q6H PRN (Reason: Pain) isosorbide mononitrate 60 mg tablet extended release 24 hr 60 mg PO DAILY Qty: 90 3RF lisinopril 10 mg tablet 10 mg PO BID Qty: 180 3RF aspirin 81 MG tablet 81 mg PO DAILY@0800 nitroglycerin 0.4 mg Tablet, Sublingual 0.4 mg sublingual Q5M PRN (Reason: Chest pain) Qty: 10 0RF Rx Instructions: If you use this medication please contact your compositor apprentice office and notify them of onset chest pain. magnesium oxide 400 mg magnesium tablet 400 mg PO DAILY clopidogrel 75 mg tablet 75 mg PO DAILY Qty: 90 3RF rosuvastatin 5 mg tablet 5 mg PO DAILY Qty: 90 3RF carvedilol 25 mg tablet 25 mg PO BID Qty: 180 3RF Rx Instructions: must administer with a meal/food Primary Care Provider: Jung Charles Referrals: Puneet Rincon MD [Med Staff - Active Staff] - Jung Charles MD [Primary Care Provider] - Activity Restrictions/Additional Instructions: The exact cause of your pain is not clear however at this time it does not look like you are having an acute heart attack. There are no signs of a blood clot based on your blood work. Take Tylenol at least twice a day to see if this helps with your pain. Return if you have a progression or worsening of your symptoms or if you have further concerns. Follow-up with your compositor apprentice on Tuesday as we discussed. Disposition Disposition: Home, Self Care Discharge Date/Time: 10/29/22 19:29
--- NOTE | 2022-10-29 16:05 | RAD_ITS ---
INDICATION: chest pain EXAMINATION/TECHNIQUE: X-RAY - XR Chest 2 Views COMPARISON: 06/12/2021. FINDINGS: LINES/DEVICES: None. LUNGS: No consolidation, edema or effusion. No pneumothorax. MEDIASTINUM AND CARDIOVASCULAR STRUCTURES: Cardiac silhouette not enlarged. Sternotomy. Central airways and mediastinal contour are unremarkable. BONES AND SOFT TISSUES: Unremarkable. RAD/Chest PA and Lateral IMPRESSION: No radiographic evidence of acute cardiopulmonary disease. Electronically Signed: Erum Alegria MD at 16:47 EST Reading Location ID and State: [id number] / Tel , Service support ,
[2022-10-29 16:10] LABS: Absolute Lymphocyte Count 1.72 X10^3/uL (0.83-4.51); Absolute Neutrophil Count 4.7 X10^3/uL (2.0-7.7); Basophil# 0.03 X10^3/uL; Basophil% 0.4 % (0-1); Eosinophil# 0.15 X10^3/uL; Hematocrit 50.8 % (40-54); Hemoglobin 17.4 g/dL (13.0-16.5); Lymphocyte # 1.72 X10^3/ul (0.83-4.51); Lymphocyte % 22.9 % (19-41); Mean Corp Hgb Conc 34.3 g/dL (32-36); Mean Corpuscular Hgb 32.2 pg (27.0-32.0); Mean Corpuscular Volume 94.1 fL (80-94); Mean Platelet Vol. 9.3 fl (6.2-12.0); Monocyte# 0.83 X10^3/uL; Monocyte% 11.1 % (0-10); NRBC Flagged by Analyzer 0 % (0-5); Neutrophil # 4.73 X10^3/uL (2.7-7.7); Neutrophil % 63.1 % (47-70); Platelet Count 198 K/mm3 (150-450); RBC Distribution Width CV 12.7 % (11.6-14.6); RBC Distribution Width SD 43.7 fl (35.1-43.9); White Blood Count 7.5 K/mm3 (4.4-11.0)
[2022-10-29 16:24] LABS: D-Dimer Quantitative (DVT/PE) 0.46 FEU/ug/m (0.27-0.49)
[2022-10-29 16:31] LABS: Anion Gap 5 (5-15); BUN 22 mg/dL (7-18); BUN/Creat Ratio 19.6 RATIO (10-20); Calcium,Total 9.1 mg/dL (8.5-10.1); Chloride 106 mmol/L (98-107); Creatinine, Serum 1.12 mg/dL (0.70-1.30); EST Glomerular Filtration Rate 69 mL/min (>60); Est Glom Filt Rate - Afr Amer 83 mL/min (>60); Estimated Creatinine Clearance 51.39 ml/min; Glucose 103 mg/dL (74-106); Magnesium 2.5 mg/dL (1.6-2.6); Potassium 4.6 mmol/L (3.5-5.1); Sodium Level 140 mmol/L (136-145); Troponin-I HS (w/2H Reflex) 21 pg/mL (3.0-78.0)
[2022-10-29 18:02] LABS: Reflex Troponin-HS? (from REC) Y
[2022-10-29 18:42] LABS: Troponin-I HS 22 pg/mL (3.0-78.0)
[2022-10-29] MEDS: Acetaminophen 325 MG Tablet 650 MG PO (19:22)
== END 2022-10-29 19:29 | disposition home or self-care (01) ==
PROVIDERS: Emergency Provider Emergency Medicine; PCP Internal Medicine; Visit Provider Emergency Medicine
DX: R07.9 Chest pain, unspecified (principal); F03.90 Unspecified dementia, unspecified severity, without behavioral disturbance, psychotic disturbance, mood disturbance, and anxiety; E78.2 Mixed hyperlipidemia; I25.10 Atherosclerotic heart disease of native coronary artery without angina pectoris; I10 Essential (primary) hypertension; Z95.1 Presence of aortocoronary bypass graft
CPT/HCPCS: 71046; 80048; 83735; 84484; 85025; 85379; 93005; 99283; A4216

== ENCOUNTER → 2022-11-09 | Outpatient (CLI) | payer MEDICARE, SELFPAY ==
--- NOTE | 2022-11-09 08:07 | STRESSREP_ITS ---
Stress Test Report Date: 11-09-2022 Procedure: Pharmacologic stress nuclear imaging study Indications: Chest pain; CAD; CABG Consent: Per the patient Procedure: The patient underwent pharmacologic (Regadenoson 0.4mg ) evaluation with a peak heart rate of 82 beats per minute (54% predicted maximal heart rate) and a resting blood pressure of 128/70 mmHg and a peak blood pressure of 128/70 mmHg. The baseline ECG demonstrated sinus rhythm; right bundle branch block pattern. The peak pharmacologic ECG demonstrated no obvious ECG changes. There was a rare premature ectopic complex during infusion. There was no complaint of chest discomfort during pharmacologic infusion or recovery. The examination was discontinued secondary to completion of protocol. Impression: 1. Pharmacologic (Regadenoson) evaluation 2. Peak pharmacologic ECG with continued right bundle branch block pattern without obvious ECG changes. 3. There was a rare premature ectopic complex during infusion. 4. Nuclear images pending Myocardial perfusion imaging study: Technique: The patient was injected with 14.9 millicuries of technetium 99m Cardiolite and subsequently rest SPECT Cardiolite nuclear imaging was obtained in the horizontal long, vertical long, and short axis views. The patient underwent pharmacologic (Regadenoson) evaluation with a peak heart rate of 82 beats per minute (54% percent predicted maximal heart rate) and a resting blood pressure of 128/70 mmHg and a peak blood pressure of 128/70 mmHg. The patient was injected with 44.6 millicuries of technetium 99m Cardiolite and subsequently stress SPECT Cardiolite nuclear imaging was obtained in the horizontal long, vertical long, and short axis views. A gated Cardiolite study at peak stress was obtained. Interpretation: Rest and stress SPECT Cardiolite nuclear imaging status post realignment, normalization, and attenuation correction demonstrate the appearance of diminished absence of myocardial perfusion/tracer uptake in portions of the mid to distal inferior and inferolateral segments as well as the distal/apical inferior segments and the distal/apical lateral segments without significant change between rest and stress. There is diminished end-systolic thickening and brightening in the aforementioned areas. The gated Cardiolite study demonstrates diminished myocardial thickening and inward wall motion. The reported LVEF is 54%. Impression: 1. Rest and stress SPECT Cardiolite nuclear imaging demonstrate myocardial perfusion changes compatible with an area of previous myocardial injury/infarction involving portions of the mid to distal inferior and inferolateral segments as well as the distal/apical inferior segments and the distal/apical lateral segments with no myocardial perfusion changes considered diagnostic for associated stress-induced myocardial ischemia. 2. The gated Cardiolite study reports an LVEF of 54%. This note was generated with [employer] software. It may contain incorrect words, spelling, and punctuation that were not noted in checking the note before signing.
== END | disposition home or self-care (01) ==
PROVIDERS: PCP Internal Medicine; Referring Provider Nurse Practitioner Family; Visit Provider Nurse Practitioner Family
DX: R07.9 Chest pain, unspecified (principal); I20.8 Other forms of angina pectoris; Z95.1 Presence of aortocoronary bypass graft; Z95.5 Presence of coronary angioplasty implant and graft
CPT/HCPCS: 78452; 93017; A9500; A4216; J2785

== ENCOUNTER → 2022-12-24 | Outpatient (CLI) | payer MEDICARE, SELFPAY ==
[2022-12-27 15:37] LABS: Hemoglobin 16.9 g/dL (13.0-16.5); Mean Corp Hgb Conc 33.8 g/dL (32-36); Mean Corpuscular Hgb 31.8 pg (27.0-32.0); Mean Platelet Vol. 9.6 fl (6.2-12.0); Platelet Count 190 K/mm3 (150-450); RBC Distribution Width CV 12.8 % (11.6-14.6); RBC Distribution Width SD 43.9 fl (35.1-43.9); Red Blood Count 5.32 M/mm3 (4.6-6.2); White Blood Count 8.4 K/mm3 (4.4-11.0)
[2022-12-27 16:23] LABS: Anion Gap 2 (5-15); BUN 24 mg/dL (7-18); Calcium,Total 8.9 mg/dL (8.5-10.1); Chloride 110 mmol/L (98-107); Creatinine, Serum 1.09 mg/dL (0.70-1.30); EST Glomerular Filtration Rate 71 mL/min (>60); Est Glom Filt Rate - Afr Amer 86 mL/min (>60); Glucose 91 mg/dL (74-106); Potassium 4.4 mmol/L (3.5-5.1); Sodium Level 137 mmol/L (136-145)
[2022-12-27 16:25] LABS: Hemoglobin A1c 5.5 % (3.8-5.6)
[2022-12-27 16:38] LABS: Magnesium 2.2 mg/dL (1.6-2.6)
== END | disposition home or self-care (01) ==
LOC: PAT 01-21 11:53
PROVIDERS: Anesthesiology; PCP Internal Medicine; Referring Provider Orthopaedic Surgery; Visit Provider Orthopaedic Surgery
DX: Z01.818 Encounter for other preprocedural examination (principal)
CPT/HCPCS: 36415; 80048; 83036; 83735; 85027; 87081

== ENCOUNTER → 2022-12-27 | Outpatient (CLI) | payer MEDICARE, SELFPAY ==
--- NOTE | 2022-12-27 14:57 | CT_ITS ---
EXAM: CT RIGHT LOWER EXTREMITY WITHOUT INTRAVENOUS CONTRAST CLINICAL INDICATION: RT KNEE *MARIELA PROTOCOL* TECHNIQUE: Helically acquired images were obtained of the right lower extremity without intravenous contrast. 2-D reformats were performed by the technologist. CTDIvol = ( 18.76 ) mGy, DLP = ( 1096.13 ) mGycm This CT exam was performed using one or more of the following dose reduction techniques: automated exposure control, adjustment of the mA and/or kV according to patient size, and/or use of iterative reconstruction technique. This report was created using [employer] report [employer] technology. COMPARISON: None. FINDINGS: BONES/JOINTS: Chronic appearing 7 mm osteochondral lesion/defect at the medial talar dome more anteriorly. Tricompartment osteoarthrosis of the knee, severe at the medial femorotibial compartment. Large suprapatellar joint effusion demonstrated. Prominent suprapatellar enthesophyte. Small posterior calcaneal enthesophyte. Moderate osteoarthrosis of the pubic symphysis. No acute fracture. No subluxation. Normal alignment. No significant tibiotalar or posterior subtalar joint effusion. SOFT TISSUES: Unremarkable. No soft tissue swelling or gas. No radiopaque foreign body. CT/Extremity Lower without Contra IMPRESSION: Preoperative planning study. 1. Tricompartment osteoarthrosis of the knee, severe at the medial femorotibial compartment with associated large suprapatellar joint effusion. 2. Chronic appearing 7 mm osteochondral lesion/defect at the medial talar dome more anteriorly. Electronically Signed: Boaz Weir MD at 4:59 EDT ,
== END | disposition home or self-care (01) ==
LOC: CT 14:55
PROVIDERS: PCP Internal Medicine; Referring Provider Physician Assistant; Visit Provider Physician Assistant
DX: M17.11 Unilateral primary osteoarthritis, right knee (principal); M25.561 Pain in right knee
CPT/HCPCS: 73700

== ENCOUNTER 2023-01-21 11:47 | Emergency (ER) | payer MEDICARE, SELFPAY ==
[2023-01-21 11:48] VITALS: BP 118/84; PULSE 81; RESP 18; TEMP 36.1; O2SAT 95; BMI 35.3
--- NOTE | 2023-01-21 12:35 | EX.ED.DYSGE1 ---
HPI History of Present Illness Chief Complaint: Confusion Informant: patient and family Narrative Narrative: Patient is 72-year-old male with history of memory issues, hypertension, coronary artery disease status post bypass surgery, BPH, prostate cancer status post prostatectomy per patient and son and hyperlipidemia presenting from home for concern of increased confusion as well as urinary frequency. Son is at the bedside and states his confusion has been worse over the past week but he has been confused for the past few months. He is also had increased urinary frequency. They state they went to a game last night and in 2 hours patient went pee 8 or 9 times. He has had urinary frequency. Does not have a history of urinary tract infections. Patient denies any dysuria, hematuria or other symptoms. Cannot tell me if he feels like he is emptying his bladder fully. Does follow with Dr. Vázquez, urology. No report of any fever, chills, falls, appetite changes or other complaints at this time. [facility] Medical History Alcohol use Ambulates with cane Amnesia, global, transient Anxiety Arthritis Atherosclerotic heart disease of [place] coronary artery without angina pectoris Back pain BPH (benign prostatic hyperplasia) CAD (coronary artery disease) Cardiology follow-up encounter Chest pain CPAP (continuous positive airway pressure) dependence Dementia Depression Essential hypertension Headache Heartburn High cholesterol History of echocardiogram History of heart attack History of pain when walking History of stress test Hypertension Injury of head and neck Mixed hyperlipidemia Non-smoker Obesity (BMI 30-39.9) Obstructive sleep apnea Presence of stent in coronary artery (~01/20/21) Prostate cancer Shortness of breath Shortness of breath on exertion STEMI (ST elevation myocardial infarction) Wears glasses Home Medications aspirin 81 mg tablet,delayed release 81 mg PO DAILY@0800 heart health 04/24/14 [History Last Taken 01/19/21 07:00] nitroglycerin 0.4 mg sublingual tablet 0.4 mg sublingual Q5M PRN Chest pain #10 tabs 01/22/21 [Rx Last Taken Unknown] acetaminophen 500 mg tablet 1,000 mg PO Q6H PRN Pain 02/20/21 [History Last Taken Unknown] magnesium oxide 400 mg PO DAILY 02/20/21 [History Last Taken Unknown] isosorbide mononitrate 60 mg tablet,extended release 24 hr 60 mg PO DAILY #90 tabs 12/25/21 [Rx Last Taken Unknown] lisinopril 10 mg tablet 10 mg PO BID #180 tabs 12/25/21 [Rx Last Taken Unknown] clopidogrel 75 mg tablet 75 mg PO DAILY #90 tabs 05/05/22 [Rx Last Taken Unknown] rosuvastatin 5 mg tablet 5 mg PO DAILY #90 tabs 06/14/22 [Rx Last Taken Unknown] carvedilol 25 mg tablet 25 mg PO BID #180 tabs 08/02/22 [Rx Last Taken Unknown] cholecalciferol (vitamin D3) 125 mcg (5,000 unit) tablet (Vitamin D3) 125 mcg PO DAILY 12/24/22 [History Last Taken Unknown] escitalopram oxalate 10 mg tablet 10 mg PO DAILY 12/24/22 [History Last Taken Unknown] mirtazapine 15 mg tablet 15 mg PO QHS 12/24/22 [History Last Taken Unknown] cephalexin 500 mg capsule 500 mg PO Q12 #10 CAPSULES 01/21/23 [Rx Last Taken Unknown] Allergy/AdvReac Type Severity Reaction Status Date / Time No Known Allergies Allergy Verified 01/21/23 11:49 Family History Father CAD (coronary artery disease) Hypertension Mother Diabetes Hypertension Sister Hypertension Other Family history of hypertension Family history of premature coronary artery disease Family history of premature coronary heart disease Surgical History History of back surgery History of cardiac catheterization History of coronary artery bypass surgery (~02/03/21) History of prostatectomy History of removal of cyst (~1965) History of tonsillectomy (~1999) History of uvulectomy (~1999) Hx of colonoscopy Presence of coronary angioplasty implant and graft (~01/20/21) S/P correction of deviated nasal septum (~1999) Social History household members: spouse housing: house Smoking Status: Never smoker alcohol intake: current alcohol intake frequency: a few times a week Alcohol type: beer substance use type: does not use caffeine: Yes Type: coffee Number of servings: 2 what type of physical activity do you participate in: none seatbelt use: always do you feel safe at home: Yes ROS ROS ED Constitutional Constitutional ED: Denies chills or fever(s) Eyes Eyes: Denies change in vision Cardiovascular Cardiovascular: Denies chest pain or palpitations Respiratory/Chest Respiratory/Chest: Denies cough Gastrointestinal Gastrointestinal: Denies abdominal pain, nausea or vomiting Genitourinary Genitourinary ED: Reports urinary frequency; Denies dysuria or hematuria Musculoskeletal Musculoskeletal: Denies arthralgias, back pain or myalgias Integumentary Denies rash Neurologic Neurologic: Denies headache(s) Hematologic/Lymphatic Hematologic/Lymphatic: Denies easy bleeding or easy bruising EXAM Physical Exam Const Vital Signs: 01/21/23 11:48 01/21/23 16:04 Temperature 97 F L Temperature Source Temporal Pulse Rate 81 81 Respiratory Rate 18 14 Blood Pressure 118/84 H 121/76 H Blood Pressure Mean 95 91 Pulse Ox 95 98 Oxygen Delivery Method Room Air Room Air Positive well nourished and well developed General Appearance ED: well developed and NAD HEENT Reports TM's clear and moist mucous membranes Tympanic Membrane ED: Yes TM's clear Eyes PERRL and EOMs intact bilaterally Neck supple Neck Narrative: normal ROM Chest Wall inspection of chest normal and palpation of chest normal Resp normal respiratory effort and clear to auscultation bilaterally Cardio regular rate, regular rhythm and no murmurs GI normal to inspection, nondistended, normoactive bowel sounds and non-tender GI Narrative: No tenderness in the suprapubic region, nonpalpable bladder on exam Back/Spine no CVA tenderness Extremity normal to inspection General Extremety ED: Negative for edema or tenderness General Extremity: Negative for edema Neuro Neuro Narrative: Oriented to self only Sensorium / Orientation: alert and orientation impaired Motor Exam: Negative for general weakness Psych mental status grossly normal Skin no rashes or lesions noted and no wounds MDM MDM MDM Narrative Medical decision making narrative: Patient is evaluated for urinary frequency and increased confusion. He does have a history of dementia however he has been more confused. Given his age and history of dementia I did check labs including a CBC and a BMP in addition to urinalysis. Patient does go to the restroom multiple times in the emergency room. Urinalysis does show 0-5 red blood cells and 0-5 white blood cells but is otherwise largely normal. He does have some protein, glucose and ketones in his urine. Urine culture sent given his symptomatology. He has a mild leukocytosis 11.6 as well as a polycythemia with a hemoglobin of 18.0. His platelets are normal. Given his ketones and signs of hemoconcentration on his CBC I did give him a liter of IV fluid as I suspect he has a component of dehydration. His does admit that he does not drink water well. His BMP is largely unremarkable. He has no abdominal tenderness so I do not think CT or further imaging of his abdomen is indicated. He has no signs of trauma no report of any falls or do not think a CT of the brain is indicated at this time. Bladder scan obtained which does not show signs of urinary retention. Patient will be started on course of Keflex given his symptoms even though his urine is not highly consistent with UTI. is agreeable this plan of care. He will follow-up outpatient with Dr. Vázquez for when she is already established with. Patient and family given return precautions and instructed that if he worsens especially with his confusion he should return to the emergency room. Lab Data Labs: Laboratory Results - last 24 hr 01/21/23 01/21/23 01/21/23 13:00 13:30 13:30 WBC 11.6 H RBC 5.66 Hgb 18.0 H* Hct 51.4 MCV 90.8 MCH 31.8 MCHC 35.0 RDW Std Deviation 40.9 RDW Coeff of Vinayak 12.5 Plt Count 164 MPV 9.2 Immature Gran % (Auto) 0.400 Neut % (Auto) 83.6 H Lymph % (Auto) 9.6 L Frio % (Auto) 6.3 Eos % (Auto) 0.0 Baso % (Auto) 0.1 Absolute Neuts (auto) 9.7 H Absolute Lymphs (auto) 1.11 Nucleated RBC % 0 [address] Review May foll Sodium Cancelled Potassium Cancelled Chloride Cancelled Carbon Dioxide Cancelled Anion Gap Cancelled BUN Cancelled Creatinine Cancelled Estim Creat Clear Calc Cancelled Est GFR (MDRD) Af Amer Cancelled Est GFR (MDRD) Non-Af Cancelled BUN/Creatinine Ratio Cancelled Glucose Cancelled Calcium Cancelled Urine Color Yellow Urine Clarity Sl. Cloudy Urine pH 5.0 Ur Specific [place] 1.025 Urine Protein 15 H Urine Glucose (UA) 50 H Urine Ketones 5 H Urine Occult Blood 10 H Urine Nitrite Negative Urine Bilirubin Negative Urine Urobilinogen Normal Ur Leukocyte Esterase 25 H Urine RBC 0-5 SEEN Urine WBC 0-5 SEEN Ur Squamous Epith Cells 0 SEEN Urine Bacteria 0 SEEN Urine Mucus 0 SEEN 01/21/23 14:02 WBC RBC Hgb Hct MCV MCH MCHC RDW Std Deviation RDW Coeff of Vinayak Plt Count MPV Immature Gran % (Auto) Neut % (Auto) Lymph % (Auto) Frio % (Auto) Eos % (Auto) Baso % (Auto) Absolute Neuts (auto) Absolute Lymphs (auto) Nucleated RBC % Diff Path Review Sodium 138 Potassium 4.6 Chloride 108 H Carbon Dioxide 22.0 Anion Gap 8 BUN 26 H Creatinine 1.10 Estim Creat Clear Calc 52.32 Est GFR (MDRD) Af Amer 85 Est GFR (MDRD) Non-Af 70 BUN/Creatinine Ratio 23.6 H Glucose 127 H Calcium 9.6 Urine Color Urine Clarity Urine pH Ur Specific [place] Urine Protein Urine Glucose (UA) Urine Ketones Urine Occult Blood Urine Nitrite Urine Bilirubin Urine Urobilinogen Ur Leukocyte Esterase Urine RBC Urine WBC Ur Squamous Epith Cells Urine Bacteria Urine Mucus Discharge Plan Triage Chief Complaint: Confusion ED Provider: Svetlana Solano Dx/Rx/DC Orders Clinical Impression: Acute UTI, Increased urinary frequency, Elevated hemoglobin, Confusion Instructions: ED Confusion, ED Bladder Infection, Male (Adult) Prescriptions: New cephalexin 500 mg capsule 500 mg PO Q12 Qty: 10 0RF No Action acetaminophen 500 mg tablet 1,000 mg PO Q6H PRN (Reason: Pain) isosorbide mononitrate 60 mg tablet extended release 24 hr 60 mg PO DAILY Qty: 90 3RF lisinopril 10 mg tablet 10 mg PO BID Qty: 180 3RF aspirin 81 MG tablet 81 mg PO DAILY@0800 nitroglycerin 0.4 mg Tablet, Sublingual 0.4 mg sublingual Q5M PRN (Reason: Chest pain) Qty: 10 0RF Rx Instructions: If you use this medication please contact your stripper preliminary office and notify them of onset chest pain. mirtazapine 15 mg Tablet 15 mg PO QHS escitalopram oxalate 10 mg Tablet 10 mg PO DAILY cholecalciferol (vitamin D3) [Vitamin D3] 125 mcg (5,000 unit) Tablet 125 mcg PO DAILY magnesium oxide 400 mg magnesium tablet 400 mg PO DAILY clopidogrel 75 mg tablet 75 mg PO DAILY Qty: 90 3RF rosuvastatin 5 mg tablet 5 mg PO DAILY Qty: 90 3RF carvedilol 25 mg tablet 25 mg PO BID Qty: 180 3RF Rx Instructions: must administer with a meal/food Primary Care Provider: Jung Charles Referrals: Jung Charles MD [Primary Care Provider] - Activity Restrictions/Additional Instructions: Please follow-up with your urologist as well as your primary care doctor. Paulo did have a mild elevation of his white blood cell count today. There are some signs of dehydration. In addition his red blood cells were elevated which can be from dehydration. This should be rechecked by the primary care doctor in a week. Encourage lots of fluids at home. Urine culture was sent today. If his symptoms worsen, please return to the emergency room. Disposition Disposition: Home, Self Care
[2023-01-21 13:06] LABS: Bacteria 0 SEEN /hpf (None Seen); Mucous, Urine 0 SEEN /hpf (<or=2+); Squamous Epithelial Cells - UA 0 SEEN /hpf (0-5)
[2023-01-21 13:10] LABS: Color, Urine Yellow (Yellow); Glucose, Dipstick 50 mg/dl (Normal); Ketone-Dipstick 5 mg/dl (Negative); Leukocyte Esterase-Dipstick 25 /ul (Negative); Nitrite-Dipstick Negative (Negative); Occult Blood-Urine 10 /ul (Negative); Protein-Dipstick 15 mg/dl (Negative); Specific Gravity, Urine 1.025 (1.002-1.030); Urine Bilirubin Dipstick Negative (Negative); Urine Clarity Sl. Cloudy (Clear); Urine Urobilinogen Normal (Normal)
[2023-01-21 13:19] LABS: Red Blood Cells-Urine 0-5 SEEN /hpf (0-5); White Blood Cells 0-5 SEEN /hpf (0-5)
[2023-01-21 13:36] LABS: Absolute Lymphocyte Count 1.11 X10^3/uL (0.83-4.51); Absolute Neutrophil Count 9.7 X10^3/uL (2.0-7.7); Basophil# 0.01 X10^3/uL; Basophil% 0.1 % (0-1); Hematocrit 51.4 % (40-54); Lymphocyte # 1.11 X10^3/ul (0.83-4.51); Lymphocyte % 9.6 % (19-41); Mean Corpuscular Hgb 31.8 pg (27.0-32.0); Mean Corpuscular Volume 90.8 fL (80-94); Mean Platelet Vol. 9.2 fl (6.2-12.0); Monocyte# 0.73 X10^3/uL; Monocyte% 6.3 % (0-10); NRBC Flagged by Analyzer 0 % (0-5); Neutrophil # 9.67 X10^3/uL (2.7-7.7); Neutrophil % 83.6 % (47-70); Platelet Count 164 K/mm3 (150-450); RBC Distribution Width CV 12.5 % (11.6-14.6); RBC Distribution Width SD 40.9 fl (35.1-43.9); Red Blood Count 5.66 M/mm3 (4.6-6.2); White Blood Count 11.6 K/mm3 (4.4-11.0)
[2023-01-21] MEDS: 0.9% Normal Saline 1,000 ML 999 ML IV (14:04)
[2023-01-21 14:29] LABS: Anion Gap 8 (5-15); BUN 26 mg/dL (7-18); BUN/Creat Ratio 23.6 RATIO (10-20); Calcium,Total 9.6 mg/dL (8.5-10.1); Chloride 108 mmol/L (98-107); EST Glomerular Filtration Rate 70 mL/min (>60); Est Glom Filt Rate - Afr Amer 85 mL/min (>60); Estimated Creatinine Clearance 52.32 ml/min; Glucose 127 mg/dL (74-106); Potassium 4.6 mmol/L (3.5-5.1); Sodium Level 138 mmol/L (136-145)
[2023-01-21 16:04] VITALS: BP 121/76; PULSE 81; RESP 14; O2SAT 98
[2023-01-21] MEDS: Cephalexin 250 MG Capsule 500 MG PO (16:12)
[2023-01-25 09:46] LABS: Pathologist Review Reviewed
== END 2023-01-21 16:16 | disposition home or self-care (01) ==
PROVIDERS: Emergency Provider Emergency Medicine; PCP Internal Medicine; Visit Provider Emergency Medicine
DX: N39.0 Urinary tract infection, site not specified (principal); F03.90 Unspecified dementia, unspecified severity, without behavioral disturbance, psychotic disturbance, mood disturbance, and anxiety; I10 Essential (primary) hypertension; I25.10 Atherosclerotic heart disease of native coronary artery without angina pectoris; E78.00 Pure hypercholesterolemia, unspecified; R41.0 Disorientation, unspecified; N40.1 Benign prostatic hyperplasia with lower urinary tract symptoms; R35.0 Frequency of micturition; G47.33 Obstructive sleep apnea (adult) (pediatric); E66.9 Obesity, unspecified; Z79.82 Long term (current) use of aspirin; Z79.02 Long term (current) use of antithrombotics/antiplatelets; Z79.899 Other long term (current) drug therapy; Z85.46 Personal history of malignant neoplasm of prostate; Z95.1 Presence of aortocoronary bypass graft
CPT/HCPCS: 80048; 81001; 85025; 87086; 96360; 96361; 99283; J7030; A4216

== ENCOUNTER 2023-03-18 12:00 | Outpatient (RCR) | payer MEDICARE, SELFPAY ==
--- NOTE | 2023-01-25 14:05 | HP.PTEVAL ---
Patient's Visit Information HUGO MARCOS is a 72 year old M referred to Physical Therapy by Garrett Doan PA-C with a diagnosis of B knee OA. Date of Evaluation: 01/25/23 Physical Therapist: Lavell Mckeon DPT, OCS, CSCS - Visit Plan Frequency: 2x /Week Duration: 4-6 Weeks Plan: 2x/week for 4-6 weeks for instruct in gym based LE and postural strength to I via silver sneakers, include HS, quad and piriformis stretches and monitor r knee flexion ROM for improvement(110 today). MH as needed. - Subjective Antonella helps him communicate as he has dementia. Has heart conditions so TKA was cancelled and got injection last week. Helps for short duration. Also had gel shots in both knees. Had AR back in 2019 and anaesthesia did not like EKG, Now needs to go through hoops before getting surgery. R knee 0/10 since injection, prior was 8/10 when on it. It kept him up at night. Now sleeping Ok and walking this week. Getting up from chair and first few steps are tough. No regular exercises. L knee is good and has been for a while now. Activity is normal this week. Can';t get down on floor and get back up with grandkids. Steps are tough to basement. Knee not giving out and no falls. Balance is Ok but not 100%. - Pain R knee Pain Intensity (Out of 10): 0 Pain Intensity Range: 0 - Objective Walks with varus in R knee, but I and safe , steps reciprocal without rail but painful R knee. Good balance eo and ec romberg adn dynamic. r knee -2 to 110 and L knee 0-120. Pain end range R knee. HS very tight aat -40 90/90 test. quads and psoas max tight and piriformis mod tight. AROM hip s WFL except extension to 4 degrees B hips and IR B at 5 degrees. reflexes 1/3 patella and achilles. Sensation LE WNL to gross lgiht touch. strength 4 knee ext, 4- knee flexion, 4- hip flexion, 3+ hip abd and ext B. ankles 4+/5. + patellar grind R, - bounce home. - Balance/Special Test Scores Functional Gait Assessment Score: 28 % Disability: 6.6700 Lower Extremity Functional Score: 32 - Goals Goal 1:: I appropr gym based HEP via silver sneakers for LE strength and HS, quad stretch and R knee flexion ROM. Goal Time Frame: 4-6 Weeks Goal 2:: Patient feel like knee pain is 1/10 at worst and 75% improved overall. Goal Time Frame: 4-6 Weeks Goal 3:: Out of chair without pain at home Goal Time Frame: 4-6 Weeks Goal 4:: LEFS score 50 Goal Time Frame: 4-6 Weeks - Rehabilitation Potential Physical Therapy Diagnosis: B knee OA Rehabilitation Potential: Fair - Anticipated Interventions Patient/Client Instruction: Educate patient on: Condition, Plan of Care For the Purpose of:: To decrease pain, To increase ROM, To improve nutrient delivery to tissue, To improve muscle performance and motor function, To increase tolerance to activity/condition/position Therapeutic Exercise to Include: Strength training, Flexibilty training, Passive ROM, Active ROM For the Purpose of:: To decrease pain, To increase ROM, To improve nutrient delivery to tissue, To improve muscle performance and motor function, To increase tolerance to activity/condition/position Thank you for the opportunity to evaluate your patient. For Medicare and Medicare HMO plans, please review the plan of care and approve it. It will need to be FAXED BACK to us at [phone] for Medicare purposes. For Medicare only, by signing this I certify the plan of care. Please let me know if there are questions or concerns regarding this plan of care. Physician Signature: Date:
--- NOTE | 2023-03-18 12:47 | HP.PTDCSUM_ITS ---
Discharge Summary D/C summary: It has been my pleasure to treat HUGO MARCOS referred by Garrett Doan PA-C, with the diagnosis of B knee OA for a total of 14 visit(s). Discharge Date: 03/18/23 Please see the following information for a summary of their discharge status. Subjective Subjective: Knees are not as painful, R alot better. R knee is up to 6/10 in am but that is unusual. L knee is a lot less. Mowedthe yard with push mower and felt OK. Doing Home exercises: not as much as I should. Will have surgery on 04/15/23 Pain R knee: Pain Intensity (Out of 10): 0 Overall Improvement % Improvement: 30 Objective Objective/Function: steps reciprocal with some R knee pain and one rail. walks well with R knee valgus and minor antlagi but I. Goals Goal 1:: I appropr gym based HEP via [employer] sneakers for LE strength and HS, quad stretch and R knee flexion ROM. Goal Progress: Goal Met Goal 2:: Patient feel like knee pain is 1/10 at worst and 75% improved overall. Goal Progress: 30% Goal 3:: Out of chair without pain at home Goal Progress: Goal Met Goal 4:: LEFS score 50 Goal Progress: Progressing Plan Plan: d/c to HEP , Pt having surgery 04/15 D/C Information d/c sentence: If there are questions or concerns regarding this patient's physical therapy, please feel free to call me at [phone]. Thank you for the referral of this patient. Sincerely, Lavell Mckeon, DPT, OCS, CSCS Balance/Gait/Functional tests Balance/Special Test Scores Functional Gait Assessment Score: 28 % Disability: 6.6700 Lower Extremity Functional Score: 48
== END 2023-03-18 19:00 | disposition home or self-care (01) ==
LOC: PT 12:00
PROVIDERS: PCP Internal Medicine; Referring Provider Physician Assistant; Visit Provider Physician Assistant
DX: M17.0 Bilateral primary osteoarthritis of knee (principal)
CPT/HCPCS: 97110; 97161; 97164; 97530

== ENCOUNTER → 2024-01-05 | Outpatient (CLI) | payer MEDICARE, SELFPAY ==
[2024-01-05 11:25] LABS: PSA,Total- Diagnostic < 0.01 ng/mL (0.0-4.0)
== END | disposition home or self-care (01) ==
LOC: LAB 10:16
PROVIDERS: PCP Internal Medicine; Referring Provider Nurse Practitioner; Visit Provider Nurse Practitioner
DX: C61 Malignant neoplasm of prostate (principal)
CPT/HCPCS: 36415; 84153

== ENCOUNTER → 2024-01-13 | Outpatient (CLI) | payer MEDICARE, SELFPAY ==
--- NOTE | 2024-01-13 18:55 | CT_ITS ---
STUDY: CT ABDOMEN AND PELVIS WITH AND WITHOUT CONTRAST REASON FOR EXAM: Male, 73 years old. Hematuria RADIATION DOSAGE (If Supplied By Facility): CTDIvol = ( 25.73 ) mGy, DLP = ( 2921.47 ) mGycm TECHNIQUE: Transaxial images were obtained from the dome of the diaphragm to the symphysis pubis without oral contrast. 100ml-[id number] was administered. Sagittal and coronal images were reconstructed. Individualized dose optimization techniques were used for this CT. COMPARISON: None. FINDINGS: The visualized lung bases are unremarkable. The visualized portions of the heart are within normal limits. Normal liver. Normal gallbladder and extrahepatic biliary system. Normal spleen. Normal pancreas. Normal bilateral adrenal glands. No obstructive uropathy, or suspicious solid renal lesion, there are simple bilateral renal cysts present. Both ureters are of normal course and caliber. There is a small hiatal hernia. Normal small intestine. Scattered colonic diverticula without CT evidence of acute diverticulitis. The appendix is visualized and appears normal. Appendix seen on coronal reconstructed image 60 Normal abdominal aorta. Normal inferior vena cava. Normal retroperitoneum. Normal urinary bladder. Evidence of previous prostatectomy Normal abdominal wall. There are diffuse degenerative changes of the visualized lumbar spine, and pelvis. CT/CT Abd/Pelvis W/WO Contrast IMPRESSION: No active uropathy or suspicious solid renal lesion. Scattered simple bilateral renal cysts, no specific follow-up needed. Colonic diverticulosis, no CT evidence of acute diverticulitis Hiatal hernia No free intraperitoneal fluid, air, or suspicious adenopathy, normal appendix visualized Electronically Signed: Leander Hitchcock MD at 15:36 EDT ,
== END | disposition home or self-care (01) ==
PROVIDERS: PCP Internal Medicine; Visit Provider Urology
DX: Z01.812 Encounter for preprocedural laboratory examination (principal); R31.29 Other microscopic hematuria
CPT/HCPCS: 74178; Q9967

== ENCOUNTER 2024-10-26 19:52 | Emergency (ER) | payer MEDICARE, SELFPAY ==
[2024-10-26 19:53] VITALS: BP 145/68; PULSE 79; RESP 16; TEMP 36.8; O2SAT 94
--- NOTE | 2024-10-26 20:16 | EKG12_ITS ---
Test Reason : FALL Blood Pressure : */* mmHG Vent. Rate : 81 BPM Atrial Rate : 81 BPM P-R Int : 136 ms QRS Dur : 136 ms QT Int : 422 ms P-R-T Axes : 50 -27 51 degrees QTcB Int : 490 ms Sinus rhythm with frequent Premature ventricular complexes Right bundle branch block Inferior infarct (cited on or before 27-Feb-2021) Abnormal ECG Confirmed by VALENCIA BANKS, DOMENIC ([id number]), clinical editor MATTEO VO ([id number]) on 10/29/2024 7:27:44 AM Referred By: TB Confirmed By: DOMENIC BIRMINGHAM MD
--- NOTE | 2024-10-26 20:16 | CT_ITS ---
PROCEDURE: BRAIN/HEAD WITHOUT CONTRAST REASON FOR EXAM: Unknown. TECHNIQUE: CT of the head without contrast was performed. COMPARISON: None. FINDINGS: Moderate global parenchymal atrophy. Mild chronic microvascular ischemia. No evidence of acute hemorrhage or infarction. No extra-axial blood or fluid collection. Ethmoid sinus mucosal thickening. The calvarial vault and skull base are intact. CT/Brain/Head without Contrast IMPRESSION: No acute intracranial abnormality. One or more dose reduction techniques were used (e.g., Automated exposure contr ol, adjustment of the mA and/or kV according to patient size, use of iterative reconstruction technique). Reading Location: [id number]
--- NOTE | 2024-10-26 20:16 | CT_ITS ---
PROCEDURE: SPINE CERVICAL WITHOUT CONTRAS REASON FOR EXAM: Unknown. TECHNIQUE: Cervical spine CT without contrast. COMPARISON: None. FINDINGS: No evidence of acute fracture or dislocation. Moderate discogenic degenerative changes of the visualized spine. The soft tissues are unremarkable. CT/Spine Cervical without Contras IMPRESSION: No acute osseous abnormality. One or more dose reduction techniques were used (e.g., Automated exposure contr ol, adjustment of the mA and/or kV according to patient size, use of iterative reconstruction technique). Reading Location: [id number]
[2024-10-26] MEDS: 0.9% Normal Saline (1000mL) 1,000 ML 999 ML IV (20:35)
[2024-10-26 20:48] LABS: Absolute Lymphocyte Count 0.84 X10^3/uL (0.83-4.51); Absolute Neutrophil Count 8.1 X10^3/uL (2.0-7.7); Basophil# 0.04 X10^3/uL; Basophil% 0.4 % (0-1); Eosinophil# 0.07 X10^3/uL; Eosinophils% 0.7 % (0-5); Hematocrit 46.9 % (40-54); Hemoglobin 16.1 g/dL (13.0-16.5); Lymphocyte # 0.84 X10^3/ul (0.83-4.51); Mean Corp Hgb Conc 34.3 g/dL (32-36); Mean Corpuscular Hgb 31.7 pg (27.0-32.0); Mean Corpuscular Volume 92.3 fL (80-94); Mean Platelet Vol. 9.5 fl (6.2-12.0); Monocyte# 1.43 X10^3/uL; Monocyte% 13.6 % (0-10); NRBC Flagged by Analyzer 0 % (0-5); Neutrophil # 8.08 X10^3/uL (2.7-7.7); Platelet Count 150 K/mm3 (150-450); RBC Distribution Width SD 43.8 fl (35.1-43.9); Red Blood Count 5.08 M/mm3 (4.6-6.2); White Blood Count 10.5 K/mm3 (4.4-11.0)
[2024-10-26 21:28] LABS: ALB/GLOB Ratio 1.2 RATIO (0.9-2.4); AST(SGOT) 15 U/L (15-37); Alanine Aminotransfer ALT/SGPT 27 U/L (16-61); Albumin, Serum 3.9 g/dL (3.2-5.0); Alkaline Phosphatase 22 U/L (45-117); Anion Gap 9 (5-15); BUN 16 mg/dL (7-18); Calcium,Total 8.8 mg/dL (8.5-10.1); Chloride 103 mmol/L (98-107); Creatinine, Serum 1.23 mg/dL (0.70-1.30); EST Glomerular Filtration Rate 61 mL/min (>60); Est Glom Filt Rate - Afr Amer 74 mL/min (>60); Globulin 3.2 g/dL (2.2-4.2); Glucose 120 mg/dL (74-106); Lipase 35 U/L (73-393); Protein, Total 7.1 g/dL (6.4-8.2); Sodium Level 137 mmol/L (136-145); Troponin-I HS 27 pg/mL (3.0-78.0)
--- NOTE | 2024-10-26 21:33 | EX.ED.DYSGE1 ---
HPI History of Present Illness Chief Complaint: Fall Narrative Narrative: Patient is a 74-year-old male with past medical history anxiety, dementia, depression, hypercholesteremia, BILL, CAD, hypertension who presented to the emerged part with a chief complaint of fall. According to the patient's at bedside he had multiple falls today he fell twice at home and twice at the basketball game earlier this evening. They note that he became unsteady on his feet when he went from the sitting to standing position causing him to fall at the basketball game tonight. States that she did not witness the falls earlier today. She is concerned that he may be dehydrated. She denies any blood thinning medications. Patient states he is unsure if he hit his head or not. [facility] Medical History Wears glasses Depression Anxiety Alcohol use Dementia Ambulates with cane Arthritis High cholesterol Back pain Headache Injury of head and neck Amnesia, global, transient Heartburn Non-smoker CPAP (continuous positive airway pressure) dependence Shortness of breath on exertion History of pain when walking History of echocardiogram History of stress test Hypertension Cardiology follow-up encounter History of heart attack Chest pain Presence of stent in coronary artery (~01/20/21) Atherosclerotic heart disease of [place] coronary artery without angina pectoris CAD (coronary artery disease) STEMI (ST elevation myocardial infarction) Mixed hyperlipidemia Essential hypertension Obstructive sleep apnea BPH (benign prostatic hyperplasia) Prostate cancer Shortness of breath Obesity (BMI 30-39.9) Home Medications ?Medication ?Instructions ?Recorded ?Last Taken ?Type aspirin 81 mg tablet,delayed 81 mg PO DAILY@0800 heart [facility] 04/24/14 01/19/21 07:00 History release nitroglycerin 0.4 mg sublingual 0.4 mg sublingual Q5M PRN Chest 01/22/21 Unknown Rx tablet pain #10 tabs acetaminophen 500 mg tablet 1,000 mg PO Q6H PRN Pain 02/20/21 Unknown History cholecalciferol (vitamin D3) 125 125 mcg PO DAILY 12/24/22 Unknown History mcg (5,000 unit) tablet (Vitamin D3) escitalopram oxalate 10 mg tablet 10 mg PO DAILY 12/24/22 Unknown History mirtazapine 15 mg tablet 15 mg PO QHS 12/24/22 Unknown History lisinopril 10 mg tablet 10 mg PO BID #180 tabs 11/28/23 Unknown Rx amlodipine 5 mg tablet 5 mg PO DAILY #30 tabs 12/15/23 Unknown Rx isosorbide mononitrate 60 mg 60 mg PO DAILY #90 tabs 02/09/24 Unknown Rx tablet,extended release 24 hr rosuvastatin 5 mg tablet 5 mg PO DAILY #90 tabs 03/27/24 Unknown Rx carvedilol 25 mg tablet 25 mg PO BID #180 TABLETS 08/13/24 Unknown Rx donepezil 10 mg tablet 10 mg PO QDAY 10/19/24 Unknown History magnesium citrate,mag oxide 250 mg 250 mg PO DAILY 10/19/24 Unknown History capsule mirabegron 25 mg tablet,extended 25 mg PO QDAY 10/19/24 Unknown History release 24 hr (Myrbetriq) Allergy/AdvReac Type Severity Reaction Status Date / Time No Known Allergies Allergy Verified 10/26/24 19:55 Family History Father CAD (coronary artery disease) Hypertension Mother Diabetes Hypertension Sister Hypertension Other Family history of hypertension Family history of premature coronary artery disease Family history of premature coronary heart disease Surgical History History of cardiac catheterization Hx of colonoscopy History of coronary artery bypass surgery (~02/03/21) Presence of coronary angioplasty implant and graft (~01/20/21) History of back surgery History of uvulectomy (~1999) S/P correction of deviated nasal septum (~1999) History of removal of cyst (~1965) History of prostatectomy History of tonsillectomy (~1999) Social History household members: spouse housing: house Smoking Status: Never smoker alcohol intake: current alcohol intake frequency: a few times a week Alcohol type: beer substance use type: does not use caffeine: Yes Type: coffee Number of servings: 2 what type of physical activity do you participate in: none seatbelt use: always do you feel safe at home: Yes ROS ROS ED ROS Narrative Constitutional: Denies headaches, fevers, chills, lightheadedness, dizziness Eyes: Denies change in vision double vision blurry vision Cardiovascular: Denies chest pain Respiratory: Denies coughing wheezing shortness of breath Abdomen: Denies abdominal pain nausea vomit diarrhea : Denies any urinary symptoms Neurological: Denies numbness, weakness, tingling Musculoskeletal: Denies back pain Skin: Denies rashes or lesions EXAM Physical Exam Narrative Exam Narrative: General: Patient lying in bed rest comfortably did not appear to be in acute distress Head: Atraumatic, normocephalic Eyes: PERRL bilaterally, EOMI bilaterally, no conjunctival injection noted Neck: Soft, supple, trachea midline, no tenderness palpation midline cervical spine, patient has full range of motion of his neck without any pain Cardiovascular: Regular rate and rhythm Respiratory: Clear to auscultation bilaterally Abdomen: Soft, nondistended, nontender to palpation Musculoskeletal: No tenderness palpation the midline of the thoracolumbar spine no step-offs or deformities noted, all bony prominences and joints taken through full range of motion no pain elicited Extremities: +5/5 strength noted in the bilateral upper and lower extremities, radial pulses +2/4 in the bilateral extremities, no pedal edema on exam Neurological: Patient following commands knew that he was at [facility] the year is 2024 Skin: Warm, dry, intact no rashes or lesions noted Const Vital Signs: 10/26/24 19:53 10/26/24 19:53 10/26/24 21:53 Temperature 98.2 F Temperature Source Oral Pulse Rate 79 78 Pulse Rate [Lying] Pulse Rate [Sitting (for 1 minute prior to obtaining)] Pulse Rate [Standing (for 1 minute prior to obtaining)] Respiratory Rate 16 18 Respiratory Effort Normal Non-Labored Respiratory Depth Normal Respiratory Pattern Normal Blood Pressure 145/68 H 150/86 H Blood Pressure [Lying] Blood Pressure [Sitting (for 1 minute prior to obtaining)] Blood Pressure [Standing (for 1 minute prior to obtaining)] Blood Pressure Mean 93 107 Blood Pressure Mean [Lying] Blood Pressure Mean [Sitting (for 1 minute prior to obtaining)] Blood Pressure Mean [Standing (for 1 minute prior to obtaining)] Pulse Ox 94 94 Oxygen Delivery Method Room Air Room Air 10/26/24 22:35 10/26/24 23:00 Temperature Temperature Source Pulse Rate 81 Pulse Rate [Lying] 76 Pulse Rate [Sitting (for 1 minute prior to obtaining)] 78 Pulse Rate [Standing (for 1 minute prior to obtaining)] 81 Respiratory Rate 16 Respiratory Effort Respiratory Depth Respiratory Pattern Blood Pressure Blood Pressure [Lying] 158/90 H Blood Pressure [Sitting (for 1 minute prior to obtaining)] 161/92 H Blood Pressure [Standing (for 1 minute prior to obtaining)] 160/85 H Blood Pressure Mean Blood Pressure Mean [Lying] 112 Blood Pressure Mean [Sitting (for 1 minute prior to obtaining)] 115 Blood Pressure Mean [Standing (for 1 minute prior to obtaining)] 110 Pulse Ox 95 Oxygen Delivery Method Room Air MDM MDM MDM Narrative Medical decision making narrative: Patient is a 74-year-old male who presents to the emergency department with multiple falls today on the differential diagnose includes but not limited to intracranial hemorrhage, cervical spine fracture, electrolyte abnormality, arrhythmia. Once workup is obtained and reviewed he will be reevaluated. Patient CBC reviewed and showed no evidence leukocytosis white blood count normal at 10.5, hemoglobin 16.1, platelet count was noted be normal at 150. Patient sodium normal 137, potassium normal at 4, creatinine normal at 1.23. Patient's AST and ALT were 1527 respectively, troponin was noted to be 27 with a delta troponin obtained at 25. Patient's EKG reviewed and showed sinus rhythm with a rate of 81 bpm with PVCs noted. This was compared to previous EKG from October 2022 which showed evidence of right bundle branch block at that point in time which is noted on this EKG as well today. Patient's CT head and brain without contrast reviewed showed no acute intracranial abnormality. Patient CT cervical spine reviewed showed no acute osseous abnormality. Patient ambulated well here in the emergency department without any difficulty. Patient had orthostatic vital signs obtained which were negative. Patient would like to go home at this point time and for members at bedside agreeable this plan he was encouraged to follow-up with his primary care physician and return for worsening symptoms or concerns. All question concerns answered he is discharged home in stable condition peer Lab Data Labs: Laboratory Results - last 24 hr 10/26/24 10/26/24 10/26/24 20:30 21:43 22:49 WBC 10.5 RBC 5.08 Hgb 16.1 Hct 46.9 MCV 92.3 MCH 31.7 MCHC 34.3 RDW Std Deviation 43.8 RDW Coeff of Vinayak 13.0 Plt Count 150 MPV 9.5 Immature Gran % (Auto) 0.300 Neut % (Auto) 77.0 H Lymph % (Auto) 8.0 L [place] % (Auto) 13.6 H Eos % (Auto) 0.7 Baso % (Auto) 0.4 Absolute Neuts (auto) 8.1 H Absolute Lymphs (auto) 0.84 Nucleated RBC % 0 Sodium 137 Potassium 4.0 Chloride 103 Carbon Dioxide 25.0 Anion Gap 9 BUN 16 Creatinine 1.23 Est GFR (MDRD) Af Amer 74 Est GFR (MDRD) Non-Af 61 BUN/Creatinine Ratio 13.0 Glucose 120 H Calcium 8.8 Total Bilirubin 1.00 AST 15 ALT 27 Alkaline Phosphatase 22 L Troponin I High Sens 27 25 Total Protein 7.1 Albumin 3.9 Globulin 3.2 Albumin/Globulin Ratio 1.2 Lipase 35 L Urine Color Yellow Urine Clarity Clear Urine pH 6.0 Ur Specific [place] 1.020 Urine Protein 15 H Urine Glucose (UA) Normal Urine Ketones Negative Urine Occult Blood 150 H Urine Nitrite Negative Urine Bilirubin Negative Urine Urobilinogen 1 H Ur Leukocyte Esterase Negative Urine RBC 0-5 SEEN Urine WBC 0 SEEN Ur Squamous Epith Cells 0-5 SEEN Urine Bacteria 0 SEEN Urine Mucus 0 SEEN Radiography Diagnostic Testing: Clinical Impression(s) from Imaging Studies Brain CT 10/26/24 20:16 IMPRESSION: No acute intracranial abnormality. One or more dose reduction techniques were used (e.g., Automated exposure control, adjustment of the mA and/or kV according to patient size, use of iterative reconstruction technique). Reading Location: [facility] Cervical Spine CT 10/26/24 20:16 IMPRESSION: No acute osseous abnormality. One or more dose reduction techniques were used (e.g., Automated exposure control, adjustment of the mA and/or kV according to patient size, use of iterative reconstruction technique). Reading Location: [facility] Discharge Plan Triage Chief Complaint: Fall ED Provider: Varun Ibarra Dx/Rx/DC Orders Clinical Impression: Fall Prescriptions: No Action acetaminophen 500 mg tablet 1,000 mg PO Q6H PRN (Reason: Pain) donepezil 10 mg tablet 10 mg PO QDAY magnesium citrate,mag oxide 250 mg capsule 250 mg PO DAILY mirabegron [Myrbetriq] 25 mg tablet extended release 24 hr 25 mg PO QDAY aspirin 81 MG tablet 81 mg PO DAILY@0800 nitroglycerin 0.4 mg Tablet, Sublingual 0.4 mg sublingual Q5M PRN (Reason: Chest pain) Qty: 10 0RF Rx Instructions: If you use this medication please contact your rn staffing office and notify them of onset chest pain. mirtazapine 15 mg Tablet 15 mg PO QHS escitalopram oxalate 10 mg Tablet 10 mg PO DAILY cholecalciferol (vitamin D3) [Vitamin D3] 125 mcg (5,000 unit) Tablet 125 mcg PO DAILY lisinopril 10 mg tablet 10 mg PO BID Qty: 180 3RF amlodipine 5 mg tablet 5 mg PO DAILY Qty: 30 11RF isosorbide mononitrate 60 mg tablet extended release 24 hr 60 mg PO DAILY Qty: 90 3RF rosuvastatin 5 mg tablet 5 mg PO DAILY Qty: 90 3RF carvedilol 25 mg tablet 25 mg PO BID Qty: 180 3RF Primary Care Provider: Jung Charles Referrals: Jung Charles MD [Primary Care Provider] - Activity Restrictions/Additional Instructions: Follow-up with your doctor in outpatient setting. Your CT head and CT of your neck were normal. Your blood work overall was normal. Return with worsening symptoms or other concerns. Print Language: Icelandic Disposition Disposition: Home, Self Care
[2024-10-26 21:48] LABS: Bacteria 0 SEEN /hpf (None Seen); Mucous, Urine 0 SEEN /hpf (<or=2+); White Blood Cells 0 SEEN /hpf (0-5)
[2024-10-26 21:50] LABS: Color, Urine Yellow (Yellow); Glucose, Dipstick Normal (Normal); Ketone-Dipstick Negative (Negative); Leukocyte Esterase-Dipstick Negative /ul (Negative); Nitrite-Dipstick Negative (Negative); Occult Blood-Urine 150 /ul (Negative); Protein-Dipstick 15 mg/dl (Negative); Urine Bilirubin Dipstick Negative (Negative); Urine Clarity Clear (Clear); Urine Urobilinogen 1 mg/dl (Normal)
[2024-10-26 21:53] VITALS: BP 150/86; PULSE 78; RESP 18; O2SAT 94
[2024-10-26 21:58] LABS: Red Blood Cells-Urine 0-5 SEEN /hpf (0-5); Squamous Epithelial Cells - UA 0-5 SEEN /hpf (0-5)
[2024-10-26 22:35] VITALS: BP 158/90; BP 160/85; BP 161/92; PULSE 76; PULSE 78; PULSE 81; O2SAT 94
[2024-10-26 23:00] VITALS: PULSE 81; RESP 16; O2SAT 95
[2024-10-26 23:16] LABS: Troponin-I HS 25 pg/mL (3.0-78.0)
[2024-10-26 23:32] VITALS: BP 150/86; PULSE 81; RESP 16; TEMP 36.8; O2SAT 95
== END 2024-10-26 23:42 | disposition home or self-care (01) ==
PROVIDERS: Emergency Provider Emergency Medicine; PCP Internal Medicine; Visit Provider Emergency Medicine
DX: R29.6 Repeated falls (principal); F03.90 Unspecified dementia, unspecified severity, without behavioral disturbance, psychotic disturbance, mood disturbance, and anxiety; I25.10 Atherosclerotic heart disease of native coronary artery without angina pectoris; I10 Essential (primary) hypertension; E78.00 Pure hypercholesterolemia, unspecified; I49.3 Ventricular premature depolarization; N40.0 Benign prostatic hyperplasia without lower urinary tract symptoms; G47.33 Obstructive sleep apnea (adult) (pediatric); F32.A Depression, unspecified; F41.9 Anxiety disorder, unspecified; I25.2 Old myocardial infarction; Z79.82 Long term (current) use of aspirin; Z79.899 Other long term (current) drug therapy; Z95.1 Presence of aortocoronary bypass graft; Z95.5 Presence of coronary angioplasty implant and graft
CPT/HCPCS: 70450; 72125; 80053; 81001; 83690; 84484; 85025; 93005; 96360; 96361; 99284; A4216